=== PATIENT | female | born 1970 | race Caucasian/White ===

== ENCOUNTER → 2017-11-12 11:17 | Outpatient (CLI) | payer MEDICARE, MEDICAID, SELFPAY ==
[2017-11-12 11:26] LABS: Bacteria 0 SEEN /hpf (None Seen); Mucous, Urine 0 SEEN /hpf (<or=2+); Red Blood Cells-Urine 0 SEEN /hpf (0-5); White Blood Cells 0 SEEN /hpf (0-5)
[2017-11-12 14:05] LABS: Color, Urine Yellow (Yellow); Glucose, Dipstick Normal (Normal); Ketone-Dipstick Negative (Negative); Leukocyte Esterase-Dipstick Negative /ul (Negative); Nitrite-Dipstick Negative (Negative); Occult Blood-Urine 25 /ul (Negative); Protein-Dipstick Negative (Negative); Specific Gravity, Urine 1.005 (1.002-1.030); Urine Bilirubin Dipstick Negative (Negative); Urine Clarity Sl. Cloudy (Clear); Urine Urobilinogen Normal (Normal)
[2017-11-12 14:11] LABS: Squamous Epithelial Cells - UA 0-5 SEEN /hpf (5-10)
== END ==
PROVIDERS: Family Provider Family Medicine; PCP Family Medicine; Visit Provider Family Medicine
DX: R31.9 Hematuria, unspecified (principal)
CPT/HCPCS: 81001; 87086; 87088

== ENCOUNTER → 2018-07-25 10:36 | Outpatient (CLI) | payer MEDICARE, MEDICAID, SELFPAY ==
[2018-07-25 12:14] LABS: Absolute Lymphocyte Count 1.91 X10^3/ul (0.83-4.51); Absolute Neutrophil Count 5.1 X10^3/uL (2.0-7.7); Basophil# 0.03 X10^3/uL; Basophil% 0.4 % (0-1); Eosinophil# 0.18 X10^3/uL; Eosinophils% 2.3 % (0-5); Hematocrit 43.2 % (37-47); Hemoglobin 14.1 g/dl (12.0-15.0); Lymphocyte # 1.91 X10^3/ul (4.0); Lymphocyte % 24.7 % (19-41); Mean Corp Hgb Conc 32.6 g/gl (32-36); Mean Corpuscular Hgb 31.2 pg (27.0-32.0); Mean Corpuscular Volume 95.6 fL (81-99); Mean Platelet Vol. 10.8 fl (6.2-12.0); Monocyte# 0.52 X10^3/uL; Monocyte% 6.7 % (0-10); Neutrophil # 5.07 X10^3/uL (2.7-7.7); Neutrophil % 65.5 % (47-70); Platelet Count 283 K/mm3 (150-450); RBC Distribution Width CV 13.3 % (11.6-14.6); RBC Distribution Width SD 45.2 fl (35.1-43.9); Red Blood Count 4.52 M/mm3 (4.2-5.4); White Blood Count 7.7 K/mm3 (4.4-11.0)
[2018-07-25 12:27] LABS: POSITIVE COUNT NO; POSITIVE DIFFERENTIAL NO; POSITIVE MORPHOLOGY NO
[2018-07-25 12:41] LABS: Free T3 1.7 pg/mL (2.18-3.98); T4 Free Direct 1.37 ng/dL (0.76-1.46); Thyroid Stim Hormone (TSH) 3.71 uIU/mL (0.358-3.74)
[2018-07-26 13:21] LABS: Hep B Surface Antibodies Non Reactive (.)
== END ==
PROVIDERS: Family Provider Family Medicine; PCP Family Medicine; Visit Provider Family Medicine
DX: E03.9 Hypothyroidism, unspecified (principal); Z72.0 Tobacco use; Z13.9 Encounter for screening, unspecified
CPT/HCPCS: 36415; 84439; 84443; 84481; 85025; 86706

== ENCOUNTER → 2018-11-03 14:03 | Outpatient (CLI) | payer MEDICARE, MEDICAID, SELFPAY ==
[2018-11-03 15:25] LABS: Absolute Neutrophil Count 5.3 X10^3/uL (2.0-7.7); Basophil# 0.03 X10^3/uL; Basophil% 0.4 % (0-1); Eosinophil# 0.21 X10^3/uL; Eosinophils% 2.5 % (0-5); Hematocrit 43.8 % (37-47); Lymphocyte % 26.4 % (19-41); Mean Corpuscular Volume 96.9 fL (81-99); Mean Platelet Vol. 10.8 fl (6.2-12.0); Monocyte# 0.57 X10^3/uL; Monocyte% 6.8 % (0-10); Neutrophil # 5.28 X10^3/uL (2.7-7.7); Neutrophil % 63.4 % (47-70); Platelet Count 260 K/mm3 (150-450); RBC Distribution Width CV 13.8 % (11.6-14.6); RBC Distribution Width SD 47.7 fl (35.1-43.9); Red Blood Count 4.52 M/mm3 (4.2-5.4); White Blood Count 8.3 K/mm3 (4.4-11.0)
[2018-11-03 15:33] LABS: POSITIVE COUNT NO; POSITIVE DIFFERENTIAL NO; POSITIVE MORPHOLOGY NO
[2018-11-03 15:46] LABS: ALB/GLOB Ratio 0.9 RATIO (0.9-2.4); AST(SGOT) 15 U/L (15-37); Alanine Aminotransfer ALT/SGPT 23 U/L (13-56); Albumin, Serum 3.5 g/dL (3.2-5.0); Alkaline Phosphatase 89 U/L (45-117); Anion Gap 9 (5-15); BUN 9 mg/dL (7-18); BUN/Creat Ratio 11.8 RATIO (10-20); Calcium,Total 8.9 mg/dL (8.5-10.1); Chloride 108 mmol/L (98-107); Creatinine, Serum 0.76 mg/dL (0.55-1.02); EST Glomerular Filtration Rate 86 mL/min (>60); Est Glom Filt Rate - Afr Amer 104 mL/min (>60); Glucose 86 mg/dL (74-106); Potassium 4.1 mmol/L (3.5-5.1); Protein, Total 7.5 g/dL (6.4-8.2); Sodium Level 143 mmol/L (136-145); Thyroid Stim Hormone (TSH) 4.72 uIU/mL (0.358-3.74)
== END ==
PROVIDERS: Family Provider Family Medicine; PCP Family Medicine; Visit Provider Family Medicine
DX: Z01.818 Encounter for other preprocedural examination (principal); E03.9 Hypothyroidism, unspecified
CPT/HCPCS: 36415; 80053; 84443; 85025

== ENCOUNTER → 2018-12-30 10:53 | Outpatient (CLI) | payer MEDICARE, MEDICAID, SELFPAY ==
[2018-12-30 12:45] LABS: Free T3 2.2 pg/mL (2.18-3.98); T4 Free Direct 1.02 ng/dL (0.76-1.46); Thyroid Stim Hormone (TSH) 3.79 uIU/mL (0.358-3.74)
== END ==
PROVIDERS: Family Provider Family Medicine; PCP Family Medicine; Referring Provider Family Medicine; Visit Provider Family Medicine
DX: E03.9 Hypothyroidism, unspecified (principal)
CPT/HCPCS: 36415; 84439; 84443; 84481

== ENCOUNTER → 2019-06-22 | Outpatient (CLI) | payer MEDICARE, MEDICAID, SELFPAY ==
[2019-06-25 15:26] LABS: HPV Reflexed? NOT INDICATED
== END | disposition home or self-care (01) ==
PROVIDERS: Family Provider Family Medicine; PCP Family Medicine; Referring Provider Nurse Practitioner Adult Health; Visit Provider Nurse Practitioner Adult Health
DX: Z01.419 Encounter for gynecological examination (general) (routine) without abnormal findings (principal)
CPT/HCPCS: 88175; G0145

== ENCOUNTER → 2019-06-25 | Outpatient (CLI) | payer MEDICARE, MEDICAID, SELFPAY ==
--- NOTE | 2019-06-25 16:35 | BI_ITS ---
MAMMOGRAPHY - BILATERAL SCREENING REASON FOR EXAM: Female, 48 years old. Routine annual screening examination. PERTINENT HISTORY: Grandmother with breast cancer. TECHNIQUE: Digital bilateral breast gil (3D mammographic acquisition) in the CC and MLO projections. 2-D mediolateral oblique (MLO) and craniocaudad (CC) views of both breasts were obtained. CAD: Full Field Digital Mammography with Computer Added Detection was performed. COMPARISON: Comparison is made with prior study dated August 07, 2017 and September 27, 2011. FINDINGS: Breast Composition: The breasts are heterogeneously dense, which may obscure small masses. There are no dominant masses or suspicious calcifications. No other significant abnormalities are identified. There has been no significant change since the prior study. BI/SCREEN MAMM (CAD) W/GIL BILAT IMPRESSION: Stable bilateral screening mammogram. Yearly follow-up mammogram recommended. (A) ASSESSMENT CATEGORY: BIRADS Category 1: Negative. A letter regarding these results will be sent to the patient by the facility within 30 days. Approximately 10% of breast cancers are not detected by mammography. A normal mammogram should not delay biopsy of a clinically suspicious abnormality. [id number] Electronically Signed: Anshul Rivas, at 8:45 EDT , Service support ,
== END | disposition home or self-care (01) ==
PROVIDERS: Family Provider Family Medicine; PCP Family Medicine; Referring Provider Nurse Practitioner Adult Health; Visit Provider Nurse Practitioner Adult Health
DX: Z12.31 Encounter for screening mammogram for malignant neoplasm of breast (principal)
CPT/HCPCS: 77063; 77067

== ENCOUNTER → 2019-07-10 | Outpatient (CLI) | payer MEDICARE, MEDICAID, SELFPAY ==
[2019-07-10 10:22] LABS: Anion Gap 6 (5-15); BUN 8 mg/dL (7-18); BUN/Creat Ratio 9.4 RATIO (10-20); Calcium,Total 8.7 mg/dL (8.5-10.1); Chloride 105 mmol/L (98-107); Cholesterol 277 mg/dL (200); Creatinine, Serum 0.85 mg/dL (0.55-1.02); EST Glomerular Filtration Rate 75 mL/min (>60); Est Glom Filt Rate - Afr Amer 91 mL/min (>60); Glucose 90 mg/dL (74-106); High Density Lipoprotein 31 mg/dL; Potassium 4.2 mmol/L (3.5-5.1); Sodium Level 137 mmol/L (136-145); Triglycerides 315 mg/dL; Very Low Density Lipoprotein 63 mg/dL (5-40)
== END | disposition home or self-care (01) ==
PROVIDERS: Family Provider Family Medicine; PCP Family Medicine; Referring Provider Nurse Practitioner Adult Health; Visit Provider Nurse Practitioner Adult Health
DX: Z13.1 Encounter for screening for diabetes mellitus (principal); Z13.220 Encounter for screening for lipoid disorders
CPT/HCPCS: 36415; 80048; 80061

== ENCOUNTER → 2019-10-21 14:18 | Outpatient (CLI) | payer MEDICARE, MEDICAID, SELFPAY ==
[2019-10-21 15:32] LABS: Absolute Lymphocyte Count 2.55 X10^3/uL (0.83-4.51); Absolute Neutrophil Count 4.8 X10^3/uL (2.0-7.7); Basophil# 0.04 X10^3/uL; Basophil% 0.5 % (0-1); Eosinophil# 0.25 X10^3/uL; Eosinophils% 3.1 % (0-5); Hematocrit 42.9 % (37-47); Hemoglobin 13.9 g/dL (12.0-15.0); Lymphocyte # 2.55 X10^3/ul (4.0); Lymphocyte % 31.5 % (19-41); Mean Corp Hgb Conc 32.4 g/dL (32-36); Mean Corpuscular Volume 92.7 fL (81-99); Mean Platelet Vol. 10.1 fl (6.2-12.0); Monocyte# 0.46 X10^3/uL; Monocyte% 5.7 % (0-10); NRBC Flagged by Analyzer 0 % (0-5); Neutrophil # 4.77 X10^3/uL (2.7-7.7); Neutrophil % 58.8 % (47-70); Platelet Count 279 K/mm3 (150-450); RBC Distribution Width CV 13.2 % (11.6-14.6); RBC Distribution Width SD 45.4 fl (35.1-43.9); Red Blood Count 4.63 M/mm3 (4.2-5.4); White Blood Count 8.1 K/mm3 (4.4-11.0)
[2019-10-21 16:07] LABS: ALB/GLOB Ratio 0.8 RATIO (0.9-2.4); AST(SGOT) 15 U/L (15-37); Alanine Aminotransfer ALT/SGPT 25 U/L (13-56); Albumin, Serum 3.5 g/dL (3.2-5.0); Alkaline Phosphatase 98 U/L (45-117); Anion Gap 1 (5-15); BUN 12 mg/dL (7-18); Calcium,Total 9.2 mg/dL (8.5-10.1); Chloride 109 mmol/L (98-107); Cholesterol 302 mg/dL (200); Creatinine, Serum 0.86 mg/dL (0.55-1.02); EST Glomerular Filtration Rate 74 mL/min (>60); Est Glom Filt Rate - Afr Amer 90 mL/min (>60); Globulin 4.3 g/dL (2.2-4.2); Glucose 71 mg/dL (74-106); High Density Lipoprotein 32 mg/dL; Potassium 4.4 mmol/L (3.5-5.1); Protein, Total 7.8 g/dL (6.4-8.2); Sodium Level 139 mmol/L (136-145); Thyroid Stim Hormone (TSH) 2.96 uIU/mL (0.358-3.74); Triglycerides 356 mg/dL; Very Low Density Lipoprotein 71 mg/dL (5-40)
== END ==
PROVIDERS: PCP Family Medicine; Referring Provider Family Medicine; Visit Provider Family Medicine
DX: E78.00 Pure hypercholesterolemia, unspecified (principal); E03.9 Hypothyroidism, unspecified; F33.1 Major depressive disorder, recurrent, moderate
CPT/HCPCS: 36415; 80053; 80061; 84439; 84443; 84481; 85025

== ENCOUNTER → 2020-05-09 12:15 | Outpatient (CLI) | payer MEDICARE, MEDICAID, SELFPAY ==
[2020-05-09 14:47] LABS: Absolute Lymphocyte Count 2.31 X10^3/uL (0.83-4.51); Absolute Neutrophil Count 5.2 X10^3/uL (2.0-7.7); Basophil# 0.03 X10^3/uL; Basophil% 0.4 % (0-1); Eosinophil# 0.23 X10^3/uL; Eosinophils% 2.8 % (0-5); Hematocrit 40.6 % (37-47); Hemoglobin 13.1 g/dL (12.0-15.0); Lymphocyte # 2.31 X10^3/ul (4.0); Lymphocyte % 27.6 % (19-41); Mean Corp Hgb Conc 32.3 g/dL (32-36); Mean Corpuscular Hgb 30.3 pg (27.0-32.0); Mean Corpuscular Volume 93.8 fL (81-99); Mean Platelet Vol. 10.2 fl (6.2-12.0); Monocyte# 0.54 X10^3/uL; Monocyte% 6.5 % (0-10); NRBC Flagged by Analyzer 0 % (0-5); Neutrophil % 62.1 % (47-70); Platelet Count 285 K/mm3 (150-450); RBC Distribution Width CV 12.8 % (11.6-14.6); RBC Distribution Width SD 44.2 fl (35.1-43.9); Red Blood Count 4.33 M/mm3 (4.2-5.4); White Blood Count 8.4 K/mm3 (4.4-11.0)
[2020-05-09 15:12] LABS: ALB/GLOB Ratio 0.9 RATIO (0.9-2.4); AST(SGOT) 21 U/L (15-37); Alanine Aminotransfer ALT/SGPT 34 U/L (13-56); Albumin, Serum 3.5 g/dL (3.2-5.0); Alkaline Phosphatase 105 U/L (45-117); Anion Gap 8 (5-15); BUN 8 mg/dL (7-18); BUN/Creat Ratio 7.5 RATIO (10-20); Calcium,Total 8.8 mg/dL (8.5-10.1); Chloride 105 mmol/L (98-107); Cholesterol 188 mg/dL (200); Creatinine, Serum 1.07 mg/dL (0.55-1.02); EST Glomerular Filtration Rate 58 mL/min (>60); Est Glom Filt Rate - Afr Amer 70 mL/min (>60); Globulin 4.1 g/dL (2.2-4.2); Glucose 87 mg/dL (74-106); High Density Lipoprotein 30 mg/dL; Potassium 4.5 mmol/L (3.5-5.1); Protein, Total 7.6 g/dL (6.4-8.2); Sodium Level 140 mmol/L (136-145); T3 Total - Triiodothyronine 0.97 ng/mL (0.6-1.81); T4 Free Direct 1.35 ng/dL (0.76-1.46); Thyroid Stim Hormone (TSH) 2.68 uIU/mL (0.358-3.74); Triglycerides 326 mg/dL; Very Low Density Lipoprotein 65 mg/dL (5-40)
== END ==
PROVIDERS: PCP Family Medicine; Visit Provider Family Medicine
DX: F33.1 Major depressive disorder, recurrent, moderate (principal); E78.00 Pure hypercholesterolemia, unspecified; E03.9 Hypothyroidism, unspecified
CPT/HCPCS: 36415; 80053; 80061; 84439; 84443; 84480; 85025; 87635; U0003

== ENCOUNTER → 2020-08-09 12:33 | Outpatient (CLI) | payer MEDICARE, MEDICAID, SELFPAY | PROVIDERS: PCP Family Medicine; Referring Provider Family Medicine; Visit Provider Family Medicine | DX: Z20.828 Contact with and (suspected) exposure to other viral communicable diseases (principal) | CPT/HCPCS: 87635; U0003 ==

== ENCOUNTER → 2020-09-06 18:07 | Outpatient (CLI) | payer MEDICARE, MEDICAID, SELFPAY | PROVIDERS: PCP Family Medicine; Referring Provider Family Medicine; Visit Provider Family Medicine | DX: Z20.828 Contact with and (suspected) exposure to other viral communicable diseases (principal) | CPT/HCPCS: 87635; U0003 ==

== ENCOUNTER → 2021-03-28 15:13 | Outpatient (CLI) | payer MEDICARE, MEDICAID, SELFPAY ==
[2021-03-28 18:07] LABS: Absolute Lymphocyte Count 2.45 X10^3/uL (0.83-4.51); Absolute Neutrophil Count 7.3 X10^3/uL (2.0-7.7); Basophil# 0.08 X10^3/uL; Basophil% 0.7 % (0-1); Eosinophils% 2.8 % (0-5); Erythrocyte Sedimentation Rate 16 mm/hr (0-30); Hematocrit 46.9 % (37-47); Hemoglobin 15.2 g/dL (12.0-15.0); Lymphocyte # 2.45 X10^3/ul (0.83-4.51); Lymphocyte % 22.6 % (19-41); Mean Corp Hgb Conc 32.4 g/dL (32-36); Mean Corpuscular Hgb 32.1 pg (27.0-32.0); Mean Corpuscular Volume 98.9 fL (81-99); Mean Platelet Vol. 10.3 fl (6.2-12.0); Monocyte# 0.61 X10^3/uL; Monocyte% 5.6 % (0-10); NRBC Flagged by Analyzer 0 % (0-5); Neutrophil # 7.34 X10^3/uL (2.7-7.7); Neutrophil % 67.7 % (47-70); Platelet Count 330 K/mm3 (150-450); RBC Distribution Width CV 13.3 % (11.6-14.6); RBC Distribution Width SD 49.1 fl (35.1-43.9); Red Blood Count 4.74 M/mm3 (4.2-5.4); White Blood Count 10.8 K/mm3 (4.4-11.0)
[2021-03-28 18:29] LABS: ALB/GLOB Ratio 0.9 RATIO (0.9-2.4); AST(SGOT) 28 U/L (15-37); Alanine Aminotransfer ALT/SGPT 38 U/L (13-56); Albumin, Serum 3.6 g/dL (3.2-5.0); Alkaline Phosphatase 129 U/L (45-117); Anion Gap 8 (5-15); BUN 9 mg/dL (7-18); BUN/Creat Ratio 8.3 RATIO (10-20); CRP 7.79 mg/L (0.0-3.0); Calcium,Total 8.9 mg/dL (8.5-10.1); Chloride 103 mmol/L (98-107); Creatinine, Serum 1.09 mg/dL (0.55-1.02); EST Glomerular Filtration Rate 56 mL/min (>60); Est Glom Filt Rate - Afr Amer 68 mL/min (>60); Globulin 4.2 g/dL (2.2-4.2); Glucose 92 mg/dL (74-106); Potassium 4.2 mmol/L (3.5-5.1); Protein, Total 7.8 g/dL (6.4-8.2); Sodium Level 137 mmol/L (136-145); Thyroid Stim Hormone (TSH) 2.41 uIU/mL (0.358-3.74)
== END ==
PROVIDERS: PCP Family Medicine; Visit Provider Family Medicine
DX: R19.7 Diarrhea, unspecified (principal); K92.1 Melena
CPT/HCPCS: 36415; 80053; 84443; 85025; 85652; 86140

== ENCOUNTER → 2021-03-30 09:09 | Outpatient (CLI) | payer MEDICARE, MEDICAID, SELFPAY ==
[2021-04-02 07:52] LABS: H. PYLORI STOOL AG Negative (Negative)
[2021-04-05 21:21] LABS: Calprotectin, Stool 27 ug/g (0-120)
== END ==
PROVIDERS: PCP Family Medicine; Visit Provider Family Medicine
DX: R19.7 Diarrhea, unspecified (principal); K92.1 Melena
CPT/HCPCS: 83630; 83993; 87177; 87209; 87506

== ENCOUNTER → 2021-06-07 16:42 | Outpatient (CLI) | payer MEDICARE, MEDICAID, SELFPAY ==
[2021-06-07 17:40] LABS: Absolute Lymphocyte Count 2.72 X10^3/uL (0.83-4.51); Absolute Neutrophil Count 7.9 X10^3/uL (2.0-7.7); Basophil# 0.06 X10^3/uL; Basophil% 0.5 % (0-1); Eosinophil# 0.27 X10^3/uL; Eosinophils% 2.3 % (0-5); Hematocrit 45.9 % (37-47); Hemoglobin 15.3 g/dL (12.0-15.0); Lymphocyte # 2.72 X10^3/ul (0.83-4.51); Lymphocyte % 23.2 % (19-41); Mean Corp Hgb Conc 33.3 g/dL (32-36); Mean Corpuscular Volume 98.9 fL (81-99); Mean Platelet Vol. 10.2 fl (6.2-12.0); Monocyte# 0.69 X10^3/uL; Monocyte% 5.9 % (0-10); NRBC Flagged by Analyzer 0 % (0-5); Neutrophil # 7.91 X10^3/uL (2.7-7.7); Neutrophil % 67.4 % (47-70); Platelet Count 320 K/mm3 (150-450); RBC Distribution Width CV 12.9 % (11.6-14.6); RBC Distribution Width SD 46.9 fl (35.1-43.9); Red Blood Count 4.64 M/mm3 (4.2-5.4); White Blood Count 11.7 K/mm3 (4.4-11.0)
[2021-06-07 18:25] LABS: Anion Gap 3 (5-15); BUN 8 mg/dL (7-18); BUN/Creat Ratio 10.6 RATIO (10-20); Calcium,Total 9.3 mg/dL (8.5-10.1); Chloride 106 mmol/L (98-107); Creatinine, Serum 0.76 mg/dL (0.55-1.02); EST Glomerular Filtration Rate 85 mL/min (>60); Est Glom Filt Rate - Afr Amer 103 mL/min (>60); Glucose 100 mg/dL (74-106); Potassium 4.3 mmol/L (3.5-5.1); Sodium Level 136 mmol/L (136-145)
== END ==
PROVIDERS: PCP Family Medicine; Referring Provider Family Medicine; Visit Provider Family Medicine
DX: Z01.818 Encounter for other preprocedural examination (principal)
CPT/HCPCS: 36415; 80048; 85025

== ENCOUNTER → 2021-07-21 10:51 | Outpatient (CLI) | payer MEDICARE, MEDICAID, SELFPAY ==
--- NOTE | 2021-07-21 12:54 | BI_ITS ---
MAMMOGRAPHY - BILATERAL SCREENING REASON FOR EXAM: Female, 51 years old. Routine annual screening examination. PERTINENT HISTORY: Grandmother with breast cancer. TECHNIQUE: Digital bilateral breast gil (3D mammographic acquisition) in the CC and MLO projections. 2-D mediolateral oblique (MLO) and craniocaudad (CC) views of both breasts were obtained. CAD: Full Field Digital Mammography with Computer Added Detection was performed. COMPARISON: Comparison is made with prior study dated 06/25/2019 and 08/07/2017. FINDINGS: Breast Composition: There are scattered areas of fibroglandular density. There are no dominant masses or suspicious calcifications. Stable asymmetry of breast tissue where more breast tissue is seen in the upper outer quadrant of the left breast as compared to the right side. Correlation with ultrasound of the upper lateral aspect of the right breast is recommended for further evaluation. No other significant abnormalities are identified. BI/SCRN MAMM (CAD)W/GIL BILAT IMPRESSION: Asymmetry of breast tissue with more breast tissue is seen in the upper-outer quadrant of the left breast as compared to the right side. Correlation with ultrasound is recommended for further evaluation. ASSESSMENT CATEGORY: BIRADS Category 0: Incomplete. Need additional imaging evaluation. A letter regarding these results will be sent to the patient by the facility within 30 days. Approximately 10% of breast cancers are not detected by mammography. A normal mammogram should not delay biopsy of a clinically suspicious abnormality. [id number] Electronically Signed: Anshul Rivas MD at 14:11 EDT , Service support ,
[2021-07-21 12:59] LABS: ALB/GLOB Ratio 0.8 RATIO (0.9-2.4); AST(SGOT) 28 U/L (15-37); Alanine Aminotransfer ALT/SGPT 37 U/L (13-56); Albumin, Serum 3.4 g/dL (3.2-5.0); Alkaline Phosphatase 116 U/L (45-117); Anion Gap 7 (5-15); BUN 7 mg/dL (7-18); Calcium,Total 9.5 mg/dL (8.5-10.1); Chloride 103 mmol/L (98-107); Cholesterol 280 mg/dL (200); Creatinine, Serum 0.87 mg/dL (0.55-1.02); EST Glomerular Filtration Rate 73 mL/min (>60); Est Glom Filt Rate - Afr Amer 88 mL/min (>60); Globulin 4.4 g/dL (2.2-4.2); Glucose 101 mg/dL (74-106); High Density Lipoprotein 30 mg/dL; Potassium 3.9 mmol/L (3.5-5.1); Protein, Total 7.8 g/dL (6.4-8.2); Sodium Level 137 mmol/L (136-145); Triglycerides 451 mg/dL
== END ==
PROVIDERS: PCP Family Medicine; Referring Provider Family Medicine; Visit Provider Family Medicine
DX: Z12.31 Encounter for screening mammogram for malignant neoplasm of breast (principal); E03.9 Hypothyroidism, unspecified; E66.9 Obesity, unspecified
CPT/HCPCS: 36415; 77063; 77067; 80053; 80061; 84443

== ENCOUNTER → 2021-07-25 14:09 | Outpatient (CLI) | payer MEDICARE, MEDICAID, SELFPAY ==
--- NOTE | 2021-07-25 14:14 | US_ITS ---
STUDY: ULTRASOUND BREAST - RIGHT REASON FOR EXAM: Female, 51 years old. Asymmetry of breast tissue on recent mammogram. TECHNIQUE: Axial and longitudinal images of the RIGHT breast were performed with a high resolution ultrasound transducer. # OF IMAGES: 30 COMPARISON: Comparison is made with prior mammogram dated 07/21/2021 and prior sonogram of the right breast dated 09/27/2011. FINDINGS: RIGHT Breast: The upper lateral aspect of the right breast was examined by ultrasound. There is fibroglandular tissue. No solid or cystic mass lesion is seen. US/Breast Limited Unilateral IMPRESSION: No sonographic abnormality is seen. ASSESSMENT CATEGORY: BIRADS Category 2: Benign. A letter regarding these results will be sent to the patient by the facility within 30 days. Electronically Signed: Anshul Rivas MD at 14:53 EDT , Service support ,
== END ==
PROVIDERS: PCP Family Medicine; Referring Provider Family Medicine; Visit Provider Family Medicine
DX: R92.8 Other abnormal and inconclusive findings on diagnostic imaging of breast (principal)
CPT/HCPCS: 76642

== ENCOUNTER 2021-10-24 13:03 | Outpatient (CLI) | payer MEDICARE, MEDICAID, SELFPAY ==
--- NOTE | 2021-10-25 07:12 | PFT ---
INTRODUCTION: The patient is a 51-year-old female that presents for pulmonary function studies secondary to a diagnosis of wheezing and tobacco dependency. Respiratory therapy reported good patient effort. Bronchodilators were used during testing. INTERPRETATION: Forced expiration spirometry demonstrates no evidence of a large airways obstructive ventilatory defect. There was no significant response to aerosolized bronchodilators. Spirograms are of good quality and plateau normally. The respiratory flow volume loop is normal. Body plethysmography was performed and reveals lung volumes to be within normal limits. Diffusing capacity by single breath CO is also within normal limits. IMPRESSION: Grossly normal pulmonary function studies.
== END 2021-10-24 23:59 | disposition short-term general hospital (02) ==
LOC: PSN 13:04
PROVIDERS: PCP Family Medicine; Referring Provider Family Medicine; Visit Provider Family Medicine
DX: R06.2 Wheezing (principal); F17.210 Nicotine dependence, cigarettes, uncomplicated
CPT/HCPCS: 94060; 94726; 94729

== ENCOUNTER → 2022-01-26 | Outpatient (CLI) | payer MEDICARE, MEDICAID, SELFPAY ==
[2022-01-26 14:54] LABS: Absolute Lymphocyte Count 2.72 X10^3/uL (0.83-4.51); Absolute Neutrophil Count 5.5 X10^3/uL (2.0-7.7); Basophil# 0.04 X10^3/uL; Basophil% 0.4 % (0-1); Eosinophil# 0.22 X10^3/uL; Eosinophils% 2.4 % (0-5); Hematocrit 42.1 % (37-47); Hemoglobin 13.9 g/dL (12.0-15.0); Lymphocyte # 2.72 X10^3/ul (0.83-4.51); Lymphocyte % 30.2 % (19-41); Mean Corpuscular Hgb 31.9 pg (27.0-32.0); Mean Corpuscular Volume 96.6 fL (81-99); Mean Platelet Vol. 10.2 fl (6.2-12.0); Monocyte# 0.51 X10^3/uL; Monocyte% 5.7 % (0-10); NRBC Flagged by Analyzer 0 % (0-5); Neutrophil # 5.47 X10^3/uL (2.7-7.7); Neutrophil % 60.7 % (47-70); Platelet Count 305 K/mm3 (150-450); RBC Distribution Width CV 12.5 % (11.6-14.6); RBC Distribution Width SD 44.8 fl (35.1-43.9); Red Blood Count 4.36 M/mm3 (4.2-5.4)
[2022-01-26 15:14] LABS: ALB/GLOB Ratio 0.9 RATIO (0.9-2.4); AST(SGOT) 24 U/L (15-37); Alanine Aminotransfer ALT/SGPT 31 U/L (13-56); Albumin, Serum 3.5 g/dL (3.2-5.0); Alkaline Phosphatase 98 U/L (45-117); Anion Gap 4 (5-15); BUN 9 mg/dL (7-18); BUN/Creat Ratio 12.1 RATIO (10-20); Chloride 107 mmol/L (98-107); Cholesterol 228 mg/dL (200); Creatinine, Serum 0.74 mg/dL (0.55-1.02); EST Glomerular Filtration Rate 87 mL/min (>60); Est Glom Filt Rate - Afr Amer 105 mL/min (>60); Globulin 4.1 g/dL (2.2-4.2); Glucose 108 mg/dL (74-106); High Density Lipoprotein 36 mg/dL; Potassium 3.8 mmol/L (3.5-5.1); Protein, Total 7.6 g/dL (6.4-8.2); Sodium Level 138 mmol/L (136-145); T4 Free Direct 1.23 ng/dL (0.76-1.46); Thyroid Stim Hormone (TSH) 0.29 uIU/mL (0.358-3.74); Triglycerides 263 mg/dL; Very Low Density Lipoprotein 53 mg/dL (5-40)
[2022-01-28 15:40] LABS: LDL, Direct 120295 137 mg/dL (0-99)
== END | disposition home or self-care (01) ==
LOC: BIMLAB 13:33
PROVIDERS: PCP Family Medicine; Referring Provider Family Medicine; Visit Provider Family Medicine
DX: F25.9 Schizoaffective disorder, unspecified (principal); E03.9 Hypothyroidism, unspecified; E78.00 Pure hypercholesterolemia, unspecified
CPT/HCPCS: 36415; 80053; 80061; 83721; 84439; 84443; 85025

== ENCOUNTER → 2022-03-30 | Outpatient (CLI) | payer MEDICARE, MEDICAID, SELFPAY ==
--- NOTE | 2022-03-30 13:10 | RAD_ITS ---
STUDY: X-RAY - LUMBAR SPINE REASON FOR EXAM: Female, 51 years old. LBP TECHNIQUE: XR Spine Lumbar Comp W/ Bending Min 6 Views COMPARISON: None FINDINGS: Normal lumbar lordosis. There is no substantial scoliosis. There is a normal alignment of the vertebrae. Normal vertebral bodies and endplates. Normal disc space heights. There are multiple metallic clips in the right upper quadrant. This is consistent for a cholecystectomy. RAD/L/S Spine w Bend Min 6 Vw IMPRESSION: There are no acute findings. Electronically Signed: Obi Hatch MD at 21:16 EDT ,
== END | disposition home or self-care (01) ==
LOC: MTRAD 12:55
PROVIDERS: PCP Family Medicine; Referring Provider Family Medicine; Visit Provider Family Medicine
DX: M54.50 Low back pain, unspecified (principal)
CPT/HCPCS: 72114

== ENCOUNTER → 2022-05-03 | Outpatient (CLI) | payer MEDICARE, MEDICAID, SELFPAY ==
[2022-05-03 15:10] LABS: Absolute Lymphocyte Count 2.92 X10^3/uL (0.83-4.51); Absolute Neutrophil Count 5.7 X10^3/uL (2.0-7.7); Basophil# 0.05 X10^3/uL; Basophil% 0.5 % (0-1); Eosinophil# 0.26 X10^3/uL; Eosinophils% 2.7 % (0-5); Hemoglobin 14.1 g/dL (12.0-15.0); Lymphocyte # 2.92 X10^3/ul (0.83-4.51); Lymphocyte % 30.7 % (19-41); Mean Corp Hgb Conc 32.8 g/dL (32-36); Mean Corpuscular Volume 97.7 fL (81-99); Mean Platelet Vol. 9.9 fl (6.2-12.0); Monocyte# 0.49 X10^3/uL; Monocyte% 5.2 % (0-10); NRBC Flagged by Analyzer 0 % (0-5); Neutrophil # 5.74 X10^3/uL (2.7-7.7); Neutrophil % 60.5 % (47-70); Platelet Count 304 K/mm3 (150-450); RBC Distribution Width CV 12.8 % (11.6-14.6); RBC Distribution Width SD 46.1 fl (35.1-43.9); White Blood Count 9.5 K/mm3 (4.4-11.0)
[2022-05-03 15:24] LABS: T3 Total - Triiodothyronine 0.72 ng/mL (0.6-1.81)
[2022-05-03 15:52] LABS: ALB/GLOB Ratio 0.8 RATIO (0.9-2.4); AST(SGOT) 23 U/L (15-37); Alanine Aminotransfer ALT/SGPT 27 U/L (13-56); Albumin, Serum 3.4 g/dL (3.2-5.0); Alkaline Phosphatase 91 U/L (45-117); Anion Gap 6 (5-15); BUN 8 mg/dL (7-18); Calcium,Total 8.7 mg/dL (8.5-10.1); Chloride 106 mmol/L (98-107); Creatinine, Serum 0.89 mg/dL (0.55-1.02); EST Glomerular Filtration Rate 71 mL/min (>60); Est Glom Filt Rate - Afr Amer 86 mL/min (>60); Glucose 86 mg/dL (74-106); Potassium 4.3 mmol/L (3.5-5.1); Protein, Total 7.4 g/dL (6.4-8.2); Sodium Level 139 mmol/L (136-145); T4 Free Direct 0.64 ng/dL (0.76-1.46)
== END | disposition home or self-care (01) ==
LOC: BIMLAB 12:23
PROVIDERS: PCP Family Medicine; Visit Provider Family Medicine
DX: E03.9 Hypothyroidism, unspecified (principal); N18.2 Chronic kidney disease, stage 2 (mild)
CPT/HCPCS: 36415; 80053; 84439; 84443; 84480; 85025

== ENCOUNTER → 2022-05-21 | Outpatient (CLI) | payer MEDICARE, MEDICAID, SELFPAY ==
[2022-05-21 13:30] LABS: Free T3 2.5 pg/mL (2.18-3.98); T4 Free Direct 1.08 ng/dL (0.76-1.46); T4 Total, Thyroxin 11.2 ug/dL (4.8-13.9); Thyroid Stim Hormone (TSH) 7.92 uIU/mL (0.358-3.74)
== END | disposition home or self-care (01) ==
PROVIDERS: PCP Family Medicine; Referring Provider Family Medicine; Visit Provider Family Medicine
DX: E03.9 Hypothyroidism, unspecified (principal)
CPT/HCPCS: 36415; 84436; 84439; 84443; 84481

== ENCOUNTER 2022-07-09 11:40 | Emergency (ER) | payer MEDICARE, MEDICAID, SELFPAY ==
[2022-07-09 11:41] VITALS: BP 128/94; PULSE 96; RESP 16; TEMP 35.5; O2SAT 96; BMI 35.2
--- NOTE | 2022-07-09 12:57 | EX.ED.SAOD ---
HPI History of Present Illness Chief Complaint: ETOH Intox Narrative Narrative: History and physical is mildly limited secondary to alcohol intoxication. Patient presents via EMS. She states that she is stressed out about taking care of her kids. Her boyfriend called EMS because she was drinking alcohol. She denies any suicidal ideation. She states she only drinks 2 rum and Cokes today. She denied drinking on a daily basis, and states she does not want detox. It was reported by EMS that she is a daily drinker however, and that she had told her boyfriend that she does not want detox and is not interested in the program but he called because of her alcohol intoxication. [facility] Medical History Acute maxillary sinusitis, unspecified Alcohol abuse Home Medications benztropine 2 mg tablet 2 mg PO DAILY 07/30/15 [History Last Taken Unknown] gabapentin 300 mg capsule 300 mg PO TIDCM 07/30/15 [History Last Taken Unknown] levothyroxine 75 mcg tablet 75 mcg PO DAILY 07/30/15 [History Last Taken Unknown] trazodone 50 mg tablet 50 mg PO QHS 07/30/15 [History Last Taken Unknown] clonidine HCl 0.1 mg tablet 0.1 mg PO QHS 05/04/22 [History Last Taken Unknown] hydroxyzine HCl 25 mg tablet 25 mg PO TID PRN 05/04/22 [History Last Taken Unknown] meloxicam 7.5 mg tablet 7.5 mg PO DAILY 05/04/22 [History Last Taken Unknown] Allergy/AdvReac Type Severity Reaction Status Date / Time ketamine Allergy Unknown unknown Verified 07/09/22 11:41 cortisone Allergy Severe Hives Uncoded 07/09/22 11:41 Social History Smoking Status: Unknown if ever smoked ROS ROS ED ROS Narrative Constitutional: No fever, no chills. HEENT: No sore throat. No neck pain. No loss of vision. No rhinorrhea. Cardiovascular: No chest pain. No palpitations. No pedal edema. Respiratory: No cough, no shortness of breath. Abdominal: No abdominal pain. No nausea. No vomiting. Genitourinary: No dysuria. No hematuria. Musculoskeletal: No myalgias. No arthralgias. Neurologic: No headaches. No dizziness. No lightheadedness. Skin: No rash. No change in color. Psychiatric: No depression. No anxiety. Life stressors. No suicidal ideation. EXAM Physical Exam Narrative Exam Narrative: Afebrile. Vital signs noted. Smells of ferment. HEENT: Normocephalic. Atraumatic. PERRL, EOMI. Neck soft and supple. No point tenderness or step off. Cardiovascular: Regular rate and rhythm. No murmurs, rubs, or gallops appreciated. Respiratory: No tachypnea. Lungs clear to auscultation bilaterally. Gastrointestinal: Abdomen soft, nontender, with normoactive bowel sounds. No rebound or guarding. Neurological: Awake intermittently. Alert. Nonfocal, nonlateralizing. Moves all extremities. Slightly slurred speech secondary to intoxication. Skin: No rash. Normal color. No pallor. Musculoskeletal: No pedal edema. Full range of motion extremities. Const Vital Signs: 07/09/22 11:41 07/09/22 14:00 Temperature 96 F L Temperature Source Temporal Pulse Rate 96 Respiratory Rate 16 16 Blood Pressure 128/94 H Blood Pressure Mean 105 Pulse Ox 96 Oxygen Delivery Method Room Air MDM MDM MDM Narrative Medical decision making narrative: I do not feel that alcohol level is indicated. Is reported that she is a daily drinker and that she is not interested in detox. She will be observed and reassessed. At approximately 1435, her youngest daughter is now at the bedside. Patient has ambulated to the bathroom a few times without difficulty. She states that she has history of schizoaffective disorder and stopped her ECT therapy. She admittedly drank too much alcohol. She states that she drinks every few days, but does not want detox. She will look for outpatient rehab services. Additionally, her daughter is comfortable taking her home. She states she will restart her ECT therapy. I feel she can be discharged safely home as she is clinically sober now. Return instructions to the emergency department were reviewed. Disposition is discharged home in stable condition. Lab Data Attestation: I reviewed the patient's lab results. Discharge Plan Triage Chief Complaint: ETOH Intox ED Provider: Yuri Watson Dx/Rx/DC Orders Clinical Impression: Alcohol intoxication, Stress, History of schizoaffective disorder Instructions: Stress Relief: Activities, ED Alcohol Intoxication Prescriptions: No Action hydroxyzine HCl 25 mg tablet 25 mg PO TID PRN clonidine HCl 0.1 mg tablet 0.1 mg PO QHS meloxicam 7.5 mg tablet 7.5 mg PO DAILY trazodone 50 MG tablet 50 mg PO QHS levothyroxine 75 MCG tablet 75 mcg PO DAILY benztropine 2 MG tablet 2 mg PO DAILY gabapentin 300 MG capsule 300 mg PO TIDCM Primary Care Provider: Eder James Referrals: Eder James MD [Primary Care Provider] - 1 Week if not improving Activity Restrictions/Additional Instructions: Follow-up with your psychiatrist for your ECT therapy as soon as possible. Disposition Disposition: Home, Self Care
[2022-07-09 14:00] VITALS: RESP 16
[2022-07-09 15:00] VITALS: RESP 18
== END 2022-07-09 15:00 | disposition home or self-care (01) ==
PROVIDERS: Emergency Provider Emergency Medicine; PCP Family Medicine; Visit Provider Emergency Medicine
DX: F10.129 Alcohol abuse with intoxication, unspecified (principal)
CPT/HCPCS: 99284

== ENCOUNTER → 2022-10-18 | Outpatient (CLI) | payer MEDICARE, MEDICAID, SELFPAY ==
--- NOTE | 2022-10-18 09:07 | RAD_ITS ---
STUDY: XR Chest 2 Views 10/18/2022 9:15 AM REASON FOR EXAM: Female, 52 years old. CHEST PAIN pain COMPARISON: None TECHNIQUE: XR Chest 2 Views FINDINGS: There is no demonstrated pleural abnormality. Normal heart size. Normal mediastinum. Normal matthew. Prominent appearing increased interstitial lung markings. Normal visualized pulmonary arteries. There is atherosclerotic calcification of the aortic arch with tortuosity. There are diffuse degenerative changes of the visualized thoracic spine. There is degenerative osteoarthritis of the bilateral shoulders. There is no demonstrated abnormality of the visualized soft tissue structures of the upper abdomen. RAD/Chest PA and Lateral IMPRESSION: There are no acute findings. Electronically Signed: Obi Hatch MD at 17:19 [facility] ,
[2022-10-18 10:36] LABS: D-Dimer Quantitative (DVT/PE) 0.46 FEU/ug/m (0.27-0.49)
== END | disposition home or self-care (01) ==
LOC: MTLAB 09:07
PROVIDERS: PCP Family Medicine; Referring Provider Nurse Practitioner Family; Visit Provider Nurse Practitioner Family
DX: R07.9 Chest pain, unspecified (principal)
CPT/HCPCS: 36415; 71046; 85379

== ENCOUNTER → 2023-03-29 | Outpatient (CLI) | payer MEDICARE, MEDICAID, SELFPAY ==
--- NOTE | 2023-03-29 16:40 | RAD_ITS ---
INDICATION: SOB EXAMINATION/TECHNIQUE: X-RAY - XR Chest 2 Views COMPARISON: 10/18/2022. FINDINGS: LINES/DEVICES: None. LUNGS: No consolidation or evidence of an effusion. No evidence of edema or a pneumothorax. MEDIASTINUM AND CARDIOVASCULAR STRUCTURES: Cardiac silhouette is normal in size and contour. Mediastinum is unremarkable. BONES AND SOFT TISSUES: No acute abnormality. RAD/Chest PA and Lateral IMPRESSION: No evidence of cardiopulmonary disease. Electronically Signed: Junaid Worthy DO at 22:39 EDT ,
== END | disposition home or self-care (01) ==
PROVIDERS: PCP Family Medicine; Referring Provider Family Medicine; Visit Provider Family Medicine
DX: E03.9 Hypothyroidism, unspecified (principal); R06.02 Shortness of breath
CPT/HCPCS: 36415; 71046; 84443

== ENCOUNTER → 2023-04-24 | Outpatient (CLI) | payer MEDICARE, MEDICAID, SELFPAY ==
[2023-04-24 18:11] LABS: Absolute Lymphocyte Count 2.49 X10^3/uL (0.83-4.51); Absolute Neutrophil Count 4.5 X10^3/uL (2.0-7.7); Basophil# 0.05 X10^3/uL; Basophil% 0.6 % (0-1); Eosinophil# 0.28 X10^3/uL; Eosinophils% 3.6 % (0-5); Hematocrit 39.6 % (37-47); Hemoglobin 12.9 g/dL (12.0-15.0); Lymphocyte # 2.49 X10^3/ul (0.83-4.51); Lymphocyte % 31.9 % (19-41); Mean Corp Hgb Conc 32.6 g/dL (32-36); Mean Corpuscular Hgb 31.9 pg (27.0-32.0); Mean Platelet Vol. 10.5 fl (6.2-12.0); Monocyte% 5.1 % (0-10); NRBC Flagged by Analyzer 0 % (0-5); Neutrophil # 4.54 X10^3/uL (2.7-7.7); Neutrophil % 58.2 % (47-70); Platelet Count 282 K/mm3 (150-450); RBC Distribution Width CV 12.5 % (11.6-14.6); RBC Distribution Width SD 44.9 fl (35.1-43.9); Red Blood Count 4.04 M/mm3 (4.2-5.4); White Blood Count 7.8 K/mm3 (4.4-11.0)
[2023-04-24 18:34] LABS: ALB/GLOB Ratio 0.8 RATIO (0.9-2.4); AST(SGOT) 27 U/L (15-37); Alanine Aminotransfer ALT/SGPT 31 U/L (13-56); Albumin, Serum 3.3 g/dL (3.2-5.0); Alkaline Phosphatase 85 U/L (45-117); Anion Gap 6 (5-15); BUN 12 mg/dL (7-18); BUN/Creat Ratio 16.2 RATIO (10-20); Calcium,Total 8.6 mg/dL (8.5-10.1); Chloride 109 mmol/L (98-107); Creatinine, Serum 0.74 mg/dL (0.55-1.02); EST Glomerular Filtration Rate 87 mL/min (>60); Est Glom Filt Rate - Afr Amer 105 mL/min (>60); Ferritin 164 ng/mL (8-252); Glucose 125 mg/dL (74-106); Magnesium 2.2 mg/dL (1.6-2.6); Potassium 3.8 mmol/L (3.5-5.1); Protein, Total 7.3 g/dL (6.4-8.2); Sodium Level 141 mmol/L (136-145); Thyroid Stim Hormone (TSH) 1.11 uIU/mL (0.358-3.74)
[2023-04-24 18:52] LABS: HIV - WCH Non-Reactive (Nonreactive); Syphilis Antibodies Non-reactive; Vitamin B12 438 pg/mL (211-911); Vitamin D,25 Hydroxy 27.1 ng/mL
[2023-04-27 03:07] LABS: Chlamydia By Nucleic Acid AMP Negative (Negative); Gonococcus By Nucleic Acid AMP Negative (Negative); HEPATITIS B SURFACE AG Negative (Negative); Hep C Antibodies Non Reactive (Non Reactive); Hepatitis A IgM Antibody Negative (Negative); Hepatitis B Core AB IgM Negative (Negative)
== END | disposition home or self-care (01) ==
PROVIDERS: PCP Family Medicine; Referring Provider Family Medicine; Visit Provider Family Medicine
DX: R25.2 Cramp and spasm (principal); Z11.3 Encounter for screening for infections with a predominantly sexual mode of transmission
CPT/HCPCS: 36415; 80053; 80074; 82306; 82607; 82728; 83735; 84439; 84443; 85025; 86703; 86780; 87491; 87591

== ENCOUNTER → 2023-06-11 | Outpatient (CLI) | payer MEDICARE, MEDICAID, SELFPAY ==
--- NOTE | 2023-06-11 13:50 | RAD_ITS ---
STUDY: X-RAY - LUMBAR SPINE REASON FOR EXAM: Female, 52 years old. Right sciatica. TECHNIQUE: 5 view(s) of the lumbar spine were obtained. COMPARISON: None FINDINGS: Normal lumbar lordosis. No substantial scoliosis. Normal alignment of the vertebrae. Mild diffuse lower thoracic and lumbosacral facet sclerosis. Minimal intervertebral disc space narrowing at L4-5 and L5-S1. Cholecystectomy clips and clip projected over the right midabdomen. Vascular calcification. RAD/L/S Spine Min 4 Views IMPRESSION: Mild lower thoracic and lumbosacral spondylosis. No acute abnormality or erosive changes. Electronically Signed: Shorty Clements MD at 15:07 EDT ,
== END | disposition home or self-care (01) ==
LOC: MTRAD 13:40
PROVIDERS: PCP Family Medicine; Visit Provider Family Medicine
DX: M54.31 Sciatica, right side (principal)
CPT/HCPCS: 72110

== ENCOUNTER 2023-09-05 09:00 | Outpatient (RCR) | payer MEDICARE, MEDICAID, SELFPAY ==
--- NOTE | 2023-08-20 09:48 | HP.PTEVAL_ITS ---
Patient's Visit Information Visit Information Visit Information: LAZARO NARANJO is a 53 year old F referred to Physical Therapy by Dr. Ayan Ariza MD with a diagnosis of Lumbar radicuolpathy. Date of Evaluation: 08/20/23 Physical Therapist: JANETT Quan Visit Plan Frequency: 2x /Week Duration: 2 Months Plan: 2X/ week for 6-8 weeks for Balance Peformance Eval and then AT for treatment of core stability, LE strength, balance with HEP Subjective Subjective: Pt has been having really bad sciatic pain that was on the R and now on the L leg. It really hurt while she drives. She bought a $10 vibrating back pillow and that helps when she drives. She was given gabapentin and muscle relaxer and that helps when she needs it. They took an x-ray and showed arthritis. She has fallen 3X in the last month and the first time was at home and the second time she was at an office on slippery floor (big bruise and still there). She feels that her legs are weak and when she is sleeping she will wake up with numbness in her hands. He recommended PT and will have MRI that is scheduled for Aug 10. She has no trouble getting in and out of bed, out of a chair, or up off the floor. Stairs are an issue and she bought a cane to help with her balance. She has significant hearing loss on the L side. She is not sleeping well and working with her Dr on some meds. She has been having insomnia for last few weeks. She tries to get 4 hours but she does not sleep well. 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 Pain back pain: Pain Intensity (Out of 10): 6 R leg pain: Pain Intensity (Out of 10): 0 L leg pain: Pain Intensity (Out of 10): 5 Objective Objective: Gait: walks with smaller step length but equal stance time on B LE's Trunk AROM: Flexion 100%, SB B 50%, Rot B 76%, Ext 50% LE MMT: R hip flex 6.8 and L 8.7 R knee ext 19.7 and L 24.3 R knee flex 7.8 and L 9.1 R hip abd 11.1 and L 12.8 Patellar DTR: 0/3 SLUMP: + for pain in the calf on B sides SLR: + for pain on the R for calf pain and - on the L FGA: 10 (walking BW almost fell, one foot in front of the other had to put hands on the wall, Looking vertical and horizontal she had increase veering) Balance/Special Test Scores Functional Gait Assessment Score: 10 % Disability: 66.6700 Oswestry Low Back Score: 24 Goals Goal 1:: I HEP Goal Time Frame: 6-8 Weeks Goal 2:: Complete balance performance assessment per order Goal Time Frame: 6-8 Weeks Goal 3:: Increase LE strength (at time of eval: LE MMT: R hip flex 6.8 and L 8.7 R knee ext 19.7 and L 24.3 R knee flex 7.8 and L 9.1 R hip abd 11.1 and L 12.8). Goal Time Frame: 6-8 Weeks Goal 4:: Increase balance (score on FGA was 10 at eval). Goal Time Frame: 6-8 Weeks Goal 5:: Decrease pain in L leg by 50% Goal Time Frame: 6-8 Weeks Goal 6:: Decrease freq of falls Goal Time Frame: 6-8 Weeks Rehabilitation Potential Rehabilitation Potential: Fair Anticipated Interventions Patient/Client Instruction: Educate patient on: Condition and Plan of Care For the Purpose of:: To decrease pain, To increase ROM, To improve nutrient delivery to tissue, To improve muscle performance and motor function, To improve ability to perform ADL's, To increase tolerance to activity/condition/position, To improve performance and independence with ADL's, To improve ability of physical actions for home/community/work/leisure, To improve gait and locomotor functions, To improve health of tissue, To improve endurance, To improve balance and To improve safety with gait Therapeutic Exercise to Include: Strength training, Endurance training, Balance training, Postural training, Flexibilty training, Gait and locomotor training, Neuromotor development, In an aquatic setting , Active ROM, Dynamic Lumbar Stabilization and Scapular Strength/Stabilization For the Purpose of:: To decrease pain, To increase ROM, To improve nutrient delivery to tissue, To improve muscle performance and motor function, To improve ability to perform ADL's, To increase tolerance to activity/condition/position, To improve performance and independence with ADL's, To decrease level of supervision to perform tasks, To improve ability of physical actions for home/community/work/leisure, To improve gait and locomotor functions, To improve health of tissue, To increase flexibility/ROM, To improve endurance and To improve balance Functional Training to Include: Gait training For the Purpose of:: To improve gait and locomotor functions Text: Thank you for the opportunity to evaluate your patient. For Medicare and Medicare HMO plans, please review the plan of care and approve it. It will need to be FAXED BACK to us at [phone] for Medicare purposes. For Medicare only, by signing this I certify the plan of care. Please let me know if there are questions or concerns regarding this plan of care. Physician Signature: Date:
--- NOTE | 2023-08-29 11:00 | HP.PTCOM ---
PT Communication Note 08/29/[address] Ayan Ariza MD , Today I saw Adela Amos for a Balance Performance Evaluation on our [employer] Balance System. Below are the results. On the M-CTSIB the pt scored a 1.5 SD below the age related norms on the trials of Eyes closed firm surface and Eyes open foam surface.? Eyes open on a firm surface and Eyes closed on a foam surface were normal for this age group On the Limits of Stability Test the pt scored below normal in all areas of weight shifting in all directions with an overall composite score of 38% of the Standard.? My observation is that the patient was moving more her trunk as opposed to actual weight shifting. On the Fall risk assessment test the pt scored normal with no fall risk. At this time I plan on seeing the pt in the Aquatic Therapy setting for her back to work on core stability, LE strength and to also incorporate some limits of stability and eyes closed balance activities. Thank you for the referral of Adela to our clinic. Sincerely, JANETT Quan Contact Information
--- NOTE | 2023-11-25 15:20 | HP.PT.NRP ---
Patient Information Patient Information: LAZARO NARANJO was seen in my office for initial evaluation on 08/20/23. The following Plan of Care was established for this patient: POC Established Initial Frequency: 2x /Week Initial Duration: 2 Months Anticipated Interventions Patient/Client Instruction: Educate patient on: Condition and Plan of Care For the Purpose of:: To decrease pain, To increase ROM, To improve nutrient delivery to tissue, To improve muscle performance and motor function, To improve ability to perform ADL's, To increase tolerance to activity/condition/position, To improve performance and independence with ADL's, To improve ability of physical actions for home/community/work/leisure, To improve gait and locomotor functions, To improve health of tissue, To improve endurance, To improve balance and To improve safety with gait Therapeutic Exercise to Include: Strength training, Endurance training, Balance training, Postural training, Flexibilty training, Gait and locomotor training, Neuromotor development, In an aquatic setting , Active ROM, Dynamic Lumbar Stabilization and Scapular Strength/Stabilization For the Purpose of:: To decrease pain, To increase ROM, To improve nutrient delivery to tissue, To improve muscle performance and motor function, To improve ability to perform ADL's, To increase tolerance to activity/condition/position, To improve performance and independence with ADL's, To decrease level of supervision to perform tasks, To improve ability of physical actions for home/community/work/leisure, To improve gait and locomotor functions, To improve health of tissue, To increase flexibility/ROM, To improve endurance and To improve balance Functional Training to Include: Gait training For the Purpose of:: To improve gait and locomotor functions Last Seen Last Seen: This patient was last seen in our office 09/05/23. Pertinent comments regarding their Physical therapy will appear below: CHRISSY PT At this point I will be discontinuing this patient from physical therapy. I would be happy to see this patient again in the future if found appropriate by the physician. Thank you! Leonor Morris, JANETT Balance/Gait/Functional tests Balance/Special Test Scores Functional Gait Assessment Score: 10 % Disability: 66.6700 Oswestry Low Back Score: 24
== END 2023-09-05 19:00 | disposition home or self-care (01) ==
LOC: PT 09:00
PROVIDERS: Referring Provider Orthopaedic Surgery Orthopaedic Surgery of the Spine; Visit Provider Orthopaedic Surgery Orthopaedic Surgery of the Spine
DX: M54.16 Radiculopathy, lumbar region (principal)
CPT/HCPCS: 97113; 97162; 97750

== ENCOUNTER → 2023-09-09 | Outpatient (CLI) | payer MEDICARE, MEDICAID, SELFPAY ==
--- NOTE | 2023-09-09 08:45 | MRI_ITS ---
STUDY: MRI LUMBAR SPINE WITHOUT CONTRAST REASON FOR EXAM: Female, 53 years old. Lumbar radiculopathy TECHNIQUE: Standardized fat and water weighted pulse sequences were obtained in the sagittal and axial planes. COMPARISON: None FINDINGS: T9-T10, T10-T11, T11-12 and T12-L1: (Sagittal only). Normal endplates. Normal disc height, hydration and morphology. Normal central canal and bilateral intervertebral neural foramina. Normal lumbar lordosis. There is no substantial scoliosis. Normal conus medullaris that terminates at the T12-L1 disc space level. L1-2: Normal endplates. Normal disc height, hydration and morphology. Normal bilateral facet joints. Normal central canal and bilateral lateral recesses. Normal bilateral intervertebral neural foramina. Small right renal parenchymal cyst is visible at this level L2-3: Normal endplates. Normal disc height, hydration and morphology. Normal bilateral facet joints. Normal central canal and bilateral lateral recesses. Normal bilateral intervertebral neural foramina. L3-4: Normal endplates. Normal disc height, hydration and morphology. Normal bilateral facet joints. Normal central canal and bilateral lateral recesses. Normal bilateral intervertebral neural foramina. L4-5: Normal endplates. Normal disc height, hydration and morphology. Normal bilateral facet joints. Normal central canal and bilateral lateral recesses. Normal bilateral intervertebral neural foramina. L5-S1: Normal endplates. Normal disc height, hydration and morphology. Normal bilateral facet joints. Normal central canal and bilateral lateral recesses. Normal bilateral intervertebral neural foramina. Normal visualized sacral ala. Normal visualized paraspinous soft tissue structures. MRI/Spine Lumbar (Routine) IMPRESSION: No MRI evidence of lumbar extruded disc fragment, disc protrusion, spinal stenosis or nerve root displacement. Electronically Signed: Yuri Lucero MD at 11:17 [facility] ,
--- NOTE | 2023-09-09 10:15 | MRI_ITS ---
EXAM: MR CERVICAL SPINE WITHOUT INTRAVENOUS CONTRAST CLINICAL INDICATION: cervical myelopathy TECHNIQUE: Multiplanar and multisequence MR images of the cervical spine without intravenous contrast were performed. COMPARISON: No relevant prior studies available. FINDINGS: VERTEBRAE: Normal. Normal vertebral bodies and posterior elements. Normal alignment. Normal craniocervical junction and cervicothoracic junction. No spondylolisthesis. There is preservation of the normal cervical lordosis. SPINAL CORD: Unremarkable in signal and morphology. SOFT TISSUES: Normal. No prevertebral soft tissue swelling. LYMPH NODES: Normal. There is no cervical adenopathy. DISCS/SPINAL CANAL/NEURAL FORAMINA: C2-C3: Normal. Normal disc height and morphology. Normal spinal canal. Normal neuroforamina. C3-C4: Normal. Normal disc height and morphology. Normal spinal canal. Normal neuroforamina. C4-C5: Normal. Normal disc height and morphology. Normal spinal canal. Normal neuroforamina. C5-C6: No significant disc space narrowing. Mild broad-based disc protrusion and posterior ligamentous redundancy causes no significant compression of the thecal sac. Neural foramina are intact. C6-C7: Moderate disc space narrowing. Broad-based disc osteophyte complex and posterior ligamentous redundancy results in mild compression of the thecal sac and mild narrowing of the neural foramina. C7-T1: Moderate disc space narrowing. Mild broad-based disc protrusion causes minimal impression on the thecal sac. Intact neural foramina. MRI/Spine Cervical (Routine) IMPRESSION: Multilevel spondylosis without significant spinal or neural foraminal stenosis. Intact cervical cord. Electronically Signed: Tomas Gorman MD at 15:05 EST ,
== END | disposition home or self-care (01) ==
PROVIDERS: PCP Family Medicine; Referring Provider Orthopaedic Surgery Orthopaedic Surgery of the Spine; Visit Provider Orthopaedic Surgery Orthopaedic Surgery of the Spine
DX: M54.16 Radiculopathy, lumbar region (principal)
CPT/HCPCS: 72141; 72148

== ENCOUNTER → 2023-10-31 | Outpatient (CLI) | payer MEDICARE, SELFPAY ==
--- NOTE | 2023-10-31 10:24 | BI_ITS ---
MAMMOGRAPHY - BILATERAL SCREENING REASON FOR EXAM: Female, 53 years old. Routine annual screening examination. PERTINENT HISTORY: Grandmother with breast cancer. TECHNIQUE: Digital bilateral breast gil (3D mammographic acquisition) in the CC and MLO projections. 2-D mediolateral oblique (MLO) and craniocaudad (CC) views of both breasts were obtained. CAD: Full Field Digital Mammography with Computer Added Detection was performed. COMPARISON: Comparison is made with prior study July 21, 2021 and June 25, 2019. FINDINGS: Breast Composition: There are scattered areas of fibroglandular density. There are no dominant masses or suspicious calcifications. Stable asymmetry of breast tissue or more breast tissue is seen in the upper-outer quadrant of left breast as compared to the right side. No other significant abnormalities are identified. There has been no significant change since the prior study. BI/SCRN MAMM (CAD)W/GIL BILAT IMPRESSION: Stable bilateral screening mammogram. Yearly follow-up mammogram recommended. (A) ASSESSMENT CATEGORY: BIRADS Category 2: Benign. A letter regarding these results will be sent to the patient by the facility within 30 days. Approximately 10% of breast cancers are not detected by mammography. A normal mammogram should not delay biopsy of a clinically suspicious abnormality. [id number] Electronically Signed: Anshul Riavs MD at 11:13 EST ,
== END | disposition home or self-care (01) ==
LOC: OPBI 10:22
PROVIDERS: PCP Family Medicine; Referring Provider Nurse Practitioner Family; Visit Provider Nurse Practitioner Family
DX: Z12.31 Encounter for screening mammogram for malignant neoplasm of breast (principal)
CPT/HCPCS: 77063; 77067

== ENCOUNTER 2023-11-20 08:19 | Outpatient (CLI) | payer MEDICARE, MEDICAID, SELFPAY ==
[2023-11-20 10:12] LABS: Absolute Lymphocyte Count 2.69 X10^3/uL (0.83-4.51); Absolute Neutrophil Count 5.8 X10^3/uL (2.0-7.7); Basophil# 0.05 X10^3/uL; Basophil% 0.5 % (0-1); Eosinophil# 0.26 X10^3/uL; Eosinophils% 2.8 % (0-5); Hematocrit 46.4 % (37-47); Hemoglobin 15.1 g/dL (12.0-15.0); Lymphocyte # 2.69 X10^3/ul (0.83-4.51); Lymphocyte % 28.6 % (19-41); Mean Corp Hgb Conc 32.5 g/dL (32-36); Mean Corpuscular Volume 95.3 fL (81-99); Mean Platelet Vol. 9.7 fl (6.2-12.0); Monocyte% 6.4 % (0-10); NRBC Flagged by Analyzer 0 % (0-5); Neutrophil # 5.78 X10^3/uL (2.7-7.7); Neutrophil % 61.5 % (47-70); Platelet Count 313 K/mm3 (150-450); RBC Distribution Width CV 12.7 % (11.6-14.6); Red Blood Count 4.87 M/mm3 (4.2-5.4); White Blood Count 9.4 K/mm3 (4.4-11.0)
[2023-11-20 10:29] LABS: Prothrombin Time (Protime)PT. 12.7 SECONDS (11.7-14.9)
[2023-11-20 10:30] LABS: Partial Thromboplast Time 35.4 Seconds (24.1-36.2)
[2023-11-20 11:02] LABS: ALB/GLOB Ratio 0.8 RATIO (0.9-2.4); AST(SGOT) 22 U/L (15-37); Alanine Aminotransfer ALT/SGPT 24 U/L (13-56); Albumin, Serum 3.4 g/dL (3.2-5.0); Alkaline Phosphatase 86 U/L (45-117); Anion Gap 3 (5-15); BUN 9 mg/dL (7-18); BUN/Creat Ratio 10.3 RATIO (10-20); Calcium,Total 8.8 mg/dL (8.5-10.1); Chloride 107 mmol/L (98-107); Creatinine, Serum 0.88 mg/dL (0.55-1.02); EST Glomerular Filtration Rate 71 mL/min (>60); Est Glom Filt Rate - Afr Amer 86 mL/min (>60); Glucose 96 mg/dL (74-106); Potassium 4.1 mmol/L (3.5-5.1); Protein, Total 7.4 g/dL (6.4-8.2); Sodium Level 138 mmol/L (136-145); Thyroid Stim Hormone (TSH) 0.88 uIU/mL (0.358-3.74)
== END 2023-11-20 23:59 | disposition home or self-care (01) ==
PROVIDERS: PCP Family Medicine; Referring Provider Family Medicine; Visit Provider Family Medicine
DX: F25.9 Schizoaffective disorder, unspecified (principal); R73.03 Prediabetes
CPT/HCPCS: 36415; 80053; 82140; 84443; 85025; 85610; 85730

== ENCOUNTER → 2024-01-02 | Outpatient (CLI) | payer MEDICARE, MEDICAID, SELFPAY ==
[2024-01-02 13:06] LABS: Amphetamine Urine VISTA NEGATIVE (<1000 ng/mL); Barbiturate Urine VISTA NEGATIVE (< 200 ng/mL); Benzodiazepine Urine VISTA NEGATIVE (< 200 ng/mL); Cocaine Urine VISTA NEGATIVE (< 300 ng/mL); Ecstacy Urine VISTA NEGATIVE (< 500 ng/mL); Methadone Urine VISTA NEGATIVE (< 300 ng/mL); PCP Urine VISTA NEGATIVE (< 25 ng/mL); THC Urine VISTA NEGATIVE (< 50 ng/mL); Vista UDS pH Range 6
== END | disposition home or self-care (01) ==
PROVIDERS: PCP Family Medicine; Referring Provider Anesthesiology Pain Medicine; Visit Provider Anesthesiology Pain Medicine
DX: F11.20 Opioid dependence, uncomplicated (principal)
CPT/HCPCS: 80307

== ENCOUNTER 2024-04-22 12:49 | Outpatient (RCR) | payer MEDICARE, MEDICAID, SELFPAY ==
--- NOTE | 2024-04-22 14:39 | HP.OTFCE_ITS ---
Task Lift Floor (Occasional 1-33% of Day): max lift 35# Floor (Frequent 34-66% of Day): max lift 17.5# Floor (Constant 67-100% of Day): max lift 7.36# Floor PDL: Light-Medium Knee (Occasional 1-33% of Day): max lift 35# Knee (Frequent 34-66% of Day): max lift 17.5# Knee (Constant 67-100% of Day): max lift 7.36# Knee PDL: Light-Medium Waist (Occasional 1-33% of Day): max lift 35# Waist (Frequent 34-66% of Day): max lift 17.5# Waist (Constant 67-100% of Day): max lift 7.36# Waist PDL: Light-Medium Shoulder (Occasional 1-33% of Day): max lift 25# Shoulder (Frequent 34-66% of Day): max lift 12.5# Shoulder (Constant 67-100% of Day): max lift 5.36# Shoulder PDL: Light Overhead (Occasional 1-33% of Day): max lift 25# Overhead (Frequent 34-66% of Day): max lift 12.5# Overhead (Constant 67-100% of Day): max lift 5.36# Overhead PDL: Light Work Activity/Posture Bending: Frequent Ability (34-66% of day) Squatting: Occasional Ability (1-33% of day) Kneeling: Occasional Ability (1-33% of day) Comments: better kneeling on L knee Reaching out: Constant Ability (67-100% of day) Reaching up: Constant Ability (67-100% of day) Sitting: Constant Ability (67-100% of day) Walking: Frequent Ability (34-66% of day) Standing: Frequent Ability (34-66% of day) Reference Reference: Duration Sedentary Sedentary Light Light Light Medium Medium Medium Heavy Very Heavy Heavy Occasional (0-33% of day) Frequent (34-66% of day) Constant (67-100% of day) 10 # Negligible Negligible 15 # 8 # Negligible 20 # 10# Negli. 35 # 18 # 7 # 50 # 25 # 10 # 75 # 100 # >100 # 38 # 50 # >50 # 15 # 20 # >20 # Patient Information Height: 1.52 m Weight:: 78.106 kg Hand Dominance: left Medical History Medical History Including Restrictions: Patient reports lower back and sciatica pain started ~ 1 year ago in summer of 2022 and has gotten gradually worse. Initially, pt used a vibrating pillow for her low back (which helped somewhat) then it no longer worked. Patient went to primary doctor who then referred to pain mgmt. Pain mgmt physician started with steriod injections which help short term but then pain returns ~3 weeks later. Xrays and MRI were completed back in 2022. Patient continues to receive injections in her low back, her most recent one was 2 weeks ago. She is taking tramadol and gabapentin to help with sciatic nerve pain. Patient participated in aquatic physical therapy for 3 weeks but stopped, feeling that PT made her back more sore. Diagnoses Diagnoses: chronic lower back pain sciatica arthritis Symptoms Symptoms: Patient reports feeling a tightness in her lower back that radiates down her legs (sciatica). She also feels tingling and numbness down bilateral legs that comes and goes. Pain and sciatica are worse the days she works. 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 Patient is standing/on her feet 95% of the time. 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 Behavioral Behavioral: Patient alert and cooperative. Patient communicated verbally and indep historian of [facility] [place]. ADLS ADLS: Lives alone in a single level home with 2 [address] no handrail. Patient will use a cane for ambulation when pain is really bad. Patient is completing her ADL's independently. She reports feeling stiff in the morning. Patient completes IADL's indep as well. Physical Examination Physical Examination: Patient is well appearing. She independently ambulated from waiting room back to therapy area. She completed functional transfers independently and was able to complete all assessment tasks. Left handed, wears glasses ROM: Patient demonstrates within normal limits range of motion for entire body. With single leg stance when testing one LE ROM at a time, patient reports beginning of pulling sensation in her lower back. Strength: shoulder flexion: R 20.8#/ L 26.4#; extension R 30.1#/ L29.2# elbow flexion: R 17.7#/ L21.0; extension R 22.3#/ L 24.3 wrist flexion R 14.1#/ L 17.0#; extension R 17.4/ L 17.2# hip flexion R 6.6#/ L 11.2# knee flexion R 16.1#/ L 18.2#; extension R 22.0#/ L 22.4# Right Women'S Garment Fitter Strength Average: 39.33 Right Women'S Garment Fitter Strength Percentile: 3rd Left Women'S Garment Fitter Strength Average: 38.33 Left Women'S Garment Fitter Strength Percentile: 2.7th Right Lateral Pinch Average: 6.33 Right Lateral Pinch Percentile: <10th Left Lateral Pinch Average: 5.66 Left Lateral Pinch Percentile: <10th Right Tripod Pinch Average: 5.66 Right Tripod Pinch Percentile: <10th Left Tripod Pinch Average: 5.66 Left Tripod Pinch Percentile: <10th Sensation: Patient reports intermittent tingling/numbness in bilateral lower extremities, radiating nerve pain from her lower back. Fine Motor: Patient reports she thinks she has arthritis, will feel somewhat achey in her hands when completing fine motor tasks such as meal prep in the kitchen. Balance: Pain impacts balance but generally no issues with balance. She reports she has fallen a few times in the winter but wonders if it was more because it was slippery out vs back pain causing it. Non Material Handling Activities Bending: Patient able to complete 3 reps then 10 reps of a functional bed simulating reach/retrieval of an item on the floor. Patient reported slight increase in pain/pulling sensation in lower back at end of 10 reps (pain 4/10). Squatting: Patient able to complete only 3 reps of squatting (poor form/bending at waist) before indicating increase in pain and feeling she needs to stop. Kneeling: Patient able to kneel with right knee down max of 3 reps with heavy upper body support. Patient able to complete a total of 8 reps kneeling on left knee with moderate upper body support. Reaching out/up: completed 3 reps then 10 reps out and up without increase in pain. Walking: Patient walked a total of ~12 minutes before needing to sit down due to reported increase in pain (7/10 pain). Indep walking, no use of adaptive equipment or support. Standing: Patient stood or walked for ~25 min before needing a seated rest break (pain 7/10). Sitting: Patient able to sit for ~25 minutes without increase in pain or discomfort. Patient reports sitting eases pain in her lower back. Climbing Stairs: Patient independently climbed a flight of stairs reciprocally without use of handrail. Dynamic Occasional Lifting Capacity Floor Lift: max lift 35#, use mostly upper body for lifting, bent at her waist Knee Lift: max lift 35# Waist Lift: max lift 35# Shoulder Lift: max lift 25# (reports pulling sensation in her back) Overhead Lift: max lift 25# Carrying: max lift 25# (reported increase to 7/10 pain after lifting tasks)
--- NOTE | 2024-04-22 14:40 | HP.OTFCE.D ---
FCE D/C Summary Discharge text: LAZARO Iain VELEZNARANJO was seen for a one time visit for an FCE on 04/22/24 and is discharged.
== END 2024-04-22 19:00 | disposition home or self-care (01) ==
LOC: OT 12:49
PROVIDERS: PCP Family Medicine; Referring Provider Anesthesiology Pain Medicine; Visit Provider Anesthesiology Pain Medicine
DX: G89.4 Chronic pain syndrome (principal)
CPT/HCPCS: 97750

== ENCOUNTER → 2024-04-23 | Outpatient (CLI) | payer MEDICARE, MEDICAID, SELFPAY ==
[2024-04-23 13:27] LABS: Amphetamine Urine VISTA NEGATIVE (<1000 ng/mL); Barbiturate Urine VISTA NEGATIVE (< 200 ng/mL); Benzodiazepine Urine VISTA NEGATIVE (< 200 ng/mL); Cocaine Urine VISTA NEGATIVE (< 300 ng/mL); Ecstacy Urine VISTA NEGATIVE (< 500 ng/mL); Methadone Urine VISTA NEGATIVE (< 300 ng/mL); PCP Urine VISTA NEGATIVE (< 25 ng/mL); THC Urine VISTA NEGATIVE (< 50 ng/mL); Vista UDS pH Range 7
== END | disposition home or self-care (01) ==
PROVIDERS: PCP Family Medicine; Referring Provider Anesthesiology Pain Medicine; Visit Provider Anesthesiology Pain Medicine
DX: F11.20 Opioid dependence, uncomplicated (principal)
CPT/HCPCS: 80307

== ENCOUNTER 2024-05-22 11:10 | Emergency (ER) | payer MEDICARE, MEDICAID, SELFPAY ==
[2024-05-22 11:11] VITALS: BP 108/73; PULSE 73; RESP 16; TEMP 36; O2SAT 98; BMI 34.4
--- NOTE | 2024-05-22 11:33 | EX.ED.DYSGE1 ---
HPI History of Present Illness Chief Complaint: General Illness Informant: patient Onset/Context/Timing Onset: Days Context: Gradual Onset Timing: Continuous Current Severity: Mild Maximum Severity: Mild Narrative Narrative: 53-year-old female history of schizoaffective disorder and hypothyroidism. Also goes to pain management for chronic back pain. States 1 to 2 weeks ago she had the nerves in her lower back burn. Said it did not work. She can feel everything when they did it and has not caused any improvement and the anesthetic did not work either. Said she just has not been feeling well. She denies any vomiting, diarrhea or fever. No dysuria. No chest or abdominal pain. Prior similar symptoms: No Recent Illness/Hospitalization: No [facility] Medical History History of electroconvulsive therapy Insomnia Schizoaffective disorder, depressive type Alcohol abuse Acute maxillary sinusitis, unspecified Home Medications ?Medication ?Instructions ?Recorded ?Last Taken ?Type famotidine 20 mg tablet 20 mg PO DAILY 03/18/23 Unknown History levothyroxine 125 mcg tablet 125 mcg PO DAILY 03/18/23 Unknown History levothyroxine 150 mcg tablet 150 mcg PO DAILY 03/18/23 Unknown History meloxicam 15 mg tablet 15 mg PO DAILY 03/18/23 Unknown History rosuvastatin 10 mg tablet 10 mg PO DAILY 03/18/23 Unknown History gabapentin 100 mg capsule mg PO Q8H 07/02/23 Unknown History ondansetron HCl 4 mg tablet mg PO 08/08/23 Unknown History sumatriptan succinate 50 mg tablet 50 mg PO ONCE PRN migraine 11/21/23 Unknown Rx (Imitrex) headache #10 tabs baclofen 10 mg tablet 10 mg PO TID 03/12/24 Unknown History propranolol 20 mg tablet 20 mg PO TID PRN anxiety #90 tabs 03/25/24 Unknown Rx lamotrigine 150 mg tablet See Rx Instructions .Route 04/09/24 Unknown Rx .COMPLEX #30 tabs lurasidone 40 mg tablet 40 mg PO QPM #30 tabs 04/09/24 Unknown Rx paroxetine HCl 30 mg tablet See Rx Instructions .Route 04/09/24 Unknown Rx .COMPLEX #30 tabs hydroxyzine pamoate 25 mg capsule 25 mg PO TID PRN anxiety #90 caps 05/18/24 Unknown Rx lorazepam 1 mg tablet 0.5 mg (1/2 x 1 mg) PO BID PRN 05/18/24 Unknown Rx anxiety #30 tabs trihexyphenidyl 2 mg tablet See Rx Instructions .Route 05/18/24 Unknown Rx .COMPLEX #90 tabs Allergy/AdvReac Type Severity Reaction Status Date / Time hydrocortisone (From Allergy Severe Hives Verified 05/22/24 11:10 Cortizone-10) ketamine Allergy Unknown unknown Verified 05/22/24 11:10 Family History Mother Cancer Father Heart disease Surgical History H/O tubal ligation Hx of appendectomy Hx of cholecystectomy Social History Smoking Status: Current every day smoker tobacco type: cigarettes ROS ROS ED ROS Narrative Denies recent fever, vomiting, diarrhea or dysuria. Constitutional Constitutional ED: Denies chills or fever(s) Eyes Eyes: Denies blurry vision ENT ENT ED: Denies ear pain Cardiovascular Cardiovascular: Denies chest pain Respiratory/Chest Respiratory/Chest: Denies cough Gastrointestinal Gastrointestinal: Denies abdominal pain Genitourinary Genitourinary ED: Denies dysuria or hematuria Musculoskeletal Musculoskeletal: Reports arthralgias, back pain and myalgias Integumentary Denies abscess Neurologic Neurologic: Denies headache(s) Psychiatric Psychiatric: Denies anxiety Endocrine Endocrinology: Denies cold intolerance Hematologic/Lymphatic Hematologic/Lymphatic: Reports none Allergic/Immunologic Allergic/Immunologic ED: Denies mouth swelling, tongue swelling or urticaria EXAM Physical Exam Narrative Exam Narrative: Well-appearing 53-year-old female vital signs stable afebrile. Pulse ox 98% on room air no signs hypoxia. H EENT exam normal. Neck nontender. Lungs clear to auscultation bilaterally. Heart regular rhythm no murmur. Chest wall ribs nontender. Abdomen soft nontender. Moving all 4 extremities. Nontender, no edema no cords. 5 of 5 corset fitter strength. Dorsi plantarflexion intact. Neurologically she is awake and alert. Answering questions following commands. Skin no rashes. Back nontender. Const Vital Signs: 05/22/24 11:11 05/22/24 11:51 Temperature 96.8 F L Temperature Source Temporal Pulse Rate 73 Respiratory Rate 16 Respiratory Effort Normal Non-Labored Respiratory Pattern Normal Blood Pressure 108/73 Blood Pressure Mean 84 Pulse Ox 98 Oxygen Delivery Method Room Air Positive well nourished and well developed; Negative for cachectic, contractures or unkempt General Appearance ED: well developed and NAD; Negative for unkempt, cachectic, contractures, cyanotic, diaphoretic or pallor Nutritional Appearance: Negative for cachectic HEENT Reports moist mucous membranes Negative for trauma or tenderness Eyes PERRL and EOMs intact bilaterally General Eye ED: Negative for pale conjunctiva or scleral icterus Neck no lymphadenopathy, supple and no JVD General: Negative for tenderness Chest Wall inspection of chest normal and palpation of chest normal Chest: Negative for other Resp normal respiratory effort and clear to auscultation bilaterally Effort and Inspection: Negative for retractions Auscultation: Negative for rales, rhonchi, wheezes or diminished lung sounds Cardio regular rate, regular rhythm, S1 normal heart sound, S2 normal heart sound and no murmurs GI normal to inspection, nondistended, normoactive bowel sounds, non-tender, non-distended and no masses Inspection: Negative for abdominal distention Auscultation: normoactive bowel sounds Palpation: soft; Negative for tender, guarding, splenomegaly, mass or rebound tenderness present Back/Spine no CVA tenderness General Back: Negative for CVA tenderness or other Cervical Spine: Negative for cervical spine tenderness Thoracic Spine / Upper Back: Negative for thoracic spinal tenderness Lumbar Spine / Lower Back: Negative for lumbar spinal tenderness Extremity normal to inspection General Extremety ED: Negative for edema, tenderness or other findings General Extremity: Negative for edema or other findings Neuro oriented x3 and CN's II-XII intact bilaterally Sensorium / Orientation: alert; Negative for orientation impaired, lethargic or stuporous Motor Exam: strength 5/5 throughout; Negative for general weakness or strength abnormal Psych mental status grossly normal Appearance: Negative for unkempt Attitude: No agitated Mood & Affect: Negative for depressed, anxious or tearful Skin no rashes or lesions noted, no wounds and skin turgor normal General Skin Exam: elasticity normal; Negative for jaundice or pallor Lesions: No lesion noted Rashes: No rashes noted Trauma: Negative for abrasion Wounds: Negative for wounds noted MDM MDM MDM Narrative Medical decision making narrative: 53-year-old female with very vague complaint was a normal exam. This may be secondary to underlying anxiety. I did tell her I would check a CBC and a CMP. Her exam is benign. Repeat exam is unchanged 1:59 PM. Patient will be discharged home with outpatient follow-up. History & Record Review Discussion w/independent historian: Patient Additional record(s) reviewed:: Prior inpatient record, Prior outpatient record, Prior ED visit and Prior labs Lab Data Attestation: I reviewed the patient's lab results. Lab results narrative: CBC shows a white 11.9. H&H 13.8 and 41. Platelets 337. Electrolytes show gap 5. Normal BUN and creatinine. Glucose 89. Liver enzymes are normal. Benign labs. Labs: Laboratory Results - last 24 hr 05/22/24 11:45 WBC 11.9 H RBC 4.43 Hgb 13.8 Hct 41.6 MCV 93.9 MCH 31.2 MCHC 33.2 RDW Std Deviation 45.5 H RDW Coeff of Chidi 13.2 Plt Count 337 MPV 9.9 Immature Gran % (Auto) 0.800 Neut % (Auto) 65.2 Lymph % (Auto) 25.8 Monona % (Auto) 6.4 Eos % (Auto) 1.3 Baso % (Auto) 0.5 Absolute Neuts (auto) 7.8 H Absolute Lymphs (auto) 3.06 Nucleated RBC % 0 Sodium 138 Potassium 3.8 Chloride 107 Carbon Dioxide 26.0 Anion Gap 5 BUN 15 Creatinine 0.73 Estim Creat Clear Calc 82.42 Est GFR (MDRD) Af Amer 106 Est GFR (MDRD) Non-Af 88 BUN/Creatinine Ratio 20.5 H Glucose 89 Calcium 8.8 Total Bilirubin 0.40 AST 11 L ALT 22 Alkaline Phosphatase 80 Total Protein 7.2 Albumin 3.3 Globulin 3.9 Albumin/Globulin Ratio 0.8 L Discharge Plan Triage Chief Complaint: General Illness ED Provider: Kenyon Cooper Dx/Rx/DC Orders Clinical Impression: Malaise, History of chronic pain Prescriptions: No Action rosuvastatin 10 mg tablet 10 mg PO DAILY levothyroxine 150 mcg tablet 150 mcg PO DAILY Rx Instructions: 1 tab on odd calender days levothyroxine 125 mcg tablet 125 mcg PO DAILY Rx Instructions: One tablet daily on even number calender days famotidine 20 mg tablet 20 mg PO DAILY meloxicam 15 mg tablet 15 mg PO DAILY gabapentin 100 mg capsule PO Q8H Patient Comments: take 1 tablet by mouth every 8 hours ondansetron HCl 4 mg tablet PO baclofen 10 mg tablet 10 mg PO TID lamotrigine 150 mg tablet See Rx Instructions .ROUTE .COMPLEX Qty: 30 2RF Dose Instruction: TAKE 1/2 TABLET BY MOUTH TWICE A DAY Rx Instructions: TAKE 1/2 TABLET BY MOUTH TWICE A DAY lurasidone 40 mg tablet 40 mg PO QPM Qty: 30 2RF Rx Instructions: must administer with food (at least 350 calories) paroxetine HCl 30 mg tablet See Rx Instructions .ROUTE .COMPLEX Qty: 30 3RF Dose Instruction: TAKE 1 TABLET BY MOUTH DAILY Rx Instructions: TAKE 1 TABLET BY MOUTH DAILY sumatriptan succinate [Imitrex] 50 mg tablet 50 mg PO ONCE PRN (Reason: migraine headache) Qty: 10 1RF Rx Instructions: To be taken day before, during and after ECT treatments propranolol 20 mg tablet 20 mg PO TID PRN (Reason: anxiety) Qty: 90 2RF trihexyphenidyl 2 mg tablet See Rx Instructions .ROUTE .COMPLEX Qty: 90 2RF Dose Instruction: TAKE 1 TABLET BY MOUTH THREE TIMES A DAY NEEDED FOR EXTRAPYRAMIDAL EFFECTS/SYMPTOMS Rx Instructions: TAKE 1 TABLET BY MOUTH THREE TIMES A DAY NEEDED FOR EXTRAPYRAMIDAL EFFECTS/SYMPTOMS lorazepam 1 mg tablet 0.5 mg PO BID PRN (Reason: anxiety) Qty: 30 1RF hydroxyzine pamoate 25 mg capsule 25 mg PO TID PRN (Reason: anxiety) Qty: 90 2RF Primary Care Provider: Eder James Referrals: Eder James MD [Primary Care Provider] - 1 Week if not improving Activity Restrictions/Additional Instructions: Your exam and labs are normal. Follow-up with your doctor if not improving. Print Language: Latvian Disposition Disposition: Home, Self Care
[2024-05-22 12:07] LABS: Absolute Lymphocyte Count 3.06 X10^3/uL (0.83-4.51); Absolute Neutrophil Count 7.8 X10^3/uL (2.0-7.7); Basophil# 0.06 X10^3/uL; Basophil% 0.5 % (0-1); Eosinophil# 0.15 X10^3/uL; Eosinophils% 1.3 % (0-5); Hematocrit 41.6 % (37-47); Hemoglobin 13.8 g/dL (12.0-15.0); Lymphocyte # 3.06 X10^3/ul (0.83-4.51); Lymphocyte % 25.8 % (19-41); Mean Corp Hgb Conc 33.2 g/dL (32-36); Mean Corpuscular Hgb 31.2 pg (27.0-32.0); Mean Corpuscular Volume 93.9 fL (81-99); Mean Platelet Vol. 9.9 fl (6.2-12.0); Monocyte# 0.76 X10^3/uL; Monocyte% 6.4 % (0-10); NRBC Flagged by Analyzer 0 % (0-5); Neutrophil # 7.75 X10^3/uL (2.7-7.7); Neutrophil % 65.2 % (47-70); Platelet Count 337 K/mm3 (150-450); RBC Distribution Width CV 13.2 % (11.6-14.6); RBC Distribution Width SD 45.5 fl (35.1-43.9); Red Blood Count 4.43 M/mm3 (4.2-5.4); White Blood Count 11.9 K/mm3 (4.4-11.0)
[2024-05-22 12:13] LABS: ALB/GLOB Ratio 0.8 RATIO (0.9-2.4); AST(SGOT) 11 U/L (15-37); Alanine Aminotransfer ALT/SGPT 22 U/L (13-56); Albumin, Serum 3.3 g/dL (3.2-5.0); Alkaline Phosphatase 80 U/L (45-117); Anion Gap 5 (5-15); BUN 15 mg/dL (7-18); BUN/Creat Ratio 20.5 RATIO (10-20); Calcium,Total 8.8 mg/dL (8.5-10.1); Chloride 107 mmol/L (98-107); Creatinine, Serum 0.73 mg/dL (0.55-1.02); EST Glomerular Filtration Rate 88 mL/min (>60); Est Glom Filt Rate - Afr Amer 106 mL/min (>60); Estimated Creatinine Clearance 82.42 ml/min; Globulin 3.9 g/dL (2.2-4.2); Glucose 89 mg/dL (74-106); Potassium 3.8 mmol/L (3.5-5.1); Protein, Total 7.2 g/dL (6.4-8.2); Sodium Level 138 mmol/L (136-145)
== END 2024-05-22 14:08 | disposition home or self-care (01) ==
PROVIDERS: Emergency Provider Emergency Medicine; PCP Family Medicine; Visit Provider Emergency Medicine
DX: R53.81 Other malaise (principal); F17.210 Nicotine dependence, cigarettes, uncomplicated
CPT/HCPCS: 80053; 85025; 99284; A4216

== ENCOUNTER → 2024-05-27 | Outpatient (CLI) | payer MEDICARE, MEDICAID, SELFPAY ==
[2024-05-27 13:20] LABS: Amphetamine Urine VISTA NEGATIVE (<1000 ng/mL); Barbiturate Urine VISTA NEGATIVE (< 200 ng/mL); Benzodiazepine Urine VISTA NEGATIVE (< 200 ng/mL); Cocaine Urine VISTA NEGATIVE (< 300 ng/mL); Ecstacy Urine VISTA NEGATIVE (< 500 ng/mL); Methadone Urine VISTA NEGATIVE (< 300 ng/mL); PCP Urine VISTA NEGATIVE (< 25 ng/mL); THC Urine VISTA NEGATIVE (< 50 ng/mL); Vista UDS pH Range 6
== END | disposition home or self-care (01) ==
PROVIDERS: PCP Family Medicine; Referring Provider Anesthesiology Pain Medicine; Visit Provider Anesthesiology Pain Medicine
DX: F11.20 Opioid dependence, uncomplicated (principal)
CPT/HCPCS: 80307

== ENCOUNTER 2024-06-02 11:14 | Emergency (ER) | payer MEDICAID, SELFPAY ==
[2024-06-02] VITALS (8 sets, daily range): BP systolic 100–118; BP diastolic 48–64; PULSE 64–74; RESP 16; TEMP 35.7–37.1; O2SAT 95–100; BMI 34.2
--- NOTE | 2024-06-02 14:12 | CT_ITS ---
HISTORY: altered mental state, resolved. TECHNIQUE: Multiple axial images were obtained of the head without intravenous contrast. A radiation dose optimization technique was used for this scan. 243 images. COMPARISON: 11/18/2011. FINDINGS: BRAIN PARENCHYMA: Mild zones and foci of increased T2 FLAIR signal in the bilateral cerebral white matter. No acute intra-axial hemorrhage. CSF SPACES: Cerebral ventricles, cortical sulci, and other extra-axial CSF spaces within normal limits in size for age. No midline shift or other significant mass effect. No acute extra-axial hemorrhage. OTHER: Intact calvarium. No significant air fluid levels in the paranasal sinuses or mastoid air cells. Unremarkable orbits. CT/Brain/Head without Contrast IMPRESSION: No acute intracranial process identified. Mild chronic-appearing white matter changes which may be secondary to chronic small vessel ischemic gliosis, migraine-related changes, or sequela of nonspecific demyelination or inflammation. Electronically Signed: Lenore Salazar MD at 15:17 EDT ,
--- NOTE | 2024-06-02 14:13 | EKG12_ITS ---
Test Reason : Blood Pressure : / mmHG Vent. Rate : 054 BPM Atrial Rate : 054 BPM P-R Int : 166 ms QRS Dur : 080 ms QT Int : 474 ms P-R-T Axes : 039 013 022 degrees QTc Int : 449 ms Sinus bradycardia Otherwise normal ECG When compared with ECG of 12-SEP-2012 19:05, Vent. rate has decreased BY 27 BPM Confirmed by VERO TORRES MD ([id number]), sports editor MENDOZA CHAPMAN ([id number]) on 06/08/2024 12:51:21 PM Referred By: Confirmed By:VERO TORRES MD
[2024-06-02 14:39] LABS: Mucous, Urine 0 SEEN /hpf (<or=2+); Red Blood Cells-Urine 0 SEEN /hpf (0-5)
[2024-06-02 14:44] LABS: Absolute Lymphocyte Count 2.83 X10^3/uL (0.83-4.51); Absolute Neutrophil Count 4.6 X10^3/uL (2.0-7.7); Basophil# 0.08 X10^3/uL; Eosinophil# 0.13 X10^3/uL; Eosinophils% 1.6 % (0-5); Hematocrit 43.9 % (37-47); Hemoglobin 14.1 g/dL (12.0-15.0); Lymphocyte # 2.83 X10^3/ul (0.83-4.51); Lymphocyte % 34.8 % (19-41); Mean Corp Hgb Conc 32.1 g/dL (32-36); Mean Corpuscular Volume 96.5 fL (81-99); Mean Platelet Vol. 10.5 fl (6.2-12.0); Monocyte# 0.49 X10^3/uL; NRBC Flagged by Analyzer 0 % (0-5); Neutrophil # 4.58 X10^3/uL (2.7-7.7); Neutrophil % 56.4 % (47-70); Platelet Count 266 K/mm3 (150-450); RBC Distribution Width CV 13.2 % (11.6-14.6); RBC Distribution Width SD 46.9 fl (35.1-43.9); Red Blood Count 4.55 M/mm3 (4.2-5.4); White Blood Count 8.1 K/mm3 (4.4-11.0)
[2024-06-02 14:49] LABS: Color, Urine Yellow (Yellow); Glucose, Dipstick Normal (Normal); Ketone-Dipstick Negative (Negative); Leukocyte Esterase-Dipstick 25 /ul (Negative); Nitrite-Dipstick Negative (Negative); Occult Blood-Urine 10 /ul (Negative); Protein-Dipstick Negative (Negative); Urine Bilirubin Dipstick Negative (Negative); Urine Clarity Clear (Clear); Urine Urobilinogen Normal (Normal)
[2024-06-02 14:58] LABS: Squamous Epithelial Cells - UA 0-5 SEEN /hpf (5-10)
[2024-06-02 14:59] LABS: Bacteria 1+ /hpf (None Seen); White Blood Cells 0-5 SEEN /hpf (0-5)
[2024-06-02 15:06] LABS: ALB/GLOB Ratio 0.8 RATIO (0.9-2.4); AST(SGOT) 25 U/L (15-37); Alanine Aminotransfer ALT/SGPT 19 U/L (13-56); Albumin, Serum 3.3 g/dL (3.2-5.0); Alkaline Phosphatase 79 U/L (45-117); Anion Gap 6 (5-15); BUN 9 mg/dL (7-18); BUN/Creat Ratio 10.1 RATIO (10-20); Calcium,Total 9.4 mg/dL (8.5-10.1); Chloride 109 mmol/L (98-107); Creatinine, Serum 0.89 mg/dL (0.55-1.02); EST Glomerular Filtration Rate 70 mL/min (>60); Est Glom Filt Rate - Afr Amer 84 mL/min (>60); Estimated Creatinine Clearance 67.36 ml/min; Globulin 4.3 g/dL (2.2-4.2); Glucose 101 mg/dL (74-106); Potassium 4.9 mmol/L (3.5-5.1); Protein, Total 7.6 g/dL (6.4-8.2); Sodium Level 139 mmol/L (136-145)
[2024-06-02 15:10] LABS: Amphetamine Urine VISTA NEGATIVE (<1000 ng/mL); Barbiturate Urine VISTA NEGATIVE (< 200 ng/mL); Benzodiazepine Urine VISTA NEGATIVE (< 200 ng/mL); Cocaine Urine VISTA NEGATIVE (< 300 ng/mL); Ecstacy Urine VISTA NEGATIVE (< 500 ng/mL); Methadone Urine VISTA NEGATIVE (< 300 ng/mL); PCP Urine VISTA NEGATIVE (< 25 ng/mL); THC Urine VISTA NEGATIVE (< 50 ng/mL); Vista UDS pH Range 5
--- NOTE | 2024-06-02 15:23 | ED.RN ---
this rn notices patient walking back into room from using the restroom. pt was noted to be coming from waiting area. when this rn asks where did you go? pt states i took a walk around. this rn asks if pt went outside and pt did not respond. this rn tells pt that if she has an iv in her arm she is not to leave the emergency room. this rn asks security and pt was noted to have walked down the ramp towards construction with daughter.
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
== END 2024-06-02 16:25 | disposition home or self-care (01) ==
PROVIDERS: Emergency Provider Emergency Medicine; PCP Family Medicine; Visit Provider Emergency Medicine
DX: R40.4 Transient alteration of awareness (principal); R42 Dizziness and giddiness; F17.210 Nicotine dependence, cigarettes, uncomplicated
CPT/HCPCS: 70450; 80053; 80307; 81001; 85025; 93005; 99283; A4216

== ENCOUNTER → 2024-07-31 | Outpatient (CLI) | payer MEDICARE, MEDICAID, SELFPAY ==
--- NOTE | 2024-07-31 15:27 | VDLE_ITS ---
Reason For Study: Left leg pain RIGHT LEFT CFV is compressible, spontaneous, phasic, GSV is normal. competent and demonstrates normal CFV is compressible, spontaneous, phasic, augmentation. competent, and demonstrates normal Procedure augmentation. This is a venous duplex using B-mode, color FV is compressible, spontaneous, phasic, flow and spectral Doppler. competent and demonstrates normal Exam performed in department. augmentation. A preliminary report was called and/or faxed POP V is compressible, spontaneous, phasic, to Monie Osborne LAUNDRY EQUIPMENT OPERATOR-C. competent and demonstrates normal augmentation. T/P Trunk is compressible. PTV is compressible. LT PerV is compressible. Nonvascularized structure noted in the left popliteal fossa that measures 1.04 x 3.03 x 5.46 cm. VL/Venous Duplex US, Unilateral Interpretation Summary Deep veins of the left lower extremity are patent and compressible segmentally. There is no evidence of left lower extremity deep vein thrombosis. Valvular competence appears intac t within the proximal deep venous system on the left . The left great saphenous vein appears patent a nd compressible segmentally. A non-vascular, hypoechoic structure is noted in the left poplitea l space, measuring 1.04 cm x 3.03 cm x 5.46 cm. This probably represents a popliteal cyst. Clinica l correlation is advised. The right common femoral vein is patent and compressible . Ordering Physician: Monie Osborne Referring Physician: Eder James MD Performed By: Madeline Bailey RVT
== END | disposition home or self-care (01) ==
PROVIDERS: PCP Family Medicine
DX: M79.605 Pain in left leg (principal)
CPT/HCPCS: 93971

== ENCOUNTER → 2024-09-01 | Outpatient (CLI) | payer MEDICARE, MEDICAID, SELFPAY ==
--- NOTE | 2024-09-01 15:24 | MRI_ITS ---
STUDY: MRI BRAIN WITH AND WITHOUT CONTRAST REASON FOR EXAM: Female, 54 years old. MIGRAINE TECHNIQUE: Standardized multiplanar fat and water weighted pulse sequences were obtained. 15ML IV CLARISCAN was administered for the contrast portion of the examination. COMPARISON: CT of the brain June 02, 2024 FINDINGS: Normal size of the ventricles and extra-axial spaces for the patient''s age. Moderate nonspecific periventricular white matter disease without mass effect or restricted diffusion.. Normal bilateral basal ganglia. Normal thalami. There is no extra-axial fluid accumulation. Normal flow voids within the major intracranial circulation suggesting patency by spin echo criteria. Normal venous enhancement. There is no enhancing intra-axial or extra-axial abnormality. Normal sella turcica, pituitary gland, infundibular stalk, optic chiasm and hypothalamus. Normal tectal plate and pineal gland. Normal midbrain, janay and medulla. Normal cerebellum. Normal basal cisterns. Normal bilateral temporal bones. Normal bilateral internal auditory canals. No demonstrated orbital abnormality, within the constraints of a routine brain study. Normal visualized paranasal sinuses. Normal calvarium and skull base. Normal visualized soft tissue structures. Normal visualized upper cervical spine. MRI/Brain W/WO Contrast IMPRESSION: Moderate nonspecific periventricular white matter disease most likely representing chronic small vessel ischemic changes in patient of this age. This also may be seen in patients with chronic migraine headaches. No evidence for obstructive hydrocephalus mass or acute infarct Electronically Signed: Junaid Musa MD at 21:04 EST ,
== END | disposition home or self-care (01) ==
LOC: MRI 15:21
PROVIDERS: PCP Family Medicine; Referring Provider Psychiatry & Neurology Neurology; Visit Provider Psychiatry & Neurology Neurology
DX: G43.711 Chronic migraine without aura, intractable, with status migrainosus (principal)
CPT/HCPCS: 70553; A9575

== ENCOUNTER → 2024-09-28 | Outpatient (CLI) | payer MEDICARE, MEDICAID, SELFPAY ==
--- NOTE | 2024-09-28 09:28 | MRI_ITS ---
STUDY: MRI LUMBAR SPINE WITHOUT CONTRAST REASON FOR EXAM: Female, 54 years old. RADICULOPATHY, CHRONIC LOW BACK PAIN RADIATING INTO L HIP AND LEG TECHNIQUE: Standardized fat and water weighted pulse sequences were obtained in the sagittal and axial planes. COMPARISON: 09/09/2023 FINDINGS: T12-L1: Normal endplates. Normal disc height, hydration and morphology. Normal bilateral facet joints. Normal central canal and bilateral lateral recesses. Normal bilateral intervertebral neural foramina. Normal lumbar lordosis. There is no substantial scoliosis. Normal conus medullaris that terminates at the T12/L1. L1-2: Normal endplates. Normal disc height, hydration and morphology. Normal bilateral facet joints. Normal central canal and bilateral lateral recesses. Normal bilateral intervertebral neural foramina. L2-3: Normal endplates. Normal disc height, hydration and morphology. Normal bilateral facet joints. Normal central canal and bilateral lateral recesses. Normal bilateral intervertebral neural foramina. L3-4: Normal endplates. Normal disc height, hydration and morphology. Normal bilateral facet joints. Normal central canal and bilateral lateral recesses. Normal bilateral intervertebral neural foramina. L4-5: Mild bilateral facet hypertrophy and ligamentum flavum hypertrophy. No change in the mild broad disc protrusion which produces mild spinal stenosis and mild bilateral neural foraminal stenosis. L5-S1: Normal endplates. Normal disc height, hydration and morphology. Normal bilateral facet joints. Normal central canal and bilateral lateral recesses. Normal bilateral intervertebral neural foramina. Normal visualized sacral ala. Normal visualized paraspinous soft tissue structures. MRI/Spine Lumbar (Routine) IMPRESSION: No change from 09/09/2023. Electronically Signed: Anthony Best MD at 18:37 EST ,
== END | disposition home or self-care (01) ==
LOC: MRI 14:22
PROVIDERS: PCP Family Medicine; Referring Provider Anesthesiology Pain Medicine; Visit Provider Anesthesiology Pain Medicine
DX: M54.16 Radiculopathy, lumbar region (principal)
CPT/HCPCS: 72148

== ENCOUNTER → 2024-11-24 | Outpatient (CLI) | payer MEDICARE, MEDICAID, SELFPAY ==
[2024-11-24 13:05] LABS: Absolute Lymphocyte Count 2.72 X10^3/uL (0.83-4.51); Absolute Neutrophil Count 4.3 X10^3/uL (2.0-7.7); Basophil# 0.04 X10^3/uL; Basophil% 0.5 % (0-1); Eosinophil# 0.21 X10^3/uL; Eosinophils% 2.7 % (0-5); Hematocrit 42.8 % (37-47); Hemoglobin 13.6 g/dL (12.0-15.0); Lymphocyte # 2.72 X10^3/ul (0.83-4.51); Lymphocyte % 35.1 % (19-41); Mean Corp Hgb Conc 31.8 g/dL (32-36); Mean Corpuscular Hgb 29.6 pg (27.0-32.0); Mean Corpuscular Volume 93.2 fL (81-99); Mean Platelet Vol. 10.8 fl (6.2-12.0); Monocyte# 0.48 X10^3/uL; Monocyte% 6.2 % (0-10); NRBC Flagged by Analyzer 0 % (0-5); Neutrophil % 55.4 % (47-70); Platelet Count 301 K/mm3 (150-450); RBC Distribution Width CV 12.7 % (11.6-14.6); RBC Distribution Width SD 43.3 fl (35.1-43.9); Red Blood Count 4.59 M/mm3 (4.2-5.4); White Blood Count 7.8 K/mm3 (4.4-11.0)
[2024-11-24 19:30] LABS: ALB/GLOB Ratio 1.2 RATIO (0.9-2.4); AST(SGOT) 20 U/L (<=31); Alanine Aminotransfer ALT/SGPT 15 U/L (<=34); Albumin, Serum 3.9 g/dL (3.5-5.0); Alkaline Phosphatase 86 U/L (35-104); Anion Gap 10 (5-15); BUN 12 mg/dL (4-19); BUN/Creat Ratio 16.1 RATIO (10-20); Calcium 9.7 mg/dL (7.6-11.0); Carbon Dioxide 22.1 mmol/L (22.0-29.0); Chloride 105 mmol/L (96-108); Creatinine, Serum 0.7 mg/dL (0.6-1.0); EST Glomerular Filtration Rate 100 (>60); Globulin 3.1 g/dL (2.2-4.2); Glucose 93 mg/dL (70-99); Potassium 4.4 mmol/L (3.3-5.1); Protein, Total 7.1 g/dL (5.9-8.4); Sodium Level 138 mmol/L (133-145); Total Bilirubin 0.38 mg/dL (0.00-1.30)
[2024-11-25 05:40] LABS: Vitamin B12 471 pg/mL (180-914); Vitamin D,25 Hydroxy 21.4 ng/mL (30-100)
[2024-11-25 13:10] LABS: Microalbumin,Random Urine < 12.0 mg/L (NO RANGE EST.)
[2024-11-25 19:22] LABS: Hemoglobin A1c 5.7 % (<=5.6)
[2024-11-27 15:08] LABS: Copper, Serum or Plasma 121 ug/dL (80-158); Zinc, Plasma or Serum 59 ug/dL (44-115)
== END | disposition home or self-care (01) ==
PROVIDERS: PCP Family Medicine; Referring Provider Family Medicine; Visit Provider Family Medicine
DX: R73.03 Prediabetes (principal); K14.0 Glossitis; N18.2 Chronic kidney disease, stage 2 (mild); E55.9 Vitamin D deficiency, unspecified
CPT/HCPCS: 36415; 80053; 82043; 82306; 82525; 82570; 82607; 82746; 83036; 84630; 85025

== ENCOUNTER 2024-12-05 21:48 | Emergency (ER) | payer OTHER, SELFPAY ==
[2024-12-05 21:49] VITALS: BP 118/66; PULSE 83; RESP 18; TEMP 36.1; O2SAT 99; BMI 32.0
--- NOTE | 2024-12-05 22:18 | EX.ED.GENINJ ---
HPI History of Present Illness Chief Complaint: Back Informant: patient Narrative Narrative: Here work-related injury 8:30 PM. 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 Patient unable state was leaning towards her she felt a palp in the right side of her back. No pain down her leg. Pain worse with movement. History of sciatica on the left side being managed by pain management Dr. Sheffield. She currently on tramadol twice a day, baclofen twice a day, gabapentin 3 times a day. She was previously on meloxicam. No history of gastric ulcers or kidney injury. No complications with the meloxicam. Has not had any work-related injuries in the past. [facility] Medical History Sciatica Hypothyroidism Arthritis History of electroconvulsive therapy Insomnia Schizoaffective disorder, depressive type Alcohol abuse Acute maxillary sinusitis, unspecified Home Medications ?Medication ?Instructions ?Recorded ?Last Taken ?Type famotidine 20 mg tablet 20 mg PO DAILY 03/18/23 Unknown History levothyroxine 125 mcg tablet 125 mcg PO DAILY 03/18/23 Unknown History meloxicam 15 mg tablet 15 mg PO DAILY 03/18/23 Unknown History rosuvastatin 10 mg tablet 10 mg PO DAILY 03/18/23 Unknown History ondansetron HCl 4 mg tablet mg PO 08/08/23 Unknown History baclofen 10 mg tablet 10 mg PO TID 03/12/24 Unknown History trihexyphenidyl 2 mg tablet See Rx Instructions .Route 08/10/24 Unknown Rx .COMPLEX #90 tabs lamotrigine 150 mg tablet See Rx Instructions .Route 08/25/24 Unknown Rx .COMPLEX #30 tabs lurasidone 40 mg tablet 40 mg PO QPM #30 tabs 08/25/24 Unknown Rx nortriptyline 10 mg capsule 10 mg PO QHS #30 caps 11/09/24 Unknown Rx hydroxyzine pamoate 25 mg capsule 25 mg PO TID PRN anxiety #90 caps 12/03/24 Unknown Rx lorazepam 1 mg tablet 0.5 mg (1/2 x 1 mg) PO BID PRN 12/03/24 Unknown Rx anxiety #30 tabs propranolol 20 mg tablet 20 mg PO TID PRN anxiety #90 tabs 12/03/24 Unknown Rx gabapentin 300 mg capsule 300 mg PO 3XD 12/05/24 Unknown History meloxicam 15 mg tablet 15 mg PO DAILY #30 tabs 12/05/24 Unknown Rx tramadol 50 mg tablet 50 mg PO 12/05/24 Unknown History Allergy/AdvReac Type Severity Reaction Status Date / Time hydrocortisone (From Allergy Severe Hives Verified 12/05/24 21:49 Cortizone-10) ketamine Allergy Unknown unknown Verified 12/05/24 21:49 Family History Mother Cancer Father Heart disease Surgical History H/O tubal ligation Hx of appendectomy Hx of cholecystectomy Social History Smoking Status: Heavy Smoker (>10/day) ROS ROS ED Constitutional Constitutional ED: Denies chills, fever(s) or sweats ENT ENT ED: Denies sore throat Cardiovascular Cardiovascular: Denies chest pain, leg edema, palpitations or racing heartbeat Respiratory/Chest Respiratory/Chest: Denies cough, dyspnea or dyspnea on exertion Gastrointestinal Gastrointestinal: Denies abdominal pain, diarrhea, nausea or vomiting Genitourinary Genitourinary ED: Denies dysuria, hematuria or urinary frequency Musculoskeletal Musculoskeletal: Reports back pain; Denies extremity pain or neck pain Integumentary Denies rash or wounds Neurologic Neurologic: Denies headache(s), paresthesias or weakness EXAM Physical Exam Const Vital Signs: 12/05/24 21:49 Temperature 97 F L Temperature Source Temporal Pulse Rate 83 Respiratory Rate 18 Blood Pressure 118/66 Blood Pressure Mean 83 Pulse Ox 99 Oxygen Delivery Method Room Air Positive well nourished and well developed General Appearance ED: well developed and NAD HEENT Reports moist mucous membranes normocephalic and atraumatic Eyes General Eye ED: Yes normal appearance of both eyes Neck full ROM Chest Wall Chest: Negative for tenderness Resp normal respiratory effort and normal air movement Effort and Inspection: symmetric chest movement; Negative for respiratory distress Cardio regular rate, regular rhythm and no murmurs Peripheral Pulses: pulses 2+ throughout GI normal to inspection, nondistended, normoactive bowel sounds and non-tender Palpation: Negative for guarding or rebound tenderness present Back/Spine Back/Spine Narrative: No midline tenderness, right paralumbar tenderness reproducible. Straight leg test was negative. 2+ patellar reflex bilaterally. Extremity normal to inspection General Extremety ED: Negative for edema or tenderness General Extremity: Negative for edema Neuro oriented x3 and no sensory deficits noted Sensorium / Orientation: awake and alert Skin no rashes or lesions noted and no wounds MDM MDM MDM Narrative Medical decision making narrative: Interventions / MDM: Differential diagnosis: Lumbar strain, work-related injury Diagnosis considered but do not suspect: No cauda equina symptoms. My EKG interpretation: N/A Imaging independently reviewed and interpreted by myself: N/A External documents reviewed: N/A Test considered but not ordered:N/A ED course: Patient reproducible lumbar muscle strain. No radicular symptoms. No cauda equina symptoms. patient will be given injection of Toradol. No indication requiring images at this time. She continue home medication of baclofen, tramadol, gabapentin. Work restrictions Given. Occupational health follow-up. All questions were answered. Patient Re-evaluation: stable Disposition discussed with patient/family/significant other: Case discussed with consulting clinician: N/A This note was generated with Back& dictation software. It may contain incorrect words, spelling, and punctuation that were not noted in checking the note before signing. Discharge Plan Triage Chief Complaint: Back ED Provider: Lawrence Bae Dx/Rx/DC Orders Clinical Impression: Acute lumbar myofascial strain, Work related injury Instructions: ED Back Sprain/Strain Prescriptions: New meloxicam 15 mg tablet 15 mg PO DAILY Qty: 30 0RF No Action rosuvastatin 10 mg tablet 10 mg PO DAILY levothyroxine 125 mcg tablet 125 mcg PO DAILY Rx Instructions: One tablet daily on even number calender days famotidine 20 mg tablet 20 mg PO DAILY meloxicam 15 mg tablet 15 mg PO DAILY ondansetron HCl 4 mg tablet PO baclofen 10 mg tablet 10 mg PO TID lamotrigine 150 mg tablet See Rx Instructions .ROUTE .COMPLEX Qty: 30 2RF Dose Instruction: TAKE 1/2 TABLET BY MOUTH TWICE A DAY Rx Instructions: TAKE 1/2 TABLET BY MOUTH TWICE A DAY lurasidone 40 mg tablet 40 mg PO QPM Qty: 30 2RF Rx Instructions: must administer with food (at least 350 calories) gabapentin 300 mg capsule 300 mg PO 3XD tramadol 50 mg tablet 50 mg PO trihexyphenidyl 2 mg tablet See Rx Instructions .ROUTE .COMPLEX Qty: 90 2RF Dose Instruction: TAKE 1 TABLET BY MOUTH THREE TIMES A DAY NEEDED FOR EXTRAPYRAMIDAL EFFECTS/SYMPTOMS Rx Instructions: TAKE 1 TABLET BY MOUTH THREE TIMES A DAY NEEDED FOR EXTRAPYRAMIDAL EFFECTS/SYMPTOMS nortriptyline 10 mg capsule 10 mg PO QHS Qty: 30 2RF hydroxyzine pamoate 25 mg capsule 25 mg PO TID PRN (Reason: anxiety) Qty: 90 2RF propranolol 20 mg tablet 20 mg PO TID PRN (Reason: anxiety) Qty: 90 2RF lorazepam 1 mg tablet 0.5 mg PO BID PRN (Reason: anxiety) Qty: 30 1RF Primary Care Provider: Eder James Referrals: Eder James MD [Primary Care Provider] - Activity Restrictions/Additional Instructions: Work restrictions as given to you. Take meloxicam as scribed. Continue her home medicines written by your pain doctors. Follow-up with occupational health. Print Language: [place]ese Disposition Disposition: Home, Self Care Discharge Date/Time: 12/05/24 22:43
[2024-12-05] MEDS: Ketorolac 30 MG/ML Syringe IM (22:29)
== END 2024-12-05 22:43 | disposition home or self-care (01) ==
PROVIDERS: Emergency Provider Emergency Medicine; PCP Family Medicine; Visit Provider Emergency Medicine
DX: S39.012A Strain of muscle, fascia and tendon of lower back, initial encounter (principal); F25.1 Schizoaffective disorder, depressive type; M54.32 Sciatica, left side; X50.0XXA Overexertion from strenuous movement or load, initial encounter; Y99.0 Civilian activity done for income or pay; E03.9 Hypothyroidism, unspecified; F17.200 Nicotine dependence, unspecified, uncomplicated; Z79.890 Hormone replacement therapy; Z79.899 Other long term (current) drug therapy
CPT/HCPCS: 96372; 99282

== ENCOUNTER 2024-12-11 09:27 | Emergency (ER) | payer OTHER, MEDICARE, MEDICAID, SELFPAY ==
[2024-12-11 09:28] VITALS: BP 135/81; PULSE 72; RESP 16; TEMP 35.8; O2SAT 100; BMI 32.4
--- NOTE | 2024-12-11 09:38 | ED.VIS.BACK ---
HPI History of Present Illness Chief Complaint: Back Narrative Narrative: 54-year-old female past medical history of chronic back pain and sciatica presents for second visit from a Work[employer]'s [employer]. injury. She states that she was seen in the emergency department on Saturday, approximately 6 days ago. She was told to follow-up with a [employer]. She was written for meloxicam which she used to take. She was getting better then 2 days ago she was offered light duty at work which she took. The more she walked around, the worst her back pain got. She is also having right sacroiliac pain that she sustained from her initial injury. While she [facility] with [facility] on [facility], she was told to return in a week to possibly be cleared for full work again. She called them again today because she was having increasing back pain and reportedly was told to come to the emergency department. She denies any fevers or chills, no loss of bowel or bladder, no saddle anesthesia. [facility] Medical History Sciatica Hypothyroidism Arthritis History of electroconvulsive therapy Insomnia Schizoaffective disorder, depressive type Alcohol abuse Acute maxillary sinusitis, unspecified Home Medications ?Medication ?Instructions ?Recorded ?Last Taken ?Type famotidine 20 mg tablet 20 mg PO DAILY 03/18/23 Unknown History levothyroxine 125 mcg tablet 125 mcg PO DAILY 03/18/23 Unknown History rosuvastatin 10 mg tablet 10 mg PO DAILY 03/18/23 Unknown History ondansetron HCl 4 mg tablet mg PO 08/08/23 Unknown History baclofen 10 mg tablet 10 mg PO TID 03/12/24 Unknown History trihexyphenidyl 2 mg tablet See Rx Instructions .Route 08/10/24 Unknown Rx .COMPLEX #90 tabs lamotrigine 150 mg tablet See Rx Instructions .Route 08/25/24 Unknown Rx .COMPLEX #30 tabs lurasidone 40 mg tablet 40 mg PO QPM #30 tabs 08/25/24 Unknown Rx nortriptyline 10 mg capsule 10 mg PO QHS #30 caps 11/09/24 Unknown Rx hydroxyzine pamoate 25 mg capsule 25 mg PO TID PRN anxiety #90 caps 12/03/24 Unknown Rx lorazepam 1 mg tablet 0.5 mg (1/2 x 1 mg) PO BID PRN 12/03/24 Unknown Rx anxiety #30 tabs propranolol 20 mg tablet 20 mg PO TID PRN anxiety #90 tabs 12/03/24 Unknown Rx gabapentin 300 mg capsule 300 mg PO 3XD 12/05/24 Unknown History meloxicam 15 mg tablet 15 mg PO DAILY #30 tabs 12/05/24 Unknown Rx tramadol 50 mg tablet 50 mg PO 12/05/24 Unknown History Allergy/AdvReac Type Severity Reaction Status Date / Time hydrocortisone (From Allergy Severe Hives Verified 12/11/24 09:30 Cortizone-10) ketamine Allergy Unknown Other Verified 12/11/24 09:30 Family History Mother Cancer Father Heart disease Surgical History H/O tubal ligation Hx of appendectomy Hx of cholecystectomy Social History Smoking Status: Heavy Smoker (>10/day) alcohol intake: current alcohol intake frequency: a few times a week ROS ROS ED ROS Narrative Review of systems positive for worsening low back pain with right sacroiliac pain. No fevers or chills. No nausea or vomiting. No loss of bowel or bladder. No saddle anesthesia. Worse with walking and standing. Also worse with transfer and movement. EXAM Physical Exam Narrative Exam Narrative: Afebrile. Vital signs noted. Nontoxic-appearing. Cardiovascular examination reveals a regular rate and rhythm. Lungs are clear to auscultation bilaterally. Abdomen is soft and nontender without guarding or rebound. Positive bowel sounds. Neurovascular intact to bilateral lower extremities. Able to stand and transfer to the cot without difficulty. Diffuse tenderness to palpation lumbar spine and paraspinal muscles but no step-off or crepitance. Minimal tenderness to palpation right sacroiliac area, sciatic notch. Neurovascularly intact bilateral lower extremities. Const Vital Signs: 12/11/24 09:28 Temperature 96.4 F L Temperature Source Oral Pulse Rate 72 Respiratory Rate 16 Blood Pressure 135/81 H Blood Pressure Mean 99 Pulse Ox 100 Oxygen Delivery Method Room Air MDM MDM MDM Narrative Medical decision making narrative: Reviewed the patient's prior records. She had been written for meloxicam. This is an open [facility] case. Images were not taken at that time. She had also received Toradol. I do not feel narcotic pain medications are indicated, and additionally the patient drove here. Differential diagnosis does include lumbosacral strain versus sprain versus sacroiliitis versus myofascial strain. I have very low suspicion for cauda equina or lumbar fracture, however the patient does have history of chronic low back pain for which she sees Dr. Sheffield with pain management according to her prior ED note. X-rays were obtained of the lumbar spine and interpreted by myself independently. While there are degenerative changes, on my independent interpretation there is no evidence of an acute fracture. I reviewed the radiology report which confirms my independent interpretation. As this is a subsequent encounter from our and open be [facility] claim, she was told that further medications and work excuse is need to come from [facility] provider at the [facility]. I feel she can be discharged safely home with follow-up. She will continue her current medications and I do not feel that narcotic pain medications are currently indicated. Disposition is discharged home in stable condition. History & Record Review Discussion w/independent historian: Patient Additional record(s) reviewed:: Prior ED visit Lab Data Attestation: I reviewed the patient's lab results. Radiography Diagnostic Testing: Clinical Impression(s) from Imaging Studies Lumbar Spine X-Ray 12/11/24 10:25 IMPRESSION: 1. No acute fracture. 2. Degenerative changes as above. Reading Location: [facility] Discharge Plan Triage Chief Complaint: Back ED Provider: Yuri Watson Dx/Rx/DC Orders Clinical Impression: Acute lumbar myofascial strain, Work related injury, Strain of muscle, fascia and tendon of lower back, subsequent encounter Instructions: ED Back Pain (Acute or Chronic), ED Back Sprain/Strain Prescriptions: No Action rosuvastatin 10 mg tablet 10 mg PO DAILY levothyroxine 125 mcg tablet 125 mcg PO DAILY Rx Instructions: One tablet daily on even number calender days famotidine 20 mg tablet 20 mg PO DAILY ondansetron HCl 4 mg tablet PO baclofen 10 mg tablet 10 mg PO TID lamotrigine 150 mg tablet See Rx Instructions .ROUTE .COMPLEX Qty: 30 2RF Dose Instruction: TAKE 1/2 TABLET BY MOUTH TWICE A DAY Rx Instructions: TAKE 1/2 TABLET BY MOUTH TWICE A DAY lurasidone 40 mg tablet 40 mg PO QPM Qty: 30 2RF Rx Instructions: must administer with food (at least 350 calories) gabapentin 300 mg capsule 300 mg PO 3XD tramadol 50 mg tablet 50 mg PO meloxicam 15 mg tablet 15 mg PO DAILY Qty: 30 0RF trihexyphenidyl 2 mg tablet See Rx Instructions .ROUTE .COMPLEX Qty: 90 2RF Dose Instruction: TAKE 1 TABLET BY MOUTH THREE TIMES A DAY NEEDED FOR EXTRAPYRAMIDAL EFFECTS/SYMPTOMS Rx Instructions: TAKE 1 TABLET BY MOUTH THREE TIMES A DAY NEEDED FOR EXTRAPYRAMIDAL EFFECTS/SYMPTOMS nortriptyline 10 mg capsule 10 mg PO QHS Qty: 30 2RF hydroxyzine pamoate 25 mg capsule 25 mg PO TID PRN (Reason: anxiety) Qty: 90 2RF propranolol 20 mg tablet 20 mg PO TID PRN (Reason: anxiety) Qty: 90 2RF lorazepam 1 mg tablet 0.5 mg PO BID PRN (Reason: anxiety) Qty: 30 1RF Primary Care Provider: Care Physician,No Primary Referrals: Care Physician,No Primary [Primary Care Provider] - Activity Restrictions/Additional Instructions: Follow-up with the [facility] or whoever you saw for your [place] [employer]'s [employer] case. Continue your current medications. You will need to follow-up with your [facility] provider as soon as possible for any further medications, or limitations/back to work notes. Print Language: Sudanese Disposition Disposition: Home, Self Care
[2024-12-11] MEDS: Ketorolac 30 MG/ML Syringe IM (10:14)
--- NOTE | 2024-12-11 10:25 | RAD_ITS ---
EXAM: XR Lumbosacral Spine, 2 or 3 Views CLINICAL INDICATION: PAIN TECHNIQUE: Frontal and lateral views of the lumbar spine and sacrum. COMPARISON: No relevant prior studies available. FINDINGS: VERTEBRAE: Mild endplate degenerative changes of the of L4-S1. Normal alignment. No acute fracture. SACRUM/COCCYX: Unremarkable as visualized. No acute fracture. DISC SPACES: No acute findings. No significant narrowing. SOFT TISSUES: Unremarkable. RAD/Lumbar Spine 2 or 3 Views IMPRESSION: 1. No acute fracture. 2. Degenerative changes as above. Reading Location: [facility]
--- NOTE | 2024-12-11 11:04 | CM.ED ---
Social work Reason for referral: no PCP Referral source: case find This SW identified patient's lack of PCP and need for resources. SW entered patient's room, introducing self and role at [facility]. Patient stated having a PCP and named Eder James. Patient stated seeing Dr. James for a long time and SW stated ability to update this in patient's chart. Patient denied further needs at this time. Patient's PCP, Eder James, updated in patient's chart. Nata Guidry, [employer], [employer]
== END 2024-12-11 11:19 | disposition home or self-care (01) ==
PROVIDERS: Emergency Provider Emergency Medicine; PCP Family Medicine; Visit Provider Emergency Medicine
DX: S39.012A Strain of muscle, fascia and tendon of lower back, initial encounter (principal); F25.1 Schizoaffective disorder, depressive type; X58.XXXA Exposure to other specified factors, initial encounter; M54.41 Lumbago with sciatica, right side; G89.29 Other chronic pain; E03.9 Hypothyroidism, unspecified; F17.200 Nicotine dependence, unspecified, uncomplicated; Z90.49 Acquired absence of other specified parts of digestive tract; Z79.890 Hormone replacement therapy; Z79.899 Other long term (current) drug therapy
CPT/HCPCS: 72100; 96372; 99282

== ENCOUNTER 2024-12-26 13:12 | Emergency (ER) | payer OTHER, SELFPAY ==
[2024-12-26 13:13] VITALS: BP 117/60; PULSE 89; RESP 18; TEMP 37.1; O2SAT 98; BMI 31.8
--- NOTE | 2024-12-26 13:45 | EDS_ITS ---
HPI History of Present Illness Chief Complaint: Back Informant: patient Narrative Narrative: 54-year-old female history of lumbar radiculopathy on the left presenting with continued pain on the right. Patient states that she was involved in a Workmen's Comp. case on December 05. Since that time she has had pain in the right low back that spreads to the left and down into her bilateral legs. She denies any loss of muscle strength or sensation. No bowel or bladder dysfunction. No fevers. She denies being immunosuppressed. She states that this is her third emergency department visit from the injury. She states that she has been put on sitting restrictions at work. She states the day having to get up from chair to chair would exacerbate her pain and she just could not take it anymore so she came to emergency. She is supposed to see Workmen's Comp. on Saturday. She has been taking baclofen without any relief. She also has lorazepam at home that she gets from psychiatry. She was on steroids and she reached the end of that course a couple days ago and went back on meloxicam. She has been in pain management with Dr. Navarrete for the left lumbar radiculopathy. [facility] Medical History Sciatica Hypothyroidism Arthritis History of electroconvulsive therapy Insomnia Schizoaffective disorder, depressive type Alcohol abuse Acute maxillary sinusitis, unspecified Home Medications ?Medication ?Instructions ?Recorded ?Last Taken ?Type famotidine 20 mg tablet 20 mg PO DAILY 03/18/23 Unkn own History levothyroxine 125 mcg tablet 125 mcg PO DAILY 03/18/23 Unknown History rosuvastatin 10 mg tablet 10 mg PO DAILY 03/18/23 Unkn own History ondansetron HCl 4 mg tablet mg PO 08/08/23 Unknown His tory baclofen 10 mg tablet 10 mg PO TID 03/12/24 Unknow n History gabapentin 300 mg capsule 300 mg PO 3XD 12/05/24 Unkno wn History tramadol 50 mg tablet 50 mg PO 12/05/24 Unknown Hi story prednisone 10 mg tablet 10 mg PO DAILY #30 tabs 11/28 04/23 Unknown Rx lamotrigine 150 mg tablet See Rx Instructions .Route 0 12/21/24 Unknown Rx .COMPLEX #30 tabs hydroxyzine pamoate 25 mg capsule 25 mg PO TID PRN anx iety #90 caps 12/22/24 Unknown Rx lorazepam 1 mg tablet 1 mg PO BID PRN anxiety #60 tabs 12/22/24 Unknown Rx lurasidone 60 mg tablet 60 mg PO QPM #30 tabs Unknown Rx nortriptyline 10 mg capsule 10 mg PO QHS #30 caps 11/29 02/21 Unknown Rx propranolol 20 mg tablet 20 mg PO TID PRN anxiety #90 tabs 12/22/24 Unknown Rx trihexyphenidyl 2 mg tablet See Rx Instructions .Route 12/22/24 Unknown Rx .COMPLEX #90 tabs diazepam 5 mg tablet 5 mg PO Q8 PRN Muscle Spasm #9 tabs 12/26/24 Unknown Rx Allergy/AdvReac Type Severity Reaction Status Date / Time hydrocortisone (From Allergy Severe Hives Verified 12/26/24 13:13 Cortizone-10) ketamine Allergy Unknown Other Verified 12/26/24 13:13 Family History Mother Cancer Father Heart disease Surgical History H/O tubal ligation Hx of appendectomy Hx of cholecystectomy Social History Smoking Status: Heavy Smoker (>10/day) alcohol intake: current alcohol intake frequency: a few times a week ROS ROS ED Constitutional Constitutional ED: Denies chills, fever(s) or weight loss Eyes Eyes: Denies change in vision or diplopia ENT ENT ED: Denies ear pain, rhinorrhea or sore throat Cardiovascular Cardiovascular: Denies chest pain, orthopnea, palpitations or racing heartbeat Respiratory/Chest Respiratory/Chest: Denies cough, dyspnea or orthopnea Gastrointestinal Gastrointestinal: Denies abdominal pain, diarrhea, nausea or vomiting Genitourinary Genitourinary ED: Denies dysuria, hematuria or urinary frequency Musculoskeletal Musculoskeletal: Reports back pain; Denies arthralgias, myalgias or neck pain Integumentary Denies abscess or rash Neurologic Neurologic: Denies headache(s), paresthesias or weakness Psychiatric Psychiatric: Denies anxiety, depression, suicidal ideation or suicidal thoughts Endocrine Endocrinology: Denies polydipsia, polyphagia or polyuria Allergic/Immunologic Allergic/Immunologic ED: Denies mouth swelling, tongue swelling or urticaria EXAM Physical Exam Const Vital Signs: 12/26/24 13:13 Temperature 98.7 F Temperature Source Oral Pulse Rate 89 Respiratory Rate 18 Blood Pressure 117/60 Blood Pressure Mean 79 Pulse Ox 98 Oxygen Delivery Method Room Air Positive well nourished and well developed General Appearance ED: well developed HEENT Reports normocephalic, head/scalp atraumatic and moist mucous membranes Eyes PERRL and EOMs intact bilaterally Neck no lymphadenopathy, supple and no JVD Resp normal respiratory effort and clear to auscultation bilaterally Cardio regular rate, regular rhythm and no murmurs GI normal to inspection, nondistended, normoactive bowel sounds and non-tender Palpation: soft Back/Spine no CVA tenderness and normal ROM Back/Spine Narrative: Patient is able to sit up without significant difficulty. She is moving her legs without difficulty. I do not appreciate any tissue texture changes to suggest underlying infection. There is no erythema or rash. She reports tenderness to palpation over that right lower lumbar paraspinal musculature down to the sacroiliac region and buttock. She also notes the same on the left. Extremity normal to inspection General Extremety ED: Negative for edema General Extremity: Negative for edema Neuro oriented x3 and CN's II-XII intact bilaterally Sensorium / Orientation: alert Motor Exam: strength 5/5 throughout Deep Tendon Reflexes: Rt Patellar (L4): 2+, Lt Patellar (L4): 2+, Rt Ankle (S1): 2+ and Lt Ankle (S1): 2+ Deep Tendon Reflexes Back: Rt Patellar (L4): 2+, Lt Patellar (L4): 2+, Rt Ankle (S1): 2+ and Lt Ankle (S1): 2+ Psych mental status grossly normal Mood & Affect: Negative for depressed or tearful Skin no rashes or lesions noted and no wounds MDM MDM MDM Narrative Medical decision making narrative: Differential diagnosis includes but not limited to herniated disc muscle spasm shingles fracture spinal stenosis degenerative arthrosis Patient had MRI which was reviewed in August as well as lumbar plain x-rays earlier this month. Given that there is no new trauma I do not feel strongly that we need to do any emergent imaging. She is neurovascularly intact. We can try some diazepam but I would caution her on taking this that she should not be taking the baclofen with lorazepam at the same day that she is taking the diazepam. She should keep her appointment with [employer] on Saturday. She is asked for restrictions but I informed her that other than sitting restrictions I do not know what other restrictions I can provide her. History & Record Review Discussion w/independent historian: Patient Discharge Plan Triage Chief Complaint: Back ED Provider: Herman Islas Dx/Rx/DC Orders Clinical Impression: Low back pain Instructions: ED Back Spasm, No Trauma Prescriptions: New diazepam [diazepam] 5 mg tablet 5 mg PO Q8 PRN (Reason: Muscle Spasm) Qty: 9 0RF No Action rosuvastatin 10 mg tablet 10 mg PO DAILY levothyroxine 125 mcg tablet 125 mcg PO DAILY Rx Instructions: One tablet daily on even number calender days famotidine 20 mg tablet 20 mg PO DAILY ondansetron HCl 4 mg tablet PO baclofen 10 mg tablet 10 mg PO TID prednisone 10 mg tablet 10 mg PO DAILY Qty: 30 0RF Rx Instructions: 4 tablets daily x3 days, then 3 tablets daily x3 days, then 2 tablets daily x3 days, then 1 tablet daily x3 days gabapentin 300 mg capsule 300 mg PO 3XD tramadol 50 mg tablet 50 mg PO lamotrigine 150 mg tablet See Rx Instructions .ROUTE .COMPLEX Qty: 30 2RF Dose Instruction: TAKE 1/2 TABLET BY MOUTH TWICE A DAY Rx Instructions: TAKE 1/2 TABLET BY MOUTH TWICE A DAY hydroxyzine pamoate 25 mg capsule 25 mg PO TID PRN (Reason: anxiety) Qty: 90 2RF lorazepam 1 mg tablet 1 mg PO BID PRN (Reason: anxiety) Qty: 60 1RF lurasidone 60 mg tablet 60 mg PO QPM Qty: 30 2RF Rx Instructions: must administer with food (at least 350 calories) nortriptyline 10 mg capsule 10 mg PO QHS Qty: 30 2RF propranolol 20 mg tablet 20 mg PO TID PRN (Reason: anxiety) Qty: 90 2RF trihexyphenidyl 2 mg tablet See Rx Instructions .ROUTE .COMPLEX Qty: 90 2RF Dose Instruction: TAKE 1 TABLET BY MOUTH THREE TIMES A DAY NEEDED FOR EXTRAPYRAMIDAL EFFECTS/SYMPTOMS Rx Instructions: TAKE 1 TABLET BY MOUTH THREE TIMES A DAY NEEDED FOR EXTRAPYRAMIDAL EFFECTS/SYMPTOMS Primary Care Provider: Eder James [facility]errals: [facility] [Provider Group] - Keep Eyad appointment Eder James MD [Primary Care Provider] - Activity Restrictions/Additional Instructions: You may try discontinuing her baclofen and a trial of diazepam. Please keep your appointment with your Work[employer]'s Comp. doctor on Saturday. Do not take your lorazepam while taking diazepam as these are in the same class of medicine. Print Language: Divehi Disposition Disposition: Home, Self Care
[2024-12-26 13:47] VITALS: BP 117/60; PULSE 89; RESP 18; TEMP 37.1; O2SAT 98
== END 2024-12-26 14:00 | disposition home or self-care (01) ==
LOC: ED 13:51
PROVIDERS: Emergency Provider Emergency Medicine; PCP Family Medicine; Visit Provider Emergency Medicine
DX: M54.16 Radiculopathy, lumbar region (principal); F25.1 Schizoaffective disorder, depressive type; E03.9 Hypothyroidism, unspecified; M19.90 Unspecified osteoarthritis, unspecified site; F17.200 Nicotine dependence, unspecified, uncomplicated; Z79.890 Hormone replacement therapy; Z79.899 Other long term (current) drug therapy
CPT/HCPCS: 99282

== ENCOUNTER → 2025-01-04 | Outpatient (CLI) | payer MEDICARE, MEDICAID, SELFPAY ==
[2025-01-04 18:20] LABS: Absolute Lymphocyte Count 3.14 X10^3/uL (0.83-4.51); Absolute Neutrophil Count 4.8 X10^3/uL (2.0-7.7); Basophil# 0.04 X10^3/uL; Basophil% 0.4 % (0-1); Eosinophils% 3.3 % (0-5); Hematocrit 36.6 % (37-47); Hemoglobin 11.7 g/dL (12.0-15.0); Lymphocyte # 3.14 X10^3/ul (0.83-4.51); Mean Corpuscular Hgb 30.8 pg (27.0-32.0); Mean Corpuscular Volume 96.3 fL (81-99); Mean Platelet Vol. 9.6 fl (6.2-12.0); Monocyte% 5.6 % (0-10); NRBC Flagged by Analyzer 0 % (0-5); Neutrophil # 4.84 X10^3/uL (2.7-7.7); Neutrophil % 53.9 % (47-70); Platelet Count 408 K/mm3 (150-450); RBC Distribution Width CV 13.3 % (11.6-14.6); RBC Distribution Width SD 47.3 fl (35.1-43.9)
[2025-01-04 19:03] LABS: AST(SGOT) 16 U/L (<=31); Alanine Aminotransfer ALT/SGPT 14 U/L (<=34); Albumin, Serum 3.5 g/dL (3.5-5.0); Alkaline Phosphatase 77 U/L (35-104); Anion Gap 11 (5-15); BUN 11 mg/dL (4-19); Calcium,Total 9.4 mg/dL (7.6-11.0); Carbon Dioxide 24.9 mmol/L (21.0-32.0); Chloride 105 mmol/L (98-108); Creatinine, Serum 0.85 mg/dL (0.70-1.20); EST Glomerular Filtration Rate 81 (>60); Globulin 3.5 g/dL (2.2-4.2); Glucose 116 mg/dL (70-99); Potassium 4.2 mmol/L (3.3-5.1); Protein, Total 6.9 g/dL (5.9-8.4); Sodium Level 141 mmol/L (133-145); Total Bilirubin 0.22 mg/dL (0.00-1.30)
== END | disposition home or self-care (01) ==
LOC: MFPLAB 15:10
PROVIDERS: PCP Family Medicine; Referring Provider Family Medicine; Visit Provider Family Medicine
DX: R55 Syncope and collapse (principal)
CPT/HCPCS: 36415; 80053; 83735; 85025

== ENCOUNTER → 2025-01-11 | Outpatient (CLI) | payer MEDICARE, MEDICAID, SELFPAY | END | disposition home or self-care (01) | PROVIDERS: PCP Family Medicine; Referring Provider Family Medicine; Visit Provider Family Medicine | DX: R55 Syncope and collapse (principal); R41.82 Altered mental status, unspecified | CPT/HCPCS: 95819 ==

== ENCOUNTER 2025-01-14 11:00 | Outpatient (RCR) | payer OTHER, SELFPAY ==
--- NOTE | 2025-01-05 09:51 | HP.PTEVAL ---
Patient's Visit Information Visit Information Visit Information: LAZARO NARANJO is a 54 year old F referred to Physical Therapy by ENRIKE Leary with a diagnosis of Strain of muscle, fascia, tendon of LB. Date of Evaluation: 01/05/25 Physical Therapist: JANETT Quan Visit Plan Frequency: 3x /Week Duration: 4 Weeks Plan: 3X/ week for 4 week for Trunk AROM, Neutral spine core stability and progressing as able, Postural exercises, LE strength (especially hip extension), with HEP. At the time of the eval the pt had increase pain lying prone, increase pain when JERMAIN going from prone to JERMAIN but once lying back prone her pain went back to baseline. Pt stated that she did not like being JERMAIN. 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 When the resident was trying to transfer and she felt a pop in her R side of LB and put her back in the bed. She went to the charge nurse and she was sent ER. In the ER they did a drug test and said it was a lumbar strain and needed to talk to a workman comp Dr. [facility]. She has been on light duty and pain is not getting better but is getting worse. MRI is February 06. She was also referred to PT. She is on light duty for light tasks and has to get up and move every 15 minutes. She can not lift and can not transfer. Currently the pain is on the R side of her back, across her back or radiates up her back and sometimes down her R leg to her calf area. It radiates down her leg if she is walking. She can only sit for 10 to 15 min if she sits for longer than that. She reports no weakness in the legs. She has not tried stairs. She reports that getting in and out of the car or shower is ok but just slower. She is restless sleeping due to the pain but once she gets into a comfortable position she can usually sleep 4-5 hours. Currently her sx are achy in R LB and no leg pain. She is not taking the Baclofen due to PCP putting a heart monitor on. Pain Back pain: Pain Intensity (Out of 10): 5 R leg pain: Pain Intensity (Out of 10): 5 Objective Objective: Gait: walks with decrease stance time on the R LE and weight shift SB to the Left with gait. LE MMT: R hip flex 13.3# and L 12.6# R knee ext 9.7# and L 16.7# R knee flex 8.5# and L 5.7# R prone hip ext 5.3# (increase pain in LB) and L 5.2# Standing heel and toe raises: Pt is able to walk on heels and toes but increase pain walking on her heels Trunk AROM: Flexion 75%, Ext 10% (increase pain), R 25% (increase pain) and L 50%, Rot B 25% Bridge 1/2 normal ROM Increase pain with LTR to the L for pain on the R side. Did X 5 and did decrease pain but only slightly + SLR on the R for pain in her LB and tightness felt on the L down the back of the leg. Prone lying: pain across the middle of back and after laying there for 3 min she felt pain radiating pain up her back towards her back and feels muscular. Prone to JERMAIN: feels a tightening across the middle of LB. Prone to JERMAIN X 10... pt felt pain up on JERMAIN but back to baseline with laying flat. Repeated Prone to JERMAIN X 10... pt complained of a little more pain across her LB and did not want to do more. Laid Prone for a few minutes and went back to baseline. Balance/Special Test Scores Oswestry Low Back Score: 32 Goals Goal 1:: I HEP Goal Time Frame: 4-6 Weeks Goal 2:: Increase pain free trunk AROM (at the time of the eval: Trunk AROM: Flexion 75%, Ext 10% (increase pain), R 25% (increase pain) and L 50%, Rot B 25%). Goal Time Frame: 4-6 Weeks Goal 3:: Increase LE strength (at the time of the eval: LE MMT: R hip flex 13.3# and L 12.6# R knee ext 9.7# and L 16.7# R knee flex 8.5# and L 5.7# R prone hip ext 5.3# (increase pain in LB) and L 5.2#) Goal Time Frame: 4-6 Weeks Goal 4:: Be able to return to work duties and walk around at work without having pain in her back or down her R leg Goal Time Frame: 4-6 Weeks Rehabilitation Potential Rehabilitation Potential: Good Anticipated Interventions Patient/Client Instruction: Educate patient on: Condition and Plan of Care For the Purpose of:: To decrease pain, To increase ROM, To improve nutrient delivery to tissue, To improve muscle performance and motor function, To improve ability to perform ADL's, To increase tolerance to activity/condition/position, To improve performance and independence with ADL's, To decrease level of supervision to perform tasks, To improve ability of physical actions for home/community/work/leisure, To improve gait and locomotor functions, To improve health of tissue, To decrease soft tissue restriction and To increase flexibility/ROM Therapeutic Exercise to Include: Strength training, Body mechanics, Postural training, Flexibilty training, Gait and locomotor training, Neuromotor development, Active ROM, Dynamic Lumbar Stabilization, Betty Exercises and Scapular Strength/Stabilization For the Purpose of:: To decrease pain, To increase ROM, To improve nutrient delivery to tissue, To improve muscle performance and motor function, To improve ability to perform ADL's, To increase tolerance to activity/condition/position, To improve performance and independence with ADL's, To decrease level of supervision to perform tasks, To improve ability of physical actions for home/community/work/leisure, To improve gait and locomotor functions, To improve health of tissue, To decrease soft tissue restriction, To increase flexibility/ROM, To improve endurance and To improve balance Manual Therapy Techniques to Include: Soft tissue mobilization For the Purpose of:: To increase ROM and To improve nutrient delivery to tissue IF ES: Yes Cryotherapy (ice pack, ice massage): Yes Thermo therapy (hot pack): Yes For the Purpose of:: To decrease pain, To decrease swelling/inflammation, To increase ROM and To improve nutrient delivery to tissue Text: Thank you for the opportunity to evaluate your patient. For Medicare and Medicare HMO plans, please review the plan of care and approve it. It will need to be FAXED BACK to us at [phone] for Medicare purposes. For Medicare only, by signing this I certify the plan of care. Please let me know if there are questions or concerns regarding this plan of care. Physician Signature: Date:
== END 2025-01-14 19:00 | disposition home or self-care (01) ==
LOC: PT 11:00
PROVIDERS: PCP Family Medicine; Referring Provider Physician Assistant; Visit Provider Physician Assistant
DX: S39.012D Strain of muscle, fascia and tendon of lower back, subsequent encounter (principal)
CPT/HCPCS: 97110; 97161

== ENCOUNTER → 2025-02-09 | Outpatient (CLI) | payer MEDICARE, SELFPAY ==
--- NOTE | 2025-02-09 07:39 | BI_ITS ---
EXAM: SCRN MAMM (CAD)W/GIL BILAT DATE: 02/09/2025 CLINICAL HISTORY: F, Age 54 y/o , SCREENING History of grandmother with breast cancer. BREAST CANCER RISK ASSESSMENT: Not assessed. TECHNIQUE: Bilateral screening digital breast tomosynthesis with 2D and 3D images. Computer aided detection. COMPARISON: Prior exam(s) dated October 31, 2023.. FINDINGS: TISSUE DENSITY: The breast tissue is composed of scattered area of fibroglandular density. Once again, there is stable asymmetry of breast tissue were more breast tissue is seen in the upper-outer quadrant of the right breast as compared to the left side. Bilateral Breast Mammographic Findings: No significant masses, calcifications or other abnormalities are identified. No suspicious masses, areas of developing architectural distortion, or suspicious calcifications. There has been no significant interval change. BI/SCRN MAMM (CAD)W/GIL BILAT IMPRESSION: OVERALL FINAL ASSESSMENT: BIRADS 2 BENIGN FINDING RECOMMENDATION: Routine annual follow-up in 1 Year A letter with findings and recommendations will be mailed to the patient. Reading Location: [id number]
== END | disposition home or self-care (01) ==
LOC: OPBI 07:38
PROVIDERS: PCP Family Medicine; Referring Provider Nurse Practitioner Family; Visit Provider Nurse Practitioner Family
DX: Z12.31 Encounter for screening mammogram for malignant neoplasm of breast (principal)
CPT/HCPCS: 77063; 77067

== ENCOUNTER → 2025-02-15 | Outpatient (CLI) | payer MEDICARE, MEDICAID, SELFPAY ==
--- NOTE | 2025-02-15 06:35 | CT_ITS ---
EXAM: CT Chest, Lung Cancer Screening Without Intravenous Contrast CLINICAL INDICATION: SCREENING TECHNIQUE: Axial computed tomography images of the chest without intravenous contrast using low dose (LDCT) lung cancer screening protocol. This CT exam was performed using one or more of the following dose reduction techniques: automated exposure control, adjustment of the mA and/or kV according to patient size, and/or use of iterative reconstruction technique. COMPARISON: No relevant prior studies available. FINDINGS: LUNGS AND PLEURAL SPACES: Mild lung emphysema/COPD. A few ground-glass attenuation in the medial aspect of the right middle lobe measuring up to 4 mm. No consolidation. No pneumothorax. No significant effusion. HEART: Unremarkable. No cardiomegaly. No significant pericardial effusion. No significant coronary artery calcifications. BONES/JOINTS: Unremarkable. No acute fracture. No dislocation. SOFT TISSUES: Unremarkable. VASCULATURE: Unremarkable. No thoracic aortic aneurysm. LYMPH NODES: Unremarkable. No enlarged lymph nodes. CT/Low Dose CT Lung Screening IMPRESSION: 1. A few ground-glass attenuation in the medial aspect of the right middle lob e measuring up to 4 mm. 2. LUNG-RADS 2: Benign. Continue low-dose CT screening of the chest in 12 mon ths is recommended. Reading Location: [facility]
== END | disposition home or self-care (01) ==
PROVIDERS: PCP Family Medicine; Referring Provider Nurse Practitioner Family; Visit Provider Nurse Practitioner Family
DX: Z12.2 Encounter for screening for malignant neoplasm of respiratory organs (principal); F17.210 Nicotine dependence, cigarettes, uncomplicated
CPT/HCPCS: 71271

== ENCOUNTER → 2025-03-23 | Outpatient (CLI) | payer MEDICARE, MEDICAID, SELFPAY ==
[2025-03-23 14:05] LABS: Amphetamine Urine NEGATIVE (<1000 ng/mL); Barbiturate Urine NEGATIVE (< 200 ng/mL); Benzodiazepine Urine PRESUMPTIVE POSITIVE (< 200 ng/mL); Buprenorphine Urine NEGATIVE (< 200 ng/mL); Cocaine Urine NEGATIVE (< 300 ng/mL); Fentanyl, Urine NEGATIVE; Methadone Urine NEGATIVE (< 300 ng/mL); Opiates Urine NEGATIVE (< 300 ng/mL); Oxycodone, Urine NEGATIVE (< 100 ng/mL); PCP Urine NEGATIVE (< 25 ng/mL); THC Urine NEGATIVE (< 50 ng/mL)
--- OUTSIDE RECORDS SUMMARY | 2025-03-23 21:55 | XMS RPT_ITS | CCD ---
Author Organization [facility] Care Team Providers Care Radio Division Lieutenant Name Role Phone Damian James Primary Care Provider Dr. Damian James Primary Care Provider Dr. Damian James Referring Provider Dr. Damian James Other Provider Dr. Casimiro Pryor Attending Provider Darline CALVERT, PA Mora Schulte Attending Provider Dr. Damian James Primary Care Provider Dr. Damian James Referring Provider Damian James Primary Care Provider Dr. Damian James Primary Care Provider Dr. Damian James Referring Provider Lissett SALMON, ALICIA Dennis Attending Provider Unknown, Unknown Unavailable Unavailable UNKNOWN, UNKNOWN Primary Care Unavailable GRACIELA CHENEY Attending Unavailable Damian James Primary Care Provider Damian James Primary Care Provider [phone] WILBER, LIAM Attending Unavailable WILBER, LIAM Admitting Unavailable DAMIAN JAMES Primary Care Unavailable WILBER, LIAM Referring Unavailable WILBER, LIAM Attending Unavailable WILBER, LIAM Admitting Unavailable DAMIAN JAMES Primary Care Unavailable WILBER, LIAM Referring Unavailable WILBER, LIAM Attending Unavailable WILBER, LIAM Admitting Unavailable JAMES, DAMIAN A Primary Care Unavailable WILBER, LIAM Referring Unavailable WILBER, LIAM Attending Unavailable IWLBER, LIAM Admitting Unavailable JAMES, DAMIAN A Primary Care Unavailable WILBER, LIAM Referring Unavailable WILBER, LIAM Attending Unavailable WILBER, LIAM Admitting Unavailable JAMES, DAMIAN A Primary Care Unavailable WILBER, LIAM Referring Unavailable JAMES, DAMIAN A Primary Care Unavailable WILBER, LIAM Referring Unavailable JAMES, DAMIAN A Primary Care Unavailable WILBER, LIAM Referring Unavailable JAMES, DAMIAN A Primary Care Unavailable WILBER, LIAM Attending Unavailable WILBER, LIAM Admitting Unavailable JAMES, DAMIAN A Primary Care Unavailable WILBER, LIAM Referring Unavailable ROSY MEJIA Consulting Unavailab le JAMES, DAMIAN A Primary Care Unavailable WILBER, LIAM Attending Unavailable WILBER, LIAM Admitting Unavailable ISABELLA CASILLAS Consulting Unavailable WILBER, LIAM Attending Unavailable WILBER, LIAM Admitting Unavailable JAMES, DAMIAN A Primary Care Unavailable WILBER, LIAM Referring Unavailable WILBER, LIAM Attending Unavailable WILBER, LIAM Admitting Unavailable JAMES, DAMIAN A Primary Care Unavailable WILBER, LIAM Referring Unavailable DAMIAN JAMES MD A Primary Care Physician PHYSICIAN, NONE Primary Care Unavailable MORA JAMISON PA-C Attending Unavailable DAMIAN JAMES MD Primary Care Unavailable JUNAID ROSARIO Attending Unavailable NO, PHYSICIAN Primary Care Unavailable LEODAN VAZ JR. Attending Unav ailable Kenyon Cooper Attending Unavailable James, Damian Primary Care Unavailable Yuri Watson Attending Unavailable James, Damian Primary Care Unavailable Mora Mcgrath Attending Unavailable James, Damian Primary Care Unavailable Sally Moreno Attending Unavailable James, Damian Primary Care Unavailable Marlena Sheffield Attending Unavailable Marlena Sheffield Referring Unavailable James, Damian Primary Care Unavailable Olga WEDDING DESIGNER, Elizabeth Attending Unavailable Olga WEDDING DESIGNER, Elizabeth Referring Unavailable James, Damian Primary Care Unavailable Wilfred Estrada Attending Unavailable Wilfred Estrada Referring Unavailable James, Damian Primary Care Unavailable Herman Islas Attending Unavailable James, Damian Primary Care Unavailable EDY ROBERTS Attending Unavailable EDY ROBERTS Referring Unavailable James, Damian Primary Care Unavailable Basali, Ayman Referring Unavailable Basali, Ayman Attending Unavailable James, Damian Primary Care Unavailable James, Damian Referring Unavailable James, Damian Attending Unavailable James, Damian Primary Care Unavailable Basali, Ayman Attending Unavailable Basali, Ayman Referring Unavailable James, Damian Primary Care Unavailable Basali, Ayman Attending Unavailable Basali, Ayman Referring Unavailable James, Damian Primary Care Unavailable James, Damian Primary Care Unavailable Mora Hernandez Attending Unavailable Mora Hernandez Referring Unavailable James, Damian Referring Unavailable James, Damian Attending Unavailable James, Damian Primary Care Unavailable James, Damian Primary Care Unavailable James, Damian Attending Unavailable James, Damian Referring Unavailable Olga WEDDING DESIGNER, Elizabeth Attending Unavailable Olga WEDDING DESIGNER, Elizabeth Referring Unavailable James, Damian Primary Care Unavailable Mora Mcgrath Attending Unavailable James, Damian Primary Care Unavailable James, Damian Referring Unavailable James, Damian Primary Care Unavailable Mora Hernandez Attending Unavailable James, Damian Referring Unavailable Mora Hernandez Attending Unavailable James, Damian Primary Care Unavailable Mateusz Rouse Attending Unavailable James, Damian Referring Unavailable James, Damian Primary Care Unavailable Mora Mcgrath Attending Unavailable James, Damian Primary Care Unavailable Lawrence Bae Attending Unavailable James, Damian Primary Care Unavailable Mora Mcgrath Attending Unavailable James, Damian Primary Care Unavailable Mora Mcgrath Attending Unavailable James, Damian Primary Care Unavailable Mora Mcgrath Attending Unavailable James, Damian Primary Care Unavailable Mora Hernandez Attending Unavailable James, Damian Referring Unavailable James, Damian Primary Care Unavailable Mora Hernandez Attending Unavailable James, Damian Primary Care Unavailable James, Damian Referring Unavailable Mora Hernandez Attending Unavailable James, Damian Primary Care Unavailable James, Damian Referring Unavailable James, Damian Primary Care Unavailable James, Damian Referring Unavailable Mora Hernandez Attending Unavailable Mora Mcgrath Attending Unavailable James, Damian Primary Care Unavailable Mora Mcgrath Attending Unavailable James, Damian Primary Care Unavailable James, Damian Primary Care Unavailable Mora Mcgrath Attending Unavailable James, Damian Primary Care Unavailable James, Damian Attending Unavailable James, Damian Referring Unavailable Allergies Allergy Classification Reported Allergen(s) Allergy Type Date of Onset Reaction(s) Facility (20 sources) Cortisone; Translations: [CORTISONE] Drug Allergy 7 Hives [facility] (20 sources) Ketamine; Translations: [KETAMINE HCL] Drug Allergy 9 [facility] (3 sources) Ketamine Drug Allergy 2 unknown [facility] Work Phone: (4 sources) buPROPion Drug Allergy 3 Hallucinations [facility] (1 source) Hydrocortisone Drug Allergy 5 [facility] (1 source) Ketamine Drug Allergy 5 [facility] Medications Current Medications Medication Drug Class(es) Dates Sig (Normalized) Sig (Original) Acetaminophen / oxyCODONE (1 source) Opioid Agonist Start: 08-10-2021 End: 08-10-2021 oxyCODONE-acetamin ophen (PERCOCET) 5-325 MG per tablet 1 tablet [id number] 200 actuat albuterol 0.09 mg/actuat metered dose inhaler (16 sources) beta2-Adrenergic Agonist Start: 03-28-2022 albuterol sulfate HFA (PROVENTIL;VENTOLI N;PROAIR) 108 (90 Base) MCG/ACT inhaler albuterol 0.833 mg/ml / ipratropium bromide 0.167 mg/ml inhalation solution (1 source) Anticholinergic, beta2-Adrenergic Agonist Start: 01-14-2023 End: 01-15-2023 ipratropium-albute rol (DUONEB) nebulizer solution 1 ampule 24 hr buPROPion hydrochloride 300 mg extended release oral tablet (7 sources) Aminoketone Start: 05-31-2021 End: 06-30-2021 take 1 tablet by mouth once daily buPROPion (WELLBUTRIN XL) 300 MG extended release tablet Take 300 mg by mouth daily 0 05/31/2021 06/30/2021 Discontinued (LIST CLEANUP) End: 04-29-2023 take 1 tablet by mouth twice daily buPROPion (WELLBUTRIN SR) 150 MG extended release tablet Take 1 tablet by mouth 2 times daily 0 04/29/2023 Discontinued (Side effects) calcium chloride 0.0014 meq/ml / potassium chloride 0.004 meq/ml / sodium chloride 0.103 meq/ml / sodium lactate 0.028 meq/ml injectable solution (1 source) Start: 06-30-2021 IntraVENous, at 125 mL/hr, CONTINUOUS, Starting on Sat06/30/21 at 1000, Pre-op (day of surgery) cariprazine 4.5 mg oral capsule (2 sources) Atypical Antipsychotic take 1 capsule by mouth once daily cariprazine hcl (VRAYLAR) 4.5 MG CAPS capsule Take 1 capsule by mouth daily 0 Active cholecalciferol 0.05 mg oral tablet (6 sources) Vitamin D take 1 tablet by mouth once daily Cholecalciferol 50 MCG (1999 UT) TABS Take 2,000 Units by mouth daily 0 Active ciclopirox 80 mg/ml topical solution (3 sources) Start: 06-02-2021 End: 07-14-2021 ciclopirox (PENLAC) 8 % solution Apply 6.6 mLs topically daily 0 06/02/2021 07/14/2021 Discontinued (LIST CLEANUP) cloNIDine hydrochloride 0.1 mg oral tablet (17 sources) Central alpha-2 Adrenergic Agonist Start: 03-28-2022 cloNIDine (CATAPRES) 0.1 MG tablet Take by mouth 0 05/04/2022 Active diclofenac sodium 50 mg delayed release oral tablet (20 sources) Nonsteroidal Anti-inflammatory Drug Start: 05-31-2021 End: 07-14-2021 take 1 tablet by mouth once daily diclofenac (VOLTAREN) 50 MG EC tablet Take 50 mg by mouth daily 0 05/31/2021 07/14/2021 Discontinued (LIST CLEANUP) DICLOFENAC PO Ta ke 50 mg by mouth as needed 0 Active dicyclomine hydrochloride 10 mg oral capsule (3 sources) Anticholinergic Start: 05-31-2021 End: 07-14-2021 take 1 capsule by mouth once daily dicyclomine (BENTYL) 10 MG capsule Take 10 mg by mouth daily 0 05/31/2021 07/14/2021 Discontinued (LIST CLEANUP) 1 ml diphenhydrAMINE hydrochloride 50 mg/ml cartridge (3 sources) Histamine-1 Receptor Antagonist Start: 01-11-2023 End: 01-12-2023 diphenhydrAMINE (BENADRYL) injection 12.5 mg Start: 08-10-2021 End: 08-10-2021 12.5 mg, IntraVENous, ONCE P RN, Itching, Starting on Angela 08/10/21 at 1157, For 1 dose, PACU only Start: 06-16-2021 End: 06-16-2021 diphenhydrAMINE (BENADRYL) i njection 12.5 mg famotidine 40 mg oral tablet (15 sources) Histamine-2 Receptor Antagonist Start: 01-18-2023 take 1 tablet by mouth once daily as needed famotidine (PEPCID) 40 MG tablet Take 1 tablet by mouth daily as needed (upset stomach) 0 01/18/2023 Active Start: 05-31-2021 take 1 tablet by gilmer th once daily famotidine (PEPCID) 40 MG tablet Take 40 mg by mouth daily 0 05/31/2021 Active 1 ml fentaNYL 0.05 mg/ml injection (4 sources) Opioid Agonist Start: 01-11-2023 fentaNYL (SUBL IMAZE) injection 50 mcg Start: 08-10-2021 50 mcg, IntraV ENous, EVERY 5 MIN PRN, Pain Severe (7-10), Starting on Angela 08/10/21 at 1157, For 4 doses Phase I - Initial therapy for severe pain. PACU only Start: 08-10-2021 25 mcg, IntraV ENous, EVERY 5 MIN PRN, Pain Moderate (4-6), Starting on Angela 08/10/21 at 1157, For 4 doses Phase I - Initial therapy for moderate pain. PACU only Start: 06-16-2021 fentaNYL (SUBL IMAZE) injection 25 mcg FLUoxetine 40 mg oral capsule (12 sources) Serotonin Reuptake Inhibitor Start: 05-31-2021 End: 09-14-2021 take 1 capsule by mouth once daily FLUoxetine (PROZAC) 40 MG capsule Take 40 mg by mouth daily 0 05/31/2021 09/14/2021 Discontinued (Stop Taking at Discharge) End: 09-14-2021 take 1 capsule by mouth once daily FLUoxetine (PROZAC) 10 MG capsule Take 10 mg by mouth daily 0 09/14/2021 Discontinued (Stop Taking at Discharge) fluticasone propionate 0.05 mg/actuat metered dose nasal spray (3 sources) Corticosteroid End: 07-14-2021 fluticasone (FLONASE) 50 MCG/ACT nasal spray 1 spray by NOT APPLICABLE route daily 0 07/14/2021 Discontinued (LIST CLEANUP) gabapentin 300 mg oral capsule (5 sources) Anti-epileptic Agent Start: 07-30-2015 take 300 mg by mouth three times daily at mealtime Gabapentin Active 300 MG PO 3 TIMES DAILY WITH MEALS July 30, 2015 12:00am glucagon (rdna) 1 mg injection (1 source) Antihypoglycemic Agent Start: 01-14-2023 glucagon injection 1 mg 1000 ml glucose 100 mg/ml injection (3 sources) Start: 01-14-2023 dextrose 10 % infusion Start: 01-14-2023 dextrose bolus 10% 125 mL Start: 01-14-2023 glucose chewab le tablet 16 g Haloperidol (11 sources) Typical Antipsychotic Start: 01-14-2023 haloperi dol (HALDOL) tablet 5 mg Start: 02-16-2022 End: 12-28-2022 haloperidol (HALDOL) 5 MG ta blet Start: 05-31-2021 take 7.5 mg by mouth once daily before breakfast haloperidol (HALDOL) 5 MG tablet Take 7.5 mg by mouth every morning (before breakfast) 0 05/31/2021 Active Start: 05-31-2021 take 1 tablet by gilmer th twice daily haloperidol (HALDOL) 5 MG tablet Take 5 mg by mouth 2 times daily 0 05/31/2021 Active 1 ml hydrALAZINE hydrochloride 20 mg/ml injection (1 source) Arteriolar Vasodilator Start: 08-10-2021 5 mg, IntraVENous, E VERY 10 MIN PRN, High Blood Pressure, Starting on Angela 08/10/21 at 1157 PRN for SBP > 160 for 2 consecutive measurements, and if one of the following conditions is met: 1) If IV labetolol is ineffective. 2) If HR is under 60. 3) If patient has heart block, COPD or asthma. If both labetalol and hydralazine ineffective, notify anesthesiologist. PACU only 1 ml HYDROmorphone hydrochloride 1 mg/ml cartridge (3 sources) Opioid Agonist Start: 01-11-2023 HYDROmorphone (DILAUDID) injection 0.5 mg Start: 08-10-2021 0.5 mg, IntraV ENous, EVERY 5 MIN PRN, Pain Severe (7-10), Starting on Angela 08/10/21 at 1157, For 4 doses Phase I - Secondary therapy to be used after all initial severe pain medication doses have been administered. PACU only Start: 08-10-2021 0.25 mg, Intra VENous, EVERY 5 MIN PRN, Pain Moderate (4-6), Starting on Angela 08/10/21 at 1157, For 4 doses Phase I - Secondary therapy to be used after all initial moderate pain medication doses have been administered. PACU only hydrOXYzine pamoate 25 mg oral capsule (20 sources) Antihistamine Start: 05-28-2023 take 2 capsules by mouth twice daily as needed for anxiety hydrOXYzine pamoate (VISTARIL) 25 MG capsule Take 2 capsules by mouth 2 times daily as needed for Anxiety 60 capsule 3 05/28/2023 Active Start: 01-18-2023 End: 02-01-2023 take 1 capsule by mouth once daily as needed for anxiety hydrOXYzine pamoate (VISTARIL) 50 MG capsule Take 1 capsule by mouth nightly as needed for Anxiety 14 capsule 2 01/18/2023 02/01/2023 Active Start: 01-14-2023 take 50 mg by mouth three times daily as needed 50 mg, Oral, 3 TIMES DAILY PRN, Starting on Sat01/14/23 at 1149, Until Discontinued, Anxiety Contact provider if symptoms not relieved by current dose. Start: 05-04-2022 take 25 mg by mouth three times daily Hydroxyzine Hcl Active 25 MG PO THREE TIMES A DAY May 04, 2022 12:00am take 2 capsules by m out twice daily as needed hydrOXYzine pamoate (VISTARIL) 25 MG capsule Take 2 capsules by mouth 2 times daily as needed 0 Suspended take 2 tablets by mo flh at bedtime as needed hydrOXYzine (ATARAX) 50 MG tablet Take 100 mg by mouth At bedtime as needed 0 Active take 1 tablet by gilmer at bedtime as needed hydrOXYzine (ATARAX) 50 MG tablet Take 50 mg by mouth At bedtime as needed 0 Active labetalol hydrochloride 5 mg/ml injectable solution (2 sources) beta-Adrenergic Migdalia Start: 08-10-2021 5 mg, IntraVENous, EVERY 10 MIN PRN, High Blood Pressure, Starting on Angela 08/10/21 at 1157 PRN for SBP >160 for 2 consecutive measurements, if HR is 60 or greater. If beta migdalia is contraindicated (HR less than 60, heart block, COPD or asthma) use hydralazine IV order. PACU only Start: 06-16-2021 labetalol (NOR MODYNE;TRANDATE) injection 5 mg labetalol (NORMODYNE;TRANDATE) injection 10 mg (1 source) Start: 01-14-2023 labetalol (NORMODYNE;TRANDATE) injection 10 mg lamoTRIgine 25 mg oral tablet (14 sources) Mood Stabilizer , Anti-epile ptic Agent Start: 05-28-2023 take 3 tablets by mouth twice daily lamoTRIgine (LAMICTAL) 25 MG tablet Take 3 tablets by mouth 2 times daily 180 tablet 3 05/28/2023 Active Start: 04-29-2023 take 3 tablets by mo uth twice daily lamoTRIgine (LAMICTAL) 25 MG tablet Take 3 tablets by mouth 2 times daily 180 tablet 3 04/29/2023 Active Start: 01-19-2023 End: 04-29-2023 take 1 tablet by mouth once daily lamoTRIgine (LAMICTAL) 100 MG tablet Take 1 tablet by mouth daily 0 01/19/2023 04/29/2023 Discontinued (REORDER) Start: 07-30-2015 End: 05-04-2022 take 150 mg by mouth once daily Lamotrigine Discontinu ed 150 MG PO DAILY July 30, 2015 12:00am May 04, 2022 2:48pm levothyroxine sodium 0.137 mg oral tablet (20 sources) l-Thyroxine Start: 05-31-2021 levothyroxine (SYNTHROID) 137 MCG tablet Take 150 mcg by mouth daily 0 05/31/2021 Active Start: 05-31-2021 take 1 tablet by gilmer th once daily levothyroxine (SYNTHROID) 137 MCG tablet Take 137 mcg by mouth daily 0 05/31/2021 Active Start: 07-30-2015 take 75 ug by mouth once daily Levothyroxine Active 75 MCG PO DAILY July 30, 2015 12:00am 10 ml lidocaine hydrochloride 10 mg/ml injection (7 sources) Antiarrhythmic, Amide Local Anesthetic Start: 01-25-2023 End: 01-26-2023 take 1 dose intravenously once daily 1 mL, IntraDERmal, ONCE PRN, 1 dose, Starting on Sat01/25/23 at 1120, Until 01/26/23 at 1120, IV start, Pre-op (day of surgery) Start: 12-21-2022 End: 12-22-2022 take 1 dose intravenously once daily 1 mL, IntraDERmal, ONCE PRN, 1 dose, Starting on Sat12/21/22 at 1105, Until Sat12/22/22 at 1105, IV start, Pre-op (day of surgery) Start: 03-28-2022 End: 03-28-2022 take 1 dose intravenously once daily 1 mL, IntraDERmal, ONCE PRN, 1 dose, Starting on Sat03/28/22 at 1111, Until Sat03/28/22 at 2359, IV start, Pre-op (day of surgery) Start: 01-03-2022 End: 01-03-2022 lidocaine PF 1 % injection 1 mL Start: 10-11-2021 End: 10-11-2021 lidocaine PF 1 % injection 1 mL Start: 07-14-2021 End: 07-14-2021 take 1 mL intravenously once daily as needed 1 mL, IntraDERmal, ONCE PRN, IV start, Starting on Sat07/14/21 at 1227, For 1 dose, Pre-op (day of surgery) Start: 06-30-2021 End: 06-30-2021 take 1 mL intravenously once daily as needed 1 mL, IntraDERmal, ONCE PRN, IV start, Starting on Sat06/30/21 at 0939, For 1 dose, Pre-op (day of surgery) meloxicam 15 mg oral tablet (18 sources) Nonsteroidal Anti-inflammatory Drug Start: 12-14-2022 meloxicam (MOBIC) 15 MG tablet Start: 05-04-2022 meloxicam (MOB IC) 7.5 MG tablet Take by mouth 0 05/04/2022 Active 1 ml meperidine hydrochloride 25 mg/ml cartridge (3 sources) Opioid Agonist Start: 01-11-2023 End: 01-12-2023 meperidine (DEMEROL) injection 12.5 mg Start: 08-10-2021 12.5 mg, Intra VENous, EVERY 5 MIN PRN, Shivering, , Starting on Angela 08/10/21 at 1157 May give every 5 minutes to max of 50mg. PACU only Start: 06-16-2021 meperidine (DE MEROL) injection 12.5 mg 2 ml metoclopramide 5 mg/ml prefilled syringe (4 sources) Dopamine-2 Receptor Antagonist Start: 01-14-2023 End: 01-15-2023 metoclopramide (REGLAN) injection 10 mg Start: 01-11-2023 End: 01-12-2023 metoclopramide (REGLAN) inje ction 10 mg Start: 10-11-2021 End: 10-11-2021 metoclopramide (REGLAN) inje ction 10 mg Start: 06-16-2021 End: 06-16-2021 metoclopramide (REGLAN) inje ction 10 mg ondansetron 4 mg oral tablet (18 sources) Serotonin-3 Receptor Antagonist Start: 05-28-2023 take 1 tablet by mouth every eight hours as needed for nausea ondansetron (ZOFRAN) 4 MG tablet Take 1 tablet by mouth every 8 hours as needed for Nausea or Vomiting 21 tablet 1 05/28/2023 Active Start: 01-14-2023 End: 01-15-2023 ondansetron (ZOFRAN) injecti on 4 mg Start: 01-11-2023 End: 01-12-2023 ondansetron (ZOFRAN) injecti on 4 mg Start: 12-21-2022 End: 12-22-2022 4 mg, IntraVENous, ONCE PRN, 1 dose, Starting on Sat12/21/22 at 1105, Until 12/22/22 at 1105, Nausea Initial antiemetic therapy. PACU only Start: 05-04-2022 End: 05-09-2022 ondansetron (ZOFRAN-ODT) 4 M G disintegrating tablet Take by mouth 0 05/04/2022 Active Start: 03-28-2022 End: 03-28-2022 4 mg, IntraVENous, ONCE PRN, 1 dose, Starting on 03/28/22 at 1111, Until 03/28/22 at 2359, Nausea Initial antiemetic therapy. PACU only Start: 08-10-2021 End: 08-10-2021 4 mg, IntraVENous, ONCE PRN, Nausea, Starting on Angela 08/10/21 at 1157, For 1 dose Initial antiemetic therapy. PACU only Start: 06-16-2021 End: 06-16-2021 ondansetron (ZOFRAN) injecti on 4 mg ondansetron (ZOFRAN-ODT) disintegrating tablet 4 mg (5 sources) Start: 04-03-2023 ondansetron (Z OFRAN-ODT) disintegrating tablet 4 mg Start: 01-21-2023 ondansetron (Z OFRAN-ODT) disintegrating tablet 4 mg Start: 01-14-2023 ondansetron (Z OFRAN-ODT) disintegrating tablet 4 mg Start: 01-11-2023 ondansetron (Z OFRAN-ODT) disintegrating tablet 4 mg Start: 12-21-2022 ondansetron (Z OFRAN-ODT) disintegrating tablet 4 mg oxyCODONE hydrochloride 5 mg oral tablet (1 source) Opioid Agonist Start: 01-11-2023 End: 01-12-2023 oxyCODONE (ROXICODONE) immediate release tablet 5 mg PARoxetine hydrochloride 30 mg oral tablet (2 sources) Serotonin Reuptake Inhibitor take 1 tablet by mouth once daily in the morning PARoxetine (PAXIL) 30 MG tablet Take 1 tablet by mouth every morning 0 Active 2 ml prochlorperazine 5 mg/ml injection (1 source) Phenothiazine Start: 08-10-2021 End: 08-10-2021 5 mg, IntraVENous, ONCE PRN, Nausea, Starting on Angela 08/10/21 at 1157, For 1 dose Secondary antiemetic therapy. PACU only rosuvastatin calcium 10 mg oral tablet (20 sources) HMG-CoA Reductase Inhibitor take 1 tablet by mouth once daily rosuvastatin (CRESTOR) 10 MG tablet Take 1 tablet by mouth daily 0 Active SUMAtriptan 50 mg oral tablet (20 sources) Serotonin-1b and Serotonin-1d Receptor Agonist Start: 04-29-2023 SUMAtriptan (IMITREX) 50 MG tablet Take 1 tablet the day before ECT, day of and day after for migraine 9 tablet 3 04/29/2023 Active Start: 01-18-2023 End: 04-11-2023 SUMAtriptan (IMITREX) 50 MG tablet TAKE 1 TABLET BY MOUTH NEEDED FOR HEADACHE 9 tablet 1 01/18/2023 04/11/2023 Discontinued (REORDER) Start: 02-19-2022 SUMAtriptan (I MITREX) 50 MG tablet TAKE 1 TABLET BY MOUTH NEEDED FOR HEADACHE 9 tablet 1 02/19/2022 Active Start: 11-14-2021 SUMAtriptan (I MITREX) 50 MG tablet TAKE 1 TABLET BY MOUTH NEEDED FOR HEADACHE 9 tablet 1 11/14/2021 Suspended Start: 07-14-2021 End: 10-11-2021 take 1 tablet by mouth once as needed for headache SUMAtriptan (IMITREX) 50 MG tablet Take 1 tablet by mouth once as needed (headache) 9 tablet 1 10/11/2021 Active traZODone hydrochloride 50 mg oral tablet (20 sources) Serotonin Reuptake Inhibitor Start: 05-30-2022 take 2 tablets by mouth once daily traZODone (DESYREL) 50 MG tablet Take 2 tablets by mouth nightly 30 tablet 1 05/30/2022 Active Start: 07-30-2015 End: 05-30-2022 take 50 mg by mouth at bedtime Trazodone Active 50 MG PO AT BEDTIME July 30, 2015 12:00am trihexyphenidyl hydrochloride 2 mg oral tablet (20 sources) Start: 01-18-2023 End: 04-29-2023 take 2 tablets by mouth twice daily trihexyphenidyl (ARTANE) 2 MG tablet Take 2 tablets by mouth 2 times daily 120 tablet 3 04/29/2023 Active take 1 tablet by gilmer th three times daily trihexyphenidyl (ARTANE) 2 MG tablet Fernando e 1 tablet by mouth 3 times daily 0 Active take 1 tablet by mouth twice roshan ly trihexyphenidyl (ARTANE) 2 MG tablet Take 2 mg by mouth 2 times daily 0 Active 24 hr venlafaxine 37.5 mg extended release oral capsule (20 sources) Serotonin and Norepinephrine Reuptake Inhibitor Start: 01-19-2023 End: 04-29-2023 take 3 capsules by mouth once daily venlafaxine (EFFEXOR XR) 37.5 MG extended release capsule Take 3 capsules by mouth daily 45 capsule 3 04/29/2023 Active Start: 05-16-2022 take 1 capsule by [facility] once daily venlafaxine (EFFEXOR XR) 75 MG extended release capsule Take 1 capsule by mouth daily 30 capsule 1 05/16/2022 Active Start: 12-07-2021 take 1 capsule by mo uth once daily venlafaxine (EFFEXOR XR) 37.5 MG extended release capsule TAKE 1 CAPSULE BY MOUTH DAILY 30 capsule 3 12/07/2021 Active Start: 09-14-2021 take 1 capsule by mo uth once daily venlafaxine (EFFEXOR XR) 37.5 MG extended release capsule Take 1 capsule by mouth daily 30 capsule 3 09/14/2021 Active vitamin b12 1 mg oral tablet (3 sources) Vitamin B12 End: 07-14-2021 take 1 tablet by mouth once daily cyanocobalamin 1000 MCG tablet Take 1,000 mcg by mouth daily 0 07/14/2021 Discontinued (LIST CLEANUP) vortioxetine 5 mg oral tablet (2 sources) Start: 06-21-2023 take 1 tablet by mouth once daily TRINTELLIX 5 MG tablet TAKE 1 TABLET BY MOUTH DAILY 28 tablet 1 06/21/2023 Active zolpidem tartrate 5 mg oral tablet (12 sources) gamma-Aminobut yric Acid-ergic Agonist Start: 01-18-2023 End: 02-17-2023 take 1 tablet by mouth once daily as needed for sleep zolpidem (AMBIEN) 5 MG tablet Indications: Schizoaffective disorder, depressive type (HCC) Take 1 tablet by mouth nightly as needed for Sleep for up to 30 days. Max Daily Amount: 5 mg 15 tablet 1 01/18/2023 02/17/2023 Active Start: 07-30-2015 End: 05-04-2022 take 5 mg by mouth at bedtime as needed Zolpidem Discontinued 5 MG PO AT BEDTIME NEEDED July 30, 2015 12:00am May 04, 2022 2:48pm Completed/Discontinued Medications Medication Drug Class(es) Dates Sig (Normalized) Sig (Original) acetaminophen 325 mg oral tablet (20 sources) Start: 01-14-2023 take 650 mg by mouth every four hours as needed, then take 4000 mg by mouth every twenty-four hours as needed 650 mg, Oral, EVERY 4 HOURS PRN, Starting on 4/17/23 at 1149, Until Discontinued, Pain Mild (1-3), Fever, Fever >100.5 F (38 C) Maximum dose of acetaminophen is 4000 mg from all sources in 24 hours. take 1 tablet by gilmer th every six hours as needed for pain acetaminophen (TYLENOL) 500 MG tablet Ta ke 1 tablet by mouth every 6 hours as needed for Pain 0 Active aluminum hydroxide 40 mg/ml / magnesium hydroxide 40 mg/ml / simethicone 4 mg/ml oral suspension (1 source) Start: 01-14-2023 30 mL, Oral, PRN, Starting on Sat01/14/23 at 1149, Until Discontinued, Indigestion amoxicillin 500 mg oral capsule (5 sources) Penicillin-class Antibacterial Start: 12-07-2021 End: 12-17-2021 take 1000 mg by mouth twice daily Amoxicillin Discontinued 1000 MG PO TWICE A DAY 40 December 07, 2021 1:00am December 17, 2021 12:03am amoxicillin 875 mg / clavulanate 125 mg oral tablet (5 sources) Penicillin-class Antibacterial Start: 09-30-2016 End: 05-04-2022 take 875 mg by mouth every twelve hours Amoxicillin-Pot Clavulanate Discontinued 875 MG PO Q12H September 30, 2016 1:00am May 04, 2022 2:47pm ARIPiprazole 5 mg oral tablet (5 sources) Atypical Antipsychotic Start: 07-30-2015 End: 05-04-2022 take 5 mg by mouth once daily Aripiprazole Discontinued 5 MG PO DAILY July 30, 2015 12:00am May 04, 2022 2:48pm 2 ml benztropine mesylate 1 mg/ml injection (6 sources) Anticholinergic, Antihistamine Start: 01-14-2023 inject 2 mg by intramuscular injection twice daily as needed 2 mg, IntraMUSCular, 2 TIMES DAILY PRN, Starting on Sat01/14/23 at 1149, Until Discontinued, Agitation, Acute Dystonia Start: 07-30-2015 take 2 mg by mouth once daily Benztropine Active 2 MG PO DAILY July 30, 2015 12:00am doxepin hydrochloride 10 mg oral capsule (5 sources) Tricyclic Antidepressant Start: 07-30-2015 End: 05-04-2022 take 10 mg by mouth at bedtime Doxepin Discontinued 10 MG PO AT BEDTIME July 30, 2015 12:00am May 04, 2022 2:48pm magnesium hydroxide 80 mg/ml oral suspension (1 source) Start: 01-14-2023 take 30 mL by mouth once daily as needed 30 mL, Oral, DAILY PRN, Starting on Sat01/14/23 at 1149, Until Discontinued, Constipation First line therapy for constipation. naproxen 500 mg oral tablet (5 sources) Nonsteroidal Anti-inflammatory Drug Start: 09-30-2016 End: 05-04-2022 take 500 mg by mouth twice daily Naproxen Discontinued 500 MG PO TWICE A DAY September 30, 2016 1:00am May 04, 2022 2:48pm predniSONE 20 mg oral tablet (1 source) Start: 03-30-2023 End: 04-03-2023 take 1 tablet by mouth once daily, then take 2 tablets by mouth once daily predniSONE (DELTASONE) 20 MG tablet Take 1 tablet by mouth daily Pt is to taking 2 tablets per day. Today is last day 0 03/30/2023 04/03/2023 50 ml sodium chloride 9 mg/ml injection (20 sources) Start: 11-08-2023 End: 11-08-2023 sodium chloride 0.9 % bolus 1,000 mL Start: 04-04-2023 0.9 % sodium c hloride infusion Start: 04-03-2023 take 1 dose intraven ously twice daily 5-40 mL, IntraVENous, EVERY 12 HOURS SCHEDULED (2 times per day), First dose on Sat04/03/23 at 2100, Until Discontinued For Line Patency: Peripheral IV = 5 mL; Midline or Central Line = 10 mL/lumen. If following IV push medication, administer flush at same rate as the IV push. Flush volume is determined by type of infusion therapy being given. For non-viscous solutions use: Peripheral IV = 5 mL Midline or Central Line = 10 mL/lumen For viscous solutions (i.e. blood components, parenteral nutrition, contrast media, or after obtaining blood sample) use: Peripheral IV = 10 mL Midline or Central Line = 20 mL/lumen PACU only Start: 04-03-2023 IntraVENous, a t 5-250 mL/hr, PRN, if patient receiving piggyback infusions and maintenance fluids are not ordered OR KVO fluids to protect IV site / prevent frequent line interruptions/ long duration, Starting on Sat04/03/23 at 1214 For piggyback infusion, administer at same rate as piggyback for a total of 25 mL. Enter 25 mL into dose field and piggyback rate into rate field of order. If piggyback is infusing at a rate less than 100 mL/hr, enter 25 mL into dose field and 100 mL/hr into rate field of order. For KVO fluids, enter rate of 20 mL/hr or less into rate field of order. PACU only Start: 04-03-2023 take 5-40 mL intrave nously once as needed 5-40 mL, IntraVENous, PRN, Starting on Sat04/03/23 at 1214, Until Discontinued, Line Care, After every IV line use For Line Patency: Peripheral IV = 5 mL; Midline or Central Line = 10 mL/lumen. If following IV push medication, administer flush at same rate as the IV push. Flush volume is determined by type of infusion therapy being given. For non-viscous solutions use: Peripheral IV = 5 mL Midline or Central Line = 10 mL/lumen For viscous solutions (i.e. blood components, parenteral nutrition, contrast media, or after obtaining blood sample) use: Peripheral IV = 10 mL Midline or Central Line = 20 mL/lumen PACU only Start: 02-27-2023 0.9 % sodium c hloride infusion Start: 02-08-2023 0.9 % sodium c hloride infusion Start: 01-26-2023 0.9 % sodium c hloride infusion Start: 01-25-2023 IntraVENous, a t 5-250 mL/hr, PRN, if patient receiving piggyback infusions and maintenance fluids are not ordered OR KVO fluids to protect IV site / prevent frequent line interruptions/ long duration, Starting on Sat01/25/23 at 1120 For piggyback infusion, administer at same rate as piggyback for a total of 25 mL. Enter 25 mL into dose field and piggyback rate into rate field of order. If piggyback is infusing at a rate less than 100 mL/hr, enter 25 mL into dose field and 100 mL/hr into rate field of order. For KVO fluids, enter rate of 20 mL/hr or less into rate field of order. Pre-op (day of surgery) Start: 01-25-2023 take 1 dose intraven ously twice daily 5-40 mL, IntraVENous, EVERY 12 HOURS SCHEDULED (2 times per day), First dose on Sat01/25/23 at 1145, Until Discontinued For Line Patency: Peripheral IV = 5 mL; Midline or Central Line = 10 mL/lumen. If following IV push medication, administer flush at same rate as the IV push. Flush volume is determined by type of infusion therapy being given. For non-viscous solutions use: Peripheral IV = 5 mL Midline or Central Line = 10 mL/lumen For viscous solutions (i.e. blood components, parenteral nutrition, contrast media, or after obtaining blood sample) use: Peripheral IV = 10 mL Midline or Central Line = 20 mL/lumen Pre-op (day of surgery) Start: 01-25-2023 take 5-40 mL intrave nously once as needed 5-40 mL, IntraVENous, PRN, Starting on Sat01/25/23 at 1120, Until Discontinued, Line Care, After every IV line use For Line Patency: Peripheral IV = 5 mL; Midline or Central Line = 10 mL/lumen. If following IV push medication, administer flush at same rate as the IV push. Flush volume is determined by type of infusion therapy being given. For non-viscous solutions use: Peripheral IV = 5 mL Midline or Central Line = 10 mL/lumen For viscous solutions (i.e. blood components, parenteral nutrition, contrast media, or after obtaining blood sample) use: Peripheral IV = 10 mL Midline or Central Line = 20 mL/lumen Pre-op (day of surgery) Start: 01-22-2023 0.9 % sodium c hloride infusion Start: 01-15-2023 0.9 % sodium c hloride infusion Start: 01-14-2023 sodium chlorid e flush 0.9 % injection 5-40 mL Start: 01-14-2023 0.9 % sodium c hloride infusion Start: 01-14-2023 sodium chlorid e flush 0.9 % injection 5-40 mL Start: 01-11-2023 0.9 % sodium c hloride infusion Start: 01-11-2023 sodium chlorid e flush 0.9 % injection 5-40 mL Start: 01-04-2023 End: 01-04-2023 0.9 % sodium chloride bolus Start: 12-21-2022 IntraVENous, a t 5-250 mL/hr, PRN, if patient receiving piggyback infusions and maintenance fluids are not ordered OR KVO fluids to protect IV site / prevent frequent line interruptions/ long duration, Starting on Sat12/21/22 at 1105 For piggyback infusion, administer at same rate as piggyback for a total of 25 mL. Enter 25 mL into dose field and piggyback rate into rate field of order. If piggyback is infusing at a rate less than 100 mL/hr, enter 25 mL into dose field and 100 mL/hr into rate field of order. For KVO fluids, enter rate of 20 mL/hr or less into rate field of order. Pre-op (day of surgery) Start: 12-21-2022 End: 12-21-2022 0.9 % sodium chloride bolus Start: 12-21-2022 take 1 dose intraven ously twice daily 5-40 mL, IntraVENous, EVERY 12 HOURS SCHEDULED (2 times per day), First dose on Sat12/21/22 at 1130, Until Discontinued For Line Patency: Peripheral IV = 5 mL; Midline or Central Line = 10 mL/lumen. If following IV push medication, administer flush at same rate as the IV push. Flush volume is determined by type of infusion therapy being given. For non-viscous solutions use: Peripheral IV = 5 mL Midline or Central Line = 10 mL/lumen For viscous solutions (i.e. blood components, parenteral nutrition, contrast media, or after obtaining blood sample) use: Peripheral IV = 10 mL Midline or Central Line = 20 mL/lumen Pre-op (day of surgery) Start: 12-21-2022 take 5-40 mL intrave nously once as needed 5-40 mL, IntraVENous, PRN, Starting on Sat12/21/22 at 1105, Until Discontinued, Line Care, After every IV line use For Line Patency: Peripheral IV = 5 mL; Midline or Central Line = 10 mL/lumen. If following IV push medication, administer flush at same rate as the IV push. Flush volume is determined by type of infusion therapy being given. For non-viscous solutions use: Peripheral IV = 5 mL Midline or Central Line = 10 mL/lumen For viscous solutions (i.e. blood components, parenteral nutrition, contrast media, or after obtaining blood sample) use: Peripheral IV = 10 mL Midline or Central Line = 20 mL/lumen Pre-op (day of surgery) Start: 06-06-2022 0.9 % sodium c hloride infusion Start: 05-30-2022 0.9 % sodium c hloride infusion Start: 05-09-2022 0.9 % sodium c hloride infusion Start: 05-02-2022 0.9 % sodium c hloride infusion Start: 03-28-2022 0.9 % sodium c hloride infusion Start: 03-07-2022 0.9 % sodium c hloride infusion Start: 01-03-2022 0.9 % sodium c hloride infusion Start: 01-03-2022 sodium chlorid e flush 0.9 % injection 5-40 mL Start: 10-25-2021 0.9 % sodium c hloride infusion Start: 10-11-2021 0.9 % sodium c hloride infusion Start: 10-11-2021 sodium chlorid e flush 0.9 % injection 5-40 mL Start: 09-14-2021 0.9 % sodium c hloride infusion Start: 07-27-2021 0.9 % sodium c hloride infusion Start: 07-14-2021 take 1 dose intraven ously twice daily 5-40 mL, IntraVENous, EVERY 12 HOURS SCHEDULED (2 times per day), First dose on Sat07/14/21 at 2100 For Line Patency: Peripheral IV = 5 mL; Midline or Central Line = 10 mL/lumen. If following IV push medication, administer flush at same rate as the IV push. Flush volume is determined by type of infusion therapy being given. For non-viscous solutions use: Peripheral IV = 5 mL Midline or Central Line = 10 mL/lumen For viscous solutions (i.e. blood components, parenteral nutrition, contrast media, or after obtaining blood sample) use: Peripheral IV = 10 mL Midline or Central Line = 20 mL/lumen Pre-op (day of surgery) Start: 07-14-2021 take 25 mL intraveno usly every hour as needed 25 mL, IntraVENous, at 100 mL/hr, PRN, If patient receiving piggyback infusions without ordered maintenance IV fluids or with frequent/long duration piggyback infusions, Starting on Sat07/14/21 at 1227 Administer at the same rate as the piggyback being infused. Pre-op (day of surgery) Start: 07-14-2021 take 5-40 mL intrave nously once as needed 5-40 mL, IntraVENous, PRN, Line Care, Starting on Sat07/14/21 at 1227 For Line Patency: Peripheral IV = 5 mL; Midline or Central Line = 10 mL/lumen. If following IV push medication, administer flush at same rate as the IV push. Flush volume is determined by type of infusion therapy being given. For non-viscous solutions use: Peripheral IV = 5 mL Midline or Central Line = 10 mL/lumen For viscous solutions (i.e. blood components, parenteral nutrition, contrast media, or after obtaining blood sample) use: Peripheral IV = 10 mL Midline or Central Line = 20 mL/lumen Pre-op (day of surgery) Start: 07-14-2021 IntraVENous, a t 125 mL/hr, CONTINUOUS, Starting on Sat07/14/21 at 1245 Please use sodiums chloride 0.9 % for renal failure / dialysis patients. Please use mini drip at kvo Pre-op (day of surgery) Start: 06-30-2021 10 mL, IntraVE Nous, EVERY 12 HOURS SCHEDULED (2 times per day), First dose on Sat06/30/21 at 1000, Pre-op (day of surgery) Start: 06-30-2021 take 25 mL intraveno usly every hour as needed 25 mL, IntraVENous, at 100 mL/hr, PRN, If patient receiving piggyback infusions without ordered maintenance IV fluids or with frequent/long duration piggyback infusions, Starting on Sat06/30/21 at 0939 Administer at the same rate as the piggyback being infused. Pre-op (day of surgery) Start: 06-30-2021 take 10 mL intraveno usly once as needed 10 mL, IntraVENous, PRN, Line Care, After every IV line use, Starting on Sat06/30/21 at 0939, Pre-op (day of surgery) Start: 06-16-2021 End: 06-16-2021 0.9 % sodium chloride bolus Start: 06-16-2021 0.9 % sodium c hloride infusion Problems Active Problems Problem Classification Problem Date Documented Da te Episodic/Chronic Adjustment disorders (1 source) Stress; Translations: [Reaction to severe stress, unspecified] Chronic Alcohol-related disorders (1 source) Alcohol dependence, in remission; Translations: [Alcohol dependence, in remission] Onset: 08-02-2022 Chronic Alcohol-related disorders (1 source) Alcohol intoxication; Translations: [Alcohol use, unspecified with intoxication, unspecified] Episodic Anxiety disorders (5 sources) Generalized anxiety disorder; Translations: [Generalized anxiety disorder] Onset: 08-02-2022 04-29-2023 Chronic Chronic kidney disease (1 source) Chronic kidney disease, stage 2 (mild); Translations: [Chronic kidney disease, stage 2 (mild)] Onset: 08-02-2022 Chronic Diabetes mellitus without complication (1 source) Prediabetes; Translations: [Prediabetes] Onset: 01-05-2025 Episodic Disorders of lipid metabolism (1 source) Hyperlipidemia, unspecified; Translations: [Hyperlipidemia, unspecified] Onset: 08-02-2022 Chronic Esophageal disorders (1 source) Gastro-esophageal reflux disease without esophagitis; Translations: [Gastro-esophageal reflux disease without esophagitis] Onset: 08-02-2022 Chronic Headache; including migraine (2 sources) Chronic migraine without aura, not intractable, without status migrainosus; Translations: [Chronic migraine without aura, intractable, with status migrainosus] Onset: 08-02-2022 Chronic Mood disorders (4 sources) Major depressive disorder, recurrent, unspecified; Translations: [Major depressive disorder, recurrent, severe with psychotic symptoms] Onset: 08-02-2022 Chronic Nausea and vomiting (6 sources) Nausea; Translations: [Nausea] Episodic Nonspecific chest pain (2 sources) Chest pain, unspecified; Translations: [Chest pain, unspecified] Onset: 02-23-2025 Episodic Other aftercare (1 source) Other exterminator (current) drug therapy; Translations: [Other exterminator (current) drug therapy] Onset: 08-02-2022 Episodic Other connective tissue disease (1 source) Other specified disorders of tendon, right ankle and foot; Translations: [Other specified disorders of tendon, right ankle and foot] Onset: 01-29-2025 Episodic Other connective tissue disease (1 source) Plantar fascial fibromatosis; Translations: [Plantar fascial fibromatosis] Onset: 01-29-2025 Episodic Other connective tissue disease (1 source) Pain in left leg; Translations: [Pain in left leg] Onset: 01-04-2025 Episodic Other gastrointestinal disorders (2 sources) Diarrhea; Translations: [Diarrhea, unspecified] Episodic Other gastrointestinal disorders (2 sources) Diarrhea, unspecified; Translations: [Diarrhea] Episodic Other lower respiratory disease (6 sources) Cough; Translations: [Cough] Episodic Other nervous system disorders (2 sources) Chronic pain syndrome; Translations: [Chronic pain syndrome] Onset: 08-02-2022 Chronic Other non-epithelial cancer of skin (1 source) Personal history of other malignant neoplasm of skin; Translations: [Personal history of other malignant neoplasm of skin] Onset: 08-02-2022 Episodic Other nutritional; endocrine; and metabolic disorders (1 source) Obesity, unspecified; Translations: [Obesity, unspecified] Onset: 08-02-2022 Chronic Other nutritional; endocrine; and metabolic disorders (1 source) Body mass index (BMI) 34.0-34.9, adult; Translations: [Body mass index [BMI] 34.0-34.9, adult] Onset: 08-02-2022 Chronic Other screening for suspected conditions (not mental disorders or infectious disease) (3 sources) Encounter for screening for malignant neoplasm of respiratory organs; Translations: [Encounter for screening mammogram for malignant neoplasm of breast] Onset: 11-07-2024 Episodic Other upper respiratory infections (13 sources) Acute maxillary sinusitis; Translations: [Acute maxillary sinusitis, unspecified] Episodic Residual codes; unclassified (1 source) Insomnia, unspecified; Translations: [Insomnia, unspecified] Onset: 03-12-2025 Episodic Schizophrenia and other psychotic disorders (20 sources) Schizoaffective disorder, depressive type ; Translations: [Schizoaffective disorder, depressive type] Onset: 06-16-2021 Resolved: 01-21-2023 Chronic Screening and history of mental health and substance abuse codes (1 source) H/O: psychiatric disorder; Translations: [Personal history of other mental and behavioral disorders] Episodic Sprains and strains (3 sources) Strain of muscle(s) and tendon(s) of peroneal muscle group at lower leg level, right leg, subsequent encounter; Translations: [Strain of muscle, fascia and tendon of lower back, initial encounter] Onset: 01-20-2025 Episodic Substance-related disorders (2 sources) Nicotine dependence, unspecified, uncomplicated; Translations: [Opioid dependence, uncomplicated] Onset: 08-02-2022 Chronic Syncope (1 source) Syncope and collapse; Translations: [Syncope and collapse] Onset: 02-02-2025 Episodic Thyroid disorders (1 source) Hypothyroidism, unspecified; Translations: [Hypothyroidism, unspecified] Onset: 08-02-2022 Chronic Unclassified (2 sources) ect; Translations: [ect] Onset: 01-25-2023 Unclassified (1 source) Low back pain, unspecified; Translations: [Low back pain, unspecified] Onset: 12-30-2024 Viral infection (6 sources) Viral disease; Translations: [Viral infection, unspecified] Episodic Past or Other Problems Problem Classification Problem Date Documented Da te Episodic/Chronic Malaise and fatigue (2 sources) Other fatigue; Translations: [Other malaise] Onset: 06-16-2024 Episodic Spondylosis; intervertebral disc disorders; other back problems (1 source) Radiculopathy, lumbar region; Translations: [Radiculopathy, lumbar region] Onset: 10-22-2024 Episodic Results Test Name Value Interpretation Reference Range Facility [facility] 02[facility]25-[facility] [address], [address] [place] [address] OFFICE VISIT Date of Service: 02/25/25 MR#: [id number] Acct: [id number] Name: LAZARO NARANJO Rep #: [id number] : 1970 Provider: Dr. Mora Saavedra se, DO Age/Sex: 54/F [place] [facility] Status: Signed Intake Vital Signs 01/26/25 07:24 02/25/25 07:23 Height 5 ft 5 ft Weight: 167 lb 163 lb BMI 32.5 31.8 BP 113/80 134/80 H Blood Pressure Location Lt brachial Lt brachial Position Sitting Sitting Respiration 16 16 Pulse 79 98 Pulse Source Monitor Monitor BP Intake Visit Reasons: 1 M FU Accompanied by: Self Allergies hydrocortisone (From Cortizone-10) Allergy (Severe, Verified 02/25/25 07:26) Hives ketamine Allergy (Unknown, Verified 02/25/25 07:26) Other Medications ???Medication ???Instructions ???Recorded ???Confirmed ???Type famotidine 20 mg tablet 20 mg PO DAILY 03/18/23 02/25/25 H istory levothyroxine 125 mcg tablet 125 mcg PO DAILY 03/18/23 02/25/25 History rosuvastatin 10 mg tablet 10 mg PO DAILY 03/18/23 02/25/25 H istory ondansetron HCl 4 mg tablet mg PO 08/08/23 02/25/25 History baclofen 10 mg tablet 10 mg PO TID 03/12/24 02/25/25 His tory gabapentin 300 mg capsule 300 mg PO 3XD 12/05/24 02/25/25 Hi story tramadol 50 mg tablet 50 mg PO 12/05/24 02/25/25 History lurasidone 60 mg tablet 60 mg PO QPM #30 tabs 12/22/24 Rx trihexyphenidyl 2 mg tablet See Rx Instructions .Route 5 02/25/25 Rx .COMPLEX #90 tabs hydroxyzine pamoate 25 mg capsule 25 mg PO TID PRN anxiety #90 caps 01/26/25 02/25/25 Rx meloxicam 15 mg tablet 15 mg PO QDAY 01/26/25 02/25/25 Hi story propranolol 20 mg tablet 20 mg PO TID PRN anxiety #90 tabs 01/26/25 02/25/25 Rx lamotrigine 150 mg tablet See Rx Instructions .Route 5 02/25/25 Rx .COMPLEX #30 tabs lorazepam 1 mg tablet 1 mg PO TID PRN anxiety #90 tabs 0 02/25/25 02/25/25 Rx PFSH Medical History Sciatica Hypothyroidism Arthritis History of electroconvulsive therapy Insomnia Schizoaffective disorder, depressive type Alcohol abuse Acute maxillary sinusitis, unspecified Surgical History H/O tubal ligation Hx of appendectomy Hx of cholecystectomy Family History Mother Cancer Father Heart disease Social History Smoking Status: Heavy Smoker (>10/day) alcohol intake: current alcohol intake frequency: a few times a week HPI History of Present Illness History provided by: patient HPI: Lazaro Naranjo is a 54 year old female who presents today for follow up evaluation. Patient reports that her grief has been really bad. Recently felt that she was having a heart attack when she was at her storage unit trying to clean out some things. Ended up going to [facility] and they diagnosed with acute anxiety. Had to stay with her daughter afterwards. Has been trying to move closer to her daughter, but has had trouble getting approved. Recently got an eviction notice and has 2 days to move out. Now has to go to [employer] to figure out why they haven't helped with rent like they were supposed to. Has not been working because of mood symptoms. Only sleeping a couple hours then waking up. Having regular crying spells. Denies SI/HI or AVH. Supposed to go back to work on the , but she is not sure that she wants to since that is where her had been living. Has been having some intermittent VH of an old man in the corner of her vision. Continues to have z's in her vision. Appetite has been fair. Has not been doing any type of therapy at this point. Has looked in to grief counseling through hospice. Review of Systems Constitutional Denies: fever(s), chills or change in weight Eyes Denies: change in vision or blurry vision Ears, Nose, Mouth, Throat Denies: throat pain, neck pain or change in hearing Cardiovascular Reports: palpitations and dyspnea (with anxiety) Respiratory Reports: dyspnea (with anxiety); Denies: cough or wheezing Gastrointestinal Reports: nausea; Denies: abdominal pain, vomiting, diarrhea or constipation Genitourinary Denies: dysuria or urinary frequency Musculoskeletal Reports: other (side pain); Denies: back pain, neck pain, joint pain or muscle weakness Integumentary/Breast Denies: rash or new lesions Neurological Reports: headache(s) and confusion; Denies: dizziness Psychiatric Reports: auditory hallucinations Endocrine Denies: excessive sweating Hematologic/Lymphatic Denies: easy bruising or easy bleeding Allergic/Immunologic Denies: wheezing Exam Mental Status E (more content not included)... Normal [facility] BASIC METABOLIC PANELon 05-2 Anion gap [Moles/Vol] 22 mmol/L High 10-20 [facility] Comment on above: Order Comment: [facility] has implemented the eGFR calculation approach that does not have a coefficient for race that conforms to the NKF-ASN Task Force Recommendations. Performed By: #### 4 6124 #### [facility] [address] [place], [place] [address] Siddhartha Mckeon M.D. [id number] Calcium [Mass/Vol] 9.7 mg/dL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 Comprehensive Metabolic Prof ilon 01-04-2025 Albumin [Mass/Vol] 3.5 g/dL Normal 3.5-5.0 [facility] Comment on above: Order Comment: Order Date: 01/04/25Order Info: 0786-1 - CMPOrder Info: [id number] - MG Performed By: #### L 502.0250 #### [facility] [address] [place], [address] Albumin/Globulin [Mass ratio] 1.0 {ratio} Normal 0.9-2.4 [facility] Comment on above: Order Comment: Order Date: 01/04/25Order Info: 0786-1 - CMPOrder Info: [id number] - MG Performed By: #### L 502.0250 #### [facility] [address] [place], [address] ALK PHOS 77 U/L Normal 35-104 [facility] Comment on above: Order Comment: Order Date: 01/04/25Order Info: 0786-1 - CMPOrder Info: [id number] - MG Performed By: #### L 502.0250 #### [facility] [address] [place], [address] ALT [Catalytic activity/Vol] 14 U/L Normal <=34 [facility] Comment on above: Order Comment: Order Date: 01/04/25Order Info: 0786-1 - CMPOrder Info: [id number] - MG Performed By: #### L 502.0250 #### [facility] [address] [place], [address] AST [Catalytic activity/Vol] 16 U/L Normal <=31 [facility] Comment on above: Order Comment: Order Date: 01/04/25Order Info: 0786-1 - CMPOrder Info: [id number] - MG Performed By: #### L 502.0250 #### [facility] [address] [place], [address] Bilirubin [Mass/Vol] 0.22 mg/dL Normal 0.00-1.30 [facility] Comment on above: Order Comment: Order Date: 01/04/25Order Info: 0786-1 - CMPOrder Info: [id number] - MG Performed By: #### L 502.0250 #### [facility] [address] [place], [address] BUN/CRE 13.0 RATIO Normal 10-20 [facility] Comment on above: Order Comment: Order Date: 01/04/25Order Info: 0786-1 - CMPOrder Info: [id number] - MG Performed By: #### L 502.0250 #### [facility] [address] [place], [address] Calcium [Mass/Vol] 9.4 mg/dL Normal 7.6-11.0 [facility] Comment on above: Order Comment: Order Date: 01/04/25Order Info: 0786-1 - CMPOrder Info: [id number] - MG Performed By: #### L 502.0250 #### [facility] [address] [place], [address] Chloride [Moles/Vol] 105 mmol/L Normal 98-108 [facility] Comment on above: Order Comment: Order Date: 01/04/25Order Info: 0786-1 - CMPOrder Info: [id number] - MG Performed By: #### L 502.0250 #### [facility] [address] [place], [address] CO2 [Moles/Vol] 24.9 mmol/L Normal 21.0-32.0 [facility] Comment on above: Order Comment: Order Date: 01/04/25Order Info: 0786-1 - CMPOrder Info: [id number] - MG Performed By: #### L 502.0250 #### [facility] [address] [place], [address] Creatinine [Mass/Vol] 0.85 mg/dL Normal 0.70-1.20 [facility] Comment on above: Order Comment: Order Date: 01/04/25Order Info: 0786-1 - CMPOrder Info: [id number] - MG Performed By: #### L 502.0250 #### [facility] [address] [place], [address] GAP 11 Normal 5-15 [facility] Comment on above: Order Comment: Order Date: 01/04/25Order Info: 0786-1 - CMPOrder Info: [id number] - MG Performed By: #### L 502.0250 #### [facility] [address] [place], [address] GFR/1.73 sq M.predicted among non-blacks MDRD (S/P/Bld) [Vol rate/Area] 81 mL/min/{1.73_m2} Normal >60 [facility] Comment on above: Order Comment: Order Date: 01/04/25Order Info: 0786-1 - CMPOrder Info: [id number] - MG Result Comment: mL/m in/1.73m2 CKD-EPI Creatinine Equation (2020) Performed By: #### L 502.0250 #### [facility] [address] [place], [address] Globulin (S) [Mass/Vol] 3.5 g/dL Normal 2.2-4.2 [facility] Comment on above: Order Comment: Order Date: 01/04/25Order Info: 0786-1 - CMPOrder Info: [id number] - MG Performed By: #### L 502.0250 #### [facility] [address] [place], [address] Glucose [Mass/Vol] 116 mg/dL High 70-99 [facility] Comment on above: Order Comment: Order Date: 01/04/25Order Info: 0786-1 - CMPOrder Info: [id number] - MG Performed By: #### L 502.0250 #### [facility] [address] [place], [address] Potassium [Moles/Vol] 4.2 mmol/L Normal 3.3-5.1 [facility] Comment on above: Order Comment: Order Date: 01/04/25Order Info: 0786-1 - CMPOrder Info: [id number] - MG Performed By: #### L 502.0250 #### [facility] [address] [place], [address] Sodium [Moles/Vol] 141 mmol/L Normal 133-145 [facility] Comment on above: Order Comment: Order Date: 01/04/25Order Info: 86-1 - CMPOrder Info: [id number] - MG Performed By: #### L 502.0250 #### [facility] [address] [place], [address] T PROT 6.9 g/dL Normal 5.9-8.4 [facility] Comment on above: Order Comment: Order Date: 01/04/25Order Info: 0786-1 - CMPOrder Info: [id number] - MG Performed By: #### L 502.0250 #### [facility] [address] [place], [address] Urea nitrogen [Mass/Vol] 11 mg/dL Normal 4-19 [facility] Comment on above: Order Comment: Order Date: 01/04/25Order Info: 0786-1 - CMPOrder Info: [id number] - MG Performed By: #### L 502.0250 #### [facility] [address] [place], [address] Magnesiumon 01-04-2025 Magnesium [Mass/Vol] 2.0 mg/dL Normal 1.5-2.2 [facility] Comment on above: Order Comment: Order Date: 01/04/25Order Info: 0786-1 - CMPOrder Info: [id number] - MG Performed By: #### L 502.0250 #### [facility] [address] [place], [address] Urgent Care Visit Reporton 0 12-28-2024 Urgent Care Visit Report [facility] [address], [address] [place] [address] OFFICE VISIT Date of Service: 12/28/24 MR#: [id number] Acct: [id number] Name: LAZARO NARANJO Rep #: [id number] : 1970 Provider: ENRIKE Leary Age/Sex: 54/F Location: [facility] Status: Signed Intake Vital Signs 12/11/24 09:28 12/26/24 13:13 12/28/24 09:50 Height 5 ft 5 ft BP 120/60 Position Sitting Pulse 79 Temp 98.1 F Temp Source Oral Pulse Oximetry (%) 97 Oxygen Delivery Method room air Intake Visit Reasons: WC FU/ AVENUE Chief Complaint: lumbar spine pain Accompanied by: Self Is patient in pain?: Yes Pain scale (1-10): 7 Allergies hydrocortisone (From Cortizone-10) Allergy (Severe, Verified 12/28/24 09:55) Hives ketamine Allergy (Unknown, Verified 12/28/24 09:55) Other Medications ???Medication ???Instructions ???Recorded ???Confirmed ???Type famotidine 20 mg tablet 20 mg PO DAILY 03/18/23 12/28/24 H istory levothyroxine 125 mcg tablet 125 mcg PO DAILY 03/18/23 12/28/24 History rosuvastatin 10 mg tablet 10 mg PO DAILY 03/18/23 12/28/24 H istory ondansetron HCl 4 mg tablet mg PO 08/08/23 12/28/24 History baclofen 10 mg tablet 10 mg PO TID 03/12/24 12/28/24 His tory gabapentin 300 mg capsule 300 mg PO 3XD 12/05/24 12/28/24 Hi story tramadol 50 mg tablet 50 mg PO 12/05/24 12/28/24 History prednisone 10 mg tablet 10 mg PO DAILY #30 tabs 12/14/24 0 12/28/24 Rx lamotrigine 150 mg tablet See Rx Instructions .Route 5 12/28/24 Rx .COMPLEX #30 tabs hydroxyzine pamoate 25 mg capsule 25 mg PO TID PRN anxiety #90 caps 12/22/24 12/28/24 Rx lorazepam 1 mg tablet 1 mg PO BID PRN anxiety #60 tabs 0 12/22/24 12/28/24 Rx lurasidone 60 mg tablet 60 mg PO QPM #30 tabs 12/22/24 Rx nortriptyline 10 mg capsule 10 mg PO QHS #30 caps 12/22/24 Rx propranolol 20 mg tablet 20 mg PO TID PRN anxiety #90 tabs 12/22/24 12/28/24 Rx trihexyphenidyl 2 mg tablet See Rx Instructions .Route 5 12/28/24 Rx .COMPLEX #90 tabs diazepam 5 mg tablet 5 mg PO Q8 PRN Muscle Spasm #9 tab s 12/26/24 12/28/24 Rx Nurse's Note: Patient here for [facility] f/u. Patient states that her back is still really bad and that she went to the ER on Sat in pain and they did nothing for her but gave her 4 pills of Diazepam. [facility] Medical History Sciatica Hypothyroidism Arthritis History of electroconvulsive therapy Insomnia Schizoaffective disorder, depressive type Alcohol abuse Acute maxillary sinusitis, unspecified Surgical History H/O tubal ligation Hx of appendectomy Hx of cholecystectomy Family History Mother Cancer Father Heart disease Social History Smoking Status: Heavy Smoker (>10/day) alcohol intake: current alcohol intake frequency: a few times a week HPI HPI Chief Complaint: lumbar spine pain Details: LAZARO NARANJO, is a 54 F who presents to the office today for follow-up status post low back strain on 12/05/2024. 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 She she continues to notes no caudal complaints though does now appreciated bilateral anterior lateral thigh paresthesias with worsening low back pain, stating she has been compliant with the revised work restrictions given to her by Mateusz Duvall PA-C on 12/24/2024 of sitting duties only though due to the persistence of pain she went to [facility] ED once again on 12/26/2024 where they made no changes in her work restrictions though did prescribe diazepam which she is supposed to follow-up with her private physician to ensure this is not complex without her medication she is already on. Upon questioning today, she is requesting to have an MRI of her LS spine performed to ensure no herniated disks or other acute pathology. She is scheduled to begin physical therapy this week on 12/30/2024. She notes having completed prednisone as previously prescribed without relief of symptoms. She notes no other new complaints at this time. ROS Const Constitutional: No other (As above) Exam Const General: cooperative, healthy appearing and no acute distress Orientation: alert and awake Chest Chest palpation inspection: normal inspection of the chest Resp Effort Inspection: normal respiratory effort and able to speak in complete sentences Cardio Rate: regular rate Pulses: radial p (more content not included)... Normal [facility] Emergency Department Summary on 12-26-2024 Emergency Department Summary [facility] [address] [place] [address] Emergency Department Summary 12/26/24 MR#: [id number] Acct: [id number] Name: LAZARO NARANJO Rep #: [id number] : 1970 54 From: Herman Islas DO PCP: Dr. Damian James MD Status:DEP ER Location: ED HPI History of Present Illness Chief Complaint: Back Informant: patient Narrative Narrative: 54-year-old female history of lumbar radiculopathy on the left presenting with continued pain on the right. Patient states that she was involved in a Workmen's Comp. case on December 05. Since that time she has had pain in the right low back that spreads to the left and down into her bilateral legs. She denies any loss of muscle strength or sensation. No bowel or bladder dysfunction. No fevers. She denies being immunosuppressed. She states that this is her third emergency department visit from the injury. She states that she has been put on sitting restrictions at work. She states the day having to get up from chair to chair would exacerbate her pain and she just could not take it anymore so she came to emergency. She is supposed to see Workmen's Comp. on Saturday. She has been taking baclofen without any relief. She also has lorazepam at home that she gets from psychiatry. She was on steroids and she reached the end of that course a couple days ago and went back on meloxicam. She has been in pain management with Dr. Navarrete for the left lumbar radiculopathy. [facility] Medical History Sciatica Hypothyroidism Arthritis History of electroconvulsive therapy Insomnia Schizoaffective disorder, depressive type Alcohol abuse Acute maxillary sinusitis, unspecified Home Medications ???Medication ???Instructions ???Recorded ???Last Taken ???Type famotidine 20 mg tablet 20 mg PO DAILY 03/18/23 Unknown Hi story levothyroxine 125 mcg tablet 125 mcg PO DAILY 03/18/23 Unknown History rosuvastatin 10 mg tablet 10 mg PO DAILY 03/18/23 Unknown Hi story ondansetron HCl 4 mg tablet mg PO 08/08/23 Unknown History baclofen 10 mg tablet 10 mg PO TID 03/12/24 Unknown Hist ory gabapentin 300 mg capsule 300 mg PO 3XD 12/05/24 Unknown His tory tramadol 50 mg tablet 50 mg PO 12/05/24 Unknown History prednisone 10 mg tablet 10 mg PO DAILY #30 tabs 12/14/24 U nknown Rx lamotrigine 150 mg tablet See Rx Instructions .Route 5 Unknown Rx .COMPLEX #30 tabs hydroxyzine pamoate 25 mg capsule 25 mg PO TID PRN anxiety #90 caps 12/22/24 Unknown Rx lorazepam 1 mg tablet 1 mg PO BID PRN anxiety #60 tabs 0 12/22/24 Unknown Rx lurasidone 60 mg tablet 60 mg PO QPM #30 tabs 12/22/24 Unk nown Rx nortriptyline 10 mg capsule 10 mg PO QHS #30 caps 12/22/24 Unk nown Rx propranolol 20 mg tablet 20 mg PO TID PRN anxiety #90 tabs 12/22/24 Unknown Rx trihexyphenidyl 2 mg tablet See Rx Instructions .Route 5 Unknown Rx .COMPLEX #90 tabs diazepam 5 mg tablet 5 mg PO Q8 PRN Muscle Spasm #9 tab s 12/26/24 Unknown Rx Allergy/AdvReac Type Severity Reaction Status Date / Time hydrocortisone (From Allergy Severe Hives Verified 12/26/24 13:13 Cortizone-10) ketamine Allergy Unknown Other Verified 12/26/24 13:13 Family History Mother Cancer Father Heart disease Surgical History H/O tubal ligation Hx of appendectomy Hx of cholecystectomy Social History Smoking Status: Heavy Smoker (>10/day) alcohol intake: current alcohol intake frequency: a few times a week ROS ROS ED Constitutional Constitutional ED: Denies chills, fever(s) or weight loss Eyes Eyes: Denies change in vision or diplopia ENT ENT ED: Denies ear pain, rhinorrhea or sore throat Cardiovascular Cardiovascular: Denies chest pain, orthopnea, palpitations or racing heartbeat Respiratory/Chest Respiratory/Chest: Denies cough, dyspnea or orthopnea Gastrointestinal Gastrointestinal: Denies abdominal pain, diarrhea, nausea or vomiting Genitourinary Genitourinary ED: Denies dysuria, hematuria or urinary frequency Musculoskeletal Musculoskeletal: Reports back pain; Denies arthralgias, myalgias or neck pain Integumentary Denies abscess or rash Neurologic Neurologic: Denies headache(s), paresthesias or weakness Psychiatric Psychiatric: Denies anxiety, depression, suicidal ideation or suicidal thoughts Endocrine Endocrinology: Denies polydipsia, polyphagia or polyuria Allergic/Immunologic Allergic/Immunologic ED: Denies mouth swelling, tongue swelling or urticaria EXAM Physical Exam Const Vital Signs: 12/26/24 13:13 Temperature 98.7 F Temperature Source Oral (more content not included)... Normal [facility] Urgent Care Visit Reporton 0 12-24-2024 Urgent Care Visit Report [facility] [address], [address] [place] [address] OFFICE VISIT Date of Service: 12/24/24 MR#: [id number] Acct: [id number] Name: LAZARO NARANJO Rep #: [id number] : 1970 Provider: ENRIKE Puentes Age/Sex: 54/F Location: [facility] Status: Signed Intake Vital Signs 12/14/24 15:50 12/24/24 06:37 Height 5 ft BP 126/79 H 120/84 H Blood Pressure Location Lt brachial Position Sitting Sitting Respiration 16 Pulse 67 82 Pulse Source Monitor Temp 98.1 F Temp Source Oral Pulse Oximetry (%) 98 Oxygen Delivery Method room air Intake Visit Reasons: BACK PAIN/ AVENUE Chief Complaint: lumbar spine pain Accompanied by: Self Is patient in pain?: Yes Pain scale (1-10): 9 Allergies hydrocortisone (From Cortizone-10) Allergy (Severe, Verified 12/24/24 06:35) Hives ketamine Allergy (Unknown, Verified 12/24/24 06:35) Other Medications ???Medication ???Instructions ???Recorded ???Confirmed ???Type famotidine 20 mg tablet 20 mg PO DAILY 03/18/23 12/24/24 H istory levothyroxine 125 mcg tablet 125 mcg PO DAILY 03/18/23 12/24/24 History rosuvastatin 10 mg tablet 10 mg PO DAILY 03/18/23 12/24/24 H istory ondansetron HCl 4 mg tablet mg PO 08/08/23 12/24/24 History baclofen 10 mg tablet 10 mg PO TID 03/12/24 12/24/24 His tory gabapentin 300 mg capsule 300 mg PO 3XD 12/05/24 12/24/24 Hi story tramadol 50 mg tablet 50 mg PO 12/05/24 12/24/24 History prednisone 10 mg tablet 10 mg PO DAILY #30 tabs 12/14/24 0 12/24/24 Rx lamotrigine 150 mg tablet See Rx Instructions .Route 5 12/24/24 Rx .COMPLEX #30 tabs hydroxyzine pamoate 25 mg capsule 25 mg PO TID PRN anxiety #90 caps 12/22/24 12/24/24 Rx lorazepam 1 mg tablet 1 mg PO BID PRN anxiety #60 tabs 0 12/22/24 12/24/24 Rx lurasidone 60 mg tablet 60 mg PO QPM #30 tabs 12/22/24 Rx nortriptyline 10 mg capsule 10 mg PO QHS #30 caps 12/22/24 Rx propranolol 20 mg tablet 20 mg PO TID PRN anxiety #90 tabs 12/22/24 12/24/24 Rx trihexyphenidyl 2 mg tablet See Rx Instructions .Route 5 12/24/24 Rx .COMPLEX #90 tabs Nurse's Note: Patient here for a [facility] f/u. Patient states her back pain is worse that she has restriction at work but they were short staff last night and her back is really bothering her and she don't start PT until next week. [facility] Medical History Sciatica Hypothyroidism Arthritis History of electroconvulsive therapy Insomnia Schizoaffective disorder, depressive type Alcohol abuse Acute maxillary sinusitis, unspecified Surgical History H/O tubal ligation Hx of appendectomy Hx of cholecystectomy Family History Mother Cancer Father Heart disease Social History Smoking Status: Heavy Smoker (>10/day) alcohol intake: current alcohol intake frequency: a few times a week HPI HPI Chief Complaint: lumbar spine pain Details: LAZARO NARANJO, is a 54 F who presents to the office today for complaint of worsening back pain. Patient is currently being seen as a Worker's Comp. patient for lumbar strain. Patient states that even though she is on restrictions of no patient transfers or lifting and seated 10 minute breaks every hour she continues to have worsening pain. She states that over the past several shifts the place she works has been short staffed causing her to have to do more work. Patient does state that she is working with her and her restrictions. Additionally patient states that she is having newer pain radiating down her right leg however denies numbness, tingling or loss range of motion. No pelvic or abdominal pain. No other associated symptoms or alleviating/aggravating factors. ROS Const Constitutional: No other (As above) Exam Const General: cooperative, healthy appearing and no acute distress Orientation: alert and awake Resp Effort Inspection: normal respiratory effort and able to speak in complete sentences Cardio Rate: regular rate GI Inspection: normal to inspection Musc Thoracic/Lumbar Spine: thoracic and lumbar spine normal to inspection, No surgical scar(s) present, straight leg raise negative bilaterally, pain with thoraco-lumbar ROM with forward flexion, with lateral flexion to the right and with rotation to the right and paraspinal tenderness on the right in the mid lumbar and in the lower lumbar Skin General: no rashes or lesions noted Neuro General: patient alert and patient awake Extrem General: normal to inspection Psych Appearance: grossly normal Attitude: cooperative Coding Level of Care Code Of (more content not included)... Normal [facility] MR/BMS.BPon 12-14-2024 MR/BMS.BP [facility][1] [address], [address] [place] [address] OFFICE VISIT Date of Service: 12/14/24 MR#: [id number] Acct: [id number] Name: LAZARO NARANJO Rep #: [id number] : 1970 Provider: Dr. Mora Saavedra se, DO Age/Sex: 54/F Location: [facility] Status: Signed Intake Vital Signs 10/27/24 13:06 12/11/24 09:28 12/14/24 15:50 Height 5 ft 5 ft 5 ft BP 126/79 H Blood Pressure Location Lt brachial Position Sitting Respiration 16 Pulse 67 Pulse Source Monitor BP Intake Visit Reasons: 6-8wfu Allergies hydrocortisone (From Cortizone-10) Allergy (Severe, Verified 12/14/24 10:07) Hives ketamine Allergy (Unknown, Verified 12/14/24 10:07) Other Medications ???Medication ???Instructions ???Recorded ???Confirmed ???Type famotidine 20 mg tablet 20 mg PO DAILY 03/18/23 12/14/24 H istory levothyroxine 125 mcg tablet 125 mcg PO DAILY 03/18/23 12/14/24 History rosuvastatin 10 mg tablet 10 mg PO DAILY 03/18/23 12/14/24 H istory ondansetron HCl 4 mg tablet mg PO 08/08/23 12/14/24 History baclofen 10 mg tablet 10 mg PO TID 03/12/24 12/14/24 His tory trihexyphenidyl 2 mg tablet See Rx Instructions .Route 4 12/14/24 Rx .COMPLEX #90 tabs lamotrigine 150 mg tablet See Rx Instructions .Route 4 12/14/24 Rx .COMPLEX #30 tabs nortriptyline 10 mg capsule 10 mg PO QHS #30 caps 11/09/24 Rx hydroxyzine pamoate 25 mg capsule 25 mg PO TID PRN anxiety #90 caps 12/03/24 12/14/24 Rx propranolol 20 mg tablet 20 mg PO TID PRN anxiety #90 tabs 12/03/24 12/14/24 Rx gabapentin 300 mg capsule 300 mg PO 3XD 12/05/24 12/14/24 Hi story tramadol 50 mg tablet 50 mg PO 12/05/24 12/14/24 History lorazepam 1 mg tablet 1 mg PO BID PRN anxiety #60 tabs 0 12/14/24 12/14/24 Rx lurasidone 60 mg tablet 60 mg PO QPM #30 tabs 12/14/24 Rx prednisone 10 mg tablet 10 mg PO DAILY #30 tabs 12/14/24 0 12/14/24 Rx PFSH Medical History Sciatica Hypothyroidism Arthritis History of electroconvulsive therapy Insomnia Schizoaffective disorder, depressive type Alcohol abuse Acute maxillary sinusitis, unspecified Surgical History H/O tubal ligation Hx of appendectomy Hx of cholecystectomy Family History Mother Cancer Father Heart disease Social History Smoking Status: Heavy Smoker (>10/day) alcohol intake: current alcohol intake frequency: a few times a week HPI History of Present Illness History provided by: patient HPI: Lazaro Naranjo is a 54 year old female who presents today for follow up evaluation. Patient reports that things have been up and down. 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 Is currently on light duty at work because of this. Feels like her mood has been easily agitated, and crying for no reason. Feels like she is easily angry for nearly any reason. Feels like anxiety has been increased in recent past. Denies any significant recurrence of tremor or cramping. Can't tell major benefit with nortriptyline at this point. Has been sleeping better since working day shift. Recently found that her boyfriend is in stage 4 kidney disease. Denies SI/HI or AVH. Review of Systems Constitutional Denies: fever(s), chills or change in weight Eyes Denies: change in vision or blurry vision Ears, Nose, Mouth, Throat Denies: throat pain, neck pain or change in hearing Cardiovascular Denies: palpitations or dyspnea Respiratory Denies: dyspnea, cough or wheezing Gastrointestinal Reports: nausea; Denies: abdominal pain, vomiting, diarrhea or constipation Genitourinary Denies: dysuria or urinary frequency Musculoskeletal Reports: other (side pain); Denies: back pain, neck pain, joint pain or muscle weakness Integumentary/Breast Denies: rash or new lesions Neurological Reports: headache(s) (somewhat better); Denies: dizziness or confusion Psychiatric Reports: auditory hallucinations Endocrine Denies: excessive sweating Hematologic/Lymphatic Denies: easy bruising or easy bleeding Allergic/Immunologic Denies: wheezing Exam Mental Status Exam - Psych Appearance adequately groomed Attitude cooperative Activity/Motor Behavior MSE activity/motor behavior finding no adventitious movements Speech regular rate, regular prosody and soft Mood depressed (Up and down) Affect restricted Thought Process linear, logical and coherent Thought Content no delusions and no hallucinations Suicidal Ideation passive (Somewhat worse in recent past); No intent and No plans Homicidal Ideation none Attention (more content not included)... Normal [facility] Urgent Care Visit Reporton 0 12-14-2024 Urgent Care Visit Report [facility] [address], [address] [place] [address] OFFICE VISIT Date of Service: 12/14/24 MR#: [id number] Acct: [id number] Name: LAZARO NARANJO Iain Rep #: [id number] : 1970 Provider: ENRIKE Leary Age/Sex: 54/F Location: [facility] Status: Signed Intake Vital Signs 12/07/24 11:14 12/11/24 09:28 12/14/24 10:06 Height 5 ft 5 ft Weight: 165 lb BMI 32.2 BP 104/60 122/82 H Blood Pressure Location Lt brachial Position Sitting Sitting Respiration 14 Pulse 80 131 H Pulse Source Monitor Temp 97.9 F 97.9 F Temp Source Oral Oral Pulse Oximetry (%) 97 95 Oxygen Delivery Method room air room air Intake Visit Reasons: [facility] FOLLOW UP - AVENUE Chief Complaint: lumbar spine pain Allergies hydrocortisone (From Cortizone-10) Allergy (Severe, Verified 12/14/24 10:07) Hives ketamine Allergy (Unknown, Verified 12/14/24 10:07) Other Medications ???Medication ???Instructions ???Recorded ???Confirmed ???Type famotidine 20 mg tablet 20 mg PO DAILY 03/18/23 12/14/24 H istory levothyroxine 125 mcg tablet 125 mcg PO DAILY 03/18/23 12/14/24 History rosuvastatin 10 mg tablet 10 mg PO DAILY 03/18/23 12/14/24 H istory ondansetron HCl 4 mg tablet mg PO 08/08/23 12/14/24 History baclofen 10 mg tablet 10 mg PO TID 03/12/24 12/14/24 His tory trihexyphenidyl 2 mg tablet See Rx Instructions .Route 4 12/14/24 Rx .COMPLEX #90 tabs lamotrigine 150 mg tablet See Rx Instructions .Route 4 12/14/24 Rx .COMPLEX #30 tabs lurasidone 40 mg tablet 40 mg PO QPM #30 tabs 08/25/24 Rx nortriptyline 10 mg capsule 10 mg PO QHS #30 caps 11/09/24 Rx hydroxyzine pamoate 25 mg capsule 25 mg PO TID PRN anxiety #90 caps 12/03/24 12/14/24 Rx lorazepam 1 mg tablet 0.5 mg (1/2 x 1 mg) PO BID PRN 03/2412/14/24 Rx anxiety #30 tabs propranolol 20 mg tablet 20 mg PO TID PRN anxiety #90 tabs 12/03/24 12/14/24 Rx gabapentin 300 mg capsule 300 mg PO 3XD 12/05/24 12/14/24 Hi story tramadol 50 mg tablet 50 mg PO 12/05/24 12/14/24 History prednisone 10 mg tablet 10 mg PO DAILY #30 tabs 12/14/24 0 12/14/24 Rx Nurse's Note: Patient here for a C f/u on her back. Patient states her back still hurts and she went to the ER on Saturday and they did X-Rays and she got a toradol shot. PFSH Medical History Sciatica Hypothyroidism Arthritis History of electroconvulsive therapy Insomnia Schizoaffective disorder, depressive type Alcohol abuse Acute maxillary sinusitis, unspecified Surgical History H/O tubal ligation Hx of appendectomy Hx of cholecystectomy Family History Mother Cancer Father Heart disease Social History Smoking Status: Heavy Smoker (>10/day) alcohol intake: current alcohol intake frequency: a few times a week HPI HPI Chief Complaint: lumbar spine pain Details: LAZARO NARANJO, is a 54 F who presents to the office today for follow-up status post low back strain on 12/05/2024. 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 She notes no caudal or radicular complaints upon questioning by myself initially, though since her last evaluation here, who she reported to [facility] ED again on 12/11/2024 due to progressively worsening pain into the right low back region with lateral thigh and lower leg paresthesias having developed (lumbar radiographs reveal no acute osseous pathology, and therefore was released same day after ketorolac injection and informed to continue the same work restrictions the [facility] at given her on 12/07/2024. She has taken meloxicam as prescribed on the ED on date of injury. No other associated symptoms and no other alieviating/aggravating factors. ROS Const Constitutional: No other (As above) Exam Const General: cooperative, healthy appearing and no acute distress Orientation: alert and awake Chest Chest palpation inspection: normal inspection of the chest Resp Effort Inspection: normal respiratory effort and able to speak in complete sentences Cardio Rate: regular rate Pulses: radial pulses present GI Inspection: normal to inspection Musc Thoracic/Lumbar Spine: thoracic and lumbar spine normal to inspection, No surgical scar(s) present, straight leg raise negative bilaterally, pain with thoraco-lumbar ROM with forward flexion, with lateral flexion to the right (more content not included)... Normal [facility] Emergency Department Summary on 12-11-2024 Emergency Department Summary [facility] Medical Records Department [address] [place] [address] Emergency Department Summary 12/11/24 MR#: [id number] Acct: [id number] Name: LAZARO NARANJO Rep #: [id number] : 1970 54 From: Yuri Watson MD PCP: Care Physician,No Primary Status:REG ER Location: ED HPI History of Present Illness Chief Complaint: Back Narrative Narrative: 54-year-old female past medical history of chronic back pain and sciatica presents for second visit from a Workmen's [employer]. injury. She states that she was seen in the emergency department on Saturday, approximately 6 days ago. She was told to follow-up with a [place] of [employer]'s [employer]. She was written for meloxicam which she used to take. She was getting better then 2 days ago she was offered light duty at work which she took. The more she walked around, the worst her back pain got. She is also having right sacroiliac pain that she sustained from her initial injury. While she followed up with the [facility] on Saturday, she was told to return in a week to possibly be cleared for full work again. She called them again today because she was having increasing back pain and reportedly was told to come to the emergency department. She denies any fevers or chills, no loss of bowel or bladder, no saddle anesthesia. [facility] Medical History Sciatica Hypothyroidism Arthritis History of electroconvulsive therapy Insomnia Schizoaffective disorder, depressive type Alcohol abuse Acute maxillary sinusitis, unspecified Home Medications ???Medication ???Instructions ???Recorded ???Last Taken ???Type famotidine 20 mg tablet 20 mg PO DAILY 03/18/23 Unknown Hi story levothyroxine 125 mcg tablet 125 mcg PO DAILY 03/18/23 Unknown History rosuvastatin 10 mg tablet 10 mg PO DAILY 03/18/23 Unknown Hi story ondansetron HCl 4 mg tablet mg PO 08/08/23 Unknown History baclofen 10 mg tablet 10 mg PO TID 03/12/24 Unknown Hist ory trihexyphenidyl 2 mg tablet See Rx Instructions .Route 4 Unknown Rx .COMPLEX #90 tabs lamotrigine 150 mg tablet See Rx Instructions .Route 4 Unknown Rx .COMPLEX #30 tabs lurasidone 40 mg tablet 40 mg PO QPM #30 tabs 08/25/24 Unk nown Rx nortriptyline 10 mg capsule 10 mg PO QHS #30 caps 11/09/24 Unk nown Rx hydroxyzine pamoate 25 mg capsule 25 mg PO TID PRN anxiety #90 caps 12/03/24 Unknown Rx lorazepam 1 mg tablet 0.5 mg (1/2 x 1 mg) PO BID PRN 03/24 Unknown Rx anxiety #30 tabs propranolol 20 mg tablet 20 mg PO TID PRN anxiety #90 tabs 12/03/24 Unknown Rx gabapentin 300 mg capsule 300 mg PO 3XD 12/05/24 Unknown His tory meloxicam 15 mg tablet 15 mg PO DAILY #30 tabs 12/05/24 U nknown Rx tramadol 50 mg tablet 50 mg PO 12/05/24 Unknown History Allergy/AdvReac Type Severity Reaction Status Date / Time hydrocortisone (From Allergy Severe Hives Verified 12/11/24 09:30 Cortizone-10) ketamine Allergy Unknown Other Verified 12/11/24 09:30 Family History Mother Cancer Father Heart disease Surgical History H/O tubal ligation Hx of appendectomy Hx of cholecystectomy Social History Smoking Status: Heavy Smoker (>10/day) alcohol intake: current alcohol intake frequency: a few times a week ROS ROS ED ROS Narrative Review of systems positive for worsening low back pain with right sacroiliac pain. No fevers or chills. No nausea or vomiting. No loss of bowel or bladder. No saddle anesthesia. Worse with walking and standing. Also worse with transfer and movement. EXAM Physical Exam Narrative Exam Narrative: Afebrile. Vital signs noted. Nontoxic-appearing. Cardiovascular examination reveals a regular rate and rhythm. Lungs are clear to auscultation bilaterally. Abdomen is soft and nontender without guarding or rebound. Positive bowel sounds. Neurovascular intact to bilateral lower extremities. Able to stand and transfer to the cot without difficulty. Diffuse tenderness to palpation lumbar spine and paraspinal muscles but no step-off or crepitance. Minimal tenderness to palpation right sacroiliac area, sciatic notch. Neurovascularly intact bilateral lower extremities. Const Vital Signs: 12/11/24 09:28 Temperature 96.4 F L Temperature Source Oral Pulse Rate 72 Respiratory Rate 16 Blood Pressure 135/81 H Blood Pressure Mean 99 Pulse Ox 100 Oxygen Delivery Method Room Air MDM MDM MDM Narrative Medical decision making narrative: Reviewed the patient's prior records. She had been written for meloxicam. This is an open [facility] case. Images were not taken at that time. She had a (more content not included)... Normal [facility] Lumbar Spine 2 or 3 Viewson 12-11-2024 Lumbar Spine 2 or 3 Views [facility] [address], [place] [address] Lumbar Spine 2 or 3 Views MR#: [id number] Acct: [id number] Name: LAZARO NARANJO Rep #: [id number] : 1970 F 54 From: Clarke Bae MD PCP: Care Physician,No Primary Status: REG ER Study: Lumbar Spine 2 or 3 Views Date of Exam: Exam# [id number] Ordering Dr: Yuri Watson MD EXAM: XR Lumbosacral Spine, 2 or 3 Views CLINICAL INDICATION: PAIN TECHNIQUE: Frontal and lateral views of the lumbar spine and sacrum. COMPARISON: No relevant prior studies available. FINDINGS: VERTEBRAE: Mild endplate degenerative changes of the of L4-S1. Normal alignment. No acute fracture. SACRUM/COCCYX: Unremarkable as visualized. No acute fracture. DISC SPACES: No acute findings. No significant narrowing. SOFT TISSUES: Unremarkable. RAD/Lumbar Spine 2 or 3 Views IMPRESSION: 1. No acute fracture. 2. Degenerative changes as above. Reading Location: [facility] CC: Dr. 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 Normal [facility] Urgent Care Visit Reporton 0 12-07-2024 Urgent Care Visit Report [facility] [address], [address] [place] [address] OFFICE VISIT Date of Service: 12/07/24 MR#: [id number] Acct: [id number] Name: LAZARO NARANJO Rep #: [id number] : 1970 Provider: ENRIKE Leary Age/Sex: 54/F Location: [facility] Status: Signed Intake Vital Signs 12/05/24 21:49 12/07/24 11:14 Height 5 ft 5 ft Weight: 165 lb BMI 32.2 BP 104/60 Blood Pressure Location Lt brachial Position Sitting Respiration 14 Pulse 80 Pulse Source Monitor Temp 97.9 F Temp Source Oral Pulse Oximetry (%) 97 Oxygen Delivery Method room air Intake Visit Reasons: ER FU LUMBAR STRAIN / AVENUE Chief Complaint: lumbar spine pain Motor Vehicle 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 Required: No Accompanied by: Self Is patient in pain?: Yes (right low back, radiate RLE) Pain scale (1-10): 8 Allergies hydrocortisone (From Cortizone-10) Allergy (Severe, Verified 12/07/24 11:10) Hives ketamine Allergy (Unknown, Verified 12/07/24 11:10) Other Medications ???Medication ???Instructions ???Recorded ???Confirmed ???Type famotidine 20 mg tablet 20 mg PO DAILY 03/18/23 12/07/24 H istory levothyroxine 125 mcg tablet 125 mcg PO DAILY 03/18/23 12/07/24 History rosuvastatin 10 mg tablet 10 mg PO DAILY 03/18/23 12/07/24 H istory ondansetron HCl 4 mg tablet mg PO 08/08/23 12/07/24 History baclofen 10 mg tablet 10 mg PO TID 03/12/24 12/07/24 His tory trihexyphenidyl 2 mg tablet See Rx Instructions .Route 4 12/07/24 Rx .COMPLEX #90 tabs lamotrigine 150 mg tablet See Rx Instructions .Route 4 12/07/24 Rx .COMPLEX #30 tabs lurasidone 40 mg tablet 40 mg PO QPM #30 tabs 08/25/2407/24 Rx nortriptyline 10 mg capsule 10 mg PO QHS #30 caps 11/09/2407/24 Rx hydroxyzine pamoate 25 mg capsule 25 mg PO TID PRN anxiety #90 caps 12/03/24 12/07/24 Rx lorazepam 1 mg tablet 0.5 mg (1/2 x 1 mg) PO BID PRN 03/2412/07/24 Rx anxiety #30 tabs propranolol 20 mg tablet 20 mg PO TID PRN anxiety #90 tabs 12/03/24 12/07/24 Rx gabapentin 300 mg capsule 300 mg PO 3XD 12/05/24 12/07/24 Hi story meloxicam 15 mg tablet 15 mg PO DAILY #30 tabs 12/05/24 0 12/07/24 Rx tramadol 50 mg tablet 50 mg PO 12/05/24 12/07/24 History PFSH Medical History Sciatica Hypothyroidism Arthritis History of electroconvulsive therapy Insomnia Schizoaffective disorder, depressive type Alcohol abuse Acute maxillary sinusitis, unspecified Surgical History H/O tubal ligation Hx of appendectomy Hx of cholecystectomy Family History Mother Cancer Father Heart disease Social History Smoking Status: Heavy Smoker (>10/day) alcohol intake: current alcohol intake frequency: a few times a week HPI HPI Chief Complaint: lumbar spine pain Details: LAZARO NARANJO, is a 54 F who presents to the office today for follow-up status post low back strain on 12/05/2024. 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 She notes no caudal or radicular complaints upon questioning by myself. She has taken no aezj-weu-bbtljet products to assist, stating she was prescribed meloxicam on the ED on date of injury. She also states the ED had recommended she use a cane to assist ambulate until her symptoms improve. No other associated symptoms and no other alleviating/aggravating factors. ROS Const Constitutional: No other (As above) Exam Const General: cooperative, healthy appearing and no acute distress Orientation: alert and awake Chest Chest palpation inspection: normal inspection of the chest Resp Effort Inspection: normal respiratory effort and able to speak in complete sentences Cardio Rate: regular rate Pulses: radial pulses present GI Inspection: normal to inspection Musc Thoracic/Lumbar Spine: thoracic and lumbar spine normal to inspection, No surgical scar(s) present, straight leg raise negative bilaterally, pain with thoraco-lumbar ROM with forward flexion, with lateral flexion to the right and with rotation to the right and paraspinal tenderness on the right in the mid lumbar and in the lower lumbar Skin General: no rashes or lesions noted Neuro General: patient alert and patient awake Cognition: normal cognition Speech: speech normal Extrem General: normal to inspection Psych Appearance: grossly normal Mental Status: mental status grossly normal Mood: congruent mood Af (more content not included)... Normal [facility] Emergency Department Summary on 12-05-2024 Emergency Department Summary [facility] Department [address] [place] [address] Emergency Department Summary 12/05/24 MR#: [id number] Acct: [id number] Name: LAZARO NARANJO Rep #: [id number] : 1970 54 From: Lawrence Murphy PCP: Dr. Damian James MD Status:DEP ER Location: ED HPI History of Present Illness Chief Complaint: Back Informant: patient Narrative Narrative: Here work-related injury 8:30 PM. 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 Patient unable state was leaning towards her she felt a palp in the right side of her back. No pain down her leg. Pain worse with movement. History of sciatica on the left side being managed by pain management Dr. Sheffield. She currently on tramadol twice a day, baclofen twice a day, gabapentin 3 times a day. She was previously on meloxicam. No history of gastric ulcers or kidney injury. No complications with the meloxicam. Has not had any work-related injuries in the past. [facility] Medical History Sciatica Hypothyroidism Arthritis History of electroconvulsive therapy Insomnia Schizoaffective disorder, depressive type Alcohol abuse Acute maxillary sinusitis, unspecified Home Medications ???Medication ???Instructions ???Recorded ???Last Taken ???Type famotidine 20 mg tablet 20 mg PO DAILY 03/18/23 Unknown Hi story levothyroxine 125 mcg tablet 125 mcg PO DAILY 03/18/23 Unknown History meloxicam 15 mg tablet 15 mg PO DAILY 03/18/23 Unknown Hi story rosuvastatin 10 mg tablet 10 mg PO DAILY 03/18/23 Unknown Hi story ondansetron HCl 4 mg tablet mg PO 08/08/23 Unknown History baclofen 10 mg tablet 10 mg PO TID 03/12/24 Unknown Hist ory trihexyphenidyl 2 mg tablet See Rx Instructions .Route 4 Unknown Rx .COMPLEX #90 tabs lamotrigine 150 mg tablet See Rx Instructions .Route 4 Unknown Rx .COMPLEX #30 tabs lurasidone 40 mg tablet 40 mg PO QPM #30 tabs 08/25/24 Unk nown Rx nortriptyline 10 mg capsule 10 mg PO QHS #30 caps 11/09/24 Unk nown Rx hydroxyzine pamoate 25 mg capsule 25 mg PO TID PRN anxiety #90 caps 12/03/24 Unknown Rx lorazepam 1 mg tablet 0.5 mg (1/2 x 1 mg) PO BID PRN 03/24 Unknown Rx anxiety #30 tabs propranolol 20 mg tablet 20 mg PO TID PRN anxiety #90 tabs 12/03/24 Unknown Rx gabapentin 300 mg capsule 300 mg PO 3XD 12/05/24 Unknown His tory meloxicam 15 mg tablet 15 mg PO DAILY #30 tabs 12/05/24 U nknown Rx tramadol 50 mg tablet 50 mg PO 12/05/24 Unknown History Allergy/AdvReac Type Severity Reaction Status Date / Time hydrocortisone (From Allergy Severe Hives Verified 12/05/24 21:49 Cortizone-10) ketamine Allergy Unknown unknown Verified 12/05/24 21:49 Family History Mother Cancer Father Heart disease Surgical History H/O tubal ligation Hx of appendectomy Hx of cholecystectomy Social History Smoking Status: Heavy Smoker (>10/day) ROS ROS ED Constitutional Constitutional ED: Denies chills, fever(s) or sweats ENT ENT ED: Denies sore throat Cardiovascular Cardiovascular: Denies chest pain, leg edema, palpitations or racing heartbeat Respiratory/Chest Respiratory/Chest: Denies cough, dyspnea or dyspnea on exertion Gastrointestinal Gastrointestinal: Denies abdominal pain, diarrhea, nausea or vomiting Genitourinary Genitourinary ED: Denies dysuria, hematuria or urinary frequency Musculoskeletal Musculoskeletal: Reports back pain; Denies extremity pain or neck pain Integumentary Denies rash or wounds Neurologic Neurologic: Denies headache(s), paresthesias or weakness EXAM Physical Exam Const Vital Signs: 12/05/24 21:49 Temperature 97 F L Temperature Source Temporal Pulse Rate 83 Respiratory Rate 18 Blood Pressure 118/66 Blood Pressure Mean 83 Pulse Ox 99 Oxygen Delivery Method Room Air Positive well nourished and well developed General Appearance ED: well developed and NAD HEENT Reports moist mucous membranes normocephalic and atraumatic Eyes General Eye ED: Yes normal appearance of both eyes Neck full ROM Chest Wall Chest: Negative for tenderness Resp normal respiratory effort and normal air movement Effort and Inspection: symmetric chest movement; Negative for respiratory distress Cardio regular rate, regular rhythm and no murmurs Peripheral Pulses: pulses 2+ throughout GI normal to inspection, nondistended, normoactive bowel sounds and non-tender Palpation: Negative for guarding or rebound tenderness present Back/Spine Back/Spine Narrative: No midline tenderness, right paralumbar tenderness reprod (more content not included)... Normal [facility] Copper, Serum or Plasmaon COPPER, SERUM 121 ug/dL Normal 80-158 [facility] Comment on above: Order Comment: Test( s) 576381-[id number], Serum or Plasma was developed and its performance characteristics determined by [facility]. It has not been cleared or approved by the Food and Drug Administration. Result Comment: Dete ction Limit = 5 Performed By: #### L 3300.0100, L3300.9900 #### [facility] [address] [place], [address] Zinc, Plasma or Serumon 11-01 ZINC,PLASMA/SER 59 ug/dL Normal 44-115 [facility] Comment on above: Order Comment: Test( s) [id number], Serum or Plasma was developed and its performance characteristics determined by [facility]. It has not been cleared or approved by the Food and Drug Administration. Result Comment: Dete ction Limit = 5 Performed at: [address] [id number] Steam Gigger: Brandon Pringle MD, Phone: [phone] Performed By: #### L 3300.0100, L3300.9900 #### [facility] [address] [place], [address] Hemoglobin A1con 11-25-2024 HbA1c (Bld) [Mass fraction] 5.7 % Normal <=5.6 [facility] Comment on above: Order Comment: Order Date: 11/05/24Order Info: 4548-4 - A1C Performed By: #### L 501.9985, L100.0100, L502.0250, L500.4050 ####[facility] [address] [place], [address] L503.0106on 11-25-2024 Cobalamin (Vitamin B12) [Mass/Vol] 471 pg/mL Normal 180-914 [facility] Comment on above: Performed By: #### L 503.0106, L506.1001 #### [facility] [address] [place], [address] L506.1001on 11-25-2024 Vitamin D 25-OH 21.4 ng/mL Low 30-100 [facility] Comment on above: Result Comment: Марина min D Status Deficiency: <20 ng/mL (50nmol/L) Insufficiency: 20-30 ng/mL (50-75 nmol/L) Sufficiency: 30-100 ng/mL (75-250 nmol/L) Toxicity: >100 ng/mL (>250 nmol/L) Performed By: #### L 503.0106, L506.1001 #### [facility] [address] [place], [address] Microalb:Creat Ratio,Random URon 11-25-2024 Creatinine [Mass/Vol] 59.50 mg/dL Normal NO RAN GE EST. [facility] Comment on above: Performed By: #### L 502.0250 #### [facility] [address] [place], [address] MALB:CREAT 20.0 mg/g CRE Normal [facility] Comment on above: Performed By: #### L 502.0250 #### [facility] [address] [place], [address] MICROALBUMIN,UR < 12.0 Normal NO RANGE EST. [facility] Comment on above: Performed By: #### L 502.0250 #### [facility] [address] [place], [address] Creatinine [Mass/Vol] 59.50 mg/dL Normal NO RAN GE EST. [facility] Comment on above: Order Comment: Order Date: 11/05/24Order Info: 0779-1 - MIACRE Result Comment: REOR LICO Performed By: #### L 501.9985, L100.0100, L502.0250, L500.4050 ####[facility] [address] [place], [address] MICROALBUMIN,UR < 12.0 Normal NO RANGE EST. [facility] Comment on above: Order Comment: Order Date: 11/05/24Order Info: 0779-1 - MIACRE Result Comment: REOR LICO Performed By: #### L 501.9985, L100.0100, L502.0250, L500.4050 ####[facility] [address] [place], [address] CBC W/Diff, Automatedon 11-01 Absolute Lymph 2.72 X10 3/uL Normal 0.83-4.51 [facility] Comment on above: Order Comment: Order Date: 11/05/24 Order Info: 0184-1 - CBCD Performed By: #### L 501.9985, L100.0100, L502.0250, L500.4050 #### [facility] [address] [place], [address] Absolute Neut 4.3 X10 3/uL Normal 2.0-7.7 [facility] Comment on above: Order Comment: Order Date: 11/05/24 Order Info: 0184-1 - CBCD Performed By: #### L 501.9985, L100.0100, L502.0250, L500.4050 #### [facility] [address] [place], [address] Basophils/100 WBC (Bld) 0.5 % Normal 0-1 [facility] Comment on above: Order Comment: Order Date: 11/05/24 Order Info: 0184-1 - CBCD Performed By: #### L 501.9985, L100.0100, L502.0250, L500.4050 #### [facility] [address] [place], [address] Eosinophils/100 WBC (Bld) 2.7 % Normal 0-5 [facility] Comment on above: Order Comment: Order Date: 11/05/24 Order Info: 0184-1 - CBCD Performed By: #### L 501.9985, L100.0100, L502.0250, L500.4050 #### [facility] [address] [place], [address] Erythrocyte distribution width (RBC) [Ratio] 12.7 % Normal 11.6-14.6 [facility] Comment on above: Order Comment: Order Date: 11/05/24 Order Info: 0184-1 - CBCD Performed By: #### L 501.9985, L100.0100, L502.0250, L500.4050 #### [facility] [address] [place], [address] Hematocrit (Bld) [Volume fraction] 42.8 % Normal 37-47 [facility] Comment on above: Order Comment: Order Date: 11/05/24 Order Info: 0184-1 - CBCD Performed By: #### L 501.9985, L100.0100, L502.0250, L500.4050 #### [facility] [address] [place], [address] Hemoglobin (Bld) [Mass/Vol] 13.6 g/dL Normal 12.0-15.0 [facility] Comment on above: Order Comment: Order Date: 11/05/24 Order Info: 0184-1 - CBCD Performed By: #### L 501.9985, L100.0100, L502.0250, L500.4050 #### [facility] [address] [place], [address] IG% 0.100 Normal 0.0-0.9 [facility] Comment on above: Order Comment: Order Date: 11/05/24 Order Info: 0184-1 - CBCD Result Comment: IG% - Immature Granulocytes (promyelocytes, myelocytes and metamyelocytes) > 1% indicates that a LEFT SHIFT is Present. Performed By: #### L 501.9985, L100.0100, L502.0250, L500.4050 #### [facility] [address] [place], [address] Lymphocytes/100 WBC (Bld) 35.1 % Normal 19-41 [facility] Comment on above: Order Comment: Order Date: 11/05/24 Order Info: 0184-1 - CBCD Performed By: #### L 501.9985, L100.0100, L502.0250, L500.4050 #### [facility] [address] [place], [address] MCH (RBC) [Entitic mass] 29.6 pg Normal 27.0-32.0 [facility] Comment on above: Order Comment: Order Date: 11/05/24 Order Info: 0184-1 - CBCD Performed By: #### L 501.9985, L100.0100, L502.0250, L500.4050 #### [facility] [address] [place], [address] MCHC (RBC) [Mass/Vol] 31.8 g/dL Low 32-36 [facility] Comment on above: Order Comment: Order Date: 11/05/24 Order Info: 0184-1 - CBCD Performed By: #### L 501.9985, L100.0100, L502.0250, L500.4050 #### [facility] [address] [place], [address] MCV (RBC) [Entitic vol] 93.2 fL Normal 81-99 [facility] Comment on above: Order Comment: Order Date: 11/05/24 Order Info: 0184-1 - CBCD Performed By: #### L 501.9985, L100.0100, L502.0250, L500.4050 #### [facility] [address] [place], [address] Monocytes/100 WBC (Bld) 6.2 % Normal 0-10 [facility] Comment on above: Order Comment: Order Date: 11/05/24 Order Info: 0184-1 - CBCD Performed By: #### L 501.9985, L100.0100, L502.0250, L500.4050 #### [facility] [address] [place], [address] Neutrophils/100 WBC (Bld) 55.4 % Normal 47-70 [facility] Comment on above: Order Comment: Order Date: 11/05/24 Order Info: 0184-1 - CBCD Performed By: #### L 501.9985, L100.0100, L502.0250, L500.4050 #### [facility] [address] [place], [address] Nucleated RBC (Bld) [#/Vol] 0 10*3/uL Normal 0-5 [facility] Comment on above: Order Comment: Order Date: 11/05/24 Order Info: 0184-1 - CBCD Performed By: #### L 501.9985, L100.0100, L502.0250, L500.4050 #### [facility] [address] [place], [address] Platelet mean volume (Bld) [Entitic vol] 10.8 fL Normal 6.2-12.0 [facility] Comment on above: Order Comment: Order Date: 11/05/24 Order Info: 0184-1 - CBCD Performed By: #### L 501.9985, L100.0100, L502.0250, L500.4050 #### [facility] [address] [place], [address] Platelets (Bld) [#/Vol] 301 10*3/uL Normal 150-450 [facility] Comment on above: Order Comment: Order Date: 11/05/24 Order Info: 0184-1 - CBCD Performed By: #### L 501.9985, L100.0100, L502.0250, L500.4050 #### [facility] [address] [place], [address] RBC (Bld) [#/Vol] 4.59 10*6/uL Normal 4.2-5.4 [facility] Comment on above: Order Comment: Order Date: 11/05/24 Order Info: 0184-1 - CBCD Performed By: #### L 501.9985, L100.0100, L502.0250, L500.4050 #### [facility] [address] [place], [address] RDW SD 43.3 fl Normal 35.1-43.9 [facility] Comment on above: Order Comment: Order Date: 11/05/24 Order Info: 0184-1 - CBCD Performed By: #### L 501.9985, L100.0100, L502.0250, L500.4050 #### [facility] [address] [place], [address] WBC (Bld) [#/Vol] 7.8 10*3/uL Normal 4.4-11.0 [facility] Comment on above: Order Comment: Order Date: 11/05/24 Order Info: 0184-1 - CBCD Performed By: #### L 501.9985, L100.0100, L502.0250, L500.4050 #### [facility] [address] [place], [address] Comprehensive Metabolic Prof [facility] 11-24-2024 Albumin [Mass/Vol] 3.9 g/dL Normal 3.5-5.0 [facility] Comment on above: Performed By: #### L 506.0250, L500.4050 ####[facility] [address] [place], [address] Albumin/Globulin [Mass ratio] 1.2 {ratio} Normal 0.9-2.4 [facility] Comment on above: Performed By: #### L 506.0250, L500.4050 ####[facility] [address] [place], [address] ALK PHOS 86 U/L Normal 35-104 [facility] Comment on above: Performed By: #### L 506.0250, L500.4050 ####[facility] [address] [place], [address] ALT [Catalytic activity/Vol] 15 U/L Normal <=34 [facility] Comment on above: Performed By: #### L 506.0250, L500.4050 ####[facility] [address] [place], [address] Anion gap [Moles/Vol] 10 mmol/L Normal 5-15 [facility] Comment on above: Performed By: #### L 506.0250, L500.4050 ####[facility] [address] [place], [address] AST [Catalytic activity/Vol] 20 U/L Normal <=31 [facility] Comment on above: Performed By: #### L 506.0250, L500.4050 ####[facility] [address] [place], [address] Bilirubin [Mass/Vol] 0.38 mg/dL Normal 0.00-1.30 [facility] Comment on above: Performed By: #### L 506.0250, L500.4050 ####[facility] [address] [place], [address] BUN/CRE 16.1 RATIO Normal 10-20 [facility] Comment on above: Performed By: #### L 506.0250, L500.4050 ####[facility] [address] [place], [address] Calcium [Mass/Vol] 9.7 mg/dL Normal 7.6-11.0 [facility] Comment on above: Performed By: #### L 506.0250, L500.4050 ####[facility] [address] [place], [address] Chloride [Moles/Vol] 105 mmol/L Normal 96-108 [facility] Comment on above: Performed By: #### L 506.0250, L500.4050 ####[facility] [address] [place], [address] CO2 [Moles/Vol] 22.1 mmol/L Normal 22.0-29.0 [facility] Comment on above: Performed By: #### L 506.0250, L500.4050 ####[facility] [address] [place], [address] Creatinine [Mass/Vol] 0.7 mg/dL Normal 0.6-1.0 [facility] Comment on above: Performed By: #### L 506.0250, L500.4050 ####[facility] [address] [place], [address] GFR/1.73 sq M.predicted among non-blacks MDRD (S/P/Bld) [Vol rate/Area] 100 mL/min/{1.73_m2} Normal >60 [facility] Comment on above: Result Comment: mL/m in/1.73m2 CKD-EPI Creatinine Equation (2020) Performed By: #### L 506.0250, L500.4050 ####[facility] [address] [place], [address] Globulin (S) [Mass/Vol] 3.1 g/dL Normal 2.2-4.2 [facility] Comment on above: Performed By: #### L 506.0250, L500.4050 ####[facility] [address] [place], [address] Glucose [Mass/Vol] 93 mg/dL Normal 70-99 [facility] Comment on above: Performed By: #### L 506.0250, L500.4050 ####[facility] [address] [place], [address] Potassium [Moles/Vol] 4.4 mmol/L Normal 3.3-5.1 [facility] Comment on above: Performed By: #### L 506.0250, L500.4050 ####[facility] [address] [place], [address] Sodium [Moles/Vol] 138 mmol/L Normal 133-145 [facility] Comment on above: Performed By: #### L 506.0250, L500.4050 ####[facility] [address] [place], [address] T PROT 7.1 g/dL Normal 5.9-8.4 [facility] Comment on above: Performed By: #### L 506.0250, L500.4050 ####[facility] [address] [place], [address] Urea nitrogen [Mass/Vol] 12 mg/dL Normal 4-19 [facility] Comment on above: Performed By: #### L 506.0250, L500.4050 ####[facility] [address] [place], [address] ALB Normal 3.5-5.0 [facility] Comment on above: Order Comment: Order Date: 11/05/24 Order Info: 0786-1 - CMP Result Comment: PUTT ING UNDER DIFFERENT REQ Performed By: #### L 501.9985, L100.0100, L502.0250, L500.4050 #### [facility] [address] [place], [address] ALK PHOS Normal 35-104 [facility] Comment on above: Order Comment: Order Date: 11/05/24 Order Info: 0786-1 - CMP Result Comment: PUTT ING UNDER DIFFERENT REQ Performed By: #### L 501.9985, L100.0100, L502.0250, L500.4050 #### [facility] [address] [place], [address] ALT Normal <=34 [facility] Comment on above: Order Comment: Order Date: 11/05/24 Order Info: 0786-1 - CMP Result Comment: PUTT ING UNDER DIFFERENT REQ Performed By: #### L 501.9985, L100.0100, L502.0250, L500.4050 #### [facility] [address] [place], [address] AST Normal <=31 [facility] Comment on above: Order Comment: Order Date: 11/05/24 Order Info: 0786-1 - CMP Result Comment: PUTT ING UNDER DIFFERENT REQ Performed By: #### L 501.9985, L100.0100, L502.0250, L500.4050 #### [facility] [address] [place], [address] BUN Normal 4-19 [facility] Comment on above: Order Comment: Order Date: 11/05/24 Order Info: 0786-1 - CMP Result Comment: PUTT ING UNDER DIFFERENT REQ Performed By: #### L 501.9985, L100.0100, L502.0250, L500.4050 #### [facility] [address] [place], [address] BUN/CRE Normal 10-20 [facility] Comment on above: Order Comment: Order Date: 11/05/24 Order Info: 0786-1 - CMP Result Comment: PUTT ING UNDER DIFFERENT REQ Performed By: #### L 501.9985, L100.0100, L502.0250, L500.4050 #### [facility] [address] [place], [address] Calcium Normal 8.5-10.1 [facility] Comment on above: Order Comment: Order Date: 11/05/24 Order Info: 0786-1 - CMP Result Comment: PUTT ING UNDER DIFFERENT REQ Performed By: #### L 501.9985, L100.0100, L502.0250, L500.4050 #### [facility] [address] [place], [address] CL Normal 98-107 [facility] Comment on above: Order Comment: Order Date: 11/05/24 Order Info: 0786-1 - CMP Result Comment: PUTT ING UNDER DIFFERENT REQ Performed By: #### L 501.9985, L100.0100, L502.0250, L500.4050 #### [facility] [address] [place], [address] CO2 Normal 21.0-32.0 [facility] Comment on above: Order Comment: Order Date: 11/05/24 Order Info: 0786-1 - CMP Result Comment: PUTT ING UNDER DIFFERENT REQ Performed By: #### L 501.9985, L100.0100, L502.0250, L500.4050 #### [facility] [address] [place], [address] CREAT,SERUM Normal 0.6-1.0 [facility] Comment on above: Order Comment: Order Date: 11/05/24 Order Info: 0786-1 - CMP Result Comment: PUTT ING UNDER DIFFERENT REQ Performed By: #### L 501.9985, L100.0100, L502.0250, L500.4050 #### [facility] [address] [place], [address] eGFR Normal >60 [facility] Comment on above: Order Comment: Order Date: 11/05/24 Order Info: 0786-1 - CMP Result Comment: PUTT ING UNDER DIFFERENT REQ Performed By: #### L 501.9985, L100.0100, L502.0250, L500.4050 #### [facility] [address] [place], [address] GAP Normal 5-15 [facility] Comment on above: Order Comment: Order Date: 11/05/24 Order Info: 0786-1 - CMP Result Comment: PUTT ING UNDER DIFFERENT REQ Performed By: #### L 501.9985, L100.0100, L502.0250, L500.4050 #### [facility] [address] [place], [address] GLU Normal 70-99 [facility] Comment on above: Order Comment: Order Date: 11/05/24 Order Info: 07-1 - CMP Result Comment: PUTT ING UNDER DIFFERENT REQ Performed By: #### L 501.9985, L100.0100, L502.0250, L500.4050 #### [facility] [address] [place], [address] Potassium Normal 3.5-5.1 [facility] Comment on above: Order Comment: Order Date: 11/05/24 Order Info: 07-1 - CMP Result Comment: PUTT ING UNDER DIFFERENT REQ Performed By: #### L 501.9985, L100.0100, L502.0250, L500.4050 #### [facility] [address] [place], [address] T BILI Normal 0.00-1.30 [facility] Comment on above: Order Comment: Order Date: 11/05/24 Order Info: 07-1 - CMP Result Comment: PUTT ING UNDER DIFFERENT REQ Performed By: #### L 501.9985, L100.0100, L502.0250, L500.4050 #### [facility] [address] [place], [address] T PROT Normal 5.9-8.4 [facility] Comment on above: Order Comment: Order Date: 11/05/24 Order Info: 0786-1 - CMP Result Comment: PUTT ING UNDER DIFFERENT REQ Performed By: #### L 501.9985, L100.0100, L502.0250, L500.4050 #### [facility] [address] [place], [address] Comprehensive Metabolic Profil Normal 136-145 [facility] Comment on above: Order Comment: Order Date: 11/05/24 Order Info: 0786-1 - CMP Result Comment: PUTT ING UNDER DIFFERENT REQ Performed By: #### L 501.9985, L100.0100, L502.0250, L500.4050 #### [facility] [address] [place], [address] Folates, (Folic Acid)on 11-01 FOLATES 6.30 ng/mL Normal 4.60-34.80 [facility] Comment on above: Order Comment: N Performed By: #### L 506.0250, L500.4050 ####[facility] [address] [place], [address] Microalb:Creat Ratio,Random URon 11-24-2024 MALB:CREAT Normal <30 mg/g CRE [facility] Comment on above: Order Comment: Order Date: 11/05/24Order Info: 0779-1 - MIACRE Result Comment: REOR LICO Performed By: #### L 501.9985, L100.0100, L502.0250, L500.4050 ####[facility] [address] [place], [address] MR/BMS.BPon 10-27-2024 MR/BMS.BP [address], [address] [place] [address] OFFICE VISIT Date of Service: 10/27/24 MR#: [id number] Acct: [id number] Name: LAZARO NARANJO Rep #: [id number] : 1970 Provider: Dr. Mora Saavedra se, DO Age/Sex: 54/F [place] [facility] [place]: Signed Intake Vital Signs 08/25/24 13:31 10/27/24 13:06 Height 5 ft 5 ft BP 121/67 H Blood Pressure Location Lt brachial Position Sitting Respiration 18 Pulse 69 Pulse Source Monitor BP Intake Visit Reasons: follow up Allergies hydrocortisone (From Cortizone-10) Allergy (Severe, Verified 08/25/24 13:35) Hives ketamine Allergy (Unknown, Verified 08/25/24 13:35) unknown [facility] Medical History History of electroconvulsive therapy Insomnia Schizoaffective disorder, depressive type Alcohol abuse Acute maxillary sinusitis, unspecified Surgical History H/O tubal ligation Hx of appendectomy Hx of cholecystectomy Family History Mother Cancer Father Heart disease Social History Smoking Status: Current every day smoker tobacco type: cigarettes HPI History of Present Illness History provided by: patient HPI: Lazaro Naranjo is a 54 year old female who presents today for follow up evaluation. Patient reports that she had not slept nearly at all last night as she worked last night and had trouble sleeping before appointment today. Was started on rizatriptan secondary to migraine with aura. Also was started on topiramate but feels like it causes teeth grinding. Has stopped amitriptyline and had resolution of muscle cramping, twitching, weakness, confusion, tremors and fatigue. I had mild suspicion of serotonin syndrome and recommended to her to reduce serotenergic burden of being on tramadol, paxil, amtriptyline. Has stopped paxil, amitriptyline, and zofran because of this. Overall, she is actually feeling better physically. Has occasional cramping, but nothing to the same extent. Has had an occasional dip in mood, specifically some intermittent SI without any plan or intent. Currently working 2 12s per week and then an 8 hour shift. Because of schedule does have some issues with sleep. Has had some intermittent panic attacks. Daughter moved out the 7th of this month after she kicked her out for stealing money. Has not been going to the career center at this time for [employer] due to changes in mental health. Review of Systems Constitutional Denies: fever(s), chills or change in weight Eyes Denies: change in vision or blurry vision Ears, Nose, Mouth, Throat Denies: throat pain, neck pain or change in hearing Cardiovascular Denies: palpitations or dyspnea Respiratory Denies: dyspnea, cough or wheezing Gastrointestinal Reports: nausea; Denies: abdominal pain, vomiting, diarrhea or constipation Genitourinary Denies: dysuria or urinary frequency Musculoskeletal Reports: other (side pain); Denies: back pain, neck pain, joint pain or muscle weakness Integumentary/Breast Denies: rash or new lesions Neurological Reports: headache(s) (somewhat better); Denies: dizziness or confusion Psychiatric Reports: auditory hallucinations Endocrine Denies: excessive sweating Hematologic/Lymphatic Denies: easy bruising or easy bleeding Allergic/Immunologic Denies: wheezing Exam Mental Status Exam - Psych Appearance adequately groomed Attitude cooperative Activity/Motor Behavior MSE activity/motor behavior finding no adventitious movements Speech regular rate, regular prosody and soft Mood depressed Affect restricted Thought Process linear, logical and coherent Thought Content no delusions and no hallucinations Suicidal Ideation passive (Somewhat worse in recent past); No intent and No plans Homicidal Ideation none Attention intact Concentration intact Sensorium/Orientation awake, alert and oriented x3 Memory/Cognition other (appropriate for stated age) Insight fair Judgement good Exam Constitutional Documenting provider has reviewed patient's vital signs: yes Common normals: no acute distress, patient oriented x3 and alert General appearance: well developed Neuro Common normals: patient oriented x3 Sensorium/orientation: alert Gait (neuro): normal gait Assessment Plan Assessment Plan (1) Schizoaffective disorder, depressive type: Plan: - Continue Latuda as previously prescribed ???Can continue use of as needed lorazepam for time being - will start low dose of nortriptyline at 10 mg as it has a more noradrenergic effect than serotenergic so likely confers low risk of exacerbating suspected serotonin sen (more content not included)... Normal [facility] Spine Lumbar (Routine)on Spine Lumbar (Routine) [facility] [address] [place] [address] Spine Lumbar (Routine) MR#: [id number] Acct: [id number] Name: LAZARO NARANJO Rep #: [id number] : 1970 F 54 From: Anthony Best MD PCP: Dr. Damian James MD Status: [facility] Study: Spine Lumbar (Routine) Date of Exam: 09/28/24 Exam# [id number] Ordering Dr: [place] [id number] STUDY: MRI LUMBAR SPINE WITHOUT CONTRAST REASON FOR EXAM: Female, 54 years old. RADICULOPATHY, CHRONIC LOW BACK PAIN RADIATING INTO L HIP AND LEG TECHNIQUE: Standardized fat and water weighted pulse sequences were obtained in the sagittal and axial planes. COMPARISON: 09/09/2023 FINDINGS: T12-L1: Normal endplates. Normal disc height, hydration and morphology. Normal bilateral facet joints. Normal central canal and bilateral lateral recesses. Normal bilateral intervertebral neural foramina. Normal lumbar lordosis. There is no substantial scoliosis. Normal conus medullaris that terminates at the T12/L1. L1-2: Normal endplates. Normal disc height, hydration and morphology. Normal bilateral facet joints. Normal central canal and bilateral lateral recesses. Normal bilateral intervertebral neural foramina. L2-3: Normal endplates. Normal disc height, hydration and morphology. Normal bilateral facet joints. Normal central canal and bilateral lateral recesses. Normal bilateral intervertebral neural foramina. L3-4: Normal endplates. Normal disc height, hydration and morphology. Normal bilateral facet joints. Normal central canal and bilateral lateral recesses. Normal bilateral intervertebral neural foramina. L4-5: Mild bilateral facet hypertrophy and ligamentum flavum hypertrophy. No change in the mild broad disc protrusion which produces mild spinal stenosis and mild bilateral neural foraminal stenosis. L5-S1: Normal endplates. Normal disc height, hydration and morphology. Normal bilateral facet joints. Normal central canal and bilateral lateral recesses. Normal bilateral intervertebral neural foramina. Normal visualized sacral ala. Normal visualized paraspinous soft tissue structures. MRI/Spine Lumbar (Routine) IMPRESSION: No change from 09/09/2023. Electronically Signed: Anthony Best MD at 18:37 EST , CC: Dr. Marlena Sheffield MD; Dr. Damian James MD Twisting Machine Operator: Signed Normal [facility] Brain W/WO Contraston 2023 Brain W/WO Contrast [facility] [address] [place], [place] [address] Brain W/WO Contrast MR#: [id number] Acct: [id number] Name: LAZARO NARANJO Rep #: [id number] : 1970 F 54 From: Junaid Musa MD PCP: Dr. Damian James MD Status: REG CLI Study: Brain W/WO Contrast Date of Exam: 09/01/24 Exam# [id number] Ordering Dr: [place] [id number] STUDY: MRI BRAIN WITH AND WITHOUT CONTRAST REASON FOR EXAM: Female, 54 years old. MIGRAINE TECHNIQUE: Standardized multiplanar fat and water weighted pulse sequences were obtained. 15ML IV CLARISCAN was administered for the contrast portion of the examination. COMPARISON: CT of the brain June 02, 2024 FINDINGS: Normal size of the ventricles and extra-axial spaces for the patient''s age. Moderate nonspecific periventricular white matter disease without mass effect or restricted diffusion.. Normal bilateral basal ganglia. Normal thalami. There is no extra-axial fluid accumulation. Normal flow voids within the major intracranial circulation suggesting patency by spin echo criteria. Normal venous enhancement. There is no enhancing intra-axial or extra-axial abnormality. Normal sella turcica, pituitary gland, infundibular stalk, optic chiasm and hypothalamus. Normal tectal plate and pineal gland. Normal midbrain, janay and medulla. Normal cerebellum. Normal basal cisterns. Normal bilateral temporal bones. Normal bilateral internal auditory canals. No demonstrated orbital abnormality, within the constraints of a routine brain study. Normal visualized paranasal sinuses. Normal calvarium and skull base. Normal visualized soft tissue structures. Normal visualized upper cervical spine. MRI/Brain W/WO Contrast IMPRESSION: Moderate nonspecific periventricular white matter disease most likely representing chronic small vessel ischemic changes in patient of this age. This also may be seen in patients with chronic migraine headaches. No evidence for obstructive hydrocephalus mass or acute infarct Electronically Signed: Junaid Musa MD at 21:04 EST , CC: Dr. Wilfred Estrada MD; Dr. Damian James MD Twisting Machine Operator: Signed Normal [facility] MR/BMS.BPon 08-25-2024 MR/BMS.BP [address], [address] [place] [address] OFFICE VISIT Date of Service: 08/25/24 MR#: [id number] Acct: [id number] Name: LAZARO NARANJO Rep #: [id number] : 1970 Provider: Dr. Mora Saavedra se, DO Age/Sex: 54/F [place] [facility] Status: Signed Intake Vital Signs 06/29/24 13:27 08/25/24 13:31 Height 5 ft 5 ft BP 121/67 H Blood Pressure Location Lt brachial Position Sitting Respiration 18 Pulse 69 Pulse Source Monitor BP Intake Visit Reasons: Follow up Accompanied by: Self Allergies hydrocortisone (From Cortizone-10) Allergy (Severe, Verified 08/25/24 13:35) Hives ketamine Allergy (Unknown, Verified 08/25/24 13:35) unknown Medications ???Medication ???Instructions ???Recorded ???Confirmed ???Type famotidine 20 mg tablet 20 mg PO DAILY 03/18/23 08/25/24 History levothyroxine 125 mcg tablet 125 mcg PO DAILY 03/18/23 08/25/24 History meloxicam 15 mg tablet 15 mg PO DAILY 03/18/23 08/25/24 History rosuvastatin 10 mg tablet 10 mg PO DAILY 03/18/23 08/25/24 History gabapentin 100 mg capsule mg PO Q8H 07/02/23 08/25/24 History ondansetron HCl 4 mg tablet mg PO 08/08/23 08/25/24 History baclofen 10 mg tablet 10 mg PO TID 03/12/24 08/25/24 History hydroxyzine pamoate 25 mg capsule 25 mg PO TID PRN anxiety #90 caps 06/19/24 08/25/24 Rx lorazepam 1 mg tablet 0.5 mg (1/2 x 1 mg) PO BID PRN 07/23/24 08/25/24 Rx anxiety #30 tabs trihexyphenidyl 2 mg tablet See Rx Instructions .Route 08/10/24 08/25/24 Rx .COMPLEX #90 tabs lamotrigine 150 mg tablet See Rx Instructions .Route 08/25/24 08/25/24 Rx .COMPLEX #30 tabs lurasidone 40 mg tablet 40 mg PO QPM #30 tabs 08/25/24 08/25/24 Rx paroxetine HCl 30 mg tablet See Rx Instructions .Route 08/25/24 08/25/24 Rx .COMPLEX #30 tabs propranolol 20 mg tablet 20 mg PO TID PRN anxiety #90 tabs 08/25/24 08/25/24 Rx PFSH Medical History History of electroconvulsive therapy Insomnia Schizoaffective disorder, depressive type Alcohol abuse Acute maxillary sinusitis, unspecified Surgical History H/O tubal ligation Hx of appendectomy Hx of cholecystectomy Family History Mother Cancer Father Heart disease Social History Smoking Status: Current every day smoker tobacco type: cigarettes HPI History of Present Illness History provided by: patient HPI: Lazaro Naranjo is a 54 year old female who presents today for follow up evaluation. Patient has a visible injury on her face and states that she tripped on some concrete going towards the door in her building. Denies loss of conciousness. Denies any associated dizziness or lightheadedness. Recently saw neurology who ordered an MRI. Has recently started topiramate for migraine prevention. Feels like she is having more aura like symptoms when she is feeling stressed. Is going back to [employer] to get her [employer]OR VEHICLE. [place] to stay on [place] the [place]. Mood has been somewhat up and down. 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 Denies any episodes of memory loss similar to last appointment. Is able to sleep at night but does find it difficult to get up. Has had some more panic attacks in recent past. Does feel like lurasidone is helping. Daughter has been living with patient in recent past. Review of Systems Constitutional Denies: fever(s), chills or change in weight Eyes Denies: change in vision or blurry vision Ears, Nose, Mouth, Throat Denies: throat pain, neck pain or change in hearing Cardiovascular Denies: palpitations or dyspnea Respiratory Denies: dyspnea, cough or wheezing Gastrointestinal Reports: nausea; Denies: abdominal pain, vomiting, diarrhea or constipation Genitourinary Denies: dysuria or urinary frequency Musculoskeletal Reports: other (side pain); Denies: back pain, neck pain, joint pain or muscle weakness Integumentary/Breast Denies: rash or new lesions Neurological Reports: headache(s) (somewhat better); Denies: dizziness or confusion Psychiatric Reports: auditory hallucinations Endocrine Denies: excessive sweating Hematologic/Lymphatic Denies: easy bruising or easy bleeding Allergic/Immunologic Denies: wheezing Exam Mental Status Exam - Psych Appearance adequately groomed Attitude cooperative Activity/Motor Behavior MSE activity/motor behavior finding no adventitious movements Speech regular rate, regular prosody and soft Mood anxious Affect restricted Thought Process linear, logical and coherent Thought Content no delusions, Type of hallucinations (more content not included)... Normal [facility] Venous Duplex US, Unilateral on 07-31-2024 Venous Duplex US, Unilateral [facility] [address] [place] [address] Venous Duplex US, Unilateral 07/31/24 1528 MR#: [id number] Acct: [id number] Name: LAZARO NARANJO Rep #: [id number] : 1970 54 From: Reymundo Hannon MD Attending Dr: Monie Osborne Status: RE G CLI Ordering Dr: Monie Osborne Date: 07/31/24 Location: [facility] Sex: F C Admitted: Reason For Study: Left leg pain RIGHT LEFT CFV is compressible, spontaneous, phasic, GSV is normal. competent and demonstrates normal CFV is compressible, spontaneous, phasic, augmentation. competent, and demonstrates normal Procedure augmentation. This is a venous duplex using B-mode, color FV is compressible, spontaneous, phasic, flow and spectral Doppler. competent and demonstrates normal Exam performed in department. augmentation. A preliminary report was called and/or faxed POP V is compressible, spontaneous, phasic, to Monie VARGAS. competent and demonstrates normal augmentation. T/P Trunk is compressible. PTV is compressible. LT PerV is compressible. Nonvascularized structure noted in the left popliteal fossa that measures 1.04 x 3.03 x 5.46 cm. VL/Venous Duplex US, Unilateral Interpretation Summary Deep veins of the left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 ####[facility] [address] [place], [address] COCAINE Negative Normal < 300 ng/mL [facility] Comment on above: Order Comment: UNK Performed By: #### L 505.5000, L801.1541, L801.1543 ####[facility] [address] [place], [address] ECSTACY Negative Normal < 500 ng/mL [facility] Comment on above: Order Comment: UNK Performed By: #### L 505.5000, L801.1541, L801.1543 ####[facility] [address] [place], [address] METHADONE Negative Normal < 300 ng/mL [facility] Comment on above: Order Comment: UNK Performed By: #### L 505.5000, L801.1541, L801.1543 ####[facility] [address] [place], [address] OPIATES Negative Normal < 300 ng/mL [facility] Comment on above: Order Comment: UNK Performed By: #### L 505.5000, L801.1541, L801.1543 ####[facility] [address] [place], [place], [phone] PCP Negative Normal < 25 ng/mL [facility] Comment on above: Order Comment: UNK Performed By: #### L 505.5000, L801.1541, L801.1543 ####[facility] [address] [place], [address] THC Negative Normal < 50 ng/mL [facility] Comment on above: Order Comment: UNK Performed By: #### L 505.5000, L801.1541, L801.1543 ####[facility] [address] [place], [place], [phone] VISTA UDS PH 6 Normal [facility] Comment on above: Order Comment: UNK Performed By: #### L 505.5000, L801.1541, L801.1543 ####[facility] [address] [place], [address] CBC W/Diff, Automatedon 08-2 Absolute Lymph 3.06 X10 3/uL Normal 0.83-4.51 [facility] Comment on above: Performed By: #### L 3300.0100, L3300.9900 #### [facility] [address] [place], [address] Absolute Neut 7.8 X10 3/uL High 2.0-7.7 [facility] Comment on above: Performed By: #### L 3300.0100, L3300.9900 #### [facility] [address] [place], [address] Basophils/100 WBC (Bld) 0.5 % Normal 0-1 [facility] Comment on above: Performed By: #### L 3300.0100, L3300.9900 #### [facility] [address] [place], [address] Eosinophils/100 WBC (Bld) 1.3 % Normal 0-5 [facility] Comment on above: Performed By: #### L 3300.0100, L3300.9900 #### [facility] [address] [place], [address] Erythrocyte distribution width (RBC) [Ratio] 13.2 % Normal 11.6-14.6 [facility] Comment on above: Performed By: #### L 3300.0100, L3300.9900 #### [facility] [address] [place], [address] Hematocrit (Bld) [Volume fraction] 41.6 % Normal 37-47 [facility] Comment on above: Performed By: #### L 3300.0100, L3300.9900 #### [facility] [address] [place], [address] Hemoglobin (Bld) [Mass/Vol] 13.8 g/dL Normal 12.0-15.0 [facility] Comment on above: Performed By: #### L 3300.0100, L3300.9900 #### [facility] [address] [place], [address] IG% 0.800 Normal 0.0-0.9 [facility] Comment on above: Result Comment: IG% - Immature Granulocytes (promyelocytes, myelocytes and metamyelocytes) > 1% indicates that a LEFT SHIFT is Present. Performed By: #### L 3300.0100, L3300.9900 #### [facility] [address] [place], [address] Lymphocytes/100 WBC (Bld) 25.8 % Normal 19-41 [facility] Comment on above: Performed By: #### L 3300.0100, L3300.9900 #### [facility] [address] [place], [address] MCH (RBC) [Entitic mass] 31.2 pg Normal 27.0-32.0 [facility] Comment on above: Performed By: #### L 3300.0100, L3300.9900 #### [facility] [address] [place], [address] MCHC (RBC) [Mass/Vol] 33.2 g/dL Normal 32-36 [facility] Comment on above: Performed By: #### L 3300.0100, L3300.9900 #### [facility] [address] [place], [address] MCV (RBC) [Entitic vol] 93.9 fL Normal 81-99 [facility] Comment on above: Performed By: #### L 3300.0100, L3300.9900 #### [facility] [address] [place], [address] Monocytes/100 WBC (Bld) 6.4 % Normal 0-10 [facility] Comment on above: Performed By: #### L 3300.0100, L3300.9900 #### [facility] [address] [place], [address] Neutrophils/100 WBC (Bld) 65.2 % Normal 47-70 [facility] Comment on above: Performed By: #### L 3300.0100, L3300.9900 #### [facility] [address] [place], [address] Nucleated RBC (Bld) [#/Vol] 0 10*3/uL Normal 0-5 [facility] Comment on above: Performed By: #### L 3300.0100, L3300.9900 #### [facility] [address] [place], [address] Platelet mean volume (Bld) [Entitic vol] 9.9 fL Normal 6.2-12.0 [facility] Comment on above: Performed By: #### L 3300.0100, L3300.9900 #### [facility] [address] [place], [address] Platelets (Bld) [#/Vol] 337 10*3/uL Normal 150-450 [facility] Comment on above: Performed By: #### L 3300.0100, L3300.9900 #### [facility] [address] [place], [address] RBC (Bld) [#/Vol] 4.43 10*6/uL Normal 4.2-5.4 [facility] Comment on above: Performed By: #### L 3300.0100, L3300.9900 #### [facility] [address] [place], [address] RDW SD 45.5 fl High 35.1-43.9 [facility] Comment on above: Performed By: #### L 3300.0100, L3300.9900 #### [facility] [address] [place], [address] WBC (Bld) [#/Vol] 11.9 10*3/uL High 4.4-11.0 [facility] Comment on above: Performed By: #### L 3300.0100, L3300.9900 #### [facility] [address] [place], [address] Comprehensive Metabolic Prof ilon 05-22-2024 Albumin [Mass/Vol] 3.3 g/dL Normal 3.2-5.0 [facility] Comment on above: Performed By: #### L 502.0250 #### [facility] [address] [place], [address] Albumin/Globulin [Mass ratio] 0.8 {ratio} Low 0.9-2.4 [facility] Comment on above: Performed By: #### L 502.0250 #### [facility] [address] [place], [address] ALK P 80 U/L Normal 45-117 [facility] Comment on above: Performed By: #### L 502.0250 #### [facility] [address] [place], [address] ALT [Catalytic activity/Vol] 22 U/L Normal 13-56 [facility] Comment on above: Performed By: #### L 502.0250 #### [facility] [address] [place], [address] AST [Catalytic activity/Vol] 11 U/L Low 15-37 [facility] Comment on above: Performed By: #### L 502.0250 #### [facility] [address] [place], [address] Bilirubin [Mass/Vol] 0.40 mg/dL Normal 0.20-1.00 [facility] Comment on above: Result Comment: For patients on eltrombopag therapy, use of Dimension Hammett TBIL is not recommended. Performed By: #### L 502.0250 #### [facility] [address] [place], [address] BUN/CRE 20.5 RATIO High 10-20 [facility] Comment on above: Performed By: #### L 502.0250 #### [facility] [address] [place], [address] CA,Total 8.8 mg/dL Normal 8.5-10.1 [facility] Comment on above: Performed By: #### L 502.0250 #### [facility] [address] [place], [address] Chloride [Moles/Vol] 107 mmol/L Normal 98-107 [facility] Comment on above: Performed By: #### L 502.0250 #### [facility] [address] [place], [address] CO2 [Moles/Vol] 26.0 mmol/L Normal 21.0-32.0 [facility] Comment on above: Performed By: #### L 502.0250 #### [facility] [address] [place], [address] Creatinine [Mass/Vol] 0.73 mg/dL Normal 0.55-1.02 [facility] Comment on above: Result Comment: The validity of the calculated GFR GFRAA in patients over 70 years has not been determined. Clinical correlation is essential. Performed By: #### L 502.0250 #### [facility] [address] [place], [address] ECRCL 82.42 ml/min Normal [facility] Comment on above: Performed By: #### L 502.0250 #### [facility] [address] [place], [address] EST GFR - AA 106 mL/min Normal >60 [facility] Comment on above: Result Comment: Afri can [facility] GFR Calc Performed By: #### L 502.0250 #### [facility] [address] [place], [address] GAP 5 Normal 5-15 [facility] Comment on above: Performed By: #### L 502.0250 #### [facility] [address] [place], [address] GFR/1.73 sq M.predicted among non-blacks MDRD (S/P/Bld) [Vol rate/Area] 88 mL/min/{1.73_m2} Normal >60 [facility] Comment on above: Result Comment: Non- GFR Calc Performed By: #### L 502.0250 #### [facility] [address] [place], [address] Globulin (S) [Mass/Vol] 3.9 g/dL Normal 2.2-4.2 [facility] Comment on above: Performed By: #### L 502.0250 #### [facility] [address] [place], [address] Glucose [Mass/Vol] 89 mg/dL Normal 74-106 [facility] Comment on above: Performed By: #### L 502.0250 #### [facility] [address] [place], [address] Potassium [Moles/Vol] 3.8 mmol/L Normal 3.5-5.1 [facility] Comment on above: Performed By: #### L 502.0250 #### [facility] [address] [place], [address] Sodium [Moles/Vol] 138 mmol/L Normal 136-145 [facility] Comment on above: Performed By: #### L 502.0250 #### [facility] [address] [place], [address] T PROT 7.2 g/dL Normal 6.4-8.2 [facility] Comment on above: Performed By: #### L 502.0250 #### [facility] [address] [place], [address] Urea nitrogen [Mass/Vol] 15 mg/dL Normal 7-18 [facility] Comment on above: Performed By: #### L 502.0250 #### [facility] [address] [place], [address] Emergency Department Summary on 05-22-2024 Emergency Department Summary [facility] Medical Records Department [address] [place] [address] Emergency Department Summary 05/22/24 MR#: [id number] Acct: [id number] Name: LAZARO NARANJO Rep #: [id number] : 1970 53 From: Kenyon Cooper MD PCP: Dr. Damian James MD Status:DEP ER Location: ED HPI History of Present Illness Chief Complaint: General Illness Informant: patient Onset/Context/Timing Onset: Days Context: Gradual Onset Timing: Continuous Current Severity: Mild Maximum Severity: Mild Narrative Narrative: 53-year-old female history of schizoaffective disorder and hypothyroidism. Also goes to pain management for chronic back pain. States 1 to 2 weeks ago she had the nerves in her lower back burn . Said it did not work. She can feel everything when they did it and has not caused any improvement and the anesthetic did not work either. Said she just has not been feeling well. She denies any vomiting, diarrhea or fever. No dysuria. No chest or abdominal pain. Prior similar symptoms: No Recent Illness/Hospitalization : No [facility] Medical History History of electroconvulsive therapy Insomnia Schizoaffective disorder, depressive type Alcohol abuse Acute maxillary sinusitis, unspecified Home Medications ???Medication ???Instructions ???Recorded ???Last Taken ???Type famotidine 20 mg tablet 20 mg PO DAILY 03/18/23 Unknown History levothyroxine 125 mcg tablet 125 mcg PO DAILY 03/18/23 Unknown History levothyroxine 150 mcg tablet 150 mcg PO DAILY 03/18/23 Unknown History meloxicam 15 mg tablet 15 mg PO DAILY 03/18/23 Unknown History rosuvastatin 10 mg tablet 10 mg PO DAILY 03/18/23 Unknown History gabapentin 100 mg capsule mg PO Q8H 07/02/23 Unknown History ondansetron HCl 4 mg tablet mg PO 08/08/23 Unknown History sumatriptan succinate 50 mg tablet 50 mg PO ONCE PRN migraine 11/21/23 Unknown Rx (Imitrex) headache #10 tabs baclofen 10 mg tablet 10 mg PO TID 03/12/24 Unknown History propranolol 20 mg tablet 20 mg PO TID PRN anxiety #90 tabs 03/25/24 Unknown Rx lamotrigine 150 mg tablet See Rx Instructions .Route 04/09/24 Unknown Rx .COMPLEX #30 tabs lurasidone 40 mg tablet 40 mg PO QPM #30 tabs 04/09/24 Unknown Rx paroxetine HCl 30 mg tablet See Rx Instructions .Route 04/09/24 Unknown Rx .COMPLEX #30 tabs hydroxyzine pamoate 25 mg capsule 25 mg PO TID PRN anxiety #90 caps 05/18/24 Unknown Rx lorazepam 1 mg tablet 0.5 mg (1/2 x 1 mg) PO BID PRN 05/18/24 Unknown Rx anxiety #30 tabs trihexyphenidyl 2 mg tablet See Rx Instructions .Route 05/18/24 Unknown Rx .COMPLEX #90 tabs Allergy/AdvReac Type Severity Reaction Status Date / Time hydrocortisone (From Allergy Severe Hives Verified 05/22/24 11:10 Cortizone-10) ketamine Allergy Unknown unknown Verified 05/22/24 11:10 Family History Mother Cancer Father Heart disease Surgical History H/O tubal ligation Hx of appendectomy Hx of cholecystectomy Social History Smoking Status: Current every day smoker tobacco type: cigarettes ROS ROS ED ROS Narrative Denies recent fever, vomiting, diarrhea or dysuria. Constitutional Constitutional ED: Denies chills or fever(s) Eyes Eyes: Denies blurry vision ENT ENT ED: Denies ear pain Cardiovascular Cardiovascular: Denies chest pain Respiratory/Chest Respiratory/Chest: Denies cough Gastrointestinal Gastrointestinal: Denies abdominal pain Genitourinary Genitourinary ED: Denies dysuria or hematuria Musculoskeletal Musculoskeletal: Reports arthralgias, back pain and myalgias Integumentary Denies abscess Neurologic Neurologic: Denies headache(s) Psychiatric Psychiatric: Denies anxiety Endocrine Endocrinology: Denies cold intolerance Hematologic/Lymphatic Hematologic/Lymphatic: Reports none Allergic/Immunologic Allergic/Immunologic ED: Denies mouth swelling, tongue swelling or urticaria EXAM Physical Exam Narrative Exam Narrative: Well-appearing 53-year-old female vital signs stable afebrile. Pulse ox 98% on room air no signs hypoxia. H EENT exam normal. Neck nontender. Lungs clear to auscultation bilaterally. Heart regular rhythm no murmur. Chest wall ribs nontender. Abdomen soft nontender. Moving all 4 extremities. Nontender, no edema no cords. 5 of 5 ladies attendant strength. Dorsi plantarflexion intact. Neurologically she is awake and alert. Answering questions following commands. Skin no rashes. Back nontender. Const Vital Signs: 05/22/24 11:11 05/22/24 11:51 Temperature 96.8 F L Temperature Source Temporal Pulse Rate 73 Respiratory Rate 16 Respiratory Effort Nor (more content not included)... Normal [facility] MR/BMS.BPon 05-21-2024 MR/BMS.[address] [place] [address] OFFICE VISIT Date of Service: 05/21/24 MR#: [id number] Acct: [id number] Name: LAZARO NARANJO Iain Rep #: [id number] : 1970 Provider: Dr. 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 Accompanied by: Self Is patient in pain?: No Allergies hydrocortisone (From Cortizone-10) Allergy (Severe, Verified 05/22/24 11:10) Hives ketamine Allergy (Unknown, Verified 05/22/24 11:10) unknown Medications ???Medication ???Instructions ???Recorded ???Confirmed ???Type famotidine 20 mg tablet 20 mg PO DAILY 03/18/23 05/21/24 History levothyroxine 125 mcg tablet 125 mcg PO DAILY 03/18/23 05/21/24 History levothyroxine 150 mcg tablet 150 mcg PO DAILY 03/18/23 05/21/24 History meloxicam 15 mg tablet 15 mg PO DAILY 03/18/23 05/21/24 History rosuvastatin 10 mg tablet 10 mg PO DAILY 03/18/23 05/21/24 History gabapentin 100 mg capsule mg PO Q8H 07/02/23 05/21/24 History ondansetron HCl 4 mg tablet mg PO 08/08/23 05/21/24 History sumatriptan succinate 50 mg tablet 50 mg PO ONCE PRN migraine 11/21/23 05/21/24 Rx (Imitrex) headache #10 tabs baclofen 10 mg tablet 10 mg PO TID 03/12/24 05/21/24 History propranolol 20 mg tablet 20 mg PO TID PRN anxiety #90 tabs 03/25/24 05/21/24 Rx lamotrigine 150 mg tablet See Rx Instructions .Route 04/09/24 05/21/24 Rx .COMPLEX #30 tabs lurasidone 40 mg tablet 40 mg PO QPM #30 tabs 04/09/24 05/21/24 Rx paroxetine HCl 30 mg tablet See Rx Instructions .Route 04/09/24 05/21/24 Rx .COMPLEX #30 tabs hydroxyzine pamoate 25 mg capsule 25 mg PO TID PRN anxiety #90 caps 05/18/24 05/21/24 Rx lorazepam 1 mg tablet 0.5 mg (1/2 x 1 mg) PO BID PRN 05/18/24 05/21/24 Rx anxiety #30 tabs trihexyphenidyl 2 mg tablet See Rx Instructions .Route 05/18/24 05/21/24 Rx .COMPLEX #90 tabs Current gender identity: female Nurse's Note: Presents to the office today for follow up. [facility] Medical History History of electroconvulsive therapy Insomnia Schizoaffective disorder, depressive type Alcohol abuse Acute maxillary sinusitis, unspecified Surgical History H/O tubal ligation Hx of appendectomy Hx of cholecystectomy Family History Mother Cancer Father Heart disease Social History Smoking Status: Current every day smoker tobacco type: cigarettes HPI History of Present Illness History provided by: patient HPI: Lazaro Naranjo is a 53 year old female who presents today for follow up evaluation. Patient reports that she has been ok. Does feel like she has been sweating more since increasing dose of Latuda. This is becoming problematic. May have helped with anxiety however. Sleep has been fair. Has been working nights at the [employer] and usually sleeps well when she works. Will generally sleeps worse when coming off working nights. Has been eating well. Did have one episode of VH of black hands coming at her but this was a day that she had skipped lurasidone. Reports that she doesn't feel like paxil or lamotrigine are working at all. Does still have some intermittent difficulty with her daughter, but has been working on this. Has still been looking to move to [place], but is looking for a place. Review of Systems Constitutional Denies: fever(s), chills or change in weight Eyes Denies: change in vision or blurry vision Ears, Nose, Mouth, Throat Denies: throat pain, neck pain or change in hearing Cardiovascular Denies: palpitations or dyspnea Respiratory Denies: dyspnea, cough or wheezing Gastrointestinal Reports: nausea; Denies: abdominal pain, vomiting, diarrhea or constipation Genitourinary Denies: dysuria or urinary frequency Musculoskeletal Reports: other (side pain); Denies: back pain, neck pain, joint pain or muscle weakness Integumentary/Breast Denies: rash or new lesions Neurological Reports: headache(s); Denies: dizziness or confusion Psychiatric Reports: auditory hallucinations Endocrine Denies: excessive sweating Hematologic/Lymphatic Denies: easy bruising or easy bleeding Allergic/Immunologic Denies: wheezing Exam Mental Status Exam - Psych Appearance adequately groomed Attitude cooperative Activity/Motor Behavior MSE activity/motor behavior finding no adventitious movements Speech (more content not included)... Normal [facility] Miscellaneous Lab Procedureo n 04-27-2024 [facility] LAB TEST Normal [facility] Comment on above: Order Comment: [id number] URINE [id number] URINE TOX-OXY Result Comment: [id number] 6+OXYCODONE-BUND (ng/mL) DRUG RESULT SCREEN CUTOFF ____ Amphetamines,Urine Negative ng/mL 1000 Amphetamine test includes Amphetamine and Methamphetamine. Barbiturates Negative ng/mL 200 Benzodiazepines Negative ng/mL 200 Cannabinoid Negative ng/mL 20 Cocaine (Metab) Negative ng/mL 300 Opiates Negative ng/mL 300 Opiates test includes Codeine, Morphine, Hydromorphone, Hydrocodone. Oxycodone/Oxymorphone,Urine Negative ng/mL 300 Test includes Oxycodone and Oxymorphone. TESTING PERFORMED AT [facility]. ORIGINAL REPORT ON FILE IN LAB CONTAINS ADDITIONAL TEST SITE INFORMATION. Performed By: #### L 505.5000, L801.1543, L801.1541 ####[facility] [address] [place], [address] [facility] Procedure 2on 04-27-2024 [facility] LAB TEST 2 Normal [facility] Comment on above: Order Comment: TRAMA DOL [id number] Result Comment: TEST RESULTS LIMITS Tramadol, Urine Tramadol Positive Zetqri=810 Tramadol Conf, MS, UR 3742 ng/mL Oyggio=363 Tramadol detected; this finding can be consistent with use of medications that include Ultram, Topalgic, Tradol, Zydol, or generic formulations. Drugs listed are direct sales representative of common sources of the compound detected and are not intended to include all possible sources. Please Note: Drug test results should be interpreted in the context of clinical information. Patient metabolic variables, specific drug chemistry, and specimen characteristics can affect test outcome. Technical consultation is available if a test result is inconsistent with an expected outcome. Email: [email or web address] TESTING PERFORMED AT [facility]. ORIGINAL REPORT ON FILE IN LAB CONTAINS ADDITIONAL TEST SITE INFORMATION. Performed By: #### L 505.5000, L801.1543, L801.1541 ####[facility] [address] [place], [address] Urine Drug Screen (VISTA)on 04-23-2024 AMPHETAMINES Negative Normal <1000 ng/mL [facility] Comment on above: Order Comment: UNK Performed By: #### L 505.5000, L801.1543, L801.1541 ####[facility] [address] [place], [address] BARBITIURATES Negative Normal < 200 ng/mL [facility] Comment on above: Order Comment: UNK Performed By: #### L 505.5000, L801.1543, L801.1541 ####[facility] [address] [place], [address] BENZODIAZIPINE Negative Normal < 200 ng/mL [facility] Comment on above: Order Comment: UNK Performed By: #### L 505.5000, L801.1543, L801.1541 ####[facility] [address] [place], [address] COCAINE Negative Normal < 300 ng/mL [facility] Comment on above: Order Comment: UNK Performed By: #### L 505.5000, L801.1543, L801.1541 ####[facility] [address] [place], [address] ECSTACY Negative Normal < 500 ng/mL [facility] Comment on above: Order Comment: UNK Performed By: #### L 505.5000, L801.1543, L801.1541 ####[facility] [address] [place], [address] METHADONE Negative Normal < 300 ng/mL [facility] Comment on above: Order Comment: UNK Performed By: #### L 505.5000, L801.1543, L801.1541 ####[facility] [address] [place], [address] OPIATES Negative Normal < 300 ng/mL [facility] Comment on above: Order Comment: UNK Performed By: #### L 505.5000, L801.1543, L801.1541 ####[facility] [address] [place], [address] PCP Negative Normal < 25 ng/mL [facility] Comment on above: Order Comment: UNK Performed By: #### L 505.5000, L801.1543, L801.1541 ####[facility] [address] [place], [address] THC Negative Normal < 50 ng/mL [facility] Comment on above: Order Comment: UNK Performed By: #### L 505.5000, L801.1543, L801.1541 ####[facility] [address] [place], [address] VISTA UDS PH 7 Normal [facility] Comment on above: Order Comment: UNK Performed By: #### L 505.5000, L801.1543, L801.1541 ####[facility] [address] [place], [address] OT FCE D/C Summaryon 024 OT FCE D/C Summary [facility] Occupational Therapy [address] [place] [address] / REHABILITATION SERVICES DISCHARGE SUMMARY MR#: [id number] Acct: [id number] Name: LAZARO NARANJO Rep #: [id number] : 1970 53 From: Mirna Cook Referring Dr.: Dr. Marlena Sheffield MD Status: REG RCR Eval Date: Discharge Date: FCE D/C Summary Discharge text: LAZARO NARANJO was seen for a one time visit for an FCE on 04/22/24 and is discharged. 04/22/24 1440 CC: Dr. Marlena Sheffield MD; Dr. Damian James MD TCL Signed Normal [facility] OT Functional Capacity Evalo n 04-22-2024 OT Functional Capacity Eval [facility] Occupational Therapy [address] [place] [address] / REHABILITATION SERVICES INITIAL EVALUATION MR#: [id number] Acct: [id number] Name: LAZARO NARANJO Rep #: [id number] : 1970 53 From: Mirna Cook Referring Dr.: Dr. Marlena Sheffield MD Status: REG RCR Insurance: [employer] Eval Date: MEDICAID Task Lift Floor (Occasional 1-33% of Day): max lift 35# Floor (Frequent 34-66% of Day): max lift 17.5# Floor (Constant 67-100% of Day): max lift 7.36# Floor PDL: Light-Medium Knee (Occasional 1-33% of Day): max lift 35# Knee (Frequent 34-66% of Day): max lift 17.5# Knee (Constant 67-100% of Day): max lift 7.36# Knee PDL: Light-Medium Waist (Occasional 1-33% of Day): max lift 35# Waist (Frequent 34-66% of Day): max lift 17.5# Waist (Constant 67-100% of Day): max lift 7.36# Waist PDL: Light-Medium Shoulder (Occasional 1-33% of Day): max lift 25# Shoulder (Frequent 34-66% of Day): max lift 12.5# Shoulder (Constant 67-100% of Day): max lift 5.36# Shoulder PDL: Light Overhead (Occasional 1-33% of Day): max lift 25# Overhead (Frequent 34-66% of Day): max lift 12.5# Overhead (Constant 67-100% of Day): max lift 5.36# Overhead PDL: Light Work Activity/Posture Bending: Frequent Ability (34-66% of day) Squatting: Occasional Ability (1-33% of day) Kneeling: Occasional Ability (1-33% of day) Comments: better kneeling on L knee Reaching out: Constant Ability (67-100% of day) Reaching up: Constant Ability (67-100% of day) Sitting: Constant Ability (67-100% of day) Walking: Frequent Ability (34-66% of day) Standing: Frequent Ability (34-66% of day) Reference Reference: Duration Sedentary Sedentary Light Light Light Medium Medium Medium Heavy Very Heavy Heavy Occasional (0-33% of day) Frequent (34-66% of day) Constant (67-100% of day) 10 # Negligible Negligible 15 # 8 # Negligible 20 # 10# Negli. 35 # 18 # 7 # 50 # 25 # 10 # 75 # 100 # >100 # 38 # 50 # >50 # 15 # 20 # >20 # Patient Information Height: 1.52 m Weight:: 78.106 kg Hand Dominance: left Medical History Medical History Including Restrictions: Patient reports lower back and sciatica pain started 1 year ago in summer of 2022 and has gotten gradually worse. Initially, pt used a vibrating pillow for her low back (which helped somewhat) then it no longer worked. Patient went to primary doctor who then referred to pain mgmt. Pain mgmt physician started with steriod injections which help short term but then pain returns 3 weeks later. Xrays and MRI were completed back in 2022. Patient continues to receive injections in her low back, her most recent one was 2 weeks ago. She is taking tramadol and gabapentin to help with sciatic nerve pain. Patient participated in aquatic physical therapy for 3 weeks but stopped, feeling that PT made her back more sore. Diagnoses Diagnoses: chronic lower back pain sciatica arthritis Symptoms Symptoms: Patient reports feeling a tightness in her lower back that radiates down her legs (sciatica). She also feels tingling and numbness down bilateral legs that comes and goes. Pain and sciatica are worse the days she works. Pain Pain: 2/10 at start of assessment before any testing completed; finished at 7/10 pain patient reports at work it can increase to about 10/10 Work History Work History: Patient has worked as an [employer]AMP[employer] over 17 years. 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 Patient is standing/on her feet 95% of the time. 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 Behavioral Behavioral: Patient alert and cooperative. Patient communicated verbally and indep historian of [facility]. ADLS ADLS: Lives alone in a single level home with 2 [address] no handrail. Patient will use a cane for ambulation when pain is really bad. Patient is completing her ADL's independently. She reports feeling stiff in the morning. Patient completes IADL's indep as well. Physical Examination Physical Examination: Patient is well appearing. She independently ambulated from waiting room back to therapy area. She completed functional transfers independently and was able to complete all assessment tasks. Left handed, wears glasses ROM: Patient demonstrates within normal limits range of motion for entire body. With single leg stance when testing one LE ROM at a time, patient reports beginning of pulling sensation in her lower back. Strength: shoulder flexion: R 20.8#/ L 26.4#; extension R 30.1#/ L29.2# elbow flexion: R 17.7#/ L21.0; extension R 22.3#/ L 24.3 wrist flexion R 14.1#/ L 17.0#; extension R 17.4/ L 17.2# hip flexion R 6.6#/ L 11.2# knee flexion R 16.1#/ L 18.2#; extension R 22.0#/ L 22.4# Right Silk Spooler Strengt (more content not included)... Normal [facility] MR/BMSOllie 04-09-2024 MR/BMS.BP [facility][1] [address], [address] [place] [address] OFFICE VISIT Date of Service: 04/09/24 MR#: [id number] Acct: [id number] Name: LAZARO NARANJO Rep #: [id number] : 1970 Provider: Dr. Mora Saavedra se, DO Age/Sex: 53/F [place] [facility] Status: Signed Intake Vital Signs 03/12/24 09:32 04/09/24 14:51 04/09/24 14:52 Height 4 ft 11 in 4 ft 11 in 4 ft 11 in BP 122/73 H Blood Pressure Location Rt brachial Position Sitting Pulse 64 Pulse Source Monitor BP Intake Visit Reasons: 4wfu Motor Vehicle 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 Required: No Accompanied by: Self Is patient in pain?: No Allergies hydrocortisone (From Cortizone-10) Allergy (Severe, Verified 04/09/24 14:52) Hives ketamine Allergy (Unknown, Verified 04/09/24 14:52) unknown Medications ???Medication ???Instructions ???Recorded ???Confirmed ???Type famotidine 20 mg tablet 20 mg PO DAILY 03/18/23 04/09/24 History levothyroxine 125 mcg tablet 125 mcg PO DAILY 03/18/23 04/09/24 History levothyroxine 150 mcg tablet 150 mcg PO DAILY 03/18/23 04/09/24 History meloxicam 15 mg tablet 15 mg PO DAILY 03/18/23 04/09/24 History rosuvastatin 10 mg tablet 10 mg PO DAILY 03/18/23 04/09/24 History gabapentin 100 mg capsule mg PO Q8H 07/02/23 04/09/24 History ondansetron HCl 4 mg tablet mg PO 08/08/23 04/09/24 History sumatriptan succinate 50 mg tablet 50 mg PO ONCE PRN migraine 11/21/23 04/09/24 Rx (Imitrex) headache #10 tabs hydroxyzine pamoate 25 mg capsule 25 mg PO TID PRN anxiety #90 caps 02/04/24 04/09/24 Rx trihexyphenidyl 2 mg tablet See Rx Instructions .Route 02/04/24 04/09/24 Rx .COMPLEX #90 tabs baclofen 10 mg tablet 10 mg PO TID 03/12/24 04/09/24 History propranolol 20 mg tablet 20 mg PO TID PRN anxiety #90 tabs 03/25/24 04/09/24 Rx lamotrigine 150 mg tablet See Rx Instructions .Route 04/09/24 04/09/24 Rx .COMPLEX #30 tabs lorazepam 1 mg tablet 0.5 mg (1/2 x 1 mg) PO BID PRN 04/09/24 04/09/24 Rx anxiety #30 tabs lurasidone 40 mg tablet 40 mg PO QPM #30 tabs 04/09/24 04/09/24 Rx paroxetine HCl 30 mg tablet See Rx Instructions .Route 04/09/24 04/09/24 Rx .COMPLEX #30 tabs Current gender identity: female Nurse's Note: Presents to the office today for follow up. [facility] Medical History History of electroconvulsive therapy Insomnia Schizoaffective disorder, depressive type Alcohol abuse Acute maxillary sinusitis, unspecified Surgical History H/O tubal ligation Hx of appendectomy Hx of cholecystectomy Family History Mother Cancer Father Heart disease Social History Smoking Status: Current every day smoker HPI History of Present Illness History provided by: patient HPI: Lazaro Naranjo is a 53 year old female who presents today for follow up evaluation. Patient reports that she has been doing ok. Has not been having any hallucinations since increasing the lurasidone. Continues to have some repetitive thoughts in her head. Finds that anxiety has been fairly high. Propranolol knocks edge off but only a little. Goes to bed around 630 to 330 am, but then will be up. 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 Appetite is largely stable. Did have a major blow up with daughter which led to some passive suicidal ideation. Is looking to move back to [place] to be closer to work and daughters. Review of Systems Constitutional Reports: fatigue (With use of olanzapine); Denies: fever(s), chills or change in weight Eyes Denies: change in vision or blurry vision Ears, Nose, Mouth, Throat Denies: throat pain, neck pain or change in hearing Cardiovascular Denies: palpitations or dyspnea Respiratory Denies: dyspnea, cough or wheezing Gastrointestinal Reports: nausea; Denies: abdominal pain, vomiting, diarrhea or constipation Genitourinary Denies: dysuria or urinary frequency Musculoskeletal Reports: other (side pain); Denies: back pain, neck pain, joint pain or muscle weakness Integumentary/Breast Denies: rash or new lesions Neurological Reports: headache(s); Denies: dizziness or confusion Psychiatric Reports: auditory hallucinations Endocrine Reports: fatigue (With use of olanzapine); Denies: excessive sweating Hematologic/Lymphatic Denies: easy bruising or easy bleeding Allergic/Immunologic Denies: wheezing Exam Mental Status Exam - Psych Appearance adequately groomed Attitude cooperative Activity/Motor Behavior MSE activity/motor behavior finding no adventitious movements Speech regular rate, regular volume and regular prosody Mood depressed (But doing better) Affect restricted (But brighter than (more content not included)... Normal [facility] CBC With Platelet and Differ entialon 01-15-2023 Basophils (Bld) [#/Vol] 0.0 10*3/uL Normal 0.0-0.2 [facility] Comment on above: Performed By: #### C BCWD #### [facility] [address] [place] [address] Basophils/100 WBC (Bld) 0.6 % Normal [facility] Comment on above: Performed By: #### C BCWD #### [facility] [address] [place] [address] Eosinophils (Bld) [#/Vol] 0.3 10*3/uL Normal 0.0-0.7 [facility] Comment on above: Performed By: #### C BCWD #### [facility] [address] [place] [address] Eosinophils/100 WBC (Bld) 3.9 % Normal [facility] Comment on above: Performed By: #### C BCWD #### [facility] [address] [place] [address] Erythrocyte distribution width (RBC) [Ratio] 13.6 % Normal 11.5-14.5 [facility] Comment on above: Performed By: #### C BCWD #### [facility] [address] [place] [address] Hematocrit (Bld) [Volume fraction] 40.3 % Normal 37.0-47.0 [facility] Comment on above: Performed By: #### C BCWD #### [facility] [address] [place] [address] Hemoglobin (Bld) [Mass/Vol] 13.4 g/dL Normal 12.0-16.0 [facility] Comment on above: Performed By: #### C BCWD #### [facility] [address] [place] [address] Lymphocytes (Bld) [#/Vol] 1.9 10*3/uL Normal 1.0-4.8 [facility] Comment on above: Performed By: #### C BCWD #### [facility] [address] [place] [address] Lymphocytes/100 WBC (Bld) 27.8 % Normal [facility] Comment on above: Performed By: #### C BCWD #### [facility] [address] [place] [address] MCH (RBC) [Entitic mass] 31.1 pg Normal 27.0-31.3 [facility] Comment on above: Performed By: #### C BCWD #### [facility] [address] [place] [address] MCHC 33.4 % Normal 33.0-37.0 [facility] Comment on above: Performed By: #### C BCWD #### [facility] [address] [place] [address] MCV (RBC) [Entitic vol] 93.1 fL Normal 79.4-94.8 [facility] Comment on above: Performed By: #### C BCWD #### [facility] [address] [place] [address] Monocytes (Bld) [#/Vol] 0.4 10*3/uL Normal 0.2-0.8 [facility] Comment on above: Performed By: #### C BCWD #### [facility] [address] [place] [address] Monocytes/100 WBC (Bld) 5.3 % Normal [facility] Comment on above: Performed By: #### C BCWD #### [facility] [address] [place] [address] Neutrophils (Bld) [#/Vol] 4.2 10*3/uL Normal 1.4-6.5 [facility] Comment on above: Performed By: #### C BCWD #### [facility] [address] [place] [address] Neutrophils/100 WBC (Bld) 62.4 % Normal [facility] Comment on above: Performed By: #### C BCWD #### [facility] [address] [place] [address] Platelets (Bld) [#/Vol] 268 10*3/uL Normal 130-400 [facility] Comment on above: Performed By: #### C BCWD #### [facility] [address] [place] [address] RBC (Bld) [#/Vol] 4.33 10*6/uL Normal 4.20-5.40 [facility] Comment on above: Performed By: #### C BCWD #### [facility] [address] [place] [address] WBC (Bld) [#/Vol] 6.8 10*3/uL Normal 4.8-10.8 [facility] Comment on above: Performed By: #### C BCWD #### [facility] [address] [place] [address] Comprehensive Metabolic Pane l reflex Mgon 01-15-2023 Albumin [Mass/Vol] 3.9 g/dL Normal 3.5-4.6 [facility] Comment on above: Performed By: #### C MPX #### [facility] [address] [place] [address] ALP [Catalytic activity/Vol] 76 U/L Normal 40-130 [facility] Comment on above: Performed By: #### C MPX #### [facility] [address] [place] [address] ALT [Catalytic activity/Vol] 12 U/L Normal 0-33 [facility] Comment on above: Performed By: #### C MPX #### [facility] [address] [place] [address] Anion gap [Moles/Vol] 10 mmol/L Normal 9-15 [facility] Comment on above: Performed By: #### C MPX #### [facility] [address] [place] [address] AST [Catalytic activity/Vol] 14 U/L Normal 0-35 [facility] Comment on above: Performed By: #### C MPX #### [facility] [address] [place] [address] Bilirubin [Mass/Vol] mg/dL Normal 0.2-0.7 [facility] Comment on above: Performed By: #### C MPX #### [facility] [address] [place] [address] Calcium [Mass/Vol] 8.8 mg/dL Normal 8.5-9.9 [facility] Comment on above: Performed By: #### C MPX #### [facility] [address] [place] [address] Chloride [Moles/Vol] 104 mmol/L Normal 95-107 [facility] Comment on above: Performed By: #### C MPX #### [facility] [address] [place] [address] CO2 [Moles/Vol] 23 mmol/L Normal 20-31 [facility] Comment on above: Performed By: #### C MPX #### [facility] [address] [place] [address] Creatinine [Mass/Vol] 0.75 mg/dL Normal 0.50-0.90 [facility] Comment on above: Performed By: #### C MPX #### [facility] [address] [place] [address] GFR >60.0 Normal >60 [facility] Comment on above: Result Comment: Omi olsenc calculator link https://www.kidney.org/professionals/kdoqi/gfr_calculatorped Effective Jul 02, 2022 These results are not intended for use in patients <18 years of age. eGFR results are calculated without a race factor using the 2020 CKD-EPI equation. Careful clinical correlation is recommended, particularly when comparing to results calculated using previous equations. The CKD-EPI equation is less accurate in patients with extremes of muscle mass, extra-renal metabolism of creatinine, excessive creatinine ingestion, or following therapy that affects renal tubular secretion. Performed By: #### C MPX #### [facility] [address] [place] [address] Globulin (S) [Mass/Vol] 2.7 g/dL Normal 2.3-3.5 [facility] Comment on above: Performed By: #### C MPX #### [facility] [address] [place] [address] Glucose [Mass/Vol] 133 mg/dL Critically high 70-99 [facility] Comment on above: Performed By: #### C MPX #### [facility] [address] [place] [address] Magnesium [Moles/Vol] 4.7 mmol/L Normal 3.4-4.9 [facility] Comment on above: Performed By: #### C MPX #### [facility] [address] [place] [address] Protein [Mass/Vol] 6.6 g/dL Normal 6.3-8.0 [facility] Comment on above: Performed By: #### C MPX #### [facility] [address] [place] [address] Sodium [Moles/Vol] 137 mmol/L Normal 135-144 [facility] Comment on above: Performed By: #### C MPX #### [facility] [address] [place] [address] Urea nitrogen [Mass/Vol] 10 mg/dL Normal 6-20 [facility] Comment on above: Performed By: #### C MPX #### [facility] [address] [place] [address] Lipid Panelon 01-15-2023 Cholesterol [Mass/Vol] 243 mg/dL Critically high 0-199 [facility] Comment on above: Result Comment: ATP III Cholesterol Classification is High. Performed By: #### L IPID #### [facility] [address] [place] [address] Cholesterol in HDL [Mass/Vol] 34 mg/dL Low 40-59 [facility] Comment on above: Result Comment: ATP III HDL Cholestrol Classification is low. Expected Values: Males: >55 = No Risk 35-55 = Moderate Risk <35 = High Risk Females: >65 = No Risk 45-65 = Moderate Risk <45 = High Risk NCEP Guidelines: Third Report January 2001 >59 = negative risk factor for CHD <40 = major risk factor for CHD Performed By: #### L IPID #### [facility] [address] [place] [address] Cholesterol in LDL [Mass/Vol] 153 mg/dL Critically high 0-129 [facility] Comment on above: Result Comment: ATT III Classification is Borderline High. Performed By: #### L IPID #### [facility] [address] [place] [address] Triglyceride [Mass/Vol] 278 mg/dL Critically high 0-150 [facility] Comment on above: Result Comment: ATP III Triglycerides Classification is High. Performed By: #### L IPID #### [facility] [address] [place] [address] TSH w/Reflexon 01-15-2023 TSH w/Reflex 5.210 uIU/mL Critically high 0.440-3.86 [facility] Comment on above: Performed By: #### T SHR #### [facility] [address] [place] [address] Thyroxine Freeon 01-15-2023 Thyroxine Free 1.00 ng/dL Normal 0.84-1.68 [facility] Comment on above: Performed By: #### F RT4 #### [facility] [address] [place] [address] UR Drugs of Abuse Panelon Drug Screen Comment see below Normal [facility] Comment on above: Result Comment: This method is a screening test to detect only these drug classes as part of a medical workup. Confirmatory testing by another method should be ordered if clinically indicated. Performed By: #### U DRGS #### [facility] [address] [place] [address] UR Amphetamines Screen Negative Normal Negative < [facility] Comment on above: Performed By: #### U DRGS #### [facility] [address] [place] [address] UR Barbiturates Screen Negative Normal Negative < [facility] Comment on above: Performed By: #### U DRGS #### [facility] [address] [place] [address] UR Benzo Screen Negative Normal Negative < [facility] Comment on above: Performed By: #### U DRGS #### [facility] [address] [place] [address] UR Cannabinoids Screen Negative Normal Negative < [facility] Comment on above: Performed By: #### U DRGS #### [facility] [address] [place] [address] UR Cocaine Screen Negative Normal Negative < [facility] Comment on above: Performed By: #### U DRGS #### [facility] [address] [place] [address] UR Fentanyl Screen Negative Normal Negative < [facility] Comment on above: Performed By: #### U DRGS #### [facility] [address] [place] [address] UR Methadone Screen Negative Normal Negative < [facility] Comment on above: Performed By: #### U DRGS #### [facility] [address] [place] [address] UR Opiates Screen Negative Normal Negative < [facility] Comment on above: Performed By: #### U DRGS #### [facility] [address] [place] [address] UR Oxycodone Screen Negative Normal Negative < [facility] Comment on above: Performed By: #### U DRGS #### [facility] [address] [place] [address] UR PCP Screen Negative Normal Negative < [facility] Comment on above: Performed By: #### U DRGS #### [facility] [address] [place] [address] UR Propoxyphene Screen Negative Normal Negative < [facility] Comment on above: Performed By: #### U DRGS #### [facility] [address] [place] [address] UR HCG Qualitativeon 023 Beta HCG ( test) Ql (U) Negative Normal Detects [facility] Comment on above: Performed By: #### U HCG #### [facility] [address] [place] [address] COVID-19on 01-14-2023 SARS-CoV-2 (COVID-19) RNA OTILIA+probe Ql (Unsp spec) Not detected Normal Not Detect [facility] Comment on above: Result Comment: Ruddyi rigo NAAT: Negative results should be treated as presumptive and, if inconsistent with clinical signs and symptoms or necessary for patient management, should be tested with an alternative molecular assay. Negative results do not preclude SARS-CoV-2 infection and should not be used as the sole basis for patient management decisions. This test has been authorized by the FDA under an Emergency Use Authorization (EUA) for use by authorized laboratories. Fact sheet for Healthcare Providers: https://www.fda.gov/media/301305/download Fact sheet for Patients: https://www.fda.gov/media/401221/download METHODOLOGY: Isothermal Nucleic Acid Amplification Performed By: #### C OVRG #### [facility] [address] [place] [address] COVID-19on 01-11-2023 SARS-CoV-2 (COVID-19) RNA OTILIA+probe Ql (Unsp spec) Not detected Normal Not Detect [facility] Comment on above: Result Comment: Rapi d NAAT: Negative results should be treated as presumptive and, if inconsistent with clinical signs and symptoms or necessary for patient management, should be tested with an alternative molecular assay. Negative results do not preclude SARS-CoV-2 infection and should not be used as the sole basis for patient management decisions. This test has been authorized by the FDA under an Emergency Use Authorization (EUA) for use by authorized laboratories. Fact sheet for Healthcare Providers: https://www.[facility].gov/media/116084/download Fact sheet for Patients: https://www.[facility].gov/media/476506/download METHODOLOGY: Isothermal Nucleic Acid Amplification Performed By: #### C OVRG #### [facility] [address] [place] [address] COVID-19, Rapidon 01-11-2023 SARS-CoV-2 (COVID-19) RdRp gene OTILIA+probe Ql (Resp) Not detected Not Detected [facility] Comment on above: Rapid NAAT: Negative results should be treated as presumptive and, if inconsistent with clinical signs and symptoms or necessary for patient management, should be tested with an alternative molecular assay. Negative results do not preclude SARS-CoV-2 infection and should not be used as the sole basis for patient management decisions. This test has been authorized by the FDA under an Emergency Use Authorization (EUA) for use by authorized laboratories. Fact sheet for Healthcare Providers: https://www.fda.gov/media/128643/download Fact sheet for Patients: https://www.fda.gov/media/831069/download METHODOLOGY: Isothermal Nucleic Acid Amplification [facility] Clinical Event Note-Maintena nce Bilateral ECTon 10-12-2022 Clinical Event Note-Maintenance Bilateral ECT Clinical Event: Clinical Event Note: TopicMaintenance Bilateral ECT Details Patient interviewed, chart and treatment plan reviewed. She presented today and stated she is doing ok but still depressed. Sleep, appetite, energy and interest are fine. No SI/ Her BF and family are very concerned about her memory. She feels the ECT is still helping but that she is forgetting autobiographical information. QIDS = 6 SLUMS = 23 Mental Status Exam: General: Patient is awake, alert, and grossly oriented. Dressed in hospital gown. Appearance: Appears well-hydrated, well-nourished, and well-groomed and approximately stated age. Attitude: Patient was calm and cooperative throughout the interview, displeased with the new area Behavior: Eye contact is appropriate. Motor Activity: Motor activity is normal with no psychomotor disturbances or abnormal involuntary movements noted. Gait not assessed. Speech: Speech is spontaneous, coherent, fluent and of appropriate quantity, rate, volume, and tone. Mood: ok Affect: Depressed and anxious, mood congruent and appropriate to content. Thought Process: Thought process was linear, organized, goal-directed and future-oriented. Thought Content: No SI Thought Perception: Did not endorse auditory or visual hallucinations. Patient did not appear to be internally distracted or preoccupied during the interview. Cognition: Grossly intact Insight: Good. Judgment: Good. General Anesthesia Brevital - 60 mg succinylcholine - 40 mg glycopyrrolate - 0.2 mg IV Ketorolac 30 mg IV Zofran - 4 mg IV Versed - 2mg post ECT Tylenol - 975 mg post ECT Tolerated ECT well/ no complications Settings 1/50/2.0/0.8 Motor Seizure - 69 seconds EEG Seizure - 81 seconds No complications. Imp: MDD, recurrent, severe Plan: Maintenance ECT in 4 week/ increased the interval due to memory concerns Electronic Signatures: Enma Santillan) (Signed 12-Oct-2022 09:51) Authored: Clinical Event Note Last Updated: 12-Oct-2022 09:51 by Enma Santillan) Normal [facility] Homegoing Instructionson Homegoing Instructions Additional Instructions: Additional Information: Additional Instructions Do not take the following medication(s) after 4:00 PM the night before or morning of ECT: Lamictal Appointments: Service/Clinician NameECT- You will receive a phone call the day prior to your appointment to pre-register. Date/[id number] 07:00 [facility] [address] [address] [place], [address]. [place] [facility] Phone [phone] Appointment CommentPlease remember that we must have at least 24 hours notice if you need to cancel your appointment. If you cancel your appointment late or do not show for your appointment 3 times, no additional appointments will be scheduled. It is very important that you arrive for your appointment at or before the scheduled time. If you are more than 10 minutes late, there is a chance that we may have to cancel the appointment. Diet: Nutrition CommentDo not have anything by mouth after midnight the night before your treatment unless instructed otherwise. You may have clear liquids up until 6 hours prior to your appointment. Community Resources: Community ResourcesAdditional Resources for Patient and Family: Crisis Hotline , Nationwide Suicide Hotline - 1 (903) SUICIDE (311-0665), [facility] First Call for Help - 2-1-1, FRIEDA - (326) 859-FRIEDA (0408), National [place] on Mental Illness - Electronic Signatures: Kelsey Rodriguez ([email or web address]) (Signed 12-Oct-2022 10:14) Authored: Additional Instructions Last Updated: 12-Oct-2022 10:14 by Kelsey Rodriguez) [facility] Order Reconciliationon 10-12 Order Reconciliation Page 1 Discharge Reconciliation Document Reconciliation Type: Discharge requested on behalf of Enma Santillan (Physician) done by Enma Santillan) Discharge - Reconciliation: 12-Oct-2022 09:45 by: Enma Santillan) Home Medications EnteredHOME MEDICATIONS AT DISCHARGE DateReconciliation Comment/ Additional Information acetaminophen/aspirin/c affeine 250 mg-250 mg-65 mg oral tablet 1 tab(s) oral prn 02-Aug-2022 08:35 acetaminophen/aspirin/c affeine 250 mg-250 mg-65 mg oral tablet 1 tab(s) oral prn 02-Aug-2022 08:35 acetaminophen/aspirin/c affeine 250 mg-250 mg-65 mg oral tablet is continued as acetaminophen/aspirin/c affeine 250 mg-250 mg-65 mg oral tablet Effexor XR 75 mg oral capsule, extended release 1 cap(s) orally once a day 12-Oct-2022 08:43 Effexor XR 75 mg oral capsule, extended release 1 cap(s) orally once a day 12-Oct-2022 08:43 Effexor XR 75 mg oral capsule, extended release is continued as Effexor XR 75 mg oral capsule, extended release LaMICtal 100 mg oral tablet orally once a day (in the morning) 12-Oct-2022 08:44 LaMICtal 100 mg oral tablet orally once a day (in the morning) 12-Oct-2022 08:44 LaMICtal 100 mg oral tablet is continued as LaMICtal 100 mg oral tablet levothyroxine 125 mcg (0.125 mg) oral tablet 1 tab(s) oral 4 times a week 02-Aug-2022 08:35 levothyroxine 125 mcg (0.125 mg) oral tablet 1 tab(s) oral 4 times a week 02-Aug-2022 08:35 levothyroxine 125 mcg (0.125 mg) oral tablet is continued as levothyroxine 125 mcg (0.125 mg) oral tablet levothyroxine 150 mcg (0.15 mg) oral tablet 1 tab(s) oral 3 times a week 02-Aug-2022 08:35 levothyroxine 150 mcg (0.15 mg) oral tablet 1 tab(s) oral 3 times a week 02-Aug-2022 08:35 levothyroxine 150 mcg (0.15 mg) oral tablet is continued as levothyroxine 150 mcg (0.15 mg) oral tablet meloxicam orally once a day 29-Aug-2022 07:42 meloxicam orally once a day 29-Aug-2022 07:42 meloxicam is continued as meloxicam Pepcid 20 mg oral tablet 12-Oct-2022 08:46 Pepcid 20 mg oral tablet 12-Oct-2022 08:46 Pepcid 20 mg oral tablet is continued as Pepcid 20 mg oral tablet rosuvastatin 10 mg oral tablet 1 tab(s) orally once a day 29-Aug-2022 07:39 rosuvastatin 10 mg oral tablet 1 tab(s) orally once a day 29-Aug-2022 07:39 rosuvastatin 10 mg oral tablet is continued as rosuvastatin 10 mg oral tablet SUMAtriptan 25 mg oral tablet 0.5 tab(s) orally once a day on days of ECT 29-Aug-2022 07:43 SUMAtriptan 25 mg oral tablet 0.5 tab(s) orally once a day on days of ECT 29-Aug-2022 07:43 SUMAtriptan 25 mg oral tablet is continued as SUMAtriptan 25 mg oral tablet Zofran 4 mg oral tablet 1 tab(s) oral prn 02-Aug-2022 08:34 Zofran 4 mg oral tablet 1 tab(s) oral prn 02-Aug-2022 08:34 Zofran 4 mg oral tablet is continued as Zofran 4 mg oral tablet Current OrdersDateHOME MEDICATIONS AT DISCHARGE DateReconciliation Comment/ Additional Information Acetaminophen Tablet (TYLENOL)DOSE = 975 mg Oral OnceClinician Notes: For ECT Post-Procedure Use Only. 12-Oct-2022 08:55 Acetaminophen is not required All Active Home Medications at time of Discharge Reconciliation: 12-Oct-2022 09:45 acetaminophen/aspirin/c affeine 250 mg-250 mg-65 mg oral tablet 1 tab(s) oral prn Effexor XR 75 mg oral capsule, extended release 1 cap(s) orally once a day LaMICtal 100 mg oral tablet orally once a day (in the morning) levothyroxine 125 mcg (0.125 mg) oral tablet 1 tab(s) oral 4 times a week levothyroxine 150 mcg (0.15 mg) oral tablet 1 tab(s) oral 3 times a week meloxicam orally once a day Pepcid 20 mg oral tablet rosuvastatin 10 mg oral tablet 1 tab(s) orally once a day SUMAtriptan 25 mg oral tablet 0.5 tab(s) orally once a day on days of ECT Zofran 4 mg oral tablet 1 tab(s) oral prn Normal [facility] Clinical Event Note-Bilatera l ECT #7on 09-19-2022 Clinical Event Note-Bilateral ECT #7 Clinical Event: Clinical Event Note: TopicBilateral ECT #7 Details Patient interviewed, chart and treatment plan reviewed. She presented today and stated she is doing ok , feels ECT has been very helpful. She is having some memory issues that her BF has noted. Sleep, appetite, energy and interest are fine. No SI/ looking forward to going to her daughter's for the holiday QIDS - 5 and SLUMS - 28 Mental Status Exam: General: Patient is awake, alert, and grossly oriented. Dressed in hospital gown. Appearance: Appears well-hydrated, well-nourished, and well-groomed and approximately stated age. Attitude: Patient was calm and cooperative throughout the interview Behavior: Eye contact is appropriate. Motor Activity: Motor activity is normal with no psychomotor disturbances or abnormal involuntary movements noted. Gait not assessed. Speech: Speech is spontaneous, coherent, fluent and of appropriate quantity, rate, volume, and tone. Mood: ok Affect: Depressed and anxious, mood congruent and appropriate to content. Thought Process: Thought process was linear, organized, goal-directed and future-oriented. Thought Content: No SI Thought Perception: Did not endorse auditory or visual hallucinations. Patient did not appear to be internally distracted or preoccupied during the interview. Cognition: Grossly intact Insight: Good. Judgment: Good. General Anesthesia Brevital - 60 mg succinylcholine - 40 mg Zofran - 4 mg IV Glyco - .2 mg IV Tylenol - 975 mg Versed - 2 mg IV Tolerated ECT well Motor Seizure - 62 seconds EEG Seizure - 64 seconds No complications. Imp: MDD, recurrent, severe Plan: next ECT in 2 weeks/ she would prefer Saturday for the earlier start time. Electronic Signatures: Enma Santillan) (Signed 19-Sep-2022 11:02) Authored: Clinical Event Note Last Updated: 19-Sep-2022 11:02 by Enma Santillan) Normal [facility] Homegoing Instructionson Homegoing Instructions Additional Instructions: Additional Information: Additional Instructions Do not take the following medication(s) after 4:00 PM the night before or morning of ECT: Lamictal Appointments: Service/Clinician NameECT- You will receive a phone call the day prior to your appointment to pre-register. Date/[id number] 07:00 [facility] [address] [address] [facility] [address]. [place] [facility] Phone [phone] Appointment CommentPlease remember that we must have at least 24 hours notice if you need to cancel your appointment. If you cancel your appointment late or do not show for your appointment 3 times, no additional appointments will be scheduled. It is very important that you arrive for your appointment at or before the scheduled time. If you are more than 10 minutes late, there is a chance that we may have to cancel the appointment. Diet: Nutrition CommentDo not have anything by mouth after midnight the night before your treatment unless instructed otherwise. You may have clear liquids up until 6 hours prior to your appointment. Community Resources: Community ResourcesAdditional Resources for Patient and Family: Crisis Hotline , Nationwide Suicide Hotline - 1 (710) SUICIDE (543-6575), [facility] First Call for Help - , [facility] - [phone] ([phone]), National [place] on Mental Illness - [email or web address] Electronic Signatures: Kelsey Rodriguez ([email or web address]) (Signed 19-Sep-2022 11:18) Authored: Additional Instructions Last Updated: 19-Sep-2022 11:18 by Kelsey Rodriguez) [facility] Order Reconciliationon 09-19 Order Reconciliation Page 1 Discharge Reconciliation Document Reconciliation Type: Discharge requested on behalf of Enma Santillan (Physician) done by Enma Santillan) Discharge - Reconciliation: 19-Sep-2022 11:02 by: Enma Santillan) Home Medications EnteredHOME MEDICATIONS AT DISCHARGE DateReconciliation Comment/ Additional Information acetaminophen/aspirin/c affeine 250 mg-250 mg-65 mg oral tablet 1 tab(s) oral prn 02-Aug-2022 08:35 acetaminophen/aspirin/c affeine 250 mg-250 mg-65 mg oral tablet 1 tab(s) oral prn 02-Aug-2022 08:35 acetaminophen/aspirin/c affeine 250 mg-250 mg-65 mg oral tablet is continued as acetaminophen/aspirin/c affeine 250 mg-250 mg-65 mg oral tablet Effexor XR 37.5 mg oral capsule, extended release 1 cap(s) orally once a day 29-Aug-2022 07:41 Effexor XR 37.5 mg oral capsule, extended release 1 cap(s) orally once a day 29-Aug-2022 07:41 Effexor XR 37.5 mg oral capsule, extended release is continued as Effexor XR 37.5 mg oral capsule, extended release levothyroxine 125 mcg (0.125 mg) oral tablet 1 tab(s) oral 4 times a week 02-Aug-2022 08:35 levothyroxine 125 mcg (0.125 mg) oral tablet 1 tab(s) oral 4 times a week 02-Aug-2022 08:35 levothyroxine 125 mcg (0.125 mg) oral tablet is continued as levothyroxine 125 mcg (0.125 mg) oral tablet levothyroxine 150 mcg (0.15 mg) oral tablet 1 tab(s) oral 3 times a week 02-Aug-2022 08:35 levothyroxine 150 mcg (0.15 mg) oral tablet 1 tab(s) oral 3 times a week 02-Aug-2022 08:35 levothyroxine 150 mcg (0.15 mg) oral tablet is continued as levothyroxine 150 mcg (0.15 mg) oral tablet meloxicam orally once a day 29-Aug-2022 07:42 meloxicam orally once a day 29-Aug-2022 07:42 meloxicam is continued as meloxicam Pepcid 0 02-Aug-2022 08:35 Pepcid 0 02-Aug-2022 08:35 Pepcid is continued as Pepcid rosuvastatin 10 mg oral tablet 1 tab(s) orally once a day 29-Aug-2022 07:39 rosuvastatin 10 mg oral tablet 1 tab(s) orally once a day 29-Aug-2022 07:39 rosuvastatin 10 mg oral tablet is continued as rosuvastatin 10 mg oral tablet SUMAtriptan 25 mg oral tablet 0.5 tab(s) orally once a day on days of ECT 29-Aug-2022 07:43 SUMAtriptan 25 mg oral tablet 0.5 tab(s) orally once a day on days of ECT 29-Aug-2022 07:43 SUMAtriptan 25 mg oral tablet is continued as SUMAtriptan 25 mg oral tablet Zofran 4 mg oral tablet 1 tab(s) oral prn 02-Aug-2022 08:34 Zofran 4 mg oral tablet 1 tab(s) oral prn 02-Aug-2022 08:34 Zofran 4 mg oral tablet is continued as Zofran 4 mg oral tablet Current OrdersDateHOME MEDICATIONS AT DISCHARGE DateReconciliation Comment/ Additional Information Acetaminophen Tablet (TYLENOL)DOSE = 975 mg Oral OnceClinician Notes: For ECT Post-Procedure Use Only. 19-Sep-2022 09:33 Acetaminophen is not required All Active Home Medications at time of Discharge Reconciliation: 19-Sep-2022 11:02 acetaminophen/aspirin/c affeine 250 mg-250 mg-65 mg oral tablet 1 tab(s) oral prn Effexor XR 37.5 mg oral capsule, extended release 1 cap(s) orally once a day levothyroxine 125 mcg (0.125 mg) oral tablet 1 tab(s) oral 4 times a week levothyroxine 150 mcg (0.15 mg) oral tablet 1 tab(s) oral 3 times a week meloxicam orally once a day Pepcid 0 rosuvastatin 10 mg oral tablet 1 tab(s) orally once a day SUMAtriptan 25 mg oral tablet 0.5 tab(s) orally once a day on days of ECT Zofran 4 mg oral tablet 1 tab(s) oral prn Normal [facility] BASIC METABOLIC PANELon 11-0 Anion gap [Moles/Vol] 16 mmol/L Normal 10 - 20 [facility] Comment on above: Performed By: #### B MP ####[id number] [place] [address] Calcium [Mass/Vol] 9.8 mg/dL Normal 8.6 - 10.6 [facility] [place] Comment on above: Performed By: #### B MP ####[id number] [place] [address] Chloride [Moles/Vol] 101 mmol/L Normal 98 - 107 [facility] Comment on above: Performed By: #### B MP ####[id number] [place] [address] Creatinine [Mass/Vol] 0.81 mg/dL Normal 0.50 - 1.05 [facility] Comment on above: Performed By: #### B MP ####[id number] [place] [address] GFR/1.73 sq M.predicted among non-blacks MDRD (S/P/Bld) [Vol rate/Area] 87 mL/min/{1.73_m2} Normal >90 [facility] Comment on above: Result Comment: CALC ULATIONS OF ESTIMATED GFR ARE PERFORMED USING THE 2020 CKD-EPI STUDY REFIT EQUATION WITHOUT THE RACE VARIABLE FOR THE IDMS-TRACEABLE CREATININE METHODS. https://jasn.asnjournals.org/content/early/ASN.879700 0060 Performed By: #### B MP ####[id number] [place] [address] Glucose [Mass/Vol] 86 mg/dL Normal 74 - 99 [facility], [place] Comment on above: Performed By: #### B MP ####[id number] [place] [address] HCO3 (Bld) [Moles/Vol] 26 mmol/L Normal 21 - 32 [facility] Comment on above: Performed By: #### B MP ####[id number] [place] [address] Potassium [Moles/Vol] 5.2 mmol/L Normal 3.5 - 5.3 [facility] Comment on above: Performed By: #### B MP ####[id number] [place] [address] Sodium [Moles/Vol] 138 mmol/L Normal 136 - 145 [facility] [place] Comment on above: Performed By: #### B MP ####[id number] [place] [address] Urea nitrogen [Mass/Vol] 10 mg/dL Normal 6 - 23 [facility] Comment on above: Performed By: #### B MP ####[id number] [place] [address] DRUG SCREEN,URINE WITH REFLE X TO CONFIRMATIONon 08-02-2022 AMPHETAMINE SCREEN,U Negative Normal NEGATIVE [facility] Comment on above: Result Comment: CUTO FF LEVEL: 500 NG/ML Cross-reactivity has been reported with high concentrations of the following drugs: buproprion, chloroquine, chlorpromazine, ephedrine, mephentermine, fenfluramine, phentermine, phenylpropanolamine, pseudoephedrine, and propranolol. Performed By: #### D RUGR #### [facility] [address] [place] [address] BARBITURATES SCREEN,U Negative Normal NEGATIVE [facility] Comment on above: Result Comment: CUTO FF LEVEL: 200 NG/ML Performed By: #### D RUGR #### [facility] [address] [place] [address] BENZODIAZEPINES SCREEN,U Negative Normal NEGATIVE [facility] Comment on above: Result Comment: CUTO FF LEVEL: 200 NG/ML Performed By: #### D RUGR #### [facility] [address] [place] [address] CANNABINOIDS SCREEN,U Negative Normal NEGATIVE [facility] Comment on above: Result Comment: CUTO FF LEVEL: 50 NG/ML Performed By: #### D RUGR #### [facility] [address] [place] [address] COCAINE METABOLITE SCREEN,U Negative Normal NEGATIVE [facility] Comment on above: Result Comment: CUTO FF LEVEL: 150 NG/ML Performed By: #### D RUGR #### [facility] [address] [place] [address] DRUG SCREEN COMMENT SEE BELOW Normal [facility] Comment on above: Result Comment: Drug screen results are presumptive and should not be used to assess compliance with prescribed medication. Definitive confirmatory drug testing has been added to this sample for any positive screen result and will be reported separately. . Toxicology screening results are reported qualitatively. The concentration must be greater than or equal to the cutoff to be reported as positive. The concentration at which the screening test can detect an individual drug or metabolite varies. The absence of expected drug(s) and/or drug metabolite(s) may indicate non-compliance, inappropriate timing of specimen collection relative to drug administration, poor drug absorption, diluted/adulterated urine, or limitations of testing. For medical purposes only; not valid for forensic use. . Interpretive questions should be directed to the laboratory medical directors. Performed By: #### D RUGR #### [facility] [address] [place] [address] FENTANYL SCREEN,URINE Negative Normal NEGATIVE [facility] Comment on above: Result Comment: CUTO FF LEVEL: 5 NG/ML Performed By: #### D RUGR #### [facility] [address] [place] [address] METHADONE SCREEN,U Negative Normal NEGATIVE [facility], [place] Comment on above: Result Comment: CUTO FF LEVEL: 150 NG/ML The metabolite U-qrisd-oklibjqkawprfy (LAAM) is not detected by this method in concentrations that would be found in the urine of patients on LAAM therapy. Performed By: #### D RUGR #### [facility] [address] [place] [address] OPIATES SCREEN,U Negative Normal NEGATIVE [facility] Comment on above: Result Comment: CUTO FF LEVEL: 300 NG/ML The opiate screen does not detect fentanyl, meperidine, or tramadol. Oxycodone is not consistently detected (refer to Oxycodone Screen, Urine result). Performed By: #### D RUGR #### [facility] [address] [place] [address] OXYCODONE SCREEN,U Negative Normal NEGATIVE [facility] [place] Comment on above: Result Comment: CUTO FF LEVEL: 100 NG/ML This test will accurately detect both oxycodone and oxymorphone. Performed By: #### D RUGR #### [facility] [address] [place] [id number] PCP SCREEN,U Negative Normal NEGATIVE [facility] Comment on above: Result Comment: CUTO FF LEVEL: 25 NG/ML Cross-reactivity has been reported with dextromethorphan. Performed By: #### D RUGR #### [facility] [address] [place] [id number] Electrocardiogram 12 Leadon 08-02-2022 Electrocardiogram 12 Lead Ventricular Rate 80 Atrial Rate 80 P-R Interval 164 QRS Duration 74 Q-T Interval 406 QTC Calculation(Bazett) 468 P Melrude 36 R Melrude 18 T Melrude 35 QRS Count 13 Q Onset 220 P Onset 138 P Offset 194 T Offset 423 QTC Fredericia 447 Diagnosis Class Normal Diagnosis Normal sinus rhythm Normal ECG When compared with ECG of 06-MAY-1993 19:12, T wave amplitude has decreased in Lateral leads Confirmed by Gurvinder Constantino ([id number]) on 08/05/2022 9:22:05 AM Normal [facility] HCG,URINEon 08-02-2022 Beta HCG ( test) Ql (U) Negative Normal Negative [facility] Comment on above: Performed By: #### H CGU ####[id number] [place] [address] Psychiatry Adulton 2 Psychiatry Adult Patient Discussion/Summary schizoaffective vs. major depressive disorder, severe, psychosis FABIANO - mild - moderate alcohol use disorder, mild, in remission nicotine dependence no contraindication to continuation of ECT may benefit from ECT again the risk for ECT including potential and permanent memory loss was explained to her. She fully undestood. She wanted to start ECT as soon as possible. will arrange her PAT. afterwards, she will have an acute series of ECT. Graciela Cheney MD. Provider Impressions schizoaffective vs. major depressive disorder, severe, psychosis FABIANO - mild - moderate alcohol use disorder, mild, in remission nicotine dependence no immediate risk to self or other no contraindication to continuation of ECT may benefit from ECT again Reason for Referral Referring Doctor or Clinician: Lucille (WEDDING DESIGNER) Reference Documentation See scanned note Office Note: evaluation of ECT treatment . Chief Complaint An interactive audio and video telecommunication system which permits real time communications between the patient (at the originating site) and provider (at the distant site) was utilized to provide this telehealth service. Verbal consent was requested and obtained from LAZARO NARANJO on this date, 07/24/2022 10:30 AM , for a telehealth visit. My WEDDING DESIGNER (Ms. Adkins) wanted me to have an evaluation for ECT she is aware of the risk for potential HIPAA violation verified with her home address and last 4 digits SS# started at 10:20 am, ended at 11:53 am spent additional 10 minutes for documentation History of Present Illness She said she had ECT with Dr. Kidd before, and has had ECT treatment at [facility] for a year, but she was not happy service provided over there wanted to switch her treatment to . She said she has family members at the area and asked her WEDDING DESIGNER made this referral. The last time ECT was in May. she said she felt very depressed again for about a month. she said she felt depressed daily most of the time with severity of 7 of 10. ten was worst. also felt hopeless and helpless sometimes. she said she heard voices to tell her to kill herself again for a month. she said she did not want to kill herself. She said she heard voices when she was not depression in the past. She said the voices got worse when she was depressed. She heard voices insider her head now, but heard voices from outside her head in the past when she was very depressed. she said her depression started first. did not hear voices when she did not have depression. denied HI/VH or paranoia. still enjoyed playing cards and walking. had problem with falling and staying asleep. slept about 4-6 hours per night. did not feel rested in the morning. no energy during daytime. concentration was poor, able to read for a few minutes. no change in appetite. weight varied. also felt irritable, but not yell, curse, or scream. currently Effexor 75 mg/d for a month Haldol 7.5 mg/d for 4 months trazodone 100 mg/d for sleep Lamotrigine 25 mg/d, just started Hydroxyzine 50 mg TID PRN able to take care of herself most of the time; able to work for several weeks. PPHx: hospitalized 10 times due to depression and psychosis, the last time was in 2014; SA - once with OD, another one was aborted. She was on a bridge, but police stopped her. last time was about in 2014; first depression was 17 yo after her mother . she said she started hearing voices when she was 22 yo and hospitalized at . She said she had periods of feeling normal. she said she felt normal from 1997 - 2002 and had three children. did not heard voices during that period. denied having manic/hypomanic sx. saw many psychiatrists. saw therapists before. PMHx: hypothyroidism with Levothyroxine; no DM, heart disease, asthma, COPD, seizure or head injury no problem withe eyes, ears, nose, or throat; basal cell cancer on left lower eyelid with surgery no SOB or chest pain. no HTN no sx no GI sx migraine and tension headache with medication, the last time was yesterday; low back pain with medication no other neuro sx arthritis on fingers, wrists, knees, and neck. no blood problem no other skin problem no autoimmune disease All: NKDA, was confused and scared with ketamine during ECT Meds: tried Prozac, did not work Zoloft - did not work Lexapro - worked for a short period Paxil - did not work Luvox - did not work Wellbutrin - helped and liked it, but did not know why was discontinued Remeron - helped her sleep for a little while Elavil - did not work Depakote - did not work Ability + ?? headaches Seroquel - too sleepy Latuda - sounds familiar Ativan, Klonopin, FHx: mother - depressed, from cancer; no fx of bipolar disorder, mother - alcoholism; no drug problem. no fx of SA no fx of sudden no fx of heart attack mother - stroke brother - DM type I, had seizure related to DM no fx of seizure SocHx: born in [place] (more content not included)... Normal [facility] Laboratory - Chemistry and C hemistry - challengeon 05-21-2022 Free T4 [Mass/Vol] 1.08 ng/dL 0.76-1.46 [facility] Work Phone: T4 [Mass/Vol] 11.2 ug/dL 4.8-13.9 [facility] Work Phone: No Panel Informationon 05-21 Free Triiodothyronine (T3) pg/dL 2.5 pg/mL 2.18-3.98 [facility] Work Phone: Thyroid Stimulating Hormone (TSH) 7.92 uIU/mL 0.358-3.74 [facility] Work Phone: Laboratory - Microbiology an d Antimicrobial susceptibilityon 05-04-2022 SARS-CoV-2 (COVID-19) RNA OTILIA+probe Ql (Unsp spec) Not detected [facility] Work Phone: No Panel Informationon 05-04 POC Nasal Swab Influenza A,B Not detected [facility] Work Phone: POC Nasal Swab RSV Not detected [facility] Work Phone: Absolute lymphocyte counton 05-03-2022 Lymphocytes Auto (Unsp spec) [#/Vol] 2.92 10*3/uL 0.83-4.51 [facility] Work Phone: Basophil percentageon 2021 Basophils/100 WBC (Bld) 0.5 % 0-1 [facility] Work Phone: Bilirubin [Mass/Vol] 0.40 mg/dL 0.20-1.00 [facility] Work Phone: [phone] Comment on above: For patients on eltr ombopag therapy, use of Dimension Hammett TBIL is not recommended. Chloride [Moles/Vol] 106 mmol/L 98-107 [facility] Work Phone: [phone] Eosinophils/100 WBC (Bld) 2.7 % 0-5 [facility] Work Phone: [phone] Glucose [Mass/Vol] 86 mg/dL 74-106 [facility] Work Phone: [phone] Neutrophils (Bld) [#/Vol] 5.7 10*3/uL 2.0-7.7 [facility] Work Phone: [phone] Neutrophils/100 WBC (Bld) 60.5 % 47-70 [facility] Work Phone: [phone] Potassium [Moles/Vol] 4.3 mmol/L 3.5-5.1 [facility] Work Phone: [phone] Protein [Mass/Vol] 7.4 g/dL 6.4-8.2 [facility] Work Phone: [phone] Sodium [Moles/Vol] 139 mmol/L 136-145 [facility] Work Phone: WBC (Bld) [#/Vol] 9.5 10*3/uL 4.4-11.0 [facility]: Blood erythrocytes count (nu mber/volume)on 05-03-2022 RBC (Bld) [#/Vol] 4.40 10*6/uL 4.2-5.4 [facility]: Blood hemoglobin measurement (mass/volume)on 05-03-2022 Hemoglobin (Bld) [Mass/Vol] 14.1 g/dL 12.0-15.0 [facility] Work Phone: Blood lymphocytes/100 leukoc yteson 05-03-2022 Lymphocytes/100 WBC (Bld) 30.7 % 19-41 [facility] Work Phone: Blood monocytes/100 leukocyt eson 05-03-2022 Monocytes/100 WBC (Bld) 5.2 % 0-10 [facility] Work Phone: Blood platelet mean volumeon 05-03-2022 Platelet mean volume (Bld) [Entitic vol] 9.9 fL 6.2-12.0 [facility] Work Phone: Determination of erythrocyte mean corpuscular volume (MCV)on 05-03-2022 MCV (RBC) [Entitic vol] 97.7 fL 81-99 [facility] Work Phone: Hematocrit Auto (Bld) [Volum e fraction]on 05-03-2022 Hematocrit (Bld) [Volume fraction] 43.0 % 37-47 [facility] Work Phone: Laboratory - Chemistry and C hemistry - challengeon 05-03-2022 ALP [Catalytic activity/Vol] 91 U/L 45-117 [facility] Work Phone: ALT [Catalytic activity/Vol] 27 U/L 13-56 [facility] Work Phone: CO2 [Moles/Vol] 27.0 mmol/L 21.0-32.0 [facility] Work Phone: Free T4 [Mass/Vol] 0.64 ng/dL 0.76-1.46 [facility] Work Phone: Globulin (S) [Mass/Vol] 4.0 g/dL 2.2-4.2 [facility] Work Phone: Urea nitrogen/Creatinine [Mass ratio] 9.0 mg/mg 10-20 [facility] Work Phone: Laboratory - Hematology and Cell countson 05-03-2022 Erythrocyte distribution width (RBC) [Entitic vol] 46.1 fL 35.1-43.9 [facility] Work Phone: Erythrocyte distribution width (RBC) [Ratio] 12.8 % 11.6-14.6 [facility] Work Phone: Immature granulocytes/100 WBC (Bld) 0.400 % 0.0-0.9 [facility] Work Phone: Comment on above: IG% - Immature Granu locytes (promyelocytes, myelocytes and metamyelocytes) > 1% indicates that a LEFT SHIFT is Present. MCH (RBC) [Entitic mass] 32.0 pg 27.0-32.0 [facility] Work Phone: Nucleated RBC/100 WBC (Bld) [Ratio] 0 % 0-5 [facility] Work Phone: MCHC Auto (RBC) [Mass/Vol]on 05-03-2022 MCHC (RBC) [Mass/Vol] 32.8 g/dL 32-36 [facility] Work Phone: No Panel Informationon 05-03 Estimated GFR (MDRD) Amer 86 mL/min >60 [facility] Work Phone: Comment on above: GFR Calc Estimated GFR (MDRD) Non-Af Amer 71 mL/min >60 [facility] Work Phone: Comment on above: Non- GFR Calc Thyroid Stimulating Hormone (TSH) 54.10 uIU/mL 0.358-3.74 [facility] Work Phone: Total Triiodothyronine 0.72 ng/mL 0.6-1.81 [facility] Work Phone: Platelets bldon 05-03-2022 Platelets (Bld) [#/Vol] 304 10*3/uL 150-450 [facility] Work Phone: Serum or plasma albumin gomez urement (mass/volume)on 05-03-2022 Albumin [Mass/Vol] 3.4 g/dL 3.2-5.0 [facility] Work Phone: Serum or plasma albumin/glob ulin mass ratioon 05-03-2022 Albumin/Globulin [Mass ratio] 0.8 {ratio} 0.9-2.4 [facility] Work Phone: Serum or plasma calcium gomez urement (mass/volume)on 05-03-2022 Calcium [Mass/Vol] 8.7 mg/dL 8.5-10.1 [facility] Work Phone: Serum or plasma creatinine m easurement (mass/volume)on 05-03-2022 Creatinine [Mass/Vol] 0.89 mg/dL 0.55-1.02 [facility] Work Phone: Comment on above: The validity of the calculated GFR & GFRAA in patients over 70 years has not been determined. Clinical correlation is essential. Serum or plasma urea nitroge n measurement (mass/volume)on 05-03-2022 Urea nitrogen [Mass/Vol] 8 mg/dL 7-18 [facility] Work Phone: Thin prep Papanicolaou smear with manual screeningon 05-03-2022 Thin prep Papanicolaou smear with manual screening 23 U/L 15-37 [facility] Work Phone: Thin prep Papanicolaou smear with manual screening 6 5-15 [facility] Work Phone: Absolute lymphocyte counton 01-26-2022 Lymphocytes Auto (Unsp spec) [#/Vol] 2.72 10*3/uL 0.83-4.51 [facility] Work Phone: Basophil percentageon 2021 Basophils/100 WBC (Bld) 0.4 % 0-1 [facility] Work Phone: Bilirubin [Mass/Vol] 0.30 mg/dL 0.20-1.00 [facility] Work Phone: Comment on above: For patients on eltr ombopag therapy, use of Dimension Hammett TBIL is not recommended. Chloride [Moles/Vol] 107 mmol/L 98-107 [facility] Work Phone: Cholesterol [Mass/Vol] 228 mg/dL <200 [facility] Work Phone: Comment on above: <200 mg/dL Desirable 200-240 mg/dL Borderline >240 mg/dL High Risk Eosinophils/100 WBC (Bld) 2.4 % 0-5 [facility] Work Phone: Glucose [Mass/Vol] 108 mg/dL 74-106 [facility] Work Phone: Comment on above: Fasting Glucose resu lt from 100 to 125 mg/dL suggests IMPAIRED HOMEOSTASIS per A.D.A. criteria. Neutrophils (Bld) [#/Vol] 5.5 10*3/uL 2.0-7.7 [facility] Work Phone: Neutrophils/100 WBC (Bld) 60.7 % 47-70 [facility] Work Phone: Potassium [Moles/Vol] 3.8 mmol/L 3.5-5.1 [facility] Work Phone: Protein [Mass/Vol] 7.6 g/dL 6.4-8.2 [facility] Work Phone: Sodium [Moles/Vol] 138 mmol/L 136-145 [facility] Work Phone: Triglyceride [Mass/Vol] 263 mg/dL <199 [facility] Work Phone: Comment on above: The drugs N-Acetylcy steine and Metamizole may falsely depress this assay.Serum Triglycerides Reference Interval Normal <150 mg/dL Borderline high 150 - 199 mg/dL High 200 - 499 mg/dL Very High > or = 500 mg/dL WBC (Bld) [#/Vol] 9.0 10*3/uL 4.4-11.0 [facility] [facility]: Blood erythrocytes count (nu mber/volume)on 01-26-2022 RBC (Bld) [#/Vol] 4.36 10*6/uL 4.2-5.4 [facility] Work Phone: Blood hemoglobin measurement (mass/volume)on 01-26-2022 Hemoglobin (Bld) [Mass/Vol] 13.9 g/dL 12.0-15.0 [facility] Work Phone: Blood lymphocytes/100 leukoc yteson 01-26-2022 Lymphocytes/100 WBC (Bld) 30.2 % 19-41 [facility] Work Phone: Blood monocytes/100 leukocyt eson 01-26-2022 Monocytes/100 WBC (Bld) 5.7 % 0-10 [facility] Work Phone: Blood platelet mean volumeon 01-26-2022 Platelet mean volume (Bld) [Entitic vol] 10.2 fL 6.2-12.0 [facility] Work Phone: Cholesterol in LDL Direct as say [Mass/Vol]on 01-26-2022 Cholesterol in LDL [Mass/Vol] 137 mg/dL 0-99 [facility] Work Phone: Comment on above: Performed at: [address] [id number] Director: Daniel Giron PhD, Phone: [phone] Determination of erythrocyte mean corpuscular volume (MCV)on 01-26-2022 MCV (RBC) [Entitic vol] 96.6 fL 81-99 [facility] Work Phone: Hematocrit Auto (Bld) [Volum e fraction]on 01-26-2022 Hematocrit (Bld) [Volume fraction] 42.1 % 37-47 [facility] Work Phone: Laboratory - Chemistry and C hemistry - challengeon 01-26-2022 ALP [Catalytic activity/Vol] 98 U/L 45-117 [facility] Work Phone: ALT [Catalytic activity/Vol] 31 U/L 13-56 [facility] Work Phone: CO2 [Moles/Vol] 27.0 mmol/L 21.0-32.0 [facility] Work Phone: Free T4 [Mass/Vol] 1.23 ng/dL 0.76-1.46 [facility] Work Phone: Globulin (S) [Mass/Vol] 4.1 g/dL 2.2-4.2 [facility] Work Phone: Urea nitrogen/Creatinine [Mass ratio] 12.1 mg/mg 10-20 [facility] Work Phone: Laboratory - Hematology and Cell countson 01-26-2022 Erythrocyte distribution width (RBC) [Entitic vol] 44.8 fL 35.1-43.9 [facility] Work Phone: Erythrocyte distribution width (RBC) [Ratio] 12.5 % 11.6-14.6 [facility] Work Phone: Immature granulocytes/100 WBC (Bld) 0.600 % 0.0-0.9 [facility] Work Phone: Comment on above: IG% - Immature Granu locytes (promyelocytes, myelocytes and metamyelocytes) > 1% indicates that a LEFT SHIFT is Present. MCH (RBC) [Entitic mass] 31.9 pg 27.0-32.0 [facility] Work Phone: Nucleated RBC/100 WBC (Bld) [Ratio] 0 % 0-5 [facility] Work Phone: Laboratory - Miscellaneous t estson 01-26-2022 Service comment (Unsp spec) [Interp] TNP [facility] Work Phone: Comment on above: Test not performed MCHC Auto (RBC) [Mass/Vol]on 01-26-2022 MCHC (RBC) [Mass/Vol] 33.0 g/dL 32-36 [facility] Work Phone: No Panel Informationon 01-26 Estimated GFR (MDRD) Amer 105 mL/min >60 [facility] Work Phone: Comment on above: GFR Calc Estimated GFR (MDRD) Non-Af Amer 87 mL/min >60 [facility] Work Phone: Comment on above: Non- GFR Calc Thyroid Stimulating Hormone (TSH) 0.29 uIU/mL 0.358-3.74 [facility] Work Phone: Platelets bldon 01-26-2022 Platelets (Bld) [#/Vol] 305 10*3/uL 150-450 [facility] Work Phone: Serum or plasma albumin gomez urement (mass/volume)on 01-26-2022 Albumin [Mass/Vol] 3.5 g/dL 3.2-5.0 [facility] Work Phone: Serum or plasma albumin/glob ulin mass ratioon 01-26-2022 Albumin/Globulin [Mass ratio] 0.9 {ratio} 0.9-2.4 [facility] Work Phone: Serum or plasma calcium gomez urement (mass/volume)on 01-26-2022 Calcium [Mass/Vol] 9.0 mg/dL 8.5-10.1 [facility] Work Phone: Serum or plasma cholesterol in HDL measurement (mass/volume)on 01-26-2022 Cholesterol in HDL [Mass/Vol] 36 mg/dL >40 [facility] Work Phone: Comment on above: The drugs N-Acetylcy steine and Metamizole may falsely depress this assay. Reference Range HDL <40 mg/dL Low HDL Cholesterol HDL >or= 60 mg/dL High HDL Cholesterol Serum or plasma cholesterol in VLDL measurement (mass/volume)on 01-26-2022 Cholesterol in VLDL [Mass/Vol] 53 mg/dL 5-40 [facility] Work Phone: Serum or plasma creatinine m easurement (mass/volume)on 01-26-2022 Creatinine [Mass/Vol] 0.74 mg/dL 0.55-1.02 [facility] Work Phone: Comment on above: The validity of the calculated GFR & GFRAA in patients over 70 years has not been determined. Clinical correlation is essential. Serum or plasma low density lipoprotein (LDL) cholesterol measurement (mass/volume)on 01-26-2022 Cholesterol in LDL [Mass/Vol] 139 mg/dL 0-130 [facility] Work Phone: Serum or plasma urea nitroge n measurement (mass/volume)on 01-26-2022 Urea nitrogen [Mass/Vol] 9 mg/dL 7-18 [facility] Work Phone: Thin prep Papanicolaou smear with manual screeningon 01-26-2022 Thin prep Papanicolaou smear with manual screening 24 U/L 15-37 [facility] Work Phone: Thin prep Papanicolaou smear with manual screening 4 5-15 [facility] Work Phone: COVID-19, Rapidon 10-25-2021 SARS-CoV-2 (COVID-19) RNA OTILIA+probe Ql (Unsp spec) Not detected Not Detected [facility] Comment on above: Rapid NAAT: Negative results should be treated as presumptive and, if inconsistent with clinical signs and symptoms or necessary for patient management, should be tested with an alternative molecular assay. Negative results do not preclude SARS-CoV-2 infection and should not be used as the sole basis for patient management decisions. This test has been authorized by the FDA under an Emergency Use Authorization (EUA) for use by authorized laboratories. Fact sheet for Healthcare Providers: https://www.fda.gov/NaPopravku/917681/download Fact sheet for Patients: https://www.fda.gov/media/810670/download METHODOLOGY: Isothermal Nucleic Acid Amplification [facility] COVID-19, Rapidon 10-11-2021 SARS-CoV-2 (COVID-19) RNA OTILIA+probe Ql (Unsp spec) Not detected Not Detected [facility] Comment on above: Rapid NAAT: Negative results should be treated as presumptive and, if inconsistent with clinical signs and symptoms or necessary for patient management, should be tested with an alternative molecular assay. Negative results do not preclude SARS-CoV-2 infection and should not be used as the sole basis for patient management decisions. This test has been authorized by the FDA under an Emergency Use Authorization (EUA) for use by authorized laboratories. Fact sheet for Healthcare Providers: https://www.[employer]gov/NaPopravku/978007/download Fact sheet for Patients: https://www.[employer]gov/media/283513/download METHODOLOGY: Isothermal Nucleic Acid Amplification [facility] POSTPROC EVALon 021 ANES POSTPROC EVAL HNO ID: [id number] Author: Rosy Mckeon MD Service: Anesthesiology Author Type: Physician Type: Anesthesia Postprocedure Evaluation Filed: 04/27/2021 1:12 PM Note Text: POST ANESTHESIA EVALUATION NOTE : 1970 Procedure Summary Date: 04/27/21 Room / Location: LD PROCEDURE ROOM / LD OR Anesthesia Start: 1244 Anesthesia Stop: Procedure: COLONOSCOPY (N/A Abdomen) Diagnosis: Diarrhea, unspecified type Surgeons: aMria Isabel Carroll MD Responsible Provider: Rosy Mckeon MD Anesthesia Type: MAC ASA Status: 3 Anesthesia Type: MAC Last vitals Vitals Value Taken Time BP 117/68 04/27/21 1310 Temp 98.5 04/27/21 1311 Pulse 76 04/27/21 1311 Resp 11 04/27/21 1311 SpO2 97 % 04/27/21 1311 Vitals shown include unvalidated device data. Post Anesthesia Patient Status Patient Evaluation: bedside. Anticipated Disposition: phase 2 then home. Neurological Status: aware and responsive. Pulmonary Status: breathing comfortably on room air Airway Control: returned to baseline unsupported. Cardiovascular Status: stable. Pain Management: clinically adequate Postoperative Hydration: acceptable. Intraoperative Events: no significant anesthesia events Post Operative Nausea/Vomiting Status: no significant post operative nausea or vomiting Anesthetic Observations: Recommendation: continue current plan of care. No complications documented. SIGNATURE: Rosy Mckeon MD PATIENT NAME: Lazaro Naranjo DATE: April 27, 2021 TIME: 1:11 PM CSN: [id number] [facility] ANES PRE-OPon 04-27-2021 ANES PRE-OP HNO ID: [id number] Author: Rosy Mckeon MD Service: Anesthesiology Author Type: Physician Type: Anesthesia Preprocedure Evaluation Filed: 04/27/2021 12:39 PM Note Text: ANESTHESIOLOGY DAY OF SURGERY NOTE : 1970 Procedure(s) (LRB): COLONOSCOPY (N/A) Surgeon(s): Maria Isabel Carroll MD Estimated body mass index is 39.26 kg/m? as calculated from the following: Height as of this encounter: 152.4 cm (5'). Weight as of this encounter: 91.2 kg (201 lb). Most recent hematocrit and potassium results: Hematocrit 38.7 07/20/2015 Potassium 4.3 07/20/2015 Relevant Problems ENDO (+) Hypothyroid I - PHYSICAL EVALUATION AIRWAY Patient intubated: No. Tracheostomy tube not present Mallampati: III. TM distance: >3 FB. Neck ROM: full ROM without neurological symptoms. Mouth opening: adequate. Short neck: yes. Thick neck: yes DENTAL Dentures, upper: complete. Dentures, lower: complete. II - ANESTHESIA PLAN ASA Score: 3 Anesthetic Plan: MAC Current smoker: 1ppd. NPO Status: adequate Monitoring plan: standard ASA. Postoperative analgesic plan: parenteral or oral opioids. Anesthetic Risks, Benefits, Alternatives, Personnel Discussed. Consent obtained from: patient.Patient / Surrogate agrees to blood products: Yes Potential Anesthesia issues that may suggest increased risk of complications or contraindication to planned procedure: none. Vitals Value Taken Time BP 131/88 04/27/21 1217 Pulse 84 04/27/21 1217 Resp 24 04/27/21 1217 Temp 36.4 ?C (97.5 ?F) 04/27/21 1217 SpO2 97 % 07/29/21 1217 Facility-Administered Medications as of 04/27/2021 Medication Dose Route Frequency - lidocaine 10 mg/mL (1 %) 1-2 mg injection (XYLOCAINE) 0.1-0.2 mL INTRADERMAL PRN - lactated ringers iv infusion 75 mL/hr INTRAVENOUS CONTINUOUS Outpatient Medications as of 04/27/2021 Medication Sig - fluticasone (FLONASE) 50 mcg/actuation nasal spray Use 1 Empire in each nostril once daily. For 4 weeks- 50mcg dose - cholecalciferol (VITAMIN D-3) 2,000 unit tablet Take 2,000 Units by mouth once daily. - diclofen wiw-uyyxxw-o-wojciech-ment 50 mg-0.025 %- 25 %-6 % KTtd 50 mg twice daily. For knee pain - cyanocobalamin (VITAMIN B-12) 1,000 mcg tab Take 1,000 mcg by mouth once daily. Take sublingual daily - levothyroxine (SYNTHROID) 100 mcg tablet Take 125 mcg by mouth daily before breakfast. - hydrOXYzine HCl (ATARAX) 50 mg tablet Take 50 mg by mouth at bedtime as needed (For sleep.). - nicotine (NICODERM CQ) 21 mg/24 hr Apply 1 Patch as directed every 24 hours. 14mg dose recorded on HANDP 11/03/18 - FLUoxetine (PROZAC) 10 mg capsule Take 20 mg by mouth once daily. - dicyclomine (BENTYL) 10 mg capsule Take 10 mg by mouth daily at bedtime. (Patient not taking: Reported on 04/11/2021 ) - asenapine sublingual (SAPHRIS) 10 mg subl Dissolve 10 mg under the tongue daily at bedtime. - celecoxib (CELEBREX) 200 mg capsule Take 200 mg by mouth once daily. - ALPRAZolam (XANAX) 1 mg tablet Take 1 mg by mouth at bedtime as needed. (Patient not taking: Reported on 04/11/2021) - hydrOXYzine HCl (ATARAX) 25 mg tablet Take 1 tablet by mouth every 8 hours as needed. - doxepin capsule 50 mg Take 1 capsule by mouth daily at bedtime. I have interviewed and examined the patient. I have reviewed the medical record and/or the pre-anesthesia evaluation, pertinent labs, and test results. This contains updated information obtained within 48 hours of Surgery/Procedure. SIGNATURE: Rosy Mckeon MD PATIENT NAME: Lazaro Naranjo DATE: April 27, 2021 TIME: 12:31 PM CSN: [id number] [facility] BRIEF OP NOTon 04-27-2021 BRIEF OP NOT HNO ID: [id number] Author: Maria Isabel Carroll MD Service: ? Author Type: Physician Type: Brief Op Note Filed: 04/27/2021 1:09 PM Note Text: BRIEF OPERATIVE NOTE SURGERY DATE: 04/27/2021 Incision/Procedure Start Time: 12:50 Incision Close/Procedure End Time: 13:05 Surgeon(s)/Proceduralis t(s) and Competitive Intelligence Analyst(s): Glen Procedures: Colonoscopy with biopsies Anesthesia: MAC Findings: hemorrhoids Estimated Blood Loss: minimal Specimens: random mucosal biopsies of colon Complications: None Preop Diagnosis: diarrhea Postop Diagnosis: diarrhea, hemorrhoids SIGNATURE: Maria Isabel Carroll MD PATIENT NAME: Lazaro Naranjo DATE: April 27, 2021 TIME: 1:08 PM [facility] NURSING PROGon 04-27-2021 NURSING PROG HNO ID: [id number] Author: Melanie Fiore RN Service: Nursing Author Type: Registered Nurse Type: Nursing Progress Note Filed: 04/27/2021 12:23 PM Note Text: Patient verified by arm bands and verbal. Education given of procedure patient verbalized understanding. [facility] OPERATIVE NOon 04-27-2021 OPERATIVE NO HNO ID: [id number] Author: Maria Isabel Carroll MD Service: ? Author Type: Physician Type: Operative Report Filed: 04/27/2021 5:36 PM Note Text: [facility] - Operative Report - LAZARO Mccormack : 1970 AGE: 50. SEX: F PATIENT TYPE: A HOSP SVC: GENS LOCATION: [facility] ATTENDING PHYSICIAN: Maria Isabel Carroll MD CSN NUMBER: [id number] DATE OF SURGERY/PROCEDURE: 04/27/2021 INCISION/PROCEDURE START TIME: 12:50 PM INCISION CLOSE/PROCEDURE END TIME: 1:05 PM PREOPERATIVE DIAGNOSIS: Diarrhea. POSTOPERATIVE DIAGNOSIS: Diarrhea and hemorrhoids. SURGEON: Maria Isabel Carroll MD CRIMP SETTER: No Additional Staff SURGERY/PROCEDURE: Colonoscopy with random mucosal biopsies. ANESTHESIA: MAC. INDICATIONS: Lazaro Naranjo is a 50-year-old white female who presents with a complaint of diarrhea. She has never had a colonoscopy in the past. She has no colon cancer in the immediate family known. She presents for colonoscopy. She has been counseled of the risks of procedure including but not limited to infection, bleeding, perforation of GI tract requiring emergency surgery, injury to any internal organs such as liver or spleen, complications of anesthesia, and inability to complete the procedure. The patient understands and agrees to proceed. DESCRIPTION OF PROCEDURE: After informed consent was given, the patient was brought to the endoscopy suite. Appropriate time-out protocol was done in the preprocedure area as well as in the endoscopy suite. The patient was then given IV anesthesia by the anesthesia provider. The endoscope was lubricated, carefully inserted in the patient's anus, and advanced into the rectum. It was then advanced into the sigmoid colon, then the left descending colon, past the splenic flexure into the transverse colon, past the hepatic flexure down the right ascending colon to the cecum. The cecum was identified by transillumination, confluence of teniae coli, identification of the ileocecal valve, appendiceal orifice, and external palpation. At this level, the colonoscope was slowly retracted back and the entire colonic mucosal surface was examined. The colon cleansing preparation was suboptimal. However, with adequate lavage and irrigation and aspiration, the entire colonic gage could be visualized. Because of the patient's complaint, random mucosal biopsies using cold grasper forceps were taken throughout the colon. There was no evidence of any masses or lesions or polyps in the right colon. There was no evidence of any masses, lesions, or polyps in the transverse colon. There was no evidence of any masses, lesions, or polyps in the left colon. There was no evidence of any masses, lesions, or polyps in the sigmoid colon. Retroflexed view in the rectum revealed hemorrhoidal changes, but no active inflammation or bleeding. The endoscope was removed intact. Digital examination of the anal canal revealed no palpable masses. The patient was noted to have hemorrhoidal disease. The patient tolerated the procedure well and was brought to recovery room in stable condition. SPECIMEN: Random mucosal biopsies of colon. ESTIMATED BLOOD LOSS: Minimal. COMPLICATIONS: None. Maria Isabel Carroll MD [id number] /[id number] [facility] SURGICAL PATHOLOGYon 021 CASE REPORT Normal [facility] Comment on above: Order Comment: Speci men Type: TISSUE SPECIMEN Result Comment: Surg [facility] Pathology Report Case: [id number] Authorizing Provider: Maria Isabel Carroll MD Collected: 04/27/2021 12:57 PM Ordering Location: SURGERY Received: 04/28/2021 08:48 AM Pathologist: Damian Regalado MD Specimen: COLON BIOPSY, random biopsy Performed By: #### S #### [facility] CLIA [id number] [address] [place] [address] CLINICAL HISTORY Diarrhea Normal [facility] Comment on above: Order Comment: Speci men Type: TISSUE SPECIMEN Performed By: #### S #### [facility] CLIA [id number] [address] [place] [address] FINAL DIAGNOSIS Normal [facility] Comment on above: Order Comment: Speci men Type: TISSUE SPECIMEN Result Comment: Evan hernandez, random biopsies No pathologic abnormalities. Performed By: #### S #### [facility] CLIA [id number] [address] [place] [address] FINAL PERFORMING LAB Normal [facility] Comment on above: Order Comment: Speci men Type: TISSUE SPECIMEN Result Comment: Diag nostic interpretation performed at [facility], [address] [place] [address] CLIA# [id number] Psychological Operations Specialist: Damian Regalado M.D. Performed By: #### S #### [facility] CLIA [id number] [address] [place] [address] GROSS DESCRIPTION Normal [facility] Comment on above: Order Comment: Speci men Type: TISSUE SPECIMEN Result Comment: Evan HERNANDEZ BIOPSY. A. Received in formalin labeled random colon biopsy are multiple irregular mccullough soft tissue fragments aggregating to 0.8 x 0.5 x 0.2 cm. The specimen is submitted entirely in cassette A1. Gross examination performed at [facility], [address] [place] [id number] OLS April 28, 2021 10:21 AM Performed By: #### S #### [facility] CLIA [id number] [address] [place] [id number] HISTORY PHYSICALon 1 HISTORY PHYSICAL HNO ID: [id number] Author: Maria Isabel Carroll MD Service: ? Author Type: Physician Type: HANDP Filed: 04/25/2021 6:49 PM Note Text: HISTORY AND PHYSICAL ? Lazaro Naranjo 1970 ? ? REFERRING PHYSICIAN: Damian James MD ? CHIEF COMPLAINT: Consult (colonoscopy) ? HPI: The patient is a 50 year old female presents for screening for colon cancer via colonoscopy The patient notes generalized abdominal discomfort mainly due to increased intraabdominal gas. She notes loose stools about 2-3 episodes per day. This has been going on for about a month. She denies noting blood in stools, but she noted very dark stools at one time. She was noted to be stool guaiac negative. The patient notes no colon cancer in immediate family. The patient has not had previous colonoscopy. ? Of note, patient has psychiatric history of depression, borderline personality and schizoaffective disorder. She states that she received electroshock therapy once a month at [facility]. This may complicate any type of anesthesia for the patient's procedure ? ? PAST MEDICAL HISTORY Diagnosis Date - Depressive disorder, not elsewhere classified ? - Generalized anxiety disorder ? - Hypothyroid ? - Schizoaffective disorder (HCC) ? ? PAST SURGICAL HISTORY Procedure Laterality Date - APPENDECTOMY ? 1992 - BIOPSY OF EYELID Left 11/02/2016 - DELIVERY ONLY ? 1997 - LAPAROSCOPIC CHOLEYCYSTECTOMY ? 1997 - LIGATE FALLOPIAN TUBE ? 1999 ? ? Current Outpatient Medications Medication Sig - DICLOFENAC SODIUM ORAL Take by mouth as needed. - fluticasone (FLONASE) 50 mcg/actuation nasal spray Use 1 Empire in each nostril once daily. For 4 weeks- 50mcg dose - cholecalciferol (VITAMIN D-3) 2,000 unit tablet Take 2,000 Units by mouth once daily. - diclofen nkn-twzdpo-l-wojciech-ment 50 mg-0.025 %- 25 %-6 % KTtd 50 mg twice daily. For knee pain - cyanocobalamin (VITAMIN B-12) 1,000 mcg tab Take 1,000 mcg by mouth once daily. Take sublingual daily - levothyroxine (SYNTHROID) 100 mcg tablet Take 125 mcg by mouth daily before breakfast. ? - hydrOXYzine HCl (ATARAX) 50 mg tablet Take 50 mg by mouth at bedtime as needed (For sleep.). - nicotine (NICODERM CQ) 21 mg/24 hr Apply 1 Patch as directed every 24 hours. 14mg dose recorded on HANDP 11/03/18 ? - nicotine polacrilex (NICORETTE) 2 mg gum Take 2 mg by mouth. As directed. - folic acid 1 mg tablet Take 1 mg by mouth once daily. - FLUoxetine (PROZAC) 10 mg capsule Take 20 mg by mouth once daily. ? - polyethylene glycol 3350 (MIRALAX, GLYCOLAX) 17 gram/dose powder Use as directed for Miralax / Gatorade Bowel Prep Kit - Gatorade Sports Drink Use as directed for Miralax / Gatorade Bowel Prep Kit - Bisacodyl (DULCOLAX) 5 mg tab Use as directed for Miralax / Gatorade Bowel Prep Kit - prazosin (MINIPRESS) 2 mg cap Take by mouth daily at bedtime. - dicyclomine (BENTYL) 10 mg capsule Take 10 mg by mouth daily at bedtime. (Patient not taking: Reported on 04/11/2021 ) - pyridoxine HCl, vitamin B6, (PYRIDOXINE, VITAMIN B6, ORAL) Take 50 mg by mouth every morning. (Patient not taking: Reported on 04/11/2021 ) - LORazepam (ATIVAN) 1 mg tablet Take 1 mg by mouth once daily as needed. (Patient not taking: Reported on 04/11/2021) - asenapine sublingual (SAPHRIS) 10 mg subl Dissolve 10 mg under the tongue daily at bedtime. - celecoxib (CELEBREX) 200 mg capsule Take 200 mg by mouth once daily. - paliperidone ER (INVEGA) 3 mg 24 hr tablet Take 3 mg by mouth once daily. - INV trabectedin, [id number], Inject 0.5 mg intravenously. (Patient not taking: Reported on 04/11/2021 ) - lidocaine viscous (LIDOCAINE VISCOUS) 2 % solution Take by mouth as needed (Apply solution Mouth/Throad to affected lesion up to twice daily). - ALPRAZolam (XANAX) 1 mg tablet Take 1 mg by mouth at bedtime as needed. (Patient not taking: Reported on 04/11/2021) - hydrOXYzine HCl (ATARAX) 25 mg tablet Take 1 tablet by mouth every 8 hours as needed. - doxepin capsule 50 mg Take 1 capsule by mouth daily at bedtime. ? ? ALLERGIES: Cortisone and Ketamine Hcl ? PERSONAL HISTORY: Social History ? Tobacco Use - Smoking status: Current Every Day Smoker ? ? Packs/day: 1.50 ? ? Years: 15.00 ? ? Pack years: 22.50 ? ? Types: Cigarettes - Smokeless tobacco: Never Used Substance Use Topics - Alcohol use: Yes ? ? Comment: on occasion - Drug use: No ? ? Comment: caffeine ? FAMILY HISTORY Problem Relation Age of Onset - Cancer Mother ? ? lung - Psychiatry Mother ? ? depression - other (Other) Mother ? ? melanoma resulting in - Hypertension Father ? - Cataract Father ? - Macular Degen Father ? - Diabetes Brother ? ? type 1 - Breast Cancer Paternal Grandmother ? ? The review of systems data was entered by the nurse and reviewed by me ? Nursing Notes: Joy Ayala RN 04/11/2021 10:32 AM Signed REVIEW OF SYSTEMS: (more content not included)... [facility] CNOVon 04-11-2021 CNOV Office Visit (OMAIRA ) LAZARO NARANJO ([id number]) 1970 F Date Time Provider Department 04/11/21 10:20 AM MARIA ISABEL CARROLL During your visit today, we recorded the following information about you: Temperature Pulse Blood pressure Weight 96.7 degrees 94/minute 110/82 91.2 kg Joy Ayala RN 04/11/2021 10:32 AM Signed REVIEW OF SYSTEMS: General: The patient denies fatigue, denies weight loss, notes weight gain, notes feeling hot, and denies feelings of cold. Eyes: The patient denies glaucoma, notes eye injury/surgery, wears glasses or contacts. Ear/Nose/Throat: The patient denies allergies, denies hayfever, denies ear infections, and denies bloody noses. Cardiovascular: The patient denies chest pain, denies heart disease, denies high blood pressure,denies cardiac stent, denies prior heart attack, denies irregular heart beat, notes high cholesterol, denies poor circulation, denies heart failure, other cardiac issues, denies claudication, denies cold feet, denies peripheral arterial stent. Respiratory: The patient denies tuberculosis, denies pneumonia, denies frequent cough, denies pulmonary embolism, denies shortness of breath, and denies coughing up blood. Gastrointestinal: The patient denies difficulty swallowing, notes acid reflux, denies ulcers, notes vomiting, denies jaundice/hepatitis, notes gallbladder problems, notes black or tarry stools, denies hemorrhoids, denies bleeding from rectum, denies diverticulitis, denies constipation, notes diarrhea, notes loss of stool control, and denies hernias. Kidney/Bladder: The patient denies kidney stones, denies urine infections, and denies bloody urine. Skin: The patient denies a history of skin cancer, denies bleeding/changing moles, and denies a history of skin rash. Neurologic: The patient denies a history of epilepsy/convulsions, denies headaches, denies head/spinal injuries, and denies stroke/TIA. Psychiatric: The patient notes psychiatric medications, notes depression, and notes voices, denies substance abuse. Endocrine: The patient notes thyroid disorders, denies diabetes, and denies hormonal problems. Hematologic: The patient denies a history of bruising, denies bleeding, and denies anemia, denies blood clots. Infections: The patient denies a history of measles and mumps, denies rheumatic fever, and denies sexually transmitted diseases. Musculoskeletal: The patient denies back pain/injury, denies back problems, denies sciatica, denies knee/foot trouble, denies arthritis, or denies gout. When was patient's last Mammogram screening? unknown Last Colonoscopy: unknown Joy Carroll MD 04/11/2021 10:36 AM Signed Bowel Preparation Instructions for: Miralax-Gatorade Preparations IF YOU DO NOT FOLLOW THESE DIRECTIONS, YOUR COLONOSCOPY WILL BE CANCELLED. [place] Instructions: ? Your bowel must be empty so that your doctor can clearly view your colon. Follow all of the instructions in this handout EXACTLY as they are written. ? Do NOT eat any solid food the ENTIRE day before your colonoscopy. ? Buy your bowel preparation at least 5 days before your colonoscopy. ? Four (4) Dulcolax laxative tablets containing 5mg of bisacodyl each (NOT Dulcolax stool softener) ? One (1) 8.3oz. bottle Miralax (238 grams) or generic equivalent ? 2 x 32oz. Bottles of Gatorade (NOT RED) ? Diabetic Patients: Use G2 (Gatorade 2) TRANSPORTATION on the Day of Your Exam A responsible adult MUST be present with you at Check In prior to your colonoscopy and REMAIN in the endoscopy area until you are discharged. You are NOT ALLOWED to drive, take a taxi or bus, or leave the Endoscopy Center ALONE. If you do not have a responsible driver trainer (family member or friend) with you to take you home, your exam cannot be done with sedation and will be cancelled. Please bring a list of all of your current medications, including any Qqvm-kud-Ugmypit medications with you. Medications If you take insulin, diabetic medications or blood thinners such as Coumadin (warfarin), Plavix (clopidogrel), Ticlid (ticlopidine hydrochloride), Agrylin (anagrelide), Xarelto (Rivaroxaban), Pradaxa (Dabigatran), Eliquis (Apixaban), and Effient (Prasugrel). You MUST call the doctors who orders those medicines for instructions on altering the dosage before your colonoscopy. All other medications should be taken the day of the exam with a sip of water including ASPIRIN. Five (5) Days Before Your Colonoscopy ? Do NOT take medicines that stop diarrhea - such as Imodium, Kaopectate, or Pepto Bismol. ? Do NOT take fiber supplements - such as Metamucil, Citrucel, or Perdiem. ? Do NOT take products that contain iron - such as multi-vitamins (the label lists what is in the products). Three (3) Days Before Your Colonoscopy ? Do NOT eat high-fiber foods - such as popcorn, hughes (more content not included)... Normal [facility] CNPNon 04-11-2021 CNPN Telephone (BlendinS) LAZARO NARANJO ([id number]) 1970 F Date Time Provider Department 04/11/21 MARIA ISABEL CARROLL During your visit today, we recorded the following information about you: Salvador Burger 04/11/2021 10:44 AM Signed 04-27-2021 [facility] SURGICAL PHONE NOTE Date of Procedure/Surgery: 04-19-2021 Procedure/Surgery Type: COLONOSCOPY ? SEDATION:MAC Location of Planned Procedure/Surgery: ? [facility] Surgery/Procedure Ordered: Yes COVID Testing Required: (FOR MAC CASES AND ASC PROCEDURES OTHER THAN COLON AND EGD): No Pre-Op Clearance Needed: No Prep Ordered:Yes: MIRALAX/DULCOLAX Prep Instructions given:Yes: Given in the office. Referral Completed:PAVE to complete. Patient Diabetic:No. Medication Considerations: Patient on blood Thinners: No Any other meds that need to be held: No Pacemaker or Defibrillator:No Patient/Family Informed of above information and given directions regarding location/arrival: No Transportation Considerations: No Other Important Information: No Any physical limitations: No Any cognitive limitations: No Motor Vehicle 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/Metal Control Worker required: No Communication Limitations: No Allergies As of Date: 04/11/2021 Noted Allergy Reaction CORTISONE 01/15/2017 4 - Hives Comments: Topical KETAMINE HCL 11/11/2018 1 - Mental Status Change Comments: confusion Date Reviewed: 04/11/2021 Reviewed by: Joy Ayala RN - Fully Assessed Reason for Visit: 04-27-2021 [facility] [Other] Prescriptions as of 05/01/2021 - DICLOFENAC SODIUM ORAL Take by mouth as needed. - polyethylene glycol 3350 (MIRALAX, GLYCOLAX) 17 gram/dose powder Use as directed for Miralax / Gatorade Bowel Prep Kit - Gatorade Sports Drink Use as directed for Miralax / Gatorade Bowel Prep Kit - Bisacodyl (DULCOLAX) 5 mg tab Use as directed for Miralax / Gatorade Bowel Prep Kit - fluticasone (FLONASE) 50 mcg/actuation nasal spray Use 1 Empire in each nostril once daily. For 4 weeks- 50mcg dose - cholecalciferol (VITAMIN D-3) 2,000 unit tablet Take 2,000 Units by mouth once daily. - dicyclomine (BENTYL) 10 mg capsule Take 10 mg by mouth daily at bedtime. - diclofen rlq-obgorg-l-wojciech-ment 50 mg-0.025 %- 25 %-6 % KTtd 50 mg twice daily. For knee pain - cyanocobalamin (VITAMIN B-12) 1,000 mcg tab Take 1,000 mcg by mouth once daily. Take sublingual daily - asenapine sublingual (SAPHRIS) 10 mg subl Dissolve 10 mg under the tongue daily at bedtime. - levothyroxine (SYNTHROID) 100 mcg tablet Take 125 mcg by mouth daily before breakfast. - hydrOXYzine HCl (ATARAX) 50 mg tablet Take 50 mg by mouth at bedtime as needed (For sleep.). - nicotine (NICODERM CQ) 21 mg/24 hr Apply 1 Patch as directed every 24 hours. 14mg dose recorded on HANDP 11/03/18 - celecoxib (CELEBREX) 200 mg capsule Take 200 mg by mouth once daily. - ALPRAZolam (XANAX) 1 mg tablet Take 1 mg by mouth at bedtime as needed. - FLUoxetine (PROZAC) 10 mg capsule Take 20 mg by mouth once daily. - doxepin capsule 50 mg Take 1 capsule by mouth daily at bedtime. Meds Comments as of 07/21/2015: Pt admits to neurontin, lexapro, abilify, doxepin, klonopin, synthroid, lamictal on 07/21/15 Problem List As Of Date 04/11/2021 Noted Resolved Depression [F32.9] Generalized anxiety disorder [F41.1] 03/19/2007 Schizoaffective disorder (HCC) [F25.9] Auditory hallucination [R44.0] 07/21/2015 Self-mutilation [Z72.89] 07/21/2015 Suicidal ideation [R45.851] 07/21/2015 Homelessness [Z59.0] 07/21/2015 Alcohol abuse [F10.10] 07/21/2015 Hypothyroid [E03.9] 07/21/2015 Smoker [F17.200] 07/21/2015 Loose stools [R19.5] 07/21/2015 Lacerations of multiple sites of right arm [S41*07/21/2015 Abnormal urinalysis [R82.90] 07/21/2015 Hyperlipidemia [E78.5] 07/22/2015 Basal cell carcinoma (BCC) of left lower eyelid*02/01/2017 02/18/2019 Encounter Status:Closed by SALVADOR BURGER on 05/01/21 [facility] SARS-CoV-2 Rapid Antigen Det ectionon 03-03-2021 Disclaimer [facility] Comment on above: Result Comment: The ORDISSIMO Veritor System for Rapid Detection of SARS-CoV-2 is a chromatographic digital immunoassay intended for the direct and qualitative detection of SARS-CoV-2 nucleocapsid antigens in nasal swabs. This test has been authorized by FDA under an EUA for use by CLIA Certified Moderate and High-Complexity laboratories and Point of Care (POC), i.e., in patient care settings operating under a CLIA Certificate of Waiver, Certificate of Compliance, or Certificate of Accreditation. This test is only authorized for the duration of the declaration that circumstances exist justifying the authorization of emergency use of in vitro diagnostic tests for the detection and/or diagnosis of COVID-19, unless the authorization is terminated or revoked sooner. Performed at [place] [address] Performed By: #### T SHR #### [facility] [place] [address] SARS-CoV-2 Antigen Negative Normal [facility] Comment on above: Performed By: #### T SHR #### [facility] [place] [id number] SARS-CoV-2 Rapid Antigen Det ectionon 02-03-2021 Disclaimer [facility] Comment on above: Result Comment: The BD Veritor System for Rapid Detection of SARS-CoV-2 is a chromatographic digital immunoassay intended for the direct and qualitative detection of SARS-CoV-2 nucleocapsid antigens in nasal swabs. This test has been authorized by FDA under an EUA for use by CLIA Certified Moderate and High-Complexity laboratories and Point of Care (POC), i.e., in patient care settings operating under a CLIA Certificate of Waiver, Certificate of Compliance, or Certificate of Accreditation. This test is only authorized for the duration of the declaration that circumstances exist justifying the authorization of emergency use of in vitro diagnostic tests for the detection and/or diagnosis of COVID-19, unless the authorization is terminated or revoked sooner. Performed at [address] [address] Performed By: #### T SHR #### [address] [address] SARS-CoV-2 Antigen Negative [facility] Comment on above: Performed By: #### T SHR #### [address] [address] SARS-CoV-2 Rapid Antigen Det ectionon 01-13-2021 Disclaimer [facility] Comment on above: Result Comment: The BD Veritor System for Rapid Detection of SARS-CoV-2 is a chromatographic digital immunoassay intended for the direct and qualitative detection of SARS-CoV-2 nucleocapsid antigens in nasal swabs. This test has been authorized by FDA under an EUA for use by CLIA Certified Moderate and High-Complexity laboratories and Point of Care (POC), i.e., in patient care settings operating under a CLIA Certificate of Waiver, Certificate of Compliance, or Certificate of Accreditation. This test is only authorized for the duration of the declaration that circumstances exist justifying the authorization of emergency use of in vitro diagnostic tests for the detection and/or diagnosis of COVID-19, unless the authorization is terminated or revoked sooner. Performed at [address] [address] Performed By: #### T SHR #### [address] [place] [address] SARS-CoV-2 Antigen Negative Normal NEG [facility] Comment on above: Performed By: #### T SHR #### [place] [address] [place] [address] CBC with Diffon 12-16-2020 AB IMMATURE NEUT 0.05 K/UL Normal 0.0-0.1 [facility] Comment on above: Performed By: #### C BCD #### [place] [address] [place] [address] ABS BASO 0.06 K/UL Normal 0.00-0.22 [facility] Comment on above: Performed By: #### C BCD #### [address] [address] ABS EOS 0.23 K/UL Normal 0-0.45 [facility] Comment on above: Performed By: #### C BCD #### [address] [address] ABS NEUTROPHILS 6.60 K/UL Normal 1.8-7.7 [facility] Comment on above: Performed By: #### C BCD #### [address] [address] ABS.NEUT.CALCULATED 6.60 K/UL Normal [facility] Comment on above: Result Comment: Perf ormed at [address] [address] Performed By: #### C BCD #### [address] [address] Basophils/100 WBC (Bld) 0.60 % Normal 0-1 [facility] Comment on above: Performed By: #### C BCD #### [address] [address] DIFF TYPE AUTO DIFF Normal [facility] Comment on above: Performed By: #### C BCD #### [address] [address] Eosinophils/100 WBC (Bld) 2.40 % Normal 0-3 [facility] Comment on above: Performed By: #### C BCD #### [place] [address] [place] [address] Erythrocyte distribution width (RBC) [Ratio] 13.3 % Normal 11.7-15.0 [facility] Comment on above: Performed By: #### C BCD #### [place] [address] [place] [address] Hematocrit (Bld) [Volume fraction] 46.5 % High 36-44 [facility] Comment on above: Performed By: #### C BCD #### [place] [address] [place] [address] Hemoglobin (Bld) [Mass/Vol] 15.1 g/dL High 12.0-15.0 [facility] Comment on above: Performed By: #### C BCD #### [place] [address] [place] [address] Lymphocytes (Bld) [#/Vol] 2.06 10*3/uL Normal 1.2-3.2 [facility] Comment on above: Performed By: #### C BCD #### [place] [address] [place] [address] Lymphocytes/100 WBC (Bld) 21.70 % Normal 20-40 [facility] Comment on above: Performed By: #### C BCD #### [place] [address] [place] [address] MCH (RBC) [Entitic mass] 31.7 pg Normal 26-34 [facility] Comment on above: Performed By: #### C BCD #### [place] [address] [place] [address] MCHC 32.5 % Normal 31-37 [facility] Comment on above: Performed By: #### C BCD #### [place] [address] [place] [address] MCV (RBC) [Entitic vol] 97.7 fL Normal 80-100 [facility] Comment on above: Performed By: #### C BCD #### [place] [address] [place] [address] MEAN PLT VOL 10.2 CU Normal 7.0-12.6 [facility] Comment on above: Performed By: #### C BCD #### [facility] [address] [place] [address] Monocytes (Bld) [#/Vol] 0.48 10*3/uL Normal 0-0.8 [facility] Comment on above: Performed By: #### C BCD #### [facility] [address] [place] [address] Monocytes/100 WBC (Bld) 5.10 % Normal 0-8 [facility] Comment on above: Performed By: #### C BCD #### [facility] [address] [place] [address] Neutrophils/100 WBC (Bld) 0.50 % Normal 0.0-1.0 [facility] Comment on above: Performed By: #### C BCD #### [place] [address] [place] [address] Neutrophils/100 WBC (Bld) 69.70 % Normal 50-70 [facility] Comment on above: Performed By: #### C BCD #### [place] [address] [place] [address] NRBC'S 0 /100 WBC Normal 0 [facility] Comment on above: Performed By: #### C BCD #### [place] [address] [place] [address] Platelets (Bld) [#/Vol] 320 10*3/uL Normal 150-450 [facility] Comment on above: Performed By: #### C BCD #### [place] [address] [place] [address] RBC (Bld) [#/Vol] 4.76 10*6/uL Normal 4.0-4.9 [facility] Comment on above: Performed By: #### C BCD #### [place] [address] [place] [address] RDW-SD 48.7 FL Normal 37.0-54.0 [facility] Comment on above: Performed By: #### C BCD #### [place] [address] [place] [address] WBC (Bld) [#/Vol] 9.5 10*3/uL Normal 4.5-11.0 [facility] Comment on above: Performed By: #### C BCD #### [facility] [place] [address] [place] [address] COMPREHENSIVE METABOLIC PANE Vimal 12-16-2020 Albumin [Mass/Vol] 4.3 g/dL Normal 3.5-5.0 [facility] Comment on above: Performed By: #### C AMPLIFIER MECHANIC #### [place] [address] [place] [address] Albumin/Globulin [Mass ratio] 1.4 {ratio} Low 1.5-3.0 [facility] Comment on above: Performed By: #### C AMPLIFIER MECHANIC #### [place] [address] [place] [address] ALP [Catalytic activity/Vol] 121 U/L Normal 35-125 [facility] Comment on above: Performed By: #### C AMPLIFIER MECHANIC #### [place] [address] [place] [address] ALT [Catalytic activity/Vol] 28 U/L Normal 5-40 [facility] Comment on above: Performed By: #### C AMPLIFIER MECHANIC #### [place] [address] [place] [address] Anion gap [Moles/Vol] 13 mmol/L Normal 0-19 [facility] Comment on above: Performed By: #### C AMPLIFIER MECHANIC #### [place] [address] [place] [address] AST [Catalytic activity/Vol] 31 U/L Normal 5-40 [facility] Comment on above: Performed By: #### C AMPLIFIER MECHANIC #### [facility] [place] [address] [place] [address] Bilirubin [Mass/Vol] 0.3 mg/dL Normal 0.1-1.2 [facility] Comment on above: Performed By: #### C AMPLIFIER MECHANIC #### [facility] [place] [address] [place] [address] Calcium [Mass/Vol] 9.2 mg/dL Normal 8.5-10.4 [facility] Comment on above: Performed By: #### C AMPLIFIER MECHANIC #### [facility] [place] [address] [place] [address] Chloride [Moles/Vol] 104 mmol/L Normal 97-107 [facility] Comment on above: Performed By: #### C AMPLIFIER MECHANIC #### [facility] [place] [address] [address] [place] [place] [address] CO2 [Moles/Vol] 22 mmol/L Low 24-31 [facility] Comment on above: Performed By: #### C AMPLIFIER MECHANIC #### [facility] [place] [address] [place] [address] Creatinine [Mass/Vol] 0.9 mg/dL Normal 0.4-1.6 [facility] Comment on above: Performed By: #### C AMPLIFIER MECHANIC #### [place] [address] [place] [address] ESTIMATED GFR 70 mL/min/1.73 m2 Normal [facility] Comment on above: Result Comment: GFR ml/min/1.73m2 Stage ----- 90 1 60-89 2 30-59 3 15-29 4 <15 5 For -Americans, multiply EGFR result by 1.210 Calculation not validated for patients under 18 years of age. Performed at [address] [place] [address] Performed By: #### C AMPLIFIER MECHANIC #### [place] [address] [place] [address] Globulin (S) [Mass/Vol] 3.0 g/dL Normal 1.9-3.7 [facility] Comment on above: Performed By: #### C AMPLIFIER MECHANIC #### [place] [address] [place] [address] Glucose [Mass/Vol] 99 mg/dL Normal 65-99 [facility] Comment on above: Performed By: #### C AMPLIFIER MECHANIC #### [facility] [place] [address] [place] [address] Potassium [Moles/Vol] 4.8 mmol/L Normal 3.4-5.1 [facility] Comment on above: Performed By: #### C AMPLIFIER MECHANIC #### [place] [address] Protein [Mass/Vol] 7.3 g/dL Normal 5.9-7.9 [facility] Comment on above: Performed By: #### C AMPLIFIER MECHANIC #### [address] [address] Sodium [Moles/Vol] 139 mmol/L Normal 133-145 [facility] Comment on above: Performed By: #### C AMPLIFIER MECHANIC #### [address] [address] Urea nitrogen [Mass/Vol] 9 mg/dL Normal 8-25 [facility] Comment on above: Performed By: #### C AMPLIFIER MECHANIC #### [address] [address] Urea nitrogen/Creatinine [Mass ratio] 10.0 mg/mg Normal 8-21 [facility] Comment on above: Performed By: #### C AMPLIFIER MECHANIC #### [address] [address] FREE T4on 12-16-2020 Free T4 [Mass/Vol] 1.3 ng/dL Normal 0.9-1.7 [facility] Comment on above: Result Comment: Perf ormed at [address] [address] Performed By: #### T 4F #### [address] [address] SARS-CoV-2 Rapid Antigen Det ectionon 12-16-2020 SARS-CoV-2 Antigen Negative Normal NEG [facility] Comment on above: Performed By: #### C OVA #### [address] [address] Disclaimer [facility] Comment on above: Result Comment: The BD Veritor System for Rapid Detection of SARS-CoV-2 is a chromatographic digital immunoassay intended for the direct and qualitative detection of SARS-CoV-2 nucleocapsid antigens in nasal swabs. This test has been authorized by FDA under an EUA for use by CLIA Certified Moderate and High-Complexity laboratories and Point of Care (POC), i.e., in patient care settings operating under a CLIA Certificate of Waiver, Certificate of Compliance, or Certificate of Accreditation. This test is only authorized for the duration of the declaration that circumstances exist justifying the authorization of emergency use of in vitro diagnostic tests for the detection and/or diagnosis of COVID-19, unless the authorization is terminated or revoked sooner. Performed at [place] [address] Performed By: #### C OVA #### [facility] [place] [address] TSHon 12-16-2020 TSH 5.25 MIU/L High 0.27-4.20 [facility] Comment on above: Result Comment: Perf ormed at [place] [address] Performed By: #### T SHR #### [place] [address] EKGon 12-02-2020 Electrocardiogram EKG Ventricular Rate : 78 BPM Atrial Rate : 78 BPM P-R Interval : 166 ms QRS Duration : 76 ms Q-T Interval : 424 ms QTC Calculation(Bazett) : 483 ms Calculated P Melrude : 35 degrees Calculated R Melrude : 37 degrees Calculated T Melrude : 12 degrees Diagnosis:Normal sinus rhythm Prolonged QT interval or tu fusion, consider myocardial disease, electrolyte imbalance, or drug effects When compared with ECG of 02-DEC-2020 10:03, No significant change was found Confirmed by GIRISH CARDENAS ([id number]) on 12/03/2020 11:08:55 AM [facility] SARS-CoV-2 Rapid Antigen Det ectionon 12-02-2020 Disclaimer [facility] Comment on above: Result Comment: The ORDISSIMO Veritor System for Rapid Detection of SARS-CoV-2 is a chromatographic digital immunoassay intended for the direct and qualitative detection of SARS-CoV-2 nucleocapsid antigens in nasal swabs. This test has been authorized by FDA under an EUA for use by CLIA Certified Moderate and High-Complexity laboratories and Point of Care (POC), i.e., in patient care settings operating under a CLIA Certificate of Waiver, Certificate of Compliance, or Certificate of Accreditation. This test is only authorized for the duration of the declaration that circumstances exist justifying the authorization of emergency use of in vitro diagnostic tests for the detection and/or diagnosis of COVID-19, unless the authorization is terminated or revoked sooner. Performed at [place] [address] Performed By: #### C OVA #### [place] [address] SARS-CoV-2 Antigen Negative Normal [facility] Comment on above: Performed By: #### C OVA #### [place] [address] SARS-CoV-2 Rapid Antigen Det ectionon 11-04-2020 Disclaimer [facility] Comment on above: Result Comment: The BD Veritor System for Rapid Detection of SARS-CoV-2 is a chromatographic digital immunoassay intended for the direct and qualitative detection of SARS-CoV-2 nucleocapsid antigens in nasal swabs. This test has been authorized by FDA under an EUA for use by CLIA Certified Moderate and High-Complexity laboratories and Point of Care (POC), i.e., in patient care settings operating under a CLIA Certificate of Waiver, Certificate of Compliance, or Certificate of Accreditation. This test is only authorized for the duration of the declaration that circumstances exist justifying the authorization of emergency use of in vitro diagnostic tests for the detection and/or diagnosis of COVID-19, unless the authorization is terminated or revoked sooner. Performed at [place] [address] Performed By: #### C OVA #### [place] [address] SARS-CoV-2 Antigen Negative Normal [facility] Comment on above: Performed By: #### C OVA #### [place] [address] SARS-CoV-2 Rapid Antigen Det ectionon 10-26-2020 Disclaimer [facility] Comment on above: Result Comment: The BD Veritor System for Rapid Detection of SARS-CoV-2 is a chromatographic digital immunoassay intended for the direct and qualitative detection of SARS-CoV-2 nucleocapsid antigens in nasal swabs. This test has been authorized by FDA under an EUA for use by CLIA Certified Moderate and High-Complexity laboratories and Point of Care (POC), i.e., in patient care settings operating under a CLIA Certificate of Waiver, Certificate of Compliance, or Certificate of Accreditation. This test is only authorized for the duration of the declaration that circumstances exist justifying the authorization of emergency use of in vitro diagnostic tests for the detection and/or diagnosis of COVID-19, unless the authorization is terminated or revoked sooner. Performed at [place] [address] Performed By: #### C OVA #### [place] [address] SARS-CoV-2 Antigen Negative Normal NEG [facility] Comment on above: Performed By: #### C OVA #### [place] [address] SARS-CoV-2 Rapid Antigen Det ectionon 10-07-2020 Disclaimer [facility] Comment on above: Result Comment: The G5itor System for Rapid Detection of SARS-CoV-2 is a chromatographic digital immunoassay intended for the direct and qualitative detection of SARS-CoV-2 nucleocapsid antigens in nasal swabs. This test has been authorized by FDA under an EUA for use by CLIA Certified Moderate and High-Complexity laboratories and Point of Care (POC), i.e., in patient care settings operating under a CLIA Certificate of Waiver, Certificate of Compliance, or Certificate of Accreditation. This test is only authorized for the duration of the declaration that circumstances exist justifying the authorization of emergency use of in vitro diagnostic tests for the detection and/or diagnosis of COVID-19, unless the authorization is terminated or revoked sooner. Performed at [place] [address] Performed By: #### C OVA #### [place] [address] SARS-CoV-2 Antigen Negative Normal NEG [facility] Comment on above: Performed By: #### C OVA #### [place] [address] Coronavirus 2019on 0 SARS-CoV-2 (COVID-19) RNA OTILIA+probe Ql (Unsp spec) [facility] Comment on above: Result Comment: (Not e) Reference range: [facility] Negative for COVID19 (SARS CoV2) by PCR. This test was developed and its performance characteristics determined by [facility] [place]. This test has been authorized by FDA under an Emergency Use Authorization (EUA). This test has been validated in accordance with the FDA's Guidance Document Policy for Diagnostics Testing in Laboratories Certified to Perform High Complexity Testing under CLIA prior to Emergency use Authorization for Coronavirus Disease 2019 during the Public Health Emergency issued on November 28, 2019. Performed at the [facility] unless otherwise noted. Performed By: #### C OV19 #### [address] [address] Coronavirus 2019on 0 Onset of Symptoms (mmDDyy) [id number] [facility] Comment on above: Performed By: #### C OV19 #### [facility] [id number] [place] [address] Congregate Care Setting [facility] Comment on above: Performed By: #### C OV19 #### [facility] [address] [address] Employed in Healthcare [facility] Comment on above: Performed By: #### C OV19 #### [facility] [address] [address] First Test [facility] Comment on above: Performed By: #### C OV19 #### [facility] [id number] [place] [address] Hospitalized [facility] Comment on above: Performed By: #### C OV19 #### [facility] [id number] [place] [address] ICU [facility] Comment on above: Performed By: #### C OV19 #### [facility] [id number] [place] [address] [facility] Comment on above: Result Comment: UNKN OWN Performed at [address] [address] Performed By: #### C OV19 #### [facility] [address] [address] SARS-CoV-2 (COVID-19) RNA OTILIA+probe Ql (Unsp spec) [facility] Comment on above: Result Comment: NASO PHARYNGEAL Performed at [address] [address] Performed By: #### C OV19 #### [address] [address] Symptomatic UNKNOWN [facility] Comment on above: Performed By: #### C OV19 #### [address] [address] ANES Micaela 02-18-2019 ANES POST HNO ID: [id number] Author: Iesha Curtis Service: Anesthesiology Author Type: Physician Type: Anesthesia PostOp Filed: 02/18/2019 10:37 AM Note Text: POST ANESTHESIA EVALUATION NOTE SERVICE DATE: 02/18/2019 SERVICE TIME: 10:37 AM : 1970 Vitals: 02/18/19 0915 02/18/19 1032 Temp: 36.4 ?C (97.5 ?F) 36.6 ?C (97.9 ?F) 02/18/1915 BP: 115/61 02/18/1915 Pulse: 68 02/18/19914 Resp: 16 02/18/19914 SpO2: 98% Validated Vital Signs: Yes POST ANES STATUS: No apparent anesthetic complications. The patient is appropriately hydrated with stable respiratory and cardiovascular status. Patient has safe and adequate airway control. The patient has appropriate pain relief and no significant post operative nausea or vomiting. The patient has achieved baseline mental status. Intra-Operative Events: No Significant Anesthesia Events Further assessment by Anesthesia Service: None Other Remarks: SIGNATURE: Iesha Curtis MD PATIENT NAME: Lazaro Naranjo DATE: February 18, 2019 TIME: 10:37 AM PAGER/CONTACT #: [facility] ANES PREOPon 02-18-2019 ANES PREOP HNO ID: [id number] Author: Iesha Curtis Service: Anesthesiology Author Type: Physician Type: Anesthesia PreOp Filed: 02/18/2019 8:44 AM Note Text: ANESTHESIOLOGY DAY OF SURGERY NOTE SERVICE DATE: 02/18/2019 SERVICE TIME: 8:43 AM : 1970 Procedure(s) (LRB): RECONSTRUCTION EYELID, FULL THICKNESS BY TRANSFER TARSOCONJUNCTIVAL FLAP FROM OPPOSING EYELID; SECOND STAGE (Left) Surgeon(s): Janusz Griggs Estimated body mass index is 35.74 kg/m? as calculated from the following: Height as of 11/14/18: 152.4 cm (5'). Weight as of 11/14/18: 83 kg (183 lb). Most recent hematocrit and potassium results: Hematocrit 38.7 07/20/2015 Potassium 4.3 07/20/2015 ANES DOS/PREOP NOTE: Vitals: There were no vitals filed for this visit. ACTIVE PROBLEM LIST Depression Generalized Anxiety Disorder Schizoaffective Disorder (Hcc) Auditory Hallucination Self-Mutilation Suicidal Ideation Homelessness Alcohol Abuse Hypothyroid Smoker Loose Stools Lacerations of Multiple Sites of Right Arm Abnormal Urinalysis Hyperlipidemia PAST MEDICAL HISTORY Diagnosis Date - Depressive disorder, not elsewhere classified - Generalized anxiety disorder - Hypothyroid - Schizoaffective disorder (HCC) PAST SURGICAL HISTORY Procedure Laterality Date - APPENDECTOMY 1992 - BIOPSY OF EYELID Left 11/02/2016 - DELIVERY ONLY 1997 - LAPAROSCOPIC CHOLEYCYSTECTOMY 1997 - LIGATE FALLOPIAN TUBE 1999 FAMILY HISTORY Problem Relation Age of Onset - Cancer Mother lung - Psychiatry Mother depression - other (Other) Mother melanoma resulting in - Hypertension Father - Cataract Father - Macular Degen Father - Diabetes Brother type 1 - Breast Cancer Paternal Grandmother Social History: Social History Tobacco Use - Smoking status: Current Every Day Smoker Packs/day: 1.50 Years: 15.00 Pack years: 22.50 Types: Cigarettes Substance Use Topics - Alcohol use: No Comment: sober 1 year, relapsed, now sober since 06/03/2015 - Drug use: No Comment: caffeine No current facility-administered medications on file prior to encounter. Current Outpatient Medications on File Prior to Encounter: fluticasone (FLONASE) 50 mcg/actuation nasal spray Use 1 Empire in each nostril once daily. For 4 weeks- 50mcg dose cholecalciferol (VITAMIN D-3) 2,000 unit tablet Take 2,000 Units by mouth once daily. prazosin (MINIPRESS) 2 mg cap Take by mouth daily at bedtime. dicyclomine (BENTYL) 10 mg capsule Take 10 mg by mouth daily at bedtime. diclofen wja-svfgov-t-wojciech-ment 50 mg-0.025 %- 25 %-6 % KTtd 50 mg twice daily. For knee pain pyridoxine HCl, vitamin B6, (PYRIDOXINE, VITAMIN B6, ORAL) Take 50 mg by mouth every morning. cyanocobalamin (VITAMIN B-12) 1,000 mcg tab Take 1,000 mcg by mouth once daily. Take sublingual daily LORazepam (ATIVAN) 1 mg tablet Take 1 mg by mouth once daily as needed. asenapine sublingual (SAPHRIS) 10 mg subl Dissolve 10 mg under the tongue daily at bedtime. levothyroxine (SYNTHROID) 100 mcg tablet Take 125 mcg by mouth daily before breakfast. hydrOXYzine HCl (ATARAX) 50 mg tablet Take 50 mg by mouth at bedtime as needed (For sleep.). nicotine (NICODERM CQ) 21 mg/24 hr Apply 1 Patch as directed every 24 hours. 14mg dose recorded on HANDP 11/03/18 nicotine polacrilex (NICORETTE) 2 mg gum Take 2 mg by mouth. As directed. folic acid 1 mg tablet Take 1 mg by mouth once daily. celecoxib (CELEBREX) 200 mg capsule Take 200 mg by mouth once daily. paliperidone ER (INVEGA) 3 mg 24 hr tablet Take 3 mg by mouth once daily. INV trabectedin, ET-743, Inject 0.5 mg intravenously. lidocaine viscous (LIDOCAINE VISCOUS) 2 % solution Take by mouth as needed (Apply solution Mouth/Throad to affected lesion up to twice daily). ALPRAZolam (XANAX) 1 mg tablet Take 1 mg by mouth at bedtime as needed. FLUoxetine (PROZAC) 10 mg capsule Take 20 mg by mouth once daily. hydrOXYzine HCl (ATARAX) 25 mg tablet Take 1 tablet by mouth every 8 hours as needed. doxepin capsule 50 mg Take 1 capsule by mouth daily at bedtime. No current facility-administered medications for this encounter. Current Outpatient Medications Medication Sig Dispense Refill - fluticasone (FLONASE) 50 mcg/actuation nasal spray Use 1 Empire in each nostril once daily. For 4 weeks- 50mcg dose - cholecalciferol (VITAMIN D-3) 2,000 unit tablet Take 2,000 Units by mouth once daily. - prazosin (MINIPRESS) 2 mg cap Take by mouth daily at bedtime. - dicyclomine (BENTYL) 10 mg capsule Take 10 mg by mouth daily at bedtime. - diclofen lws-akqamr-c-wojciech-ment 50 mg-0.025 %- 25 %-6 % KTtd 50 mg twice daily. For knee pain - pyridoxine HCl, vitamin B6, (PYRIDOXINE, VITAMIN B6, ORAL) Take 50 mg by mouth every morning. - cyanocobalamin (VITAMIN B-12) 1,000 mcg tab Take 1,000 mcg by mouth once daily. Take sublingual daily - LORazepam (ATIVAN) 1 mg tablet Take 1 mg by mouth once daily as needed. - asenapine sublingual (SAPHRIS) 10 mg subl Dissolve 10 mg under the tongue daily at bedtime. - levothyroxine (SYNTHROID) 100 mcg tablet Take 125 mcg by mouth daily before breakfast. - hydrOXYzine HCl (ATARAX) 50 mg tablet Take 50 mg by mouth at bedtime as needed (For sleep.). - nicotine (NICODERM CQ) 21 mg/24 hr Apply 1 Patch as directed every 24 hours. 14mg dose recorded on HANDP 11/03/18 - nicotine polacrilex (NICORETTE) 2 mg gum Take 2 mg by mouth. As directed. - folic acid 1 mg tablet Take 1 mg by mouth once daily. - celecoxib (CELEBREX) 200 mg capsule Take 200 mg by mouth once daily. - paliperidone ER (INVEGA) 3 mg 24 hr tablet Take 3 mg by mouth once daily. - INV trabectedin, ET-743, Inject 0.5 mg intravenously. - lidocaine viscous (LIDOCAINE VISCOUS) 2 % solution Take by mouth as needed (Apply solution Mouth/Throad to affected lesion up to twice daily). - ALPRAZolam (XANAX) 1 mg tablet Take 1 mg by mouth at bedtime as needed. - FLUoxetine (PROZAC) 10 mg capsule Take 20 mg by mouth once daily. - hydrOXYzine HCl (ATARAX) 25 mg tablet Take 1 tablet by mouth every 8 hours as needed. 15 tablet 0 - doxepin capsule 50 mg Take 1 capsule by mouth daily at bedtime. 0 Allergies: ALLERGIES Allergen Reactions - Cortisone Hives Topical - Ketamine Hcl Mental Status Change confusion DOS EXAM: Adequate NPO Status: Yes Anesthetic Risks, Benefits, Alternatives, Personnel and Consent Discussed: Yes Patient agrees to proceed: Yes Previous Anesthesia: No history of adverse event Airway Assessment: MP 3; Neck ROM: Full ROM without neurologic symptoms; Airway Evaluation: Short Neck Symptoms of Sleep Apnea: None Dentition: Teeth intact Additional Physical Exam: Lungs: Patient health status unchanged since recent history and physical. See history and physical for exam findings. Cardiac: Patient health status unchanged since recent history and physical. See history and physical for exam findings. Additional Pertinent Findings: N/A Blood Products: Not anticipated for this procedure Anesthetic Plan: MAC with general as back up Anesthetic Monitoring: Standard ASA Monitors Pain Management Plan: Parenteral or Oral ASA Class: 2 Other Medical Problems: see chart Chronic Beta Migdalia medication administered within 24 hours: N/A I have interviewed and examined the patient. I have reviewed the medical record and/or the pre-anesthesia evaluation, pertinent labs, and test results. Significant changes in the patient's condition since the History and Physical, not otherwise documented in primary service progress notes: No This contains updated information obtained within 48 hours of Surgery/Procedure. SIGNATURE: Iesha Curtis MD PATIENT NAME: Lazaro Naranjo DATE: February 18, 2019 TIME: 8:43 AM CSN: [id number] [facility] HISTORY PHYSICALon 9 HISTORY PHYSICAL HNO ID: [id number] Author: Janusz Griggs Service: Ophthalmology Author Type: Physician Type: HANDP Filed: 02/18/2019 10:18 AM Note Text: UPDATED HISTORY AND PHYSICAL EXAMINATION SERVICE DATE: 02/18/2019 SERVICE TIME: 10:17 AM PHYSICAL EXAM MUST BE COMPLETED ON ADMISSION The History and Physical (completed in the past 30 days) has been reviewed and the patient has been examined. The contents accurately reflect the patient's condition with the following additions or revisions since the HANDP was completed. Examination indicates no changes. This HANDP can be found in the scanned documents dated 02/10/19. SIGNATURE: Janusz Griggs MD PATIENT NAME: Lazaro Naranjo DATE: February 18, 2019 TIME: 10:17 AM PAGER: [facility] NURSING PROGon 02-18-2019 Protein mass conc HNO ID: [id number] Author: Kylie Patel) DEEPAK Scruggs Service: ? Author Type: Registered Nurse Type: Nursing Progress Note Filed: 02/18/2019 9:54 AM Note Text: Sandra CARDOSO notified of patient noted small white papule per left eye lid; to relay to dr. Griggs. [facility] OPERATIVE NOon 02-18-2019 OPERATIVE NO HNO ID: [id number] Author: Janusz Griggs Service: Ophthalmology Author Type: Physician Type: Operative Report Filed: 02/18/2019 10:30 AM Note Text: OPERATIVE/PROCEDURE REPORT OPHTHAMOLOGY LOG ID: [id number] Surgery/Procedure Date: 02/18/2019 Incision/Procedure Start Time: 10:23 AM Incision Close/Procedure End Time: 10:25 AM Surgeon(s)/Proceduralis t(s) and Competitive Intelligence Analyst(s): Surgeon(s) and Role: * Janusz Griggs - Primary * Arti (Res) Li - Resident - Observing Procedure(s): Procedure(s) (LRB): RECONSTRUCTION EYELID, FULL THICKNESS BY TRANSFER TARSOCONJUNCTIVAL FLAP FROM OPPOSING EYELID; SECOND STAGE (Left) Preoperative Diagnosis: Basal cell carcinoma (BCC) of left lower eyelid [C44.1192] Postoperative Diagnosis: Basal cell carcinoma (BCC) of left lower eyelid [C44.1192] Operative Indications: Skin cancer Anesthesia: Monitored Anesthesia Care Procedure Details: The patient was brought in the operating room, placed under adequate local anesthesia, the face prepped and draped in usual sterile fashion for eyelid surgery. The upper and lower eyelid was divided with Su scissors. The eyelid margin was contoured and bleeding was controlled with bipolar cautery. The eyelid was in good position at the end of the case. Antibiotic ointment was placed on the eye. The patient was returned to recovery room in satisfactory condition. Estimated Blood Loss: Minimal unless noted here. Specimens: * No specimens in log * Implantable Devices: * No implants in log * Drains: None unless noted here. Complications: None I/primary surgeon/proceduralist reviewed the specimen(s) and worked as the pathologist SIGNATURE: Janusz Griggs MD PATIENT NAME: Lazaro Naranjo DATE: February 18, 2019 TIME: 10:29 AM PAGER/CONTACT #: [facility] HOSPon 01-15-2019 HOSP Patient:Jerzy Naranjo MRN: Height:5' 0(1.524 m) Weight:No patient weight recorded within the last 30 days. Outpatient Medications as of 02/18/19: fluticasone (FLONASE) 50 mcg/actuation nasal spray cholecalciferol (VITAMIN D-3) 2,000 unit tablet prazosin (MINIPRESS) 2 mg cap dicyclomine (BENTYL) 10 mg capsule diclofen kle-qdbymv-k-wojciech-ment 50 mg-0.025 %- 25 %-6 % KTtd pyridoxine HCl, vitamin B6, (PYRIDOXINE, VITAMIN B6, ORAL) cyanocobalamin (VITAMIN B-12) 1,000 mcg tab LORazepam (ATIVAN) 1 mg tablet asenapine sublingual (SAPHRIS) 10 mg subl levothyroxine (SYNTHROID) 100 mcg tablet hydrOXYzine HCl (ATARAX) 50 mg tablet nicotine (NICODERM CQ) 21 mg/24 hr nicotine polacrilex (NICORETTE) 2 mg gum folic acid 1 mg tablet celecoxib (CELEBREX) 200 mg capsule paliperidone ER (INVEGA) 3 mg 24 hr tablet INV trabectedin, ET-743, lidocaine viscous (LIDOCAINE VISCOUS) 2 % solution ALPRAZolam (XANAX) 1 mg tablet FLUoxetine (PROZAC) 10 mg capsule hydrOXYzine HCl (ATARAX) 25 mg tablet doxepin capsule 50 mg Admission/Clinic Administered Medications as of 02/18/19: lactated ringers infusion Problem List: Depression [F32.9] Generalized anxiety disorder [F41.1] Schizoaffective disorder (HCC) [F25.9] Auditory hallucination [R44.0] Self-mutilation [Z72.89] Suicidal ideation [R45.851] Homelessness [Z59.0] Alcohol abuse [F10.10] Hypothyroid [E03.9] Smoker [F17.200] Loose stools [R19.5] Lacerations of multiple sites of right arm [S41.111A] Abnormal urinalysis [R82.90] Hyperlipidemia [E78.5] Allergies: Cortisone Ketamine Hcl Date Verified: 02/18/19 Lab Values No results within the last 30 days for the following basenames: K,HCT No progress notes entered within the past 30 days [facility] ANES Micaela 11-14-2018 ANES POST HNO ID: [id number] Author: Juan A Javed MD Service: Anesthesiology Author Type: Anesthesiologist Type: Anesthesia PostOp Filed: 11/14/2018 10:46 AM Note Text: POST ANESTHESIA EVALUATION NOTE SERVICE DATE: 11/14/2018 SERVICE TIME: 1045 : 1970 Vitals: 11/14/18 0915 11/14/18 1033 Temp: 36.7 ?C (98.1 ?F) 36.5 ?C (97.7 ?F) 11/14/18914 BP: 123/63 11/14/18 0915 11/14/18 1033 Pulse: 78 80 11/14/18 0915 11/14/18 1033 Resp: 14 16 11/14/1815 11/14/18 1033 SpO2: 97% 97% Validated Vital Signs: Yes POST ANES STATUS: No apparent anesthetic complications. The patient is appropriately hydrated with stable respiratory and cardiovascular status. Patient has safe and adequate airway control. The patient has appropriate pain relief and no significant post operative nausea or vomiting. The patient has achieved baseline mental status. Intra-Operative Events: No Significant Anesthesia Events Further assessment by Anesthesia Service: None Other Remarks: SIGNATURE: Juan A Javed MD PATIENT NAME: Lazaro Naranjo DATE: November 14, 2018 TIME: 10:45 AM PAGER/CONTACT #: [facility] ANES PREOPon 11-14-2018 ANES PREOP HNO ID: [id number] Author: Juan A Javed MD Service: Anesthesiology Author Type: Anesthesiologist Type: Anesthesia PreOp Filed: 11/14/2018 9:21 AM Note Text: ANESTHESIOLOGY DAY OF SURGERY NOTE SERVICE DATE: 11/14/2018 SERVICE TIME: 10 : 1970 Procedure(s) (LRB): EXCISION AND REPAIR OF > 1/4 OF EYELID W/GRAFT (Left) Surgeon(s): Janusz Griggs Estimated body mass index is 36.24 kg/m? as calculated from the following: Height as of 02/01/17: 151.8 cm (4' 11.75). Weight as of 02/01/17: 83.5 kg (184 lb). Most recent hematocrit and potassium results: Hematocrit 38.7 07/20/2015 Potassium 4.3 07/20/2015 ANES DOS/PREOP NOTE: Vitals: There were no vitals filed for this visit. ACTIVE PROBLEM LIST Depression Generalized Anxiety Disorder Schizoaffective Disorder (Hcc) Auditory Hallucination Self-Mutilation Suicidal Ideation Homelessness Alcohol Abuse Hypothyroid Smoker Loose Stools Lacerations of Multiple Sites of Right Arm Abnormal Urinalysis Hyperlipidemia Basal Cell Carcinoma (Bcc) of Left Eyelid PAST MEDICAL HISTORY Diagnosis Date - Depressive disorder, not elsewhere classified - Generalized anxiety disorder - Hypothyroid - Schizoaffective disorder (HCC) PAST SURGICAL HISTORY Procedure Laterality Date - APPENDECTOMY 1992 - BIOPSY OF EYELID Left 11/02/2016 - DELIVERY ONLY 1997 - LAPAROSCOPIC CHOLEYCYSTECTOMY 1997 - LIGATE FALLOPIAN TUBE 1999 FAMILY HISTORY Problem Relation Age of Onset - Cancer Mother lung - Psychiatry Mother depression - other (Other) Mother melanoma resulting in - Hypertension Father - Cataract Father - Macular Degen Father - Diabetes Brother type 1 - Breast Cancer Paternal Grandmother Social History: Social History Substance Use Topics - Smoking status: Current Every Day Smoker Packs/day: 1.50 Years: 15.00 Types: Cigarettes - Smokeless tobacco: Not on file - Alcohol use No Comment: sober 1 year, relapsed, now sober since 06/03/2015 No current facility-administered medications on file prior to encounter. Current Outpatient Prescriptions on File Prior to Encounter: levothyroxine (SYNTHROID) 100 mcg tablet Take 100 mcg by mouth daily before breakfast. nicotine (NICODERM CQ) 21 mg/24 hr Apply 1 Patch as directed every 24 hours. 14mg dose recorded on HANDP 11/03/18 folic acid 1 mg tablet Take 1 mg by mouth once daily. ALPRAZolam (XANAX) 1 mg tablet Take 1 mg by mouth at bedtime as needed. FLUoxetine (PROZAC) 10 mg capsule Take 20 mg by mouth once daily. asenapine sublingual (SAPHRIS) 10 mg subl Dissolve 10 mg under the tongue daily at bedtime. hydrOXYzine HCl (ATARAX) 50 mg tablet Take 50 mg by mouth at bedtime as needed (For sleep.). nicotine polacrilex (NICORETTE) 2 mg gum Take 2 mg by mouth. As directed. celecoxib (CELEBREX) 200 mg capsule Take 200 mg by mouth once daily. paliperidone ER (INVEGA) 3 mg 24 hr tablet Take 3 mg by mouth once daily. INV trabectedin, ET-743, Inject 0.5 mg intravenously. lidocaine viscous (LIDOCAINE VISCOUS) 2 % solution Take by mouth as needed (Apply solution Mouth/Throad to affected lesion up to twice daily). hydrOXYzine HCl (ATARAX) 25 mg tablet Take 1 tablet by mouth every 8 hours as needed. doxepin capsule 50 mg Take 1 capsule by mouth daily at bedtime. Current Facility-Administered Medications: lactated ringers infusion 30 mL/hr INTRAVENOUS CONTINUOUS Janusz Griggs Allergies: ALLERGIES Allergen Reactions - Cortisone Hives Topical - Ketamine Hcl Mental Status Change DOS EXAM: Adequate NPO status: Yes Anesthetic risks, benefits, alternatives, personnel and consent discussed: Yes Patient agrees to proceed: Yes Previous Anesthesia: No history of adverse event. Airway Assessment: MP 2; Neck ROM: Full ROM without neurologic symptoms; Airway Evaluation: Short Neck Symptoms of Sleep Apnea: Snoring, BMI > 35 and Neck circumference > 15.75 inches Dentition: Dentures: both Additional Physical Exam: Lungs: Patient health status unchanged since recent history and physical. See history and physical for exam findings. Cardiac: Patient health status unchanged since recent history and physical. See history and physical for exam findings. Blood Products: Not anticipated for this procedure. Anesthetic Plan: MAC with Sedation and Standard ASA Monitors Pain Management Plan: Parenteral or Oral ASA Class: 3 Chronic Beta Migdalia medication administered within 24 hours: N/A I have interviewed and examined the patient. I have reviewed the medical record and/or the pre-anesthesia evaluation, pertinent labs, and test results. Significant changes in the patient's condition since the History and Physical, not otherwise documented in primary service progress notes: No This contains updated information obtained within 48 hours of Surgery/Procedure. SIGNATURE: Juan A Javed MD PATIENT NAME: Lazaro Naranjo DATE: November 14, 2018 TIME: 9:13 AM CSN: [id number] [facility] HISTORY PHYSICALon HISTORY PHYSICAL HNO ID: [id number] Author: Janusz Griggs Service: Ophthalmology Author Type: Physician Type: HANDP Filed: 11/14/2018 9:21 AM Note Text: UPDATED HISTORY AND PHYSICAL EXAMINATION SERVICE DATE: 11/14/2018 SERVICE TIME: 9:21 AM PHYSICAL EXAM MUST BE COMPLETED ON ADMISSION The History and Physical (completed in the past 30 days) has been reviewed and the patient has been examined. The contents accurately reflect the patient's condition with the following additions or revisions since the HANDP was completed. Examination indicates no changes. This HANDP can be found in the scanned documents dated 11/03/18. SIGNATURE: Janusz Griggs MD PATIENT NAME: Lazaro Naranjo DATE: November 14, 2018 TIME: 9:21 AM PAGER: [facility] NURSING PROGon 11-14-2018 Protein mass conc HNO ID: [id number] Author: Lulu LopezRn) DEEPAK Mai Service: Nursing Author Type: Registered Nurse Type: Nursing Progress Note Filed: 11/14/2018 10:50 AM Note Text: Dr Griggs to speak with pt and daughter- pt awaare eye will be sewn shut for 3 mo. [facility] OPERATIVE NOon 11-14-2018 OPERATIVE NO HNO ID: [id number] Author: Janusz Griggs Service: Ophthalmology Author Type: Physician Type: Operative Report Filed: 11/14/2018 10:34 AM Note Text: OPERATIVE/PROCEDURE REPORT LOG ID: [id number] Surgery/Procedure Date: 11/14/2018 Incision/Procedure Start Time: 9:38 AM Incision Close/Procedure End Time: 10:28 AM Surgeon(s)/Proceduralis t(s) and Competitive Intelligence Analyst(s): Surgeon(s) and Role: * Janusz Griggs - Primary No Additional Staff Procedure(s): 1. Reconstruction eyelid using tarsoconjunctival flap. 2. Full-thickness skin graft reconstruction. 3. Excision and debridement. Anesthesia: Monitored Anesthesia Care Procedure Details: The patient was brought in the operating room and placed under adequate local anesthesia. The face was prepped and draped in the usual sterile fashion for eyelid surgery. The eyelid was everted and a tarsoconjunctival flap was developed in the usual way using unipolar cautery and Su scissors. The area to be reconstructed was debrided using Su scissors as well. Bleeding was controlled throughout the case using bipolar cautery. The tarsoconjunctival flap was then rotated into position where it was sutured into position using interrupted sutures of 5-0 Vicryl being careful to do partial thickness bites through the flap. Once the flap was secured along the lid margin and inferior extent of the flap, a full-thickness skin graft was harvested from the eyelid in the usual way using a 15 blade and unipolar cautery. Bleeding was controlled with bipolar cautery. The graft site was closed using interrupted sutures of 7-0 Vicryl. The graft was sutured into position over the tarsoconjunctival flap using 5-0 silk and 7-0 Vicryl. Antibiotic ointment was placed over the graft along with Gelfoam and a cotton bolster. The bolster was secured over the graft using the 5-0 silks to allow for good apposition of the graft to the deep tissue. Antibiotic ointment was also placed over the graft site. The patient was returned to recovery room in satisfactory condition. Pre-Op/Pre-Procedure Diagnosis: Basal cell carcinoma, left lower lid Post-Op/Post-Procedure Diagnosis: Basal cell carcinoma (BCC) of left eyelid [C44.111] Estimated Blood Loss: 5 mls Specimens: None Implantable Devices: None Drains: None Complications: None I performed the entire procedure. SIGNATURE: Janusz Griggs MD PATIENT NAME: Lazaro Naranjo DATE: November 14, 2018 TIME: 10:33 AM PAGER/CONTACT #: ? ? Normal [facility] HOSPon 10-20-2018 HOSP Patient:Jerzy Naranjo J MRN: Height:5' 0(1.524 m) Weight:183 lb (83.008 kg) Outpatient Medications as of 11/14/18: cholecalciferol (VITAMIN D-3) 2,000 unit tablet prazosin (MINIPRESS) 2 mg cap dicyclomine (BENTYL) 10 mg capsule diclofen ivn-vimsvs-f-wojciech-ment 50 mg-0.025 %- 25 %-6 % KTtd pyridoxine HCl, vitamin B6, (PYRIDOXINE, VITAMIN B6, ORAL) cyanocobalamin (VITAMIN B-12) 1,000 mcg tab LORazepam (ATIVAN) 1 mg tablet asenapine sublingual (SAPHRIS) 10 mg subl levothyroxine (SYNTHROID) 100 mcg tablet hydrOXYzine HCl (ATARAX) 50 mg tablet nicotine (NICODERM CQ) 21 mg/24 hr nicotine polacrilex (NICORETTE) 2 mg gum folic acid 1 mg tablet celecoxib (CELEBREX) 200 mg capsule paliperidone ER (INVEGA) 3 mg 24 hr tablet INV trabectedin, [id number], lidocaine viscous (LIDOCAINE VISCOUS) 2 % solution ALPRAZolam (XANAX) 1 mg tablet FLUoxetine (PROZAC) 10 mg capsule hydrOXYzine HCl (ATARAX) 25 mg tablet doxepin capsule 50 mg Admission/Clinic Administered Medications as of 11/14/18: lactated ringers infusion Problem List: Depression [F32.9] Generalized anxiety disorder [F41.1] Schizoaffective disorder (HCC) [F25.9] Auditory hallucination [R44.0] Self-mutilation [Z72.89] Suicidal ideation [R45.851] Homelessness [Z59.0] Alcohol abuse [F10.10] Hypothyroid [E03.9] Smoker [F17.200] Loose stools [R19.5] Lacerations of multiple sites of right arm [S41.111A] Abnormal urinalysis [R82.90] Hyperlipidemia [E78.5] Basal cell carcinoma (BCC) of left eyelid [C44.111] Allergies: Cortisone Ketamine Hcl Date Verified: 11/14/18 Lab Values No results within the last 30 days for the following basenames: K,HCT No progress notes entered within the past 30 days Normal [facility] Vital Signs Date Time Vital Sign Value Performing Clinician Facility 11-08-2023 12:50-0500 Body temperature 98.01 [degF] Mloz Schedule [facility] 11-08-2023 12:50-0500 Diastolic blood pressure 67 mm[Hg] Mloz Schedule [facility] 11-08-2023 12:50-0500 Heart rate 66 /min Mloz Schedule [facility] 11-08-2023 12:50-0500 Respiratory rate 18 /min Mloz Schedule [facility] 11-08-2023 12:50-0500 SaO2% (BldA) [Mass fraction] 94 % Mloz Schedule [facility] 11-08-2023 12:50-0500 Systolic blood pressure 115 mm[Hg] Mloz Schedule [facility] 02-27-2023 12:05-0400 Body temperature 98.01 [degF] Liam Merino MD Work Phone: [facility] 02-27-2023 12:05-0400 Diastolic blood pressure 72 mm[Hg] Liam Merino MD [facility] Phone[facility] 02-27-2023 12:05-0400 Heart rate 83 /min Liam Merino MD Work Phone: [facility] 02-27-2023 12:05-0400 Respiratory rate 16 /min Liam Merino MD Work Phone: [facility] 02-27-2023 12:05-0400 SaO2% (BldA) [Mass fraction] 99 % Liam Merino MD Work Phone: [facility] 02-27-2023 12:05-0400 Systolic blood pressure 109 mm[Hg] Liam Merino MD Work Phone: [facility] 02-27-2023 10:31-0400 Body height 152.4 cm Liam Merino MD Work Phone: [facility] 02-27-2023 10:31-0400 Body mass index (BMI) [Ratio] 34.18 kg/m2 Liam Merino MD Work Phone: [facility] 02-27-2023 10:31-0400 Body weight 79.38 kg Liam Merino MD Work Phone: [facility] 02-08-2023 12:30-0400 Diastolic blood pressure 78 mm[Hg] Liam Merino MD Work Phone[facility] [employer] 02-08-2023 12:30-0400 Heart rate 86 /min Liam Merino MD Work Phone: [facility] [employer] 02-08-2023 12:30-0400 Respiratory rate 16 /min Liam Merino MD Work Phone: [facility] [employer] 02-08-2023 12:30-0400 SaO2% (BldA) [Mass fraction] 97 % Liam Merino MD Work Phone: [facility] [employer] 02-08-2023 12:30-0400 Systolic blood pressure 116 mm[Hg] Liam Merino MD Work Phone: [facility] [employer] 02-08-2023 10:30-0400 Body height 152.4 cm Liam Merino MD Work Phone: [facility] [employer] 02-08-2023 10:30-0400 Body mass index (BMI) [Ratio] 34.18 kg/m2 Liam Merino MD Work Phone: [facility] [employer] 02-08-2023 10:30-0400 Body temperature 96.69 [degF] Liam Merino MD Work Phone: [facility] [employer] 02-08-2023 10:30-0400 Body weight 79.38 kg Liam Merino MD Work Phone: [facility] [employer] 01-25-2023 12:30-0400 Body temperature 96.8 [degF] Liam Merino MD Work Phone: [facility] [employer] 01-25-2023 12:30-0400 Diastolic blood pressure 119 mm[Hg] Liam Merino MD Work Phone: [facility] [employer] 01-25-2023 12:30-0400 Heart rate 74 /min Liam Merino MD Work Phone: [facility] [employer] 01-25-2023 12:30-0400 Respiratory rate 28 /min Liam Merino MD Work Phone: [facility] [employer] 01-25-2023 12:30-0400 SaO2% (BldA) [Mass fraction] 96 % Liam Merino MD Work Phone: [facility] 01-25-2023 12:30-0400 Systolic blood pressure 131 mm[Hg] Liam Merino MD Work Phone: [facility] 01-25-2023 10:30-0400 Body height 152.4 cm Liam Merino MD Work Phone: [facility] [employer] 01-25-2023 10:30-0400 Body mass index (BMI) [Ratio] 34.18 kg/m2 Liam Merino MD Work Phone: [facility] [employer] 01-25-2023 10:30-0400 Body weight 79.38 kg Liam Merino MD Work Phone: [facility] 01-21-2023 12:25-0400 SaO2% (BldA) [Mass fraction] 97 % Liam Merino MD Work Phone: [facility] [employer] 01-21-2023 12:20-0400 Diastolic blood pressure 77 mm[Hg] iLam Merino MD Work Phone: [facility] [employer] 01-21-2023 12:20-0400 Heart rate 78 /min Liam Merino MD Work Phone: [facility] [employer] 01-21-2023 12:20-0400 Respiratory rate 17 /min Liam Merino MD Work Phone: [facility] [employer] 01-21-2023 12:20-0400 Systolic blood pressure 126 mm[Hg] Liam Merino MD Work Phone: [facility] [employer] 01-21-2023 12:00-0400 Body temperature 97 [degF] Liam Merino MD Work Phone: [facility] [employer] 01-21-2023 10:39-0400 Body height 152.4 cm Liam Merino MD Work Phone: [facility] 01-21-2023 10:39-0400 Body mass index (BMI) [Ratio] 15.23 kg/m2 Liam Merino MD Work Phone: [facility] 01-21-2023 10:39-0400 Body weight 35.38 kg Liam Merino MD Work Phone: [facility] 01-14-2023 12:25-0400 Heart rate 77 /min Liam Merino MD Work Phone: [facility] 01-14-2023 12:25-0400 Respiratory rate 14 /min Liam Merino MD Work Phone: [facility] 01-14-2023 12:20-0400 Body temperature 98.29 [degF] Liam Merino MD Work Phone: [facility] 01-14-2023 12:20-0400 Diastolic blood pressure 72 mm[Hg] Liam Merino MD Work Phone: [facility] 01-14-2023 12:20-0400 SaO2% (BldA) [Mass fraction] 99 % Liam Merino MD Work Phone: [facility] 01-14-2023 12:20-0400 Systolic blood pressure 145 mm[Hg] Liam Merino MD Work Phone: [facility] 01-14-2023 10:58-0400 Body height 151.1 cm Liam Merino MD Work Phone: [facility] 01-14-2023 10:58-0400 Body mass index (BMI) [Ratio] 35.75 kg/m2 Liam Merino MD Work Phone: [facility] [employer] 01-14-2023 10:58-0400 Body weight 81.65 kg Liam Merino MD Work Phone: [facility] 01-11-2023 12:40-0400 Body temperature 98.8 [degF] Liam Merino MD Work Phone: [facility] 01-11-2023 12:40-0400 Diastolic blood pressure 84 mm[Hg] Liam Merino MD Work Phone: [facility] [employer] 01-11-2023 12:40-0400 Heart rate 94 /min Liam Merino MD Work Phone: [facility] [employer] 01-11-2023 12:40-0400 Respiratory rate 17 /min Liam Meirno MD Work Phone: [facility] [employer] 01-11-2023 12:40-0400 SaO2% (BldA) [Mass fraction] 99 % Liam Merino MD Work Phone: [facility] [employer] 01-11-2023 12:40-0400 Systolic blood pressure 130 mm[Hg] Liam Merino MD Work Phone: [facility] [employer] 01-11-2023 09:33-0400 Body height 151.1 cm Liam Merino MD Work Phone: [facility] 01-11-2023 09:33-0400 Body mass index (BMI) [Ratio] 35.75 kg/m2 Liam Merino MD Work Phone: [facility] [employer] 01-11-2023 09:33-0400 Body weight 81.65 kg Liam Merino MD Work Phone: [facility] [employer] 01-04-2023 11:35-0400 Diastolic blood pressure 82 mm[Hg] Mloz Schedule [facility] 01-04-2023 11:35-0400 Heart rate 84 /min Mloz Schedule [facility] 01-04-2023 11:35-0400 Respiratory rate 16 /min Mloz Schedule [facility] 01-04-2023 11:35-0400 SaO2% (BldA) [Mass fraction] 99 % Mloz Schedule [facility] 01-04-2023 11:35-0400 Systolic blood pressure 129 mm[Hg] Mloz Schedule [facility] 01-04-2023 11:30-0400 Body temperature 97.81 [degF] Mloz Schedule [facility] 01-04-2023 10:05-0400 Body height 151.1 cm Mloz Schedule [facility] [employer] 01-04-2023 10:05-0400 Body mass index (BMI) [Ratio] 35.75 kg/m2 Mloz Schedule [facility] 01-04-2023 10:05-0400 Body weight 81.65 kg Mloz Schedule [facility] 12-28-2022 12:05-0400 Diastolic blood pressure 72 mm[Hg] Mloz Schedule [facility] 12-28-2022 12:05-0400 Heart rate 88 /min Mloz Schedule [facility] 12-28-2022 12:05-0400 Respiratory rate 17 /min Mloz Schedule [facility] 12-28-2022 12:05-0400 SaO2% (BldA) [Mass fraction] 98 % Mloz Schedule [facility] 12-28-2022 12:05-0400 Systolic blood pressure 139 mm[Hg] Mloz Schedule [facility] 12-21-2022 12:55-0400 Diastolic blood pressure 70 mm[Hg] Liam Merino MD Work Phone: [facility] 12-21-2022 12:55-0400 Heart rate 72 /min Liam Merino MD Work Phone: [facility] 12-21-2022 12:55-0400 Respiratory rate 13 /min Liam Merino MD Work Phone: [facility] 12-21-2022 12:55-0400 SaO2% (BldA) [Mass fraction] 99 % Liam Merino MD Work Phone: [facility] 12-21-2022 12:55-0400 Systolic blood pressure 116 mm[Hg] Liam Merino MD Work Phone: [facility] 12-21-2022 12:25-0400 Body temperature 98.01 [degF] Liam Merino MD Work Phone: [facility] 12-21-2022 10:59-0400 Body height 152.4 cm Liam Merino MD Work Phone: [facility] 12-21-2022 10:59-0400 Body mass index (BMI) [Ratio] 37.11 kg/m2 Liam Merino MD Work Phone: [facility] 12-21-2022 10:59-0400 Body weight 86.18 kg Liam Merion MD Work Phone: [facility] 07-09-2022 15:00-0400 Respiratory rate 18 /min Dr. Damian James Work Phone: [facility] Work Phone: 07-09-2022 11:41-0400 Body height 152.[address] Damian James Work Phone: [facility] Work Phone: 07-09-2022 11:41-0400 Body mass index (BMI) [Ratio] 35.2 kg/m2 Dr. Damian James Work Phone: [facility] Work Phone: 07-09-2022 11:41-0400 Body temperature 96 [degF] Dr. Damian James Work Phone: [facility] Work Phone: 07-09-2022 11:41-0400 Body weight 81.[address] Damian James Work Phone: [facility] Work Phone: 07-09-2022 11:41-0400 Diastolic blood pressure 94 mm[Hg] Dr. Damian James Work Phone: [facility] Work Phone: 07-09-2022 11:41-0400 Heart rate 96 /min Dr. Damian James Work Phone: [facility] Work Phone: 07-09-2022 11:41-0400 SaO2% (BldA) [Mass fraction] 96 % Dr. Damian James Work Phone: [facility] Work Phone: 07-09-2022 11:41-0400 Systolic blood pressure 128 mm[Hg] Dr. Damian James Work Phone: [facility] Work Phone: 06-06-2022 12:15-0400 Heart rate 81 /min Liam Merino MD Work Phone: [facility] 06-06-2022 12:15-0400 Respiratory rate 20 /min Liam Merino MD Work Phone: [facility] 06-06-2022 12:15-0400 SaO2% (BldA) [Mass fraction] 96 % Liam Merino MD Work Phone: [facility] 06-06-2022 12:10-0400 Body temperature 98.6 [degF] Liam Merino MD Work Phone: [facility] 06-06-2022 12:10-0400 Diastolic blood pressure 75 mm[Hg] Liam Merino MD Work Phone: [facility] 06-06-2022 12:10-0400 Systolic blood pressure 166 mm[Hg] Liam Merino MD Work Phone: [facility] [employer] 06-06-2022 10:23-0400 Body height 152.4 cm Liam Merino MD Work Phone: [facility] [employer] 06-06-2022 10:23-0400 Body mass index (BMI) [Ratio] 35.74 kg/m2 Liam Merino MD Work Phone: [facility] [employer] 06-06-2022 10:23-0400 Body weight 83.01 kg Liam Merino MD Work Phone: [facility] [employer] 05-30-2022 12:20-0400 Diastolic blood pressure 91 mm[Hg] Liam Merino MD Work Phone: [facility] [employer] 05-30-2022 12:20-0400 Heart rate 73 /min Liam Merino MD Work Phone: [facility] [employer] 05-30-2022 12:20-0400 Respiratory rate 14 /min Liam Merino MD Work Phone: [facility] [employer] 05-30-2022 12:20-0400 SaO2% (BldA) [Mass fraction] 99 % Liam Merino MD Work Phone: [facility] [employer] 05-30-2022 12:20-0400 Systolic blood pressure 147 mm[Hg] Liam Merino MD Work Phone: [facility] [employer] 05-30-2022 11:50-0400 Body temperature 97.11 [degF] Liam Merino MD Work Phone: [facility] [employer] 05-30-2022 10:50-0400 Body height 152.4 cm Liam Merino MD Work Phone: [facility] [employer] 05-30-2022 10:50-0400 Body mass index (BMI) [Ratio] 35.74 kg/m2 Liam Merino MD Work Phone: [facility] 05-30-2022 10:50-0400 Body weight 83.01 kg Liam Merino MD Work Phone: [facility] 05-09-2022 12:10-0400 Diastolic blood pressure 82 mm[Hg] Liam Merino MD Work Phone: [facility] 05-09-2022 12:10-0400 Heart rate 86 /min Liam Merino MD Work Phone: [facility] 05-09-2022 12:10-0400 Respiratory rate 13 /min Liam Merino MD Work Phone: [facility] [employer] 05-09-2022 12:10-0400 SaO2% (BldA) [Mass fraction] 97 % Liam Merino MD Work Phone: [facility] 05-09-2022 12:10-0400 Systolic blood pressure 115 mm[Hg] Liam Merino MD Work Phone: [facility] 05-09-2022 11:45-0400 Body temperature 98.29 [degF] Liam Merino MD Work Phone: [facility] 05-04-2022 16:13-0400 Body temperature 97.4 [degF] Dr. Damian James Work Phone: [facility] Work Phone: 05-04-2022 16:13-0400 Diastolic blood pressure 80 mm[Hg] Dr. Damian James Work Phone: [facility] Work Phone: 05-04-2022 16:13-0400 Heart rate 67 /min Dr. Damian James Work Phone: [facility] Work Phone: 05-04-2022 16:13-0400 Respiratory rate 15 /min Dr. Damian James Work Phone: [facility] Work Phone: 05-04-2022 16:13-0400 SaO2% (BldA) [Mass fraction] 99 % Dr. Damian James Work Phone: [facility] Work Phone: 05-04-2022 16:13-0400 Systolic blood pressure 132 mm[Hg] Dr. Damian James Work Phone: [facility] Work Phone: 05-02-2022 13:20-0400 Diastolic blood pressure 98 mm[Hg] Liam Merino MD Work Phone: [facility] [employer] 05-02-2022 13:20-0400 Heart rate 95 /min Liam Merino MD Work Phone: [facility] [employer] 05-02-2022 13:20-0400 Respiratory rate 14 /min Liam Merino MD Work Phone: [facility] [employer] 05-02-2022 13:20-0400 SaO2% (BldA) [Mass fraction] 99 % Liam Merino MD Work Phone: [facility] [employer] 05-02-2022 13:20-0400 Systolic blood pressure 148 mm[Hg] Liam Merino MD Work Phone: [facility] [employer] 05-02-2022 10:02-0400 Body height 165.1 cm Liam Merino MD Work Phone: [facility] [employer] 05-02-2022 10:02-0400 Body mass index (BMI) [Ratio] 30.29 kg/m2 Liam Merino MD Work Phone: [facility] [employer] 05-02-2022 10:02-0400 Body temperature 97.39 [degF] Liam Merino MD Work Phone: [facility] [employer] 05-02-2022 10:02-0400 Body weight 82.56 kg Liam Merino MD Work Phone: [facility] [employer] 03-28-2022 11:25-0400 Diastolic blood pressure 87 mm[Hg] Liam Merino MD Work Phone: [facility] [employer] 03-28-2022 11:25-0400 Heart rate 93 /min Liam Merino MD Work Phone: [facility] [employer] 03-28-2022 11:25-0400 Respiratory rate 10 /min Liam Merino MD Work Phone: [facility] [employer] 03-28-2022 11:25-0400 SaO2% (BldA) [Mass fraction] 97 % Liam Merino MD Work Phone: [facility] [employer] 03-28-2022 11:25-0400 Systolic blood pressure 146 mm[Hg] Liam Merino MD Work Phone: [facility] [employer] 03-28-2022 11:20-0400 Body temperature 97.81 [degF] Liam Merino MD Work Phone: [facility] [employer] 03-07-2022 12:24-0400 Diastolic blood pressure 90 mm[Hg] Liam Merino MD Work Phone: [facility] [employer] 03-07-2022 12:24-0400 Heart rate 99 /min Liam Merino MD Work Phone: [facility] [employer] 03-07-2022 12:24-0400 Respiratory rate 20 /min Liam Merino MD Work Phone: [facility] [employer] 03-07-2022 12:24-0400 SaO2% (BldA) [Mass fraction] 99 % Liam Merino MD Work Phone: [facility] [employer] 03-07-2022 12:24-0400 Systolic blood pressure 135 mm[Hg] Liam Merino MD Work Phone: [facility] [employer] 03-07-2022 11:56-0400 Body temperature 99.19 [degF] Liam Merino MD Work Phone: [facility] 03-07-2022 10:45-0400 Body height 152.4 cm Liam Merino MD Work Phone: [facility] 03-07-2022 10:45-0400 Body mass index (BMI) [Ratio] 34.57 kg/m2 Liam Merino MD Work Phone: [facility] 03-07-2022 10:45-0400 Body weight 80.29 kg Liam Merino MD Work Phone: [facility] 01-03-2022 12:31-0400 Diastolic blood pressure 68 mm[Hg] Liam Merino MD Work Phone: [facility] 01-03-2022 12:31-0400 Systolic blood pressure 104 mm[Hg] Liam Merino MD Work Phone: [facility] 01-03-2022 12:10-0400 Heart rate 67 /min Liam Merino MD Work Phone: [facility] 01-03-2022 12:10-0400 Respiratory rate 19 /min Liam Merino MD Work Phone: [facility] 01-03-2022 12:10-0400 SaO2% (BldA) [Mass fraction] 98 % Liam Merino MD Work Phone: [facility] 01-03-2022 10:45-0400 Body height 165.1 cm Liam Merino MD Work Phone: [facility] 01-03-2022 10:45-0400 Body mass index (BMI) [Ratio] 30.95 kg/m2 Liam Merino MD Work Phone: [facility] 01-03-2022 10:45-0400 Body temperature 97.3 [degF] Liam Merino MD Work Phone: [facility] 01-03-2022 10:45-0400 Body weight 84.37 kg Liam Merino MD Work Phone: [facility] 12-07-2021 14:28-0500 Body mass index (BMI) [Ratio] 36.1 kg/m2 Dr. Damian James Work Phone: [facility] Work Phone: 12-07-2021 14:28-0500 Diastolic blood pressure 78 mm[Hg] Dr. Damian James Work Phone: [facility] Work Phone: 12-07-2021 14:28-0500 Systolic blood pressure 118 mm[Hg] Dr. Damian James Work Phone: [facility] Work Phone: 12-07-2021 14:22-0500 Body height 152.[address] Damian James Work Phone: [facility] Work Phone: 12-07-2021 14:22-0500 Body temperature 98.2 [degF] Dr. Damian James Work Phone: [facility] Work Phone: 12-07-2021 14:22-0500 Body weight 83.[address] Damian James Work Phone: [facility] Work Phone: 12-07-2021 14:22-0500 Heart rate 70 /min Dr. Damian James Work Phone: [facility] Work Phone: 12-07-2021 14:22-0500 Respiratory rate 16 /min Dr. Damian James Work Phone: [facility] Work Phone: 12-07-2021 14:22-0500 SaO2% (BldA) [Mass fraction] 98 % Dr. Damian James Work Phone: [facility] Work Phone: 12-07-2021 13:28-0500 Body mass index (BMI) [Ratio] 36.1 kg/m2 Dr. Damian James Work Phone: [facility] Work Phone: 12-07-2021 13:28-0500 Diastolic blood pressure 78 mm[Hg] Dr. Damian James Work Phone: [facility] Work Phone: 12-07-2021 13:28-0500 Systolic blood pressure 118 mm[Hg] Dr. Damian James Work Phone: [facility] Work Phone: 12-07-2021 13:22-0500 Body height 152.[address] Damian James Work Phone: [facility] Work Phone: 12-07-2021 13:22-0500 Body temperature 98.2 [degF] Dr. Damian James Work Phone: [facility] Work Phone: 12-07-2021 13:22-0500 Body weight 83.[address] Damian James Work Phone: [facility] Work Phone: 12-07-2021 13:22-0500 Heart rate 70 /min Dr. Damian James Work Phone: [facility] Work Phone: 12-07-2021 13:22-0500 Respiratory rate 16 /min Dr. Damian James Work Phone: [facility] Work Phone: 12-07-2021 13:22-0500 SaO2% (BldA) [Mass fraction] 98 % Dr. Damian James Work Phone: [facility] Work Phone: 12-06-2021 12:30-0500 Diastolic blood pressure 79 mm[Hg] Liam Merino MD Work Phone: [facility] 12-06-2021 12:30-0500 Heart rate 86 /min Liam Merino MD Work Phone: [facility] 12-06-2021 12:30-0500 Respiratory rate 17 /min Liam Merino MD Work Phone: [facility] 12-06-2021 12:30-0500 SaO2% (BldA) [Mass fraction] 99 % Liam Merino MD Work Phone: [facility] 12-06-2021 12:30-0500 Systolic blood pressure 137 mm[Hg] Liam Merino MD Work Phone: [facility] 12-06-2021 12:00-0500 Body temperature 98.8 [degF] Liam Merino MD Work Phone: [facility] 12-06-2021 10:22-0500 Body height 152.4 cm Liam Merino MD Work Phone: [facility] 12-06-2021 10:22-0500 Body mass index (BMI) [Ratio] 36.33 kg/m2 Liam Merino MD Work Phone: [facility] 12-06-2021 10:22-0500 Body weight 84.37 kg Liam Merino MD Work Phone: [facility] 10-25-2021 12:30-0500 Body temperature 97.5 [degF] Liam Merino MD Work Phone: [facility] 10-25-2021 12:30-0500 Heart rate 94 /min Liam Merino MD Work Phone: [facility] 10-25-2021 12:30-0500 Respiratory rate 20 /min Liam Merino MD Work Phone: [facility] 10-25-2021 12:30-0500 SaO2% (BldA) [Mass fraction] 96 % Liam Merino MD Work Phone: [facility] 10-25-2021 12:25-0500 Diastolic blood pressure 89 mm[Hg] Liam Merino MD Work Phone: [facility] 10-25-2021 12:25-0500 Systolic blood pressure 135 mm[Hg] Liam Merino MD Work Phone: [facility] 10-11-2021 12:25-0500 Diastolic blood pressure 86 mm[Hg] Liam Merino MD Work Phone: [facility] 10-11-2021 12:25-0500 Heart rate 101 /min Liam Merino MD Work Phone: [facility] 10-11-2021 12:25-0500 Respiratory rate 18 /min Liam Merino MD Work Phone: [facility] 10-11-2021 12:25-0500 SaO2% (BldA) [Mass fraction] 97 % Liam Merino MD Work Phone: [facility] 10-11-2021 12:25-0500 Systolic blood pressure 113 mm[Hg] Liam Merino MD Work Phone: [facility] 10-11-2021 12:00-0500 Body temperature 98.49 [degF] Liam Merino MD Work Phone: [facility] 10-11-2021 10:15-0500 Body height 152.4 cm Liam Merino MD Work Phone: [facility] 10-11-2021 10:15-0500 Body mass index (BMI) [Ratio] 37.11 kg/m2 Liam Merino MD Work Phone: [facility] 10-11-2021 10:15-0500 Body weight 86.18 kg Liam Merino MD Work Phone: [facility] 09-14-2021 13:00-0500 Body temperature 98.2 [degF] Liam Merino MD Work Phone: [facility] 09-14-2021 13:00-0500 Diastolic blood pressure 88 mm[Hg] Liam Merino MD Work Phone: [facility] 09-14-2021 13:00-0500 Heart rate 94 /min Liam Merino MD Work Phone: [facility] 09-14-2021 13:00-0500 Respiratory rate 14 /min Liam Merino MD Work Phone: [facility] 09-14-2021 13:00-0500 SaO2% (BldA) [Mass fraction] 96 % Liam Merino MD Work Phone: [facility] 09-14-2021 13:00-0500 Systolic blood pressure 132 mm[Hg] Liam Merino MD Work Phone: [facility] 09-14-2021 10:54-0500 Body height 152.4 cm Liam Merino MD Work Phone: [facility] 09-14-2021 10:54-0500 Body mass index (BMI) [Ratio] 37.11 kg/m2 Liam Merino MD Work Phone: [facility] 09-14-2021 10:54-0500 Body weight 86.18 kg Liam Merino MD Work Phone: [facility] 08-10-2021 13:05-0500 Diastolic blood pressure 63 mm[Hg] Liam Merino MD Work Phone: [facility] 08-10-2021 13:05-0500 Heart rate 90 /min Liam Merino MD Work Phone: [facility] 08-10-2021 13:05-0500 Respiratory rate 16 /min Liam Merino MD Work Phone: [facility] 08-10-2021 13:05-0500 SaO2% (BldA) [Mass fraction] 97 % Liam Merino MD Work Phone: [facility] 08-10-2021 13:05-0500 Systolic blood pressure 93 mm[Hg] Liam Merino MD Work Phone: [facility] 08-10-2021 13:00-0500 Body temperature 98.6 [degF] Liam Merino MD Work Phone: [facility] 08-10-2021 10:43-0500 Body height 152.4 cm Liam Merino MD Work Phone: [facility] 08-10-2021 10:43-0500 Body mass index (BMI) [Ratio] 38.86 kg/m2 Liam Merino MD Work Phone: [facility] 08-10-2021 10:43-0500 Body weight 90.27 kg Liam Merino MD Work Phone: [facility] 07-27-2021 12:40-0400 Diastolic blood pressure 69 mm[Hg] Liam Merino MD Work Phone: [facility] Work Phone: 07-27-2021 12:40-0400 Heart rate 98 /min Liam Merino MD Work Phone: [facility] Work Phone: 07-27-2021 12:40-0400 Respiratory rate 18 /min Liam Merino MD Work Phone: [facility] Work Phone: 07-27-2021 12:40-0400 SaO2% (BldA) [Mass fraction] 95 % Liam Merino MD Work Phone: [facility] Work Phone: 07-27-2021 12:40-0400 Systolic blood pressure 123 mm[Hg] Liam Merino MD Work Phone: [facility] Work Phone: 07-27-2021 12:10-0400 Body temperature 98.29 [degF] Liam Merino MD Work Phone: [facility] Work Phone: 07-27-2021 10:42-0400 Body height 152.4 cm Liam Merino MD Work Phone: [facility] Work Phone: 07-27-2021 10:42-0400 Body mass index (BMI) [Ratio] 38.86 kg/m2 Liam Merino MD Work Phone: [facility] Work Phone: 07-27-2021 10:42-0400 Body weight 90.27 kg Liam Merino MD Work Phone: [facility] Work Phone: 07-14-2021 12:55-0400 Heart rate 91 /min Liam Merino MD Work Phone: [facility] Work Phone: 07-14-2021 12:55-0400 Respiratory rate 11 /min Liam Merino MD Work Phone: [facility] Work Phone: 07-14-2021 12:55-0400 SaO2% (BldA) [Mass fraction] 96 % Liam Merino MD Work Phone: [facility] Work Phone: 07-14-2021 12:50-0400 Body temperature 98.1 [degF] Liam Merino MD Work Phone: [facility] Work Phone: 07-14-2021 12:50-0400 Diastolic blood pressure 118 mm[Hg] Liam Merino MD Work Phone: [facility] Work Phone: 07-14-2021 12:50-0400 Systolic blood pressure 171 mm[Hg] Liam Merino MD Work Phone: [facility] Work Phone: 07-14-2021 10:22-0400 Body height 152.4 cm Liam Merino MD Work Phone: [facility] Work Phone: 07-14-2021 10:22-0400 Body mass index (BMI) [Ratio] 38.86 kg/m2 Liam Merino MD Work Phone: [facility] Work Phone: 07-14-2021 10:22-0400 Body weight 90.27 kg Liam Merino MD Work Phone: [facility] Work Phone: 06-30-2021 09:45-0400 Diastolic blood pressure 86 mm[Hg] Liam Merino MD Work Phone: [facility] Work Phone: 06-30-2021 09:45-0400 Heart rate 86 /min Liam Merino MD Work Phone: [facility] Work Phone: 06-30-2021 09:45-0400 Respiratory rate 13 /min Liam Merino MD Work Phone: [facility] Work Phone: 06-30-2021 09:45-0400 SaO2% (BldA) [Mass fraction] 95 % Liam Merino MD Work Phone: [facility] Work Phone: 06-30-2021 09:45-0400 Systolic blood pressure 131 mm[Hg] Liam Merino MD Work Phone: [facility] Work Phone: 06-30-2021 07:50-0400 Body height 152.4 cm Liam Merino MD Work Phone: [facility] Work Phone: 06-30-2021 07:50-0400 Body mass index (BMI) [Ratio] 38.67 kg/m2 Liam Merino MD Work Phone: [facility] Work Phone: 06-30-2021 07:50-0400 Body temperature 98.01 [degF] Liam Merino MD Work Phone: [facility] Work Phone: 06-30-2021 07:50-0400 Body weight 89.81 kg Liam Merino MD Work Phone: [facility] Work Phone: 06-16-2021 12:50-0400 Diastolic blood pressure 117 mm[Hg] Liam Merino MD Work Phone: [facility] Work Phone: 06-16-2021 12:50-0400 Heart rate 94 /min Liam Merino MD Work Phone: [facility] Work Phone: 06-16-2021 12:50-0400 Respiratory rate 15 /min Liam Merino MD Work Phone: [facility] Work Phone: 06-16-2021 12:50-0400 SaO2% (BldA) [Mass fraction] 96 % Liam Merino MD Work Phone: [facility] Work Phone: 06-16-2021 12:50-0400 Systolic blood pressure 149 mm[Hg] Liam Merino MD Work Phone: [facility] Work Phone: 06-16-2021 12:20-0400 Body temperature 99.1 [degF] Liam Merino MD Work Phone: [facility] Work Phone: 06-16-2021 11:04-0400 Body height 152.4 cm Liam Merino MD Work Phone: [facility] Work Phone: 06-16-2021 11:04-0400 Body mass index (BMI) [Ratio] 38.67 kg/m2 Liam Merino MD Work Phone: [facility] Work Phone: 06-16-2021 11:04-0400 Body weight 89.81 kg Liam Merino MD Work Phone: [facility] Work Phone: Encounters Encounter Date Encounter Type Care Provider Facility Start: 03-18-2025 End: 03-18-2025 ambulatory Mora Mcgrath [facility] Start: 02-25-2025 End: 02-25-2025 ambulatory Mora Mcgrath Facility:[facility] Start: 02-23-2025 End: 02-23-2025 Emergency department patient visit PHYSICIAN [facility] Start: 02-15-2025 End: 02-15-2025 ambulatory Elizabeth Espinoza [employer] Facility:[facility] Start: 02-09-2025 End: 02-09-2025 ambulatory Elizabeth Espinoza [employer] Facility:[facility] Start: 02-01-2025 End: 02-01-2025 ambulatory Damian James Facility:[facility] Start: 01-29-2025 End: 01-29-2025 ambulatory DAMIAN JAMES MD Facility:[facility] Start: 01-29-2025 End: 01-29-[address] JUNAID ROSARIO DPM [facility] Start: 01-26-2025 End: 01-26-2025 ambulatory Damian James Facility:[facility] Start: 01-18-2025 End: 01-18-2025 ambulatory Mora CALVERT Facility:[facility] Start: 01-14-2025 End: 01-14-2025 ambulatory NONE PHYSICIAN Facility:[facility] Start: 01-11-2025 End: 01-11-2025 ambulatory Mora CALVERT Facility:[facility] Start: 01-11-2025 End: 01-11-2025 ambulatory Damian James Facility:[facility] Start: 01-04-2025 End: 01-04-2025 ambulatory Damian James Facility:[facility] Start: 12-28-2024 End: 12-28-2024 ambulatory Mora CALVERT Facility:[facility] Start: 12-26-2024 End: 12-26-2024 Emergency department patient visit Herman Islas Facility:[facility] Start: 12-24-2024 End: 12-24-2024 ambulatory Mateusz CALVERT Facility:[facility] Start: 12-14-2024 End: 12-14-2024 ambulatory Mora Mcgrath Facility:[facility] Start: 12-14-2024 End: 12-14-2024 ambulatory Damian James Facility:[facility] Start: 12-11-2024 End: 12-11-2024 Emergency department patient visit Yuri Watson Facility:[facility] Start: 12-07-2024 End: 12-07-2024 ambulatory Damian James Facility:[facility] Start: 12-05-2024 End: 12-05-2024 Emergency department patient visit Lawrence Bae Facility:[facility] Start: 11-24-2024 End: 11-24-2024 ambulatory Damian James Facility:[facility] Start: 11-10-2024 ambulatory Damina James Facility:[facility] Start: 10-27-2024 End: 10-27-2024 ambulatory Mora Mcgrath Facility:[facility] Start: 09-28-2024 End: 09-28-2024 ambulatory Marlena Sheffield Facility:[facility] Start: 09-01-2024 End: 09-01-2024 ambulatory Wilfred Estrada Facility:[facility] Start: 08-25-2024 End: 08-25-2024 ambulatory Mora L Seese Facility:[facility] Start: 07-31-2024 End: 07-31-2024 ambulatory EDY ROBERTS Facility:[facility] Start: 06-29-2024 End: 06-29-2024 ambulatory Mora L Seese Facility:[facility] Start: 06-02-2024 End: 06-02-2024 Emergency department patient visit Sallyeriberto Moreno Facility:[facility] Start: 05-27-2024 End: 05-27-2024 ambulatory Marlena Jimenezi Facility:[facility] Start: 05-22-2024 End: 05-22-2024 Emergency department patient visit Kenyon Kenneth Facility:[facility] Start: 05-21-2024 End: 05-21-2024 ambulatory Mora L Seese Facility:[facility] Start: 04-22-2024 End: 04-23-2024 ambulatory [facility] Facility:[facility] Start: 04-09-2024 End: 04-09-2024 ambulatory Mora L Seese Facility:[facility] Start: 12-31-2023 End: 01-01-2024 ambulatory [facility] Start: 11-15-2023 End: 11-15-2023 Subsequent hospital visit by physician Bentley Pacu Schedule [facility] Comment on above: Canceled (Case cance lled) Start: 11-08-2023 End: 11-09-2023 ambulatory DAMIAN Dejesus [facility] Start: 11-08-2023 End: 11-08-2023 Subsequent hospital visit by physician Bentley Pacu Schedule [facility] Start: 11-01-2023 End: [facility]: 05-22-[facility]23 End: 05-22-2023 Subsequent hospital visit by physician Bentley Pacu Schedule [facility] Comment on above: Canceled (Other) Start: 05-15-2023 End: 05-15-2023 Subsequent hospital visit by physician Bentley Pacu Schedule [facility] Comment on above: Canceled (Other) Start: 04-03-2023 End: 04-03-2023 [facility] Start: 04-03-2023 End: 04-03-2023 Subsequent hospital visit by physician Liam Merino MD Work Phone: [facility] Start: 02-27-2023 End: 02-27-2023 [facility] Start: 02-27-2023 End: 02-27-2023 Subsequent hospital visit by physician Liam Merino MD Work Phone: [facility] Comment on above: Arrived Start: 02-08-2023 End: 02-08-2023 [facility] Start: 02-08-2023 End: 02-08-2023 Subsequent hospital visit by physician Liam Merino MD Work Phone: [facility] Comment on above: Arrived Start: 01-25-2023 End: 01-25-2023 [facility] Start: 01-25-2023 End: 01-25-2023 Subsequent hospital visit by physician Liam Merino MD Work Phone: [facility] Comment on above: Arrived Start: 01-21-2023 End: 01-21-2023 [facility] Start: 01-21-2023 End: 01-21-2023 Subsequent hospital visit by physician Liam Merino MD Work Phone: [facility] Comment on above: Arrived Start: 01-14-2023 End: 01-18-2023 [facility] Start: 01-14-2023 End: 01-14-2023 [facility] Start: 01-14-2023 End: 01-14-2023 Subsequent hospital visit by physician Liam Merino MD Work Phone: [facility] Start: 01-11-2023 End: 01-11-2023 [facility] Start: 01-11-2023 End: 01-11-2023 Subsequent hospital visit by physician Liam Merino MD Work Phone: [facility] Start: 01-04-2023 End: 01-05-[address] [facility] Start: 01-04-2023 End: 01-04-2023 Subsequent hospital visit by physician Bentley Pacu Schedule [facility] Start: 12-28-2022 End: 12-28-2022 Subsequent hospital visit by physician Bentley Pacu Schedule [facility] Start: 12-21-2022 End: 12-21-2022 Subsequent hospital visit by physician Liam Merino MD Work Phone: [facility] Comment on above: Arrived Start: 08-02-2022 ambulatory UNKNOWN UNKNOWN Facilit y:[facility] Start: 08-02-2022 [facility] Start: 08-02-2022 Encounter for preprocedural laboratory examination [facility] Start: 07-24-2022 Office consultation new/estab patient 80 min Unknown Unknown [id number] [place] Work Phone: Start: 07-09-2022 End: 07-09-2022 Emergency department patient visit Dr. Damian James Work Phone: [facility] Start: 06-06-2022 End: 06-06-2022 Subsequent hospital visit by physician Liam Merino MD Work Phone: [facility] Comment on above: Arrived Start: 05-30-2022 End: 05-30-2022 Subsequent hospital visit by physician Liam Merino MD Work Phone: [facility] Comment on above: Arrived Start: 05-21-2022 End: 05-21-[address] Damian James Work Phone: [facility] Work Phone: Start: 05-21-2022 End: 05-21-[address] Damian James Work Phone: [facility] Start: 05-09-2022 End: 05-09-2022 Subsequent hospital visit by physician Liam Merino MD Work Phone: [facility] Comment on above: Arrived Start: 05-04-2022 End: 05-04-[address] Damian James Work Phone: [facility] Start: 05-03-2022 End: 05-03-[address] Damian James Work Phone: [facility] Start: 05-02-2022 End: 05-02-2022 Subsequent hospital visit by physician Liam Merino MD Work Phone: [facility] Comment on above: Arrived Start: 03-30-2022 End: 03-30-[address] Damian James Work Phone: [facility] Start: 03-28-2022 End: 03-28-2022 Subsequent hospital visit by physician Liam Merino MD Work Phone: [facility] Comment on above: Arrived Start: 03-07-2022 End: 03-07-2022 Subsequent hospital visit by physician Liam Merino MD Work Phone: [facility] Comment on above: Arrived Start: 01-26-2022 End: 01-26-[address] Damian James Work Phone: [facility] Start: 01-03-2022 End: 01-03-2022 Subsequent hospital visit by physician Liam Merino MD Work Phone: [facility] Comment on above: Arrived Start: 12-07-2021 End: 12-07-[address] Damian James Work Phone: [facility] Start: 12-06-2021 End: 12-06-2021 Subsequent hospital visit by physician Liam Merino MD Work Phone: [facility] Comment on above: Arrived Start: 10-25-2021 End: 10-25-2021 Subsequent hospital visit by physician Liam Merino MD Work Phone: [facility] Comment on above: Arrived Start: 10-25-2021 Non-patient / Non-visit Dr. Blake James Work Phone: [facility] Start: 10-24-2021 End: 10-24-[address] Damian James Work Phone: [facility] Services/Neurology Start: 10-11-2021 End: 10-11-2021 Subsequent hospital visit by physician Liam Merino MD Work Phone: [facility] Comment on above: Arrived Start: 09-14-2021 End: 09-14-2021 Subsequent hospital visit by physician Liam Merino MD Work Phone: [facility] Comment on above: Arrived Start: 08-10-2021 End: 08-10-2021 Subsequent hospital visit by physician Liam Merino MD Work Phone: [facility] Comment on above: Arrived Start: 07-27-2021 End: 07-27-2021 Subsequent hospital visit by physician Liam Merino MD Work Phone: [facility] Comment on above: Arrived Start: 07-14-2021 End: 07-14-2021 Subsequent hospital visit by physician Liam Merino MD Work Phone: [facility] Comment on above: Arrived Start: 06-30-2021 End: 06-30-2021 Subsequent hospital visit by physician Liam Merino MD Work Phone: [facility] Comment on above: Arrived Start: 06-16-2021 End: 06-16-2021 Subsequent hospital visit by physician Liam Merino MD Work Phone: [facility] Procedures Date Procedure Procedure Detail Performing Clinician Start: 01-11-2023 ARSENIO FOLEY MD Work Phone: Start: 03-30-2022 Complete x-ray serie s of lumbar spine with bending views Dr. Damian James Work Phone: Start: 10-25-2021 ARSENIO FOLEY MD Work Phone: Start: 10-11-2021 ARSENIO FOLEY MD Work Phone: Start: 04-27-2021 Solo patiño MD Work Phone: Plan of Treatment Date Care Activity Detail Author Start: 04-20-2032 DTaP/Tdap/Td vaccine (2 - Td or Tdap) DTaP/Tdap/Td vaccine (2 - Td or Tdap) [facility] Start: 04-27-2031 Screening for malignant neoplasm of colon [facility] Start: 11-08-2024 Depression Monitoring Depression Monitoring [facility] Start: 11-01-2024 Depression Monitoring Depression Monitoring [facility] Start: 05-28-2024 Depression Monitoring Depression Monitoring [facility] Start: 04-26-2024 Depression Monitoring Depression Monitoring [facility] Start: 01-16-2024 Lipid panel Lipids [facility] Start: 11-22-2023 End: 11-22-2023 Patient encounter procedure 11/22/2023 12:00 PM EST Appointment [facility] [address] [place] [id number] MERINO ELECTROCONVULSIVE THERAPY RIGHT UNILATERAL [facility] Comment on above: DR. MERINO ELECTROCONVULSIVE THERAPY RIGHT UNILATERAL Start: 11-20-2023 End: 11-20-2023 Patient encounter procedure 11/20/2023 12:00 PM EST Appointment [facility] [address] [place] [id number] (DR. LIAM MERINO) ELECTROCONVULSIVE THERAPY, RIGHT UNILATERAL [facility] Comment on above: (DR. LIAM MERINO) ELECTROCONVULSIVE THERAPY, RIGHT UNILATERAL Start: 11-13-2023 End: 11-13-2023 Patient encounter procedure 11/13/2023 12:10 PM EST Appointment [facility] [address] [place] [address] (DR. LIAM MERINO) ELECTROCONVULSIVE THERAPY, RIGHT UNILATERAL [facility] Comment on above: (DR. LIAM MERINO) ELECTROCONVULSIVE THERAPY, RIGHT UNILATERAL Start: 11-06-2023 End: 11-06-2023 Patient encounter procedure 11/06/2023 12:00 PM EST Appointment [facility] [address] [place] [address] (DR. LIAM MERINO) ELECTROCONVULSIVE THERAPY, RIGHT UNILATERAL [facility] Comment on above: (DR. LIAM MERINO) ELECTROCONVULSIVE THERAPY, RIGHT UNILATERAL Start: 11-01-2023 Subsequent hospital visit by physician 11/01/2023 12:10 PM EST Hospital Encounter [facility] [address] [place] [id number] [facility] Start: 09-30-2023 Annual Wellness Visit (Medicare Advantage) Annual Wellness Visit (Medicare Advantage) [facility] Start: 06-26-2023 End: 06-26-2023 Patient encounter procedure 06/26/2023 Appointment IP Unit [facility] Start: 06-12-2023 End: 06-12-2023 Patient encounter procedure 06/12/2023 Appointment IP Unit [facility] Start: 05-31-2023 COVID-19 Vaccine ( season) COVID-19 Vaccine () Lindsey Shell Start: 05-29-2023 End: 05-29-2023 Patient encounter procedure 05/29/2023 Appointment IP Unit [facility] Start: 05-22-2023 End: 05-22-2023 Patient encounter procedure 05/22/2023 Appointment IP Unit [facility] Start: 04-30-2023 Influenza vaccination Flu vaccine (#1) Lindsey Shell Start: 04-19-2023 End: 04-19-2023 Patient encounter procedure 04/19/2023 Appointment IP Unit [facility] Start: 04-05-2023 End: 04-05-2023 Patient encounter procedure 04/05/2023 Appointment IP Unit [facility] Start: 03-06-2023 End: 03-06-2023 Patient encounter procedure 03/06/2023 Appointment IP Unit [facility] Start: 03-01-2023 End: 03-01-2023 Patient encounter procedure 03/01/2023 Appointment IP Unit [facility] Start: 02-15-2023 End: 02-15-2023 Patient encounter procedure 02/15/2023 Appointment IP Unit [facility] Start: 01-25-2023 End: 01-25-2023 Patient encounter procedure 01/25/2023 Appointment IP Unit [facility] Start: 01-21-2023 End: 01-21-2023 Patient encounter procedure 01/21/2023 Appointment IP Unit [facility] Start: 01-18-2023 End: 01-18-2023 Patient encounter procedure 01/18/2023 Appointment IP Unit [facility] Start: 01-14-2023 End: 01-14-2023 Patient encounter procedure 01/14/2023 Appointment IP Unit [facility] Start: 01-07-2023 End: 01-07-2023 Patient encounter procedure 01/07/2023 Appointment IP Unit [facility] Start: 01-04-2023 End: 01-04-2023 Patient encounter procedure 01/04/2023 Appointment IP Unit [facility] Start: 08-07-2022 COVID-19 Vaccine (2 - Pfizer series) COVID-19 Vaccine (2 - Pfizer series) [facility] Start: 06-20-2022 End: 06-20-2022 Patient encounter procedure 06/20/2022 Appointment IP Unit [facility] Start: 06-06-2022 End: 06-06-2022 Patient encounter procedure 06/06/2022 Appointment IP Unit [facility] Start: 05-31-2022 Influenza vaccination Flu vaccine (#1) [facility] Start: 05-30-2022 End: 05-30-2022 Patient encounter procedure 05/30/2022 Appointment IP Unit [facility] Start: 05-23-2022 End: 05-23-2022 Patient encounter procedure 05/23/2022 Appointment IP Unit [facility] Start: 05-16-2022 End: 05-16-2022 Patient encounter procedure 05/16/2022 Appointment IP Unit [facility] Start: 05-02-2022 End: 05-02-2022 Patient encounter procedure 05/02/2022 Appointment IP Unit [facility] PACU Start: 04-04-2022 End: 04-04-2022 Patient encounter procedure 04/04/2022 Appointment IP Unit [facility] PACU Start: 03-21-2022 End: 03-21-2022 Patient encounter procedure 03/21/2022 Appointment [facility] PACU Start: 01-17-2022 End: 01-17-2022 Patient encounter procedure 01/17/2022 Appointment IP [facility] PACU Start: 01-03-2022 End: 01-03-2022 Patient encounter procedure 01/03/2022 Appointment IP Unit [facility] PACU Start: 12-20-2021 End: 12-20-2021 Patient encounter procedure 12/20/2021 Appointment IP Unit [facility] PACU Start: 11-23-2021 End: 11-23-2021 Patient encounter procedure 11/23/2021 Appointment IP [facility] PACU Start: 11-22-2021 End: 11-22-2021 Patient encounter procedure 11/22/2021 Appointment IP Unit [facility] PACU Start: 11-09-2021 End: 11-09-2021 Patient encounter procedure 11/09/2021 Appointment IP Unit [facility] PACU Start: 11-08-2021 End: 11-08-2021 Patient encounter procedure 11/08/2021 Appointment IP Unit [facility] PACU Start: 10-26-2021 End: 10-26-2021 Patient encounter procedure 10/26/2021 Appointment IP Unit [facility] PACU Start: 10-18-2021 Shingles Vaccine (2 of 2) Shingles Vaccine (2 of 2) [facility] Start: 09-28-2021 End: 09-28-2021 Patient encounter procedure 09/28/2021 Appointment IP Unit [facility] PACU Start: 09-27-2021 End: 09-27-2021 Patient encounter procedure 09/27/2021 Appointment IP [facility] PAC[facility] Start: 09-14-2021 End: 09-14-2021 Patient encounter procedure 09/14/2021 Appointment IP [facility] PACU Start: 08-31-2021 End: 08-31-2021 Patient encounter procedure 08/31/2021 Appointment IP Unit [facility] PACU Start: 08-22-2021 End: 08-22-2021 Patient encounter procedure 08/22/2021 Appointment IP [facility] PACU Start: 08-10-2021 End: 08-10-2021 Patient encounter procedure 08/10/2021 Appointment IP [facility] PACU Start: 07-28-2021 End: 07-28-2021 Patient encounter procedure 07/28/2021 Appointment IP [facility] PAC[facility] Start: 07-27-2021 End: 07-27-2021 Patient encounter procedure 07/27/2021 Appointment IP Unit [facility] PACU Start: 07-14-2021 End: 07-14-2021 Patient encounter procedure 07/14/2021 Appointment IP Unit [facility] PACU Start: 06-30-2021 End: 06-30-2021 Patient encounter procedure 06/30/2021 Appointment IP Unit [facility] PACU Start: 06-14-2021 Annual Wellness Visit (AWV) Annual Wellness Visit (AWV) [facility] Start: 05-31-2021 Influenza vaccination Flu vaccine (#1) [facility] Start: 2019 Screening for malignant neoplasm of breast Breast cancer screen [facility] Start: 2019 Shingles Vaccine (1 of 2) Shingles Vaccine (1 of 2) [facility] Start: 07-31-2015 DTaP/Tdap/Td vaccine (1 - Tdap) DTaP/Tdap/Td vaccine (1 - Tdap) [facility] Start: 2014 Screening for malignant neoplasm of colon [facility] Start: 2009 Diabetes screen Diabetes screen [facility] Start: 2009 Lipid panel Lipid screen [facility] Work Phone: Start: 2004 Diabetes screen Diabetes screen [facility] Start: 1999 Screening for malignant neoplasm of cervix [facility] Start: 1990 Screening for malignant neoplasm of cervix Pap smear [facility] Start: 1987 Hepatitis C screening Hepatitis C screen [facility] Start: 1984 HIV screening HIV screen [facility] Start: 1981 COVID-19 Vaccine (1) COVID-19 Vaccine (1) [facility] Start: 1981 Depression Monitoring Depression Monitoring [facility] Start: 1979 Lipid panel [facility] Start: 1975 Pneumococcal 0-64 years Vaccine (1 - PCV) Pneumococcal 0-64 years Vaccine (1 - PCV) [facility] Start: 1975 Pneumococcal 0-64 years Vaccine (1 of 2 - PPSV23) Pneumococcal 0-64 years Vaccine (1 of 2 - PPSV23) [facility] Start: 1974 COVID-19 Vaccine (1) COVID-19 Vaccine (1) [facility] Start: 01-11-1970 COVID-19 Vaccine (#1) COVID-19 Vaccine (#1) [facility] [employer] Start: 1969 Annual Wellness Visit (AWV) Annual Wellness Visit (AWV) [facility] Start: 1970 Hepatitis B vaccine (1 of 3 - 3-dose series) Hepatitis B vaccine (1 of 3 - 3-dose series) [facility] Start: 1970 Hepatitis C screening Hepatitis C screen [facility] End: 01-14-2023 COVID-19, Rapid [facility] [employer] Phone: Comment on above: One Time for 1 Occurrences starting 12/29 until 01/14/2023 EEG REPORT EEG REPORT Neuro logy Ordered: 04/08/2023 [facility] [employer] Comment on above: Ordered: 04/08/2023 End: 01-14-2023 EKG 12 lead EKG 12 lead ECG Routine One Time for 1 Occurrences starting 01/14/2023 until 01/14/2023 [facility] Phone: Comment on above: One Time for 1 Occurrences starting 12/29 until 01/14/2023 End: 01-11-2023 Glucose [Mass/volume] in Serum or Plasma POCT Glucose Point of Care Testing Routine One Time for 1 Occurrences starting 01/11/2023 until 01/11/2023 [facility] Phone: Comment on above: One Time for 1 Occurrences starting 12/29 until 01/11/2023 Glucose [Mass/volume ] in Serum or Plasma POCT Glucose Point of Care Testing STAT As Needed until discontinued starting 01/14/2023 [facility] Phone: Comment on above: As Needed until discontinued starting End: 12-21-2022 INITIATE PACU OXYGEN THERAPY PROTOCOL Initiate PACU Oxygen Therapy Protocol Respiratory Care Routine Continuous until discontinued starting 12/21/2022 [facility] Phone: Comment on above: Continuous until discontinued starting 0 12/21/2022 End: 01-11-2023 INITIATE PACU OXYGEN THERAPY PROTOCOL Initiate PACU Oxygen Therapy Protocol Respiratory Care Routine Continuous until discontinued starting 01/11/2023 [facility] Phone: Comment on above: Continuous until discontinued starting 0 01/11/2023 End: 01-14-2023 INITIATE PACU OXYGEN THERAPY PROTOCOL Initiate PACU Oxygen Therapy Protocol Respiratory Care Routine Continuous until discontinued starting 01/14/2023 [facility] Phone: Comment on above: Continuous until discontinued starting 0 01/14/2023 End: 04-03-2023 INITIATE PACU OXYGEN THERAPY PROTOCOL Initiate PACU Oxygen Therapy Protocol Respiratory Care Routine Continuous until discontinued starting 04/03/2023 [facility] Phone: Comment on above: Continuous until discontinued starting 0 04/03/2023 End: 06-30-2021 Intermittent pulse oximetry Pulse Oximetry Spot Check Respiratory Care Routine One Time for 1 Occurrences starting 06/30/2021 until 06/30/2021 [employer] Phone: Comment on above: One Time for 1 Occurrences starting 09/2020 until 06/30/2021 End: 01-15-2023 Lipid panel Lipid Panel Lab Routine Tomorrow AM for 1 Occurrences starting 01/15/2023 until 01/15/2023 [facility] Phone: Comment on above: Tomorrow AM for 1 Occurrences starting 0 01/15/2023 until 01/15/2023 Oxygen therapy [Mini mum Data Set] [employer] Phone: Comment on above: Daily until discontinued starting 2020 Daily until disconti nued starting 06/30/2021 Oxygen therapy [Mini mum Data Set] Initiate Oxygen Therapy Protocol Respiratory Care Routine Daily until discontinued starting 08/10/2021 [employer] Phone: Comment on above: Daily until discontinued starting 2020 Oxygen therapy [Mini mum Data Set] Initiate Oxygen Therapy Protocol Respiratory Care Routine Daily until discontinued starting 10/11/2021 [employer] Phone: Comment on above: Daily until discontinued starting 2021 Oxygen therapy [Mini mum Data Set] Initiate Oxygen Therapy Protocol Respiratory Care Routine As Needed until discontinued starting 12/21/2022 [facility] [employer] Phone: Comment on above: As Needed until discontinued starting Oxygen therapy [Mini mum Data Set] Initiate Oxygen Therapy Protocol Respiratory Care Routine As Needed until discontinued starting 01/25/2023 [facility] [employer] Phone: Comment on above: As Needed until discontinued starting Patient Education Stress Relief: Activities ED Alcohol Intoxication [facility] Work Phone: Patient referral [facility] Work Phone: Phase I & II - meter ed glucose [employer] Phone: Comment on above: As Needed until discontinued starting As Needed until disc ontinued starting 07/14/2021 Phase I & II - meter ed glucose Phase I & II - metered glucose Point of Care Testing Routine As Needed until discontinued starting 08/10/2021 [employer] Phone: Comment on above: As Needed until discontinued starting Phase I & II - meter ed glucose Phase I & II - metered glucose Point of Care Testing Routine As Needed until discontinued starting 10/11/2021 [employer] Phone: Comment on above: As Needed until discontinued starting Spirometry panel Incentive kaylan metry Respiratory Care Routine Every 2hr while awake until discontinued starting 01/11/20[address] JOHANN VICENTE [facility] Work Phone: Comment on above: Every 2hr while awake until discontinued starting 01/11/2023 Immunizations Immunization Date Immunization Notes Care Provider [facility] 07-30-2015 tetanus and diphther ia toxoids, adsorbed, preservative free, for adult use (2 Lf of tetanus toxoid and 2 Lf of diphtheria toxoid) Dr. Damian James Work Phone: [facility] Work Phone: Payers Date Payer Category Payer Unknown 2024 Unknown [id number] 2024 Unknown [id number] 2024 Unknown [id number] 2024 Private Health Insurance [id number] 2024 Self-pay [id number] 2020 Medicaid [id number] 2017 Medicare [id number] 2017 Medicaid [id number] 2015 Medicare [id number] 2014 Medicare [id number] 1969 Unknown [id number] 2.16. 840.1.153780.3.579.2.356 1969 Unknown [id number] 2.16.8 40.1.900657.3.579.2.182 1969 Unknown [id number] 2.16.8 40.1.282403.3.579.2.182 1969 Unknown [id number] 2.16.8 40.1.925725.3.579.2.182 1969 Unknown [id number] 2.16.8 40.1.864054.3.579.2.182 1969 Unknown [id number] 2.16.8 40.1.997653.3.579.2.182 1969 Unknown [id number] .16.8 40.1.564849.3.579.2.182 1969 Unknown [id number] .16.8 40.1.545619.3.579.2.182 1969 Unknown [id number] 2.16.8 40.1.197399.3.579.2.182 1969 Unknown [id number] 2.16.8 40.1.199233.3.579.2.182 1969 Unknown [id number] 2.16.8 40.1.751157.3.579.2.182 1969 Unknown [id number] 2.16.8 40.1.309004.3.579.2.182 1969 Unknown [id number] 2.16.8 40.1.710988.3.579.2.182 1969 Unknown [id number] .16.8 40.1.540367.3.579.2.627 1969 Unknown [id number] 2.16.8 40.1.802134.3.579.2.627 1969 Unknown [id number] .16. 840.1.090644.3.579.2.903 Unknown [id number] 2.16.8 40.1.613972.3.579.2.462 Unknown [id number] 2.16.8 40.1.489541.3.579.2.462 Unknown [id number] .16.8 40.1.259948.3.579.2.462 Unknown [id number] 2.16.8 40.1.046414.3.579.2.462 Unknown [id number] 2.16.8 40.1.583136.3.579.2.462 Unknown [id number] 2.16.8 40.1.561351.3.579.2.462 Unknown [id number] 2.16.8 40.1.551282.3.579.2.462 Unknown [id number] 2.16.8 40.1.850325.3.579.2.462 Unknown [id number] 2.16.8 40.1.123417.3.579.2.462 Unknown [id number] 2.16.8 40.1.259425.3.579.2.462 Unknown [id number] 2.16.8 40.1.318948.3.579.2.462 Unknown [id number] 2.16.8 40.1.721557.3.579.2.462 Unknown [id number] 2.16.8 40.1.805680.3.579.2.462 Unknown [id number] 2.16.8 40.1.191629.3.579.2.462 Unknown [id number] 2.16.8 40.1.258063.3.579.2.462 Unknown [id number] 2.16.8 40.1.403806.3.579.2.462 Unknown [id number] 2.16.8 40.1.710302.3.579.2.462 Unknown [id number] 2.16.8 40.1.250714.3.579.2.462 Unknown [id number] 2.16.8 40.1.927255.3.579.2.462 Unknown [id number] 2.16.8 40.1.895424.3.579.2.462 Unknown [id number] 2.16.8 40.1.194732.3.579.2.462 Unknown [id number] 2.16.8 40.1.851767.3.579.2.462 Unknown [id number] 2.16.8 40.1.703615.3.579.2.462 Unknown [id number] 2.16.8 40.1.261698.3.579.2.462 Unknown [id number] 2.16.8 40.1.903681.3.579.2.462 Unknown [id number] 2.16.8 40.1.948986.3.579.2.462 Unknown [id number] 2.16.8 40.1.650736.3.579.2.462 Unknown [id number] 2.16.8 40.1.736157.3.579.2.462 Unknown [id number] 2.16.8 40.1.348602.3.579.2.462 Unknown [id number] 2.16.8 40.1.439742.3.579.2.462 Unknown [id number] 2.16.8 40.1.037858.3.579.2.462 Unknown [id number] 2.16.8 40.1.270504.3.579.2.462 Unknown [id number] 2.16.8 40.1.668184.3.579.2.462 Unknown [id number] 2.16.8 40.1.162906.3.579.2.462 Social History Date Type Detail Facility Start: 06-16-2021 End: 07-09-2022 Tobacco smoking status NMIS Unknown if ever smoked [employer] Phone: Start: 1970 Sex Assigned At Not on file [facility] Phone: Start: 12-24-2021 End: 01-14-2023 Exposure to SARS-CoV-2 (event) Not sure [facility] Start: 06-30-2021 End: 01-21-2023 Tobacco smoking status NMIS Current every day smoker [facility] Start: 06-30-2021 End: 01-21-2023 Tobacco use and exposure Never used [facility] Start: 07-14-2021 End: 04-29-2023 Alcohol intake Current drinker of alcohol (finding) [facility] Work Phone: Start: 07-14-2021 Alcohol Comment [facility] Work Phone: Start: 1970 Sex Assigned At Female A [facility] Start: 01-14-2023 History SDOH Alcohol Frequency 4 [facility] Work Phone: Start: 01-14-2023 History SDOH Alcohol Std Drinks 2 Lindsey Shell Work Phone: Start: 01-14-2023 End: 11-08-2023 History of Social function [place] Start: 01-14-2023 End: 11-08-2023 Alcohol Use Disorder Identification Test - Consumption [AUDIT-C] [facility] How often to you hav e a drink containing alcohol? 2-3 time sa week Lindsey Shell How many standard dr inks containing alcohol do you have on a typical day? 3 or 4 Lindsey [facility] How often do you hav e 6 or more drinks on 1 occasion? Less than monthly [facility] Patient Health Questionnaire 9 item (PHQ-9) total score [Reported] 2 Lindsey Shell Tobacco smoking status [facility] Start: 01-11-2025 Sex Female (finding) [facility] Clinical Notes 04-11-2021 to 11-08-2023 Discharge InstructionsLynnette Fontaine RN - 11/08/2023 10:45 AM Lynnette Faust RN - 04/03/2023 12:58 PM Haily Beavers RN - 04/03/2023 12:45 PM EDTDischarge InstructionsAttachments Note Date & Type Note Facility 11-08-2023 Hospital Discharge instructions Haily Puentes RN - 11/08/2023 12:50 PM EST [facility] DISCHARGE INSTRUCTIONS Please arrive at the Outpatient Surgery Entrance at 1015am on the day of your ECT. Check in at the Welcome Desk. Our address is [address] [place] [address]. You will need to arrange transportation to and from the hospital for all outpatient ECT treatments. You can not drive yourself home from ECT. 1. Diet - Nothing to eat or drink after midnight the night of your ECT treatment. After ECT, start with clear liquids, if you can drink without coughing, you may proceed with gradually progressing to your usual diet. No alcoholic beverages for 24 hours. 2. Medications - Take your daily medications as prescribed, after you return home from today's ECT. If you take a Beta Migdalia or have been prescribed Imitrex, you may be instructed to take these medications the morning of ECT. If you are unsure please ask the physician. Bring a current list of your medications, including dosages with you to every ECT treatment. Take these medications the morning of ECT with one Tablespoon of water. 2. 3. 3. You may experience the following after your treatment: a. Poor memory b. Poor balance c. Headaches d. Confusion e. Muscle soreness f. Nausea 4. Special Precautions - Contact you physician immediately if these occur: a. Signs of infection: redness, swelling, heat, red streaks at the site of the IV b. Excessive pain unrelieved by prescription pain medications c. Nausea and vomiting that persists beyond the first day after your procedure 5. Activity - Rest today. The anesthetic agents you have received can make you feel drowsy or tired. A responsible person must drive you home and stay with you for 8 hours after discharge from the Hospital. Do not drive a motor vehicle or operate any machinery for 24 hours. . *Do not make any complex decisions or execute any legal documents until 3 weeks AFTER your last treatment. If you have any questions regarding this, speak with your psychiatrist first.* If you feel you are having a problem or complication from your ECT treatments and it is during normal business hours call Lynnette Fontaine RN, ECT Coordinator at . If it is after normal business hours, please call [facility] at to speak with a nurse, or go to your nearest emergency room. If you need to schedule, reschedule or cancel an appointment, please call Lynnette Fontaine RN, ECT Coordinator at . In order for our department to provide the best possible care, we request at least 24 hours notice if you need to cancel your ECT procedure. If you are more than 15 minutes late for your procedure it may be necessary for us to cancel and reschedule for a different day. If you cancel your procedure late or do not show for your scheduled ECT three time, no additional ECT appointments will be scheduled and treatment will be terminated. documented in this encounter [facility] 11-08-2023 History of Present illness Narrative Pt denies SI, HI, and self harm thoughts/behaviors. Admits to PDW thoughts one to two times per day. Reports sleep of 4 hours at night, she wakes about 3am and can not go back to sleep. She took 1/2 an Ambien and woke thinking bugs were on me and itching but I looked and found nothing. Rates anxiety 8/10, depression 5/10. Pt reports forgetfulness, shakiness, visual hallucination of ants or dots that are not really there, and still hearing voices. Dr. Merino made aware. documented in this encounter [facility] 04-03-2023 History of Present illness Narrative Pt denies SI, HI, PDW and self harm thoughts/behaviors. Reports poor sleep of only 2 hours at a time. Pt states she is fatigued during the day if she takes the Atarax and the Ambien. Dr. Merino made aware. Rates anxiety 4/10, depression 5/10. Report new medication of Wellbutrin that she took for 3 days for smoking cessation. Pr experienced visual hallucinations of stationary objects in motion, she also was looking for her SO who is in a usp and when she could not find him in the house she drove to the hospital looking for him. Dr. Merino instructed pt to stop the Wellbutrin, pt verbalized understanding. Pt recently took a trip to [place] to see her brother and said it was a nice experience. Events log for pre and post ECT Pre-procedure in at [id number] in PACU 1230 PACU care complete at Discharge instructions given and pt verbalized understanding. Pt states she understands her medications and denies any questions. 1245 Pt discharged from procedure area, ambulatory with steady gait with RN to pickle processor area. Pt's daughter driving. IV started. Pt tolerated well. 0.9NS infusing for 500cc bolus per ECT protocol per Lynnette SOTELO Pt in pre-procedure, brought glasses, purse, phone, clothing, shoes and upper and lower dentures. Dentures removed for procedure. Pt wearing ring and necklace. Pt denies any cold/covid symptoms and denies being around person with known covid. Pt has traveled to [place] last week. Pt states she is through menopause so urine test not given. documented in this encounter [facility] 04-03-2023 Hospital Discharge instructions Haily Puentes RN - 04/03/2023 12:32 PM EDT [facility] DISCHARGE INSTRUCTIONS Please arrive at the Outpatient Surgery Entrance at 1015am on the day of your ECT. Check in at the Welcome Desk. Our address is [address] [place] [address]. You will need to arrange transportation to and from the hospital for all outpatient ECT treatments. You can not drive yourself home from ECT. 1. Diet - Nothing to eat or drink after midnight the night of your ECT treatment. After ECT, start with clear liquids, if you can drink without coughing, you may proceed with gradually progressing to your usual diet. No alcoholic beverages for 24 hours. 2. Medications - Take your daily medications as prescribed, after you return home from today's ECT. If you take a Beta Migdalia or have been prescribed Imitrex, you may be instructed to take these medications the morning of ECT. If you are unsure please ask the physician. Bring a current list of your medications, including dosages with you to every ECT treatment. Take these medications the morning of ECT with one Tablespoon of water. 2. 3. 3. You may experience the following after your treatment: a. Poor memory b. Poor balance c. Headaches d. Confusion e. Muscle soreness f. Nausea 4. Special Precautions - Contact you physician immediately if these occur: a. Signs of infection: redness, swelling, heat, red streaks at the site of the IV b. Excessive pain unrelieved by prescription pain medications c. Nausea and vomiting that persists beyond the first day after your procedure 5. Activity - Rest today. The anesthetic agents you have received can make you feel drowsy or tired. A responsible person must drive you home and stay with you for 8 hours after discharge from the Hospital. Do not drive a motor vehicle or operate any machinery for 24 hours. . *Do not make any complex decisions or execute any legal documents until 3 weeks AFTER your last treatment. If you have any questions regarding this, speak with your psychiatrist first.* If you feel you are having a problem or complication from your ECT treatments and it is during normal business hours call Lynnette Fontaine RN, ECT Coordinator at . If it is after normal business hours, please call [facility] at to speak with a nurse, or go to your nearest emergency room. If you need to schedule, reschedule or cancel an appointment, please call Lynnette Fontaine RN, ECT Coordinator at . The following attachments cannot be sent through Care Everywhere.[place] ([place]ic)documented in this encounter [facility] 02-27-2023 History of Present illness Narrative Pt alert, getting dressed Pt alert, dc instructions given to pt, verbalized understanding, pt texting dtr for ride documented in this encounter [facility] Work Phone: 02-27-2023 Hospital Discharge instructions Lillie Beckford RN - 02/27/2023 11:53 AM EDT [facility] DISCHARGE INSTRUCTIONS Please arrive at the Outpatient Surgery Entrance at 1015am on the day of your ECT. Check in at the [place] Desk. Our address is [address] [place] [address]. You will need to arrange transportation to and from the hospital for all outpatient ECT treatments. You can not drive yourself home from ECT. 1. Diet - Nothing to eat or drink after midnight the night of your ECT treatment. After ECT, start with clear liquids, if you can drink without coughing, you may proceed with gradually progressing to your usual diet. No alcoholic beverages for 24 hours. 2. Medications - Take your daily medications as prescribed, after you return home from today's ECT. If you take a Beta Migdalia or have been prescribed Imitrex, you may be instructed to take these medications the morning of ECT. If you are unsure please ask the physician. Bring a current list of your medications, including dosages with you to every ECT treatment. Take these medications the morning of ECT with one Tablespoon of water. 2. 3. 3. You may experience the following after your treatment: a. Poor memory b. Poor balance c. Headaches d. Confusion e. Muscle soreness f. Nausea 4. Special Precautions - Contact you physician immediately if these occur: a. Signs of infection: redness, swelling, heat, red streaks at the site of the IV b. Excessive pain unrelieved by prescription pain medications c. Nausea and vomiting that persists beyond the first day after your procedure 5. Activity - Rest today. The anesthetic agents you have received can make you feel drowsy or tired. A responsible person must drive you home and stay with you for 8 hours after discharge from the Hospital. Do not drive a motor vehicle or operate any machinery for 24 hours. . *Do not make any complex decisions or execute any legal documents until 3 weeks AFTER your last treatment. If you have any questions regarding this, speak with your psychiatrist first.* If you feel you are having a problem or complication from your ECT treatments and it is during normal business hours call Lynnette Fontaine RN, ECT Coordinator at . If it is after normal business hours, please call [facility] at to speak with a nurse, or go to your nearest emergency room. If you need to schedule, reschedule or cancel an appointment, please call Lynnette Fontaine RN, ECT Coordinator at . documented in this encounter [employer] [employer] Work Phone: 01-25-2023 History of Present illness Narrative Tolerated ECT without incident. documented in this encounter [facility] [employer] Phone: 01-25-2023 Hospital Discharge instructions Salina Chapa RN - 01/25/2023 12:15 PM EDT ELECTROCONVULSIVE THERAPY DISCHARGE INSTRUCTIONS Please arrive at the Outpatient Surgery Entrance at 1015am on the day of your ECT. Check in at the Welcome Desk. Our address is [address] [place] [address]. You will need to arrange transportation to and from the hospital for all outpatient ECT treatments. You can not drive yourself home from ECT. 1. Diet - Nothing to eat or drink after midnight the night of your ECT treatment. After ECT, start with clear liquids, if you can drink without coughing, you may proceed with gradually progressing to your usual diet. No alcoholic beverages for 24 hours. 2. Medications - Take your daily medications as prescribed, after you return home from today's ECT. If you take a Beta Migdalia or have been prescribed Imitrex, you may be instructed to take these medications the morning of ECT. If you are unsure please ask the physician. Bring a current list of your medications, including dosages with you to every ECT treatment. Take these medications the morning of ECT with one Tablespoon of water. 2. 3. 3. You may experience the following after your treatment: a. Poor memory b. Poor balance c. Headaches d. Confusion e. Muscle soreness f. Nausea 4. Special Precautions - Contact you physician immediately if these occur: a. Signs of infection: redness, swelling, heat, red streaks at the site of the IV b. Excessive pain unrelieved by prescription pain medications c. Nausea and vomiting that persists beyond the first day after your procedure 5. Activity - Rest today. The anesthetic agents you have received can make you feel drowsy or tired. A responsible person must drive you home and stay with you for 8 hours after discharge from the Hospital. Do not drive a motor vehicle or operate any machinery for 24 hours. . *Do not make any complex decisions or execute any legal documents until 3 weeks AFTER your last treatment. If you have any questions regarding this, speak with your psychiatrist first.* If you feel you are having a problem or complication from your ECT treatments and it is during normal business hours call Lynnette Fontaine RN, ECT Coordinator at . If it is after normal business hours, please call [facility] at to speak with a nurse, or go to your nearest emergency room. If you need to schedule, reschedule or cancel an appointment, please call Lynnette Fontaine RN, ECT Coordinator at . documented in this encounter [employer] Phone: 01-14-2023 History of Present illness Narrative Pt denies HI and self harm thoughts/behaviors. Admits to SI with plan to OD on her pills, no intent, PDW thoughts that she doesn't want to wake up in the am, Visual hallucinations of zig zaggs that become intense and smoke in the periphery. Reports waking every 2 hours at night and sleeping only until 2 or 3 am. Rates anxiety 10+/10, depression 7/10. He is having boughts of crying which is unusual for her and she is isolating from family and friends. documented in this encounter [employer] Phone: 01-11-2023 History of Present illness Narrative Disch iNst given waiting on ride. Pt denies SI, HI, and self harm thoughts/behaviors. Pt admits to PDW thoughts like I can't do this anymore and to visual hallucinations of seeing smoke in the periphery and of zig zags that come and go but are very intense when they appear. Reports sleep of very few hours at night with no daytime naps. States last night she was up at 2am and could not go back to sleep. Rates anxiety 05/09, depression 6-05/09. documented in this encounter [facility] [employer] Phone: 01-11-2023 Hospital Discharge instructions Seema Figueroa RN - 01/11/2023 12:43 PM EDT ELECTROCONVULSIVE THERAPY DISCHARGE INSTRUCTIONS Please arrive at the Outpatient Surgery Entrance at 1015am on the day of your ECT. Check in at the Welcome Desk. Our address is [address] [place] [address]. You will need to arrange transportation to and from the hospital for all outpatient ECT treatments. You can not drive yourself home from ECT. 1. Diet - Nothing to eat or drink after midnight the night of your ECT treatment. After ECT, start with clear liquids, if you can drink without coughing, you may proceed with gradually progressing to your usual diet. No alcoholic beverages for 24 hours. 2. Medications - Take your daily medications as prescribed, after you return home from today's ECT. If you take a Beta Migdalia or have been prescribed Imitrex, you may be instructed to take these medications the morning of ECT. If you are unsure please ask the physician. Bring a current list of your medications, including dosages with you to every ECT treatment. Take these medications the morning of ECT with one Tablespoon of water. 2. 3. 3. You may experience the following after your treatment: a. Poor memory b. Poor balance c. Headaches d. Confusion e. Muscle soreness f. Nausea 4. Special Precautions - Contact you physician immediately if these occur: a. Signs of infection: redness, swelling, heat, red streaks at the site of the IV b. Excessive pain unrelieved by prescription pain medications c. Nausea and vomiting that persists beyond the first day after your procedure 5. Activity - Rest today. The anesthetic agents you have received can make you feel drowsy or tired. A responsible person must drive you home and stay with you for 8 hours after discharge from the Hospital. Do not drive a motor vehicle or operate any machinery for 24 hours. . *Do not make any complex decisions or execute any legal documents until 3 weeks AFTER your last treatment. If you have any questions regarding this, speak with your psychiatrist first.* If you feel you are having a problem or complication from your ECT treatments and it is during normal business hours call Lynnette Fontaine RN, ECT Coordinator at . If it is after normal business hours, please call [facility] at to speak with a nurse, or go to your nearest emergency room. If you need to schedule, reschedule or cancel an appointment, please call Lynnette Fontaine RN, ECT Coordinator at . documented [facility] this encounter [facility] [employer] Work Phone: 01-04-2023 History of Present illness Narrative 1140 - discharge instructions provided to patient - confirmed with Lynnette that patient's next ECT will be SaturdayJanuary 07 and will be admitted at that time. Patient had no further questions or concerns at this time. 1145 - Patient getting dressed 1150 - Pt using bathroom 1152 - Pt ambulated out of short stay to car with daughter Pt denies SI, HI, AVH, PDW and self harm thoughts/behaviors. States she has intrusive thoughts and feels like giving up. Reports waking every 2 hours in the night, is currently taking Trazadone 150mg qhs. Rates anxiety 10, depression 5-6. documented in this encounter [facility] [employer] Phone: 01-04-2023 Hospital Discharge instructions Adelia Worthy RN - 01/04/2023 11:28 AM EDT ELECTROCONVULSIVE THERAPY DISCHARGE INSTRUCTIONS Please arrive at the Outpatient Surgery Entrance at 1015am on the day of your ECT. Check in at the Welcome Desk. Our address is [address] [place] [address]. You will need to arrange transportation to and from the hospital for all outpatient ECT treatments. You can not drive yourself home from ECT. 1. Diet - Nothing to eat or drink after midnight the night of your ECT treatment. After ECT, start with clear liquids, if you can drink without coughing, you may proceed with gradually progressing to your usual diet. No alcoholic beverages for 24 hours. 2. Medications - Take your daily medications as prescribed, after you return home from today's ECT. If you take a Beta Migdalia or have been prescribed Imitrex, you may be instructed to take these medications the morning of ECT. If you are unsure please ask the physician. Bring a current list of your medications, including dosages with you to every ECT treatment. Take these medications the morning of ECT with one Tablespoon of water. 2. 3. 3. You may experience the following after your treatment: a. Poor memory b. Poor balance c. Headaches d. Confusion e. Muscle soreness f. Nausea 4. Special Precautions - Contact you physician immediately if these occur: a. Signs of infection: redness, swelling, heat, red streaks at the site of the IV b. Excessive pain unrelieved by prescription pain medications c. Nausea and vomiting that persists beyond the first day after your procedure 5. Activity - Rest today. The anesthetic agents you have received can make you feel drowsy or tired. A responsible person must drive you home and stay with you for 8 hours after discharge from the Hospital. Do not drive a motor vehicle or operate any machinery for 24 hours. . *Do not make any complex decisions or execute any legal documents until 3 weeks AFTER your last treatment. If you have any questions regarding this, speak with your psychiatrist first.* If you feel you are having a problem or complication from your ECT treatments and it is during normal business hours call Lynnette Fontaine RN, ECT Coordinator at . If it is after normal business hours, please call [facility] at to speak with a nurse, or go to your nearest emergency room. If you need to schedule, reschedule or cancel an appointment, please call Lynnette Fontaine RN, ECT Coordinator at . documented in this encounter [employer] Phone: 12-28-2022 History of Present illness Narrative Pt denies SI,HI, positive voices, describes them as sounding like echos. Anxiety 7/10 and depression 6/10 with 10 being the worst. Pt talked with Dr Merino about medications and her feelings, pt was added for ECT Saturday and Saturday. Pt aware. documented in this encounter [employer] Phone: 12-28-2022 Hospital Discharge instructions Bay Ramos RN - 12/28/2022 12:14 PM EDT ELECTROCONVULSIVE THERAPY DISCHARGE INSTRUCTIONS Please arrive at the Outpatient Surgery Entrance at 1015am on the day of your ECT. Check in at the Welcome Desk. Our address is [address] [place] [address]. You will need to arrange transportation to and from the hospital for all outpatient ECT treatments. You can not drive yourself home from ECT. 1. Diet - Nothing to eat or drink after midnight the night of your ECT treatment. After ECT, start with clear liquids, if you can drink without coughing, you may proceed with gradually progressing to your usual diet. No alcoholic beverages for 24 hours. 2. Medications - Take your daily medications as prescribed, after you return home from today's ECT. If you take a Beta Migdalia or have been prescribed Imitrex, you may be instructed to take these medications the morning of ECT. If you are unsure please ask the physician. Bring a current list of your medications, including dosages with you to every ECT treatment. Take these medications the morning of ECT with one Tablespoon of water. 2. 3. 3. You may experience the following after your treatment: a. Poor memory b. Poor balance c. Headaches d. Confusion e. Muscle soreness f. Nausea 4. Special Precautions - Contact you physician immediately if these occur: a. Signs of infection: redness, swelling, heat, red streaks at the site of the IV b. Excessive pain unrelieved by prescription pain medications c. Nausea and vomiting that persists beyond the first day after your procedure 5. Activity - Rest today. The anesthetic agents you have received can make you feel drowsy or tired. A responsible person must drive you home and stay with you for 8 hours after discharge from the Hospital. Do not drive a motor vehicle or operate any machinery for 24 hours. . *Do not make any complex decisions or execute any legal documents until 3 weeks AFTER your last treatment. If you have any questions regarding this, speak with your psychiatrist first.* If you feel you are having a problem or complication from your ECT treatments and it is during normal business hours call Lynnette Fontaine RN, ECT Coordinator at . If it is after normal business hours, please call [facility] at to speak with a nurse, or go to your nearest emergency room. If you need to schedule, reschedule or cancel an appointment, please call Lynnette Fontaine RN, ECT Coordinator at . documented in this encounter [employer] Phone: 12-21-2022 History of Present illness Narrative Discharge instructions given, patient verbalized understanding. 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 Check in at the Welcome Desk. Our address is [address] [place] [address]. You will need to arrange transportation to and from the hospital for all outpatient ECT treatments. You can not drive yourself home from ECT. 1. Diet - Nothing to eat or drink after midnight the night of your ECT treatment. After ECT, start with clear liquids, if you can drink without coughing, you may proceed with gradually progressing to your usual diet. No alcoholic beverages for 24 hours. 2. Medications - Take your daily medications as prescribed, after you return home from today's ECT. If you take a Beta Migdalia or have been prescribed Imitrex, you may be instructed to take these medications the morning of ECT. If you are unsure please ask the physician. Bring a current list of your medications, including dosages with you to every ECT treatment. Take these medications the morning of ECT with one Tablespoon of water. 2. 3. 3. You may experience the following after your treatment: a. Poor memory b. Poor balance c. Headaches d. Confusion e. Muscle soreness f. Nausea 4. Special Precautions - Contact you physician immediately if these occur: a. Signs of infection: redness, swelling, heat, red streaks at the site of the IV b. Excessive pain unrelieved by prescription pain medications c. Nausea and vomiting that persists beyond the first day after your procedure 5. Activity - Rest today. The anesthetic agents you have received can make you feel drowsy or tired. A responsible person must drive you home and stay with you for 8 hours after discharge from the Hospital. Do not drive a motor vehicle or operate any machinery for 24 hours. . *Do not make any complex decisions or execute any legal documents until 3 weeks AFTER your last treatment. If you have any questions regarding this, speak with your psychiatrist first.* If you feel you are having a problem or complication from your ECT treatments and it is during normal business hours call Lynnette Fontaine RN, ECT Coordinator at . If it is after normal business hours, please call [facility] at to speak with a nurse, or go to your nearest emergency room. If you need to schedule, reschedule or cancel an appointment, please call Lynnette Fontaine RN, ECT Coordinator at . documented in this encounter [facility] [employer] Work Phone: 10-12-2022 Note History of Present I llness: /Lactating: Are You no (1) Are You Currently Breastfeedingno Admission Reason: ECT HPI: LAZARO NARANJO is a 52 year old Female Presented today for maintenance ECT No changes in health High cholesterol GERD Thyroid disease Allergies: cortisone: Rash Medications Prior to Admission: Admission Medication Reconciliation has not been completed for this patient. Review of Systems: Constitutional: NEGATIVE: Fever, Chills, Anorexia, Weight Loss, Malaise Eyes: NEGATIVE: Blurry Vision, Drainage, Diploplia, Redness, Vision Loss/ Change ENMT: NEGATIVE: Nasal Discharge, Nasal Congestion, Ear Pain, Mouth Pain, Throat Pain Respiratory: NEGATIVE: Dry Cough, Productive Cough, Hemoptysis, Wheezing, Shortness of Breath Cardiac: NEGATIVE: Chest Pain, Dyspnea on Exertion, Orthopnea, Palpitations, Syncope Gastrointestinal: NEGATIVE: Nausea, Vomiting, Diarrhea, Constipation, Abdominal Pain Genitourinary: NEGATIVE: Discharge, Dysuria, Flank Pain, Frequency, Hematuria Musculoskeletal: NEGATIVE: Decreased ROM, Pain, Swelling, Stiffness, Weakness Neurological: NEGATIVE: Dizziness, Confusion, Headache, Seizures, Syncope Psychiatric: POSITIVE: Mood Changes, Anxiety; NEGATIVE: Hallucinations, Sleep Changes, Suicidal Ideas Skin: NEGATIVE: Mass, Pain, Pruritus, Rash, Ulcer Endocrine: NEGATIVE: Heat Intolerance, Cold Intolerance, Sweat, Polyuria, Thirst Hematologic/Lymph: NEGATIVE: Anemia, Bruising, Easy Bleeding, Night Sweats, Petechiae Allergic/Immunologic: NEGATIVE: Anaphylaxis, Itchy/ Teary Eyes, Itching, Sneezing, Swelling Breast: NEGATIVE: Pain, Mass, Discharge, Nipple Itching, Gynecomastia Objective: Objective Information: Pain reported at 10/12 8:33: 0 = None Physical Exam Narrative: Physical Exam: 52 yo female with PMHx of GERD, HLD and hypothyroidism and PPHx of Schizoaffective disorder, depressive type is her today for ECT recurring maintenance treatment. Takes her meds as prescribed. Denies SOB, f/c, palpations, lightheadness or chest pain. 12 point review of systems including (Constitutional, Eyes, ENMT, Respiratory, Cardiac, Gastrointestinal, Neurological, Psychiatric, and Hematologic) was performed and is otherwise negative. Medications were reviewed. Allergies were reviewed. BP 122/84, HR 81, RR 16 SPO2 98% Smokes 1pk/day for >20 years. Denies D/D Assessment and Plan: Assessment: Plan Pt seen and examined in ECT room. Doing well. No complaints. No new medical issues since last ECT. No new medication changes. Plan: Proceed with ECT Electronic Signatures: Enma Santillan) (Signed 12-Oct-2022 09:00) Authored: History of Present Illness, Comorbidities, Allergies, Medications Prior to Admission, Review of Systems, Objective, Assessment and Plan, Note Completion Last Updated: 12-Oct-2022 09:00 by Enma Santillan) References: 1. Data Referenced From Patient Profile - Procedure 12-Oct-2022 08:41 [facility] 09-19-2022 Note History & Physical R eviewed: /Lactating: Are You no (1) Are You Currently Breastfeedingno I have reviewed the History and Physical dated: 05-Sep-2022 History and Physical reviewed and relevant findings noted. Patient examined to review pertinent physical findings.: No significant changes Home Medications Reviewed: no changes noted Allergies Reviewed: no changes noted ERAS (Enhanced Recovery After Surgery): ERAS Patient: no Consent: COVID-19 Consent: COVID-19 Risk ConsentSurgeon has reviewed nunn risks related to the risk of roberto COVID-19 and if they contract COVID-19 what the risks are. Electronic Signatures: Enma Santillan) (Signed 19-Sep-2022 11:39) Authored: History & Physical Reviewed, ERAS, Consent, Note Completion Last Updated: 19-Sep-2022 11:39 by Enma Santillan) References: 1. Data Referenced From Patient Profile - Procedure 19-Sep-2022 09:40 [facility] 07-24-2022 Chief complaint Narrative - Reported An interactive audio and video telecommunication system which permits real time communications between the patient (at the originating site) and provider (at the distant site) was utilized to provide this telehealth service.Verbal consent was requested and obtained from LAZARO NARANJO on this date, 07/24/2022 10:30 AM , for a telehealth visit.My WEDDING DESIGNER (Ms. Adkins) wanted me to have an evaluation for ECTshe is aware of the risk for potential HIPAA violationverified with her home address and last 4 digits SS#started at 10:20 am, ended at 11:53 amspent additional 10 minutes for documentation [employer] Work Phone: 06-06-2022 History of Present illness Narrative 1215-Discharge instructions given with a verbal understanding. documented in this encounter [facility] Work Phone: 06-06-2022 Hospital Discharge instructions Julianne Barber RN - 06/06/2022 12:02 PM EDT ELECTROCONVULSIVE THERAPY DISCHARGE INSTRUCTIONS Please arrive at the Outpatient Surgery Entrance at 1015am on the day of your ECT. Check in at the Welcome Desk. Our address is [address] [place] [address]. You will need to arrange transportation to and from the hospital for all outpatient ECT treatments. You can not drive yourself home from ECT. 1. Diet - Nothing to eat or drink after midnight the night of your ECT treatment. After ECT, start with clear liquids, if you can drink without coughing, you may proceed with gradually progressing to your usual diet. No alcoholic beverages for 24 hours. 2. Medications - Take your daily medications as prescribed, after you return home from today's ECT. If you take a Beta Migdalia or have been prescribed Imitrex, you may be instructed to take these medications the morning of ECT. If you are unsure please ask the physician. Bring a current list of your medications, including dosages with you to every ECT treatment. Take these medications the morning of ECT with one Tablespoon of water. 2. 3. 3. You may experience the following after your treatment: a. Poor memory b. Poor balance c. Headaches d. Confusion e. Muscle soreness f. Nausea 4. Special Precautions - Contact you physician immediately if these occur: a. Signs of infection: redness, swelling, heat, red streaks at the site of the IV b. Excessive pain unrelieved by prescription pain medications c. Nausea and vomiting that persists beyond the first day after your procedure 5. Activity - Rest today. The anesthetic agents you have received can make you feel drowsy or tired. A responsible person must drive you home and stay with you for 8 hours after discharge from the Hospital. Do not drive a motor vehicle or operate any machinery for 24 hours. . *Do not make any complex decisions or execute any legal documents until 3 weeks AFTER your last treatment. If you have any questions regarding this, speak with your psychiatrist first.* If you feel you are having a problem or complication from your ECT treatments and it is during normal business hours call Lynnette Fontaine RN, ECT Coordinator at . If it is after normal business hours, please call [facility] at to speak with a nurse, or go to your nearest emergency room. If you need to schedule, reschedule or cancel an appointment, please call Lynnette Fontaine RN, ECT Coordinator at . documented in this encounter [facility] [employer] Work Phone: 05-31-2022 History of Present illness Narrative She said she had ECT with Dr. Kidd before, and has had ECT treatment at [facility] for a year, but she was not happy service provided over there wanted to switch her treatment to . She said she has family members at the area and asked her WEDDING DESIGNER made this referral. The last time ECT was in May.she said she felt very depressed again for about a month. she said she felt depressed daily most of the time with severity of 7 of 10. ten was worst. also felt hopeless and helpless sometimes. she said she heard voices to tell her to kill herself again for a month. she said she did not want to kill herself. She said she heard voices when she was not depression in the past. She said the voices got worse when she was depressed. She heard voices insider her head now, but heard voices from outside her head in the past when she was very depressed. she said her depression started first. did not hear voices when she did not have depression. denied HI/VH or paranoia. still enjoyed playing cards and walking. had problem with falling and staying asleep. slept about 4-6 hours per night. did not feel rested in the morning. no energy during daytime. concentration was poor, able to read for a few minutes. no change in appetite. weight varied. also felt irritable, but not yell, curse, or scream.currently Effexor 75 mg/d for a monthHaldol 7.5 mg/d for 4 monthstrazodone 100 mg/d for sleepLamotrigine 25 mg/d, just startedHydroxyzine 50 mg TID PRNable to take care of herself most of the time; able to work for several weeks.PPHx: hospitalized 10 times due to depression and psychosis, the last time was in 2014; SA - once with OD, another one was aborted. She was on a bridge, but police stopped her. last time was about in 2014; first depression was 17 yo after her mother . she said she started hearing voices when she was 22 yo and hospitalized at . She said she had periods of feeling normal. she said she felt normal from 1997 - 2002 and had three children. did not heard voices during that period. denied having manic/hypomanic sx. saw many psychiatrists. saw therapists before.PMHx: hypothyroidism with Levothyroxine;no DM, heart disease, asthma, COPD, seizure or head injuryno problem withe eyes, ears, nose, or throat; basal cell cancer on left lower eyelid with surgeryno SOB or chest pain. no HTNno sxno GI sxmigraine and tension headache with medication, the last time was yesterday; low back pain with medication no other neuro sxarthritis on fingers, wrists, knees, and neck.no blood problemno other skin problemno autoimmune diseaseAll: NKDA, was confused and scared with ketamine during ECTMeds: tried Prozac, did not workZoloft - did not workLexapro - worked for a short periodPaxil - did not workLuvox - did not workWellbutrin - helped and liked it, but did not know why was discontinuedRemeron - helped her sleep for a little whileElavil - did not workDepakote - did not workAbility + ?? headachesSeroquel - too sleepyLatuda - sounds Efrain, Shane,FHx: mother - depressed, from cancer; no fx of bipolar disorder, mother - alcoholism; no drug problem. no fx of Conor fx of sudden deathno fx of heart attackmother - strokebrother - DM type I, had seizure related to DMno fx of seizureSocHx: born in [place] and raised in [place]; has 7 brothers, she is the second youngest. a happy childhood. no hx of abuse, but a lot guilt as a [employer]. some college, but not college; was an average student when she was in ; socially, was adequate and had friends. for 10 years and , has 3 children (24, 23, 21); has a boyfriend for 6 years; worked through many [employer] jobs; longest one was 8-10 ys; has been on SSD for almost 20 years. currently living with her boyfriend in a penit[facility]iary place. getting along with her boyfriend.LegHx: deniedSurgHx: had surgery and ECT; received medication for headache and nauseahad BL and RUL ECT at [facility] [place], [id number] [place] Work Phone: 05-30-2022 History of Present illness Narrative Pt given dc instructions and educated on how Dr Merino changed her prescription order for trazodone. Pt verbalized understanding. Pt ambulatory with steady gait to daughter's car in the turnabout. documented in this encounter [facility] Work Phone: 05-30-2022 Hospital Discharge instructions Rae Young RN - 05/30/2022 12:26 PM EDT ELECTROCONVULSIVE THERAPY DISCHARGE INSTRUCTIONS Please arrive at the Outpatient Surgery Entrance at 1015am on the day of your ECT. Check in at the Welcome Desk. Our address is [address] [place] [address]. You will need to arrange transportation to and from the hospital for all outpatient ECT treatments. You can not drive yourself home from ECT. 1. Diet - Nothing to eat or drink after midnight the night of your ECT treatment. After ECT, start with clear liquids, if you can drink without coughing, you may proceed with gradually progressing to your usual diet. No alcoholic beverages for 24 hours. 2. Medications - Take your daily medications as prescribed, after you return home from today's ECT. If you take a Beta Migdalia or have been prescribed Imitrex, you may be instructed to take these medications the morning of ECT. If you are unsure please ask the physician. Bring a current list of your medications, including dosages with you to every ECT treatment. Take these medications the morning of ECT with one Tablespoon of water. 2. 3. 3. You may experience the following after your treatment: a. Poor memory b. Poor balance c. Headaches d. Confusion e. Muscle soreness f. Nausea 4. Special Precautions - Contact you physician immediately if these occur: a. Signs of infection: redness, swelling, heat, red streaks at the site of the IV b. Excessive pain unrelieved by prescription pain medications c. Nausea and vomiting that persists beyond the first day after your procedure 5. Activity - Rest today. The anesthetic agents you have received can make you feel drowsy or tired. A responsible person must drive you home and stay with you for 8 hours after discharge from the Hospital. Do not drive a motor vehicle or operate any machinery for 24 hours. . *Do not make any complex decisions or execute any legal documents until 3 weeks AFTER your last treatment. If you have any questions regarding this, speak with your psychiatrist first.* If you feel you are having a problem or complication from your ECT treatments and it is during normal business hours call Lynnette Fontaine RN, ECT Coordinator at . If it is after normal business hours, please call [facility] at to speak with a nurse, or go to your nearest emergency room. If you need to schedule, reschedule or cancel an appointment, please call Lynnette Fontaine RN, ECT Coordinator at . documented in this encounter [facility] [employer] Phone: 05-09-2022 History of Present illness Narrative Discharge instrucgtions reviewed wit pt, verbalized unerstanding, pt discharged into rs care with steady gait documented in this encounter [facility] [employer] Phone: 05-09-2022 Hospital Discharge instructions Tony Hagen RN - 05/09/2022 12:04 PM EDT ELECTROCONVULSIVE THERAPY DISCHARGE INSTRUCTIONS Please arrive at the Outpatient Surgery Entrance at 1015am on the day of your ECT. Check in at the [place] Desk. Our address is [address] [place] [address]. You will need to arrange transportation to and from the hospital for all outpatient ECT treatments. You can not drive yourself home from ECT. 1. Diet - Nothing to eat or drink after midnight the night of your ECT treatment. After ECT, start with clear liquids, if you can drink without coughing, you may proceed with gradually progressing to your usual diet. No alcoholic beverages for 24 hours. 2. Medications - Take your daily medications as prescribed, after you return home from today's ECT. If you take a Beta Migdalia or have been prescribed Imitrex, you may be instructed to take these medications the morning of ECT. If you are unsure please ask the physician. Bring a current list of your medications, including dosages with you to every ECT treatment. Take these medications the morning of ECT with one Tablespoon of water. 2. 3. 3. You may experience the following after your treatment: a. Poor memory b. Poor balance c. Headaches d. Confusion e. Muscle soreness f. Nausea 4. Special Precautions - Contact you physician immediately if these occur: a. Signs of infection: redness, swelling, heat, red streaks at the site of the IV b. Excessive pain unrelieved by prescription pain medications c. Nausea and vomiting that persists beyond the first day after your procedure 5. Activity - Rest today. The anesthetic agents you have received can make you feel drowsy or tired. A responsible person must drive you home and stay with you for 8 hours after discharge from the Hospital. Do not drive a motor vehicle or operate any machinery for 24 hours. . *Do not make any complex decisions or execute any legal documents until 3 weeks AFTER your last treatment. If you have any questions regarding this, speak with your psychiatrist first.* If you feel you are having a problem or complication from your ECT treatments and it is during normal business hours call Lynnette Fontaine RN, ECT Coordinator at . If it is after normal business hours, please call [facility] at to speak with a nurse, or go to your nearest emergency room. If you need to schedule, reschedule or cancel an appointment, please call Lynnette Fontaine RN, ECT Coordinator at . documented [facility] Work Phone: 05-02-2022 Hospital Discharge instructions Rae Young RN - 05/02/2022 1:18 PM EDT ELECTROCONVULSIVE THERAPY DISCHARGE INSTRUCTIONS Please arrive at the Outpatient Surgery Entrance at 1015am on the day of your ECT. Check in at the Welcome Desk. Our address is [address] [place] [address]. You will need to arrange transportation to and from the hospital for all outpatient ECT treatments. You can not drive yourself home from ECT. 1. Diet - Nothing to eat or drink after midnight the night of your ECT treatment. After ECT, start with clear liquids, if you can drink without coughing, you may proceed with gradually progressing to your usual diet. No alcoholic beverages for 24 hours. 2. Medications - Take your daily medications as prescribed, after you return home from today's ECT. If you take a Beta Migdalia or have been prescribed Imitrex, you may be instructed to take these medications the morning of ECT. If you are unsure please ask the physician. Bring a current list of your medications, including dosages with you to every ECT treatment. Take these medications the morning of ECT with one Tablespoon of water. 2. 3. 3. You may experience the following after your treatment: a. Poor memory b. Poor balance c. Headaches d. Confusion e. Muscle soreness f. Nausea 4. Special Precautions - Contact you physician immediately if these occur: a. Signs of infection: redness, swelling, heat, red streaks at the site of the IV b. Excessive pain unrelieved by prescription pain medications c. Nausea and vomiting that persists beyond the first day after your procedure 5. Activity - Rest today. The anesthetic agents you have received can make you feel drowsy or tired. A responsible person must drive you home and stay with you for 8 hours after discharge from the Hospital. Do not drive a motor vehicle or operate any machinery for 24 hours. . *Do not make any complex decisions or execute any legal documents until 3 weeks AFTER your last treatment. If you have any questions regarding this, speak with your psychiatrist first.* If you feel you are having a problem or complication from your ECT treatments and it is during normal business hours call Lynnette Fontaine RN, ECT Coordinator at . If it is after normal business hours, please call [facility] at to speak with a nurse, or go to your nearest emergency room. If you need to schedule, reschedule or cancel an appointment, please call Lynnette Fontaine RN, ECT Coordinator at . documented in this encounter [employer] Phone: 05-02-2022 History of Present illness Narrative Pt denies SI, HI, and self harm thoughts/behaviors. Admits to auditory hallucinations that are derogatory, telling her she is a bad sister. Denies VH. Admits to PDW and wanting ti be with her mother and father that have . Pt has 7 brothers. One brother last week and his was Saturday. He lived in [place] and she did not visit him, she feels guilty about this. Reports sleep of 8 hours at night with no daytime naps and reports waking less than 2 times a night, sometimes she does not wake at all. Rates anxiety 8/10, depression 7/10. documented in this encounter [employer] Phone: 03-28-2022 History of Present illness Narrative Pt alert stable, iv dc'd pt up and getting dressed Pt alert, texting dtr for ride, dc instructions given to pt, verbalized understanding, Lynnette RN at [facility] talking with pt Pt denies SI, HI, AVH, PDW and self harm thoughts/behaviors. Reports good sleep. Rates anxiety 5/10, depression 0/10. documented in this encounter [facility] [employer] Phone: 03-07-2022 Hospital Discharge instructions Lillie Beckford RN - 03/07/2022 ELECTROCONVULSIVE THERAPY DISCHARGE INSTRUCTIONS Please arrive at the Outpatient Surgery Entrance at 1015am on the day of your ECT. Check in at the Welcome Desk. Our address is [address] [place] [address]. You will need to arrange transportation to and from the hospital for all outpatient ECT treatments. You can not drive yourself home from ECT. 1. Diet Nothing to eat or drink after midnight the night of your ECT treatment. After ECT, start with clear liquids, if you can drink without coughing, you may proceed with gradually progressing to your usual diet. No alcoholic beverages for 24 hours. 2. Medications Take your daily medications as prescribed, after you return home from today's ECT. If you take a Beta Migdalia or have been prescribed Imitrex, you may be instructed to take these medications the morning of ECT. If you are unsure please ask the physician. Bring a current list of your medications, including dosages with you to every ECT treatment. Take these medications the morning of ECT with one Tablespoon of water. 1. 2. 3. 3. You may experience the following after your treatment: a. Poor memory b. Poor balance c. Headaches d. Confusion e. Muscle soreness f. Nausea 4. Special Precautions Contact you physician immediately if these occur: a. Signs of infection: redness, swelling, heat, red streaks at the site of the IV b. Excessive pain unrelieved by prescription pain medications c. Nausea and vomiting that persists beyond the first day after your procedure 5. Activity Rest today. The anesthetic agents you have received can make you feel drowsy or tired. A responsible person must drive you home and stay with you for 8 hours after discharge from the Hospital. Do not drive a motor vehicle or operate any machinery for 24 hours. . *Do not make any complex decisions or execute any legal documents until 3 weeks AFTER your last treatment. If you have any questions regarding this, speak with your psychiatrist first.* If you feel you are having a problem or complication from your ECT treatments and it is during normal business hours call Lynnette Fontaine RN, ECT Coordinator at . If it is after normal business hours, please call [facility] at to speak with a nurse, or go to your nearest emergency room. If you need to schedule, reschedule or cancel an appointment, please call Lynnette Fontaine RN, ECT Coordinator at . documented in this encounter [facility] [employer] Work Phone: 03-07-2022 History of Present illness Narrative Pt sitting up in cart and placing dentures in her mouth Pt denies SI, HI, PDW and self harm thoughts/behaviors. Pt admits to AVH. Reports hearing things she can't make out and seeing flashed. This happens sometimes. Reports sleep of 2 hours at a time. She is taking 1/2 of a Trazadone at night. Rates anxiety 6/10, depression 4/10. 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 But she is making an effort to spend time with family and get out to see friends. documented in this encounter [facility] [employer] Phone: 01-03-2022 Hospital Discharge instructions Zeinab Segura RN - 01/03/2022 ELECTROCONVULSIVE THERAPY DISCHARGE INSTRUCTIONS Please arrive at the Outpatient Surgery Entrance at 1015am on the day of your ECT. Check in at the Welcome Desk. 1. Activity Rest today. The anesthetic agents you have received can make you feel drowsy or tired. A responsible person must drive you home and stay with you for 8 hours after discharge from the Hospital. Do not drive a motor vehicle or operate any machinery for 24 hours. . *Do not make any complex decisions or execute any legal documents until 3 weeks AFTER your last treatment. If you have any questions regarding this, speak with your psychiatrist first.* 2. Diet Nothing to eat or drink after midnight the night of your ECT treatment. After ECT, start with clear liquids, if you can drink without coughing, you may proceed with gradually progressing to your usual diet. No alcoholic beverages for 24 hours. 3. Medications Take your daily medications as prescribed, after you return home from today's ECT. If you take a Beta Migdalia or have been prescribed Imitrex, you may be instructed to take these medications the morning of ECT. If you are unsure please ask the physician. Take with these medication the morning of ECT with one Tablespoon of water. 1. 2. 3. 4. You may experience the following after your treatment: a. Poor memory b. Poor balance c. Headaches d. Confusion e. Muscle soreness f. Nausea 5. Special Precautions Contact you physician immediately if these occur: a. Signs of infection: redness, swelling, heat, red streaks at the site of the IV b. Excessive pain unrelieved by prescription pain medications c. Nausea and vomiting that persists beyond the first day after your procedure If you feel you are having a problem or complication from your ECT treatments and it is during normal business hours call Lynnette Fontaine RN, ECT Coordinator at . If it is after normal business hours please call [facility] at to speak with a nurse, or go to your nearest emergency room. If you need to schedule, reschedule or cancel an appointment, please call Lynnette Fontaine RN, ECT Coordinator at . You will need to arrange transportation to and from the hospital for all outpatient ECT treatments. Bring a current list of your medications, including dosages with you to every ECT treatment. documented in this encounter [employer] Phone: 10-25-2021 Hospital Discharge instructions Kayleigh Coronel RN - 10/25/2021 ELECTROCONVULSIVE THERAPY DISCHARGE INSTRUCTIONS Please arrive at the Outpatient Surgery Entrance at 1015am on the day of your ECT. Check in at the Welcome Desk. 1. Activity Rest today. The anesthetic agents you have received can make you feel drowsy or tired. A responsible person must drive you home and stay with you for 8 hours after discharge from the Hospital. Do not drive a motor vehicle or operate any machinery for 24 hours. . *Do not make any complex decisions or execute any legal documents until 3 weeks AFTER your last treatment. If you have any questions regarding this, speak with your psychiatrist first.* 2. Diet Nothing to eat or drink after midnight the night of your ECT treatment. After ECT, start with clear liquids, if you can drink without coughing, you may proceed with gradually progressing to your usual diet. No alcoholic beverages for 24 hours. 3. Medications Take your daily medications as prescribed, after you return home from today's ECT. If you take a Beta Migdalia or have been prescribed Imitrex, you may be instructed to take these medications the morning of ECT. If you are unsure please ask the physician. Take with these medication the morning of ECT with one Tablespoon of water. 1. 2. 3. 4. You may experience the following after your treatment: a. Poor memory b. Poor balance c. Headaches d. Confusion e. Muscle soreness f. Nausea 5. Special Precautions Contact you physician immediately if these occur: a. Signs of infection: redness, swelling, heat, red streaks at the site of the IV b. Excessive pain unrelieved by prescription pain medications c. Nausea and vomiting that persists beyond the first day after your procedure If you feel you are having a problem or complication from your ECT treatments and it is during normal business hours call Lynnette Fontaine RN, ECT Coordinator at . If it is after normal business hours please call [facility] [employer] [facility] at to speak with a nurse, or go to your nearest emergency room. If you need to schedule, reschedule or cancel an appointment, please call Lynnette Fontaine RN, ECT Coordinator at . You will need to arrange transportation to and from the hospital for all outpatient ECT treatments. Bring a current list of your medications, including dosages with you to every ECT treatment. 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 Check in at the Welcome Desk. 1. Activity Rest today. The anesthetic agents you have received can make you feel drowsy or tired. A responsible person must drive you home and stay with you for 8 hours after discharge from the Hospital. Do not drive a motor vehicle or operate any machinery for 24 hours. . *Do not make any complex decisions or execute any legal documents until 3 weeks AFTER your last treatment. If you have any questions regarding this, speak with your psychiatrist first.* 2. Diet Nothing to eat or drink after midnight the night of your ECT treatment. After ECT, start with clear liquids, if you can drink without coughing, you may proceed with gradually progressing to your usual diet. No alcoholic beverages for 24 hours. 3. Medications Take your daily medications as prescribed, after you return home from today's ECT. If you take a Beta Migdalia or have been prescribed Imitrex, you may be instructed to take these medications the morning of ECT. If you are unsure please ask the physician. Take with these medication the morning of ECT with one Tablespoon of water. 1. 2. 3. 4. You may experience the following after your treatment: a. Poor memory b. Poor balance c. Headaches d. Confusion e. Muscle soreness f. Nausea 5. Special Precautions Contact you physician immediately if these occur: a. Signs of infection: redness, swelling, heat, red streaks at the site of the IV b. Excessive pain unrelieved by prescription pain medications c. Nausea and vomiting that persists beyond the first day after your procedure If you feel you are having a problem or complication from your ECT treatments and it is during normal business hours call Lynnette Fontaine RN, ECT Coordinator at . If it is after normal business hours please call [facility] at to speak with a nurse, or go to your nearest emergency room. If you need to schedule, reschedule or cancel an appointment, please call Lynnette Fontaine RN, ECT Coordinator at . You will need to arrange transportation to and from the hospital for all outpatient ECT treatments. Bring a current list of your medications, including dosages with you to every ECT treatment. documented in this encounter [employer] Phone: 09-14-2021 History of Present illness Narrative Discharge instructions reviewed with pt, verbalized understanding. Pt ambulating with steady gait documented in this encounter [employer] Phone: 09-14-2021 Hospital Discharge instructions Tony Hagen RN - 09/14/2021 ELECTROCONVULSIVE THERAPY DISCHARGE INSTRUCTIONS Please arrive at the Outpatient Surgery Entrance at 1015am on the day of your ECT. Check in at the Welcome Desk. 1. Activity Rest today. The anesthetic agents you have received can make you feel drowsy or tired. A responsible person must drive you home and stay with you for 8 hours after discharge from the Hospital. Do not drive a motor vehicle or operate any machinery for 24 hours. . *Do not make any complex decisions or execute any legal documents until 3 weeks AFTER your last treatment. If you have any questions regarding this, speak with your psychiatrist first.* 2. Diet Nothing to eat or drink after midnight the night of your ECT treatment. After ECT, start with clear liquids, if you can drink without coughing, you may proceed with gradually progressing to your usual diet. No alcoholic beverages for 24 hours. 3. Medications Take your daily medications as prescribed, after you return home from today's ECT. If you take a Beta Migdalia or have been prescribed Imitrex, you may be instructed to take these medications the morning of ECT. If you are unsure please ask the physician. Take with these medication the morning of ECT with one Tablespoon of water. 1. 2. 3. 4. You may experience the following after your treatment: a. Poor memory b. Poor balance c. Headaches d. Confusion e. Muscle soreness f. Nausea 5. Special Precautions Contact you physician immediately if these occur: a. Signs of infection: redness, swelling, heat, red streaks at the site of the IV b. Excessive pain unrelieved by prescription pain medications c. Nausea and vomiting that persists beyond the first day after your procedure If you feel you are having a problem or complication from your ECT treatments and it is during normal business hours call Lynnette Fontaine RN, ECT Coordinator at . If it is after normal business hours please call [facility] at to speak with a nurse, or go to your nearest emergency room. If you need to schedule, reschedule or cancel an appointment, please call Lynnette Fontaine RN, ECT Coordinator at . You will need to arrange transportation to and from the hospital for all outpatient ECT treatments. Bring a current list of your medications, including dosages with you to every ECT treatment. documented in this encounter [employer] Phone: 08-10-2021 History of Present illness Narrative [id number] - discharge instructions provided to patient by DEEPAK Carney. Patient ambulated out of short stay to ride. documented in this encounter [employer] Phone: 08-10-2021 Hospital Discharge instructions Adelia Worthy RN - 08/10/2021 ELECTROCONVULSIVE THERAPY DISCHARGE INSTRUCTIONS Please arrive at the Outpatient Surgery Entrance at 1015am on the day of your ECT. Check in at the Welcome Desk. 1. Activity Rest today. The anesthetic agents you have received can make you feel drowsy or tired. A responsible person must drive you home and stay with you for 8 hours after discharge from the Hospital. Do not drive a motor vehicle or operate any machinery for 24 hours. . *Do not make any complex decisions or execute any legal documents until 3 weeks AFTER your last treatment. If you have any questions regarding this, speak with your psychiatrist first.* 2. Diet Nothing to eat or drink after midnight the night of your ECT treatment. After ECT, start with clear liquids, if you can drink without coughing, you may proceed with gradually progressing to your usual diet. No alcoholic beverages for 24 hours. 3. Medications Take your daily medications as prescribed, after you return home from today's ECT. If you take a Beta Migdalia or have been prescribed Imitrex, you may be instructed to take these medications the morning of ECT. If you are unsure please ask the physician. Take with these medication the morning of ECT with one Tablespoon of water. 1. 2. 3. 4. You may experience the following after your treatment: a. Poor memory b. Poor balance c. Headaches d. Confusion e. Muscle soreness f. Nausea 5. Special Precautions Contact you physician immediately if these occur: a. Signs of infection: redness, swelling, heat, red streaks at the site of the IV b. Excessive pain unrelieved by prescription pain medications c. Nausea and vomiting that persists beyond the first day after your procedure If you feel you are having a problem or complication from your ECT treatments and it is during normal business hours call Lynnette Fontaine RN, ECT Coordinator at . If it is after normal business hours please call [facility] at to speak with a nurse, or go to your nearest emergency room. If you need to schedule, reschedule or cancel an appointment, please call Lynnette Fontaine RN, ECT Coordinator at . You will need to arrange transportation to and from the hospital for all outpatient ECT treatments. Bring a current list of your medications, including dosages with you to every ECT treatment. documented in this encounter [employer] Phone: 07-27-2021 History of Present illness Narrative Discharge instructions given, patient verbalized understanding. documented in this encounter [employer] Phone: 07-27-2021 Hospital Discharge instructions Rae Young RN - 07/27/2021 ELECTROCONVULSIVE THERAPY DISCHARGE INSTRUCTIONS Please arrive at the Outpatient Surgery Entrance at 1015am on the day of your ECT. Check in at the Welcome Desk. 1. Activity Rest today. The anesthetic agents you have received can make you feel drowsy or tired. A responsible person must drive you home and stay with you for 8 hours after discharge from the Hospital. Do not drive a motor vehicle or operate any machinery for 24 hours. . *Do not make any complex decisions or execute any legal documents until 3 weeks AFTER your last treatment. If you have any questions regarding this, speak with your psychiatrist first.* 2. Diet Nothing to eat or drink after midnight the night of your ECT treatment. After ECT, start with clear liquids, if you can drink without coughing, you may proceed with gradually progressing to your usual diet. No alcoholic beverages for 24 hours. 3. Medications Take your daily medications as prescribed, after you return home from today's ECT. If you take a Beta Migdalia or have been prescribed Imitrex, you may be instructed to take these medications the morning of ECT. If you are unsure please ask the physician. Take with these medication the morning of ECT with one Tablespoon of water. 1. 2. 3. 4. You may experience the following after your treatment: a. Poor memory b. Poor balance c. Headaches d. Confusion e. Muscle soreness f. Nausea 5. Special Precautions Contact you physician immediately if these occur: a. Signs of infection: redness, swelling, heat, red streaks at the site of the IV b. Excessive pain unrelieved by prescription pain medications c. Nausea and vomiting that persists beyond the first day after your procedure If you feel you are having a problem or complication from your ECT treatments and it is during normal business hours call Lynnette Fontaine RN, ECT Coordinator at . If it is after normal business hours please call [facility] at to speak with a nurse, or go to your nearest emergency room. If you need to schedule, reschedule or cancel an appointment, please call Lynnette Fontaine RN, ECT Coordinator at . You will need to arrange transportation to and from the hospital for all outpatient ECT treatments. Bring a current list of your medications, including dosages with you to every ECT treatment. documented in this encounter [employer] Phone: 07-14-2021 Hospital Discharge instructions Cherrie Bedolla RN - 07/14/2021 ELECTROCONVULSIVE THERAPY DISCHARGE INSTRUCTIONS Please arrive at the Outpatient Surgery Entrance at 1015am on the day of your ECT. Check in at the Welcome Desk. 1. Activity Rest today. The anesthetic agents you have received can make you feel drowsy or tired. A responsible person must drive you home and stay with you for 8 hours after discharge from the Hospital. Do not drive a motor vehicle or operate any machinery for 24 hours. . *Do not make any complex decisions or execute any legal documents until 3 weeks AFTER your last treatment. If you have any questions regarding this, speak with your psychiatrist first.* 2. Diet Nothing to eat or drink after midnight the night of your ECT treatment. After ECT, start with clear liquids, if you can drink without coughing, you may proceed with gradually progressing to your usual diet. No alcoholic beverages for 24 hours. 3. Medications Take your daily medications as prescribed, after you return home from today's ECT. If you take a Beta Migdalia or have been prescribed Imitrex, you may be instructed to take these medications the morning of ECT. If you are unsure please ask the physician. Take with these medication the morning of ECT with one Tablespoon of water. 1. 2. 3. 4. You may experience the following after your treatment: a. Poor memory b. Poor balance c. Headaches d. Confusion e. Muscle soreness f. Nausea 5. Special Precautions Contact you physician immediately if these occur: a. Signs of infection: redness, swelling, heat, red streaks at the site of the IV b. Excessive pain unrelieved by prescription pain medications c. Nausea and vomiting that persists beyond the first day after your procedure If you feel you are having a problem or complication from your ECT treatments and it is during normal business hours call Lynnette Fontaine RN, ECT Coordinator at . If it is after normal business hours please call [facility] at to speak with a nurse, or go to your nearest emergency room. If you need to schedule, reschedule or cancel an appointment, please call Lynnette Fontaine RN, ECT Coordinator at . You will need to arrange transportation to and from the hospital for all outpatient ECT treatments. Bring a current list of your medications, including dosages with you to every ECT treatment. documented in this encounter [employer] Phone: 06-16-2021 Hospital Discharge instructions Yue Montalvo RN - 06/16/2021 ELECTROCONVULSIVE THERAPY DISCHARGE INSTRUCTIONS Please arrive at the Outpatient Surgery Entrance at 1015am on the day of your ECT. Check in at the Welcome Desk. 1. Activity Rest today. The anesthetic agents you have received can make you feel drowsy or tired. A responsible person must drive you home and stay with you for 8 hours after discharge from the Hospital. Do not drive a motor vehicle or operate any machinery for 24 hours. . *Do not make any complex decisions or execute any legal documents until 3 weeks AFTER your last treatment. If you have any questions regarding this, speak with your psychiatrist first.* 2. Diet Nothing to eat or drink after midnight the night of your ECT treatment. After ECT, start with clear liquids, if you can drink without coughing, you may proceed with gradually progressing to your usual diet. No alcoholic beverages for 24 hours. 3. Medications Take your daily medications as prescribed, after you return home from today's ECT. If you take a Beta Migdalia or have been prescribed Imitrex, you may be instructed to take these medications the morning of ECT. If you are unsure please ask the physician. Take with these medication the morning of ECT with one Tablespoon of water. 1. 2. 3. 4. You may experience the following after your treatment: a. Poor memory b. Poor balance c. Headaches d. Confusion e. Muscle soreness f. Nausea 5. Special Precautions Contact you physician immediately if these occur: a. Signs of infection: redness, swelling, heat, red streaks at the site of the IV b. Excessive pain unrelieved by prescription pain medications c. Nausea and vomiting that persists beyond the first day after your procedure If you feel you are having a problem or complication from your ECT treatments and it is during normal business hours call Lynnette Fontaine RN, ECT Coordinator at . If it is after normal business hours please call [facility] at to speak with a nurse, or go to your nearest emergency room. If you need to schedule, reschedule or cancel an appointment, please call Lynnette Fontaine RN, ECT Coordinator at . You will need to arrange transportation to and from the hospital for all outpatient ECT treatments. Bring a current list of your medications, including dosages with you to every ECT treatment. documented in this encounter [employer] Phone: 05-07-2021 Note HNO ID: [id number] Author: Tabatha Mc PA-C Service: ? Author Type: Physician Competitive Intelligence Analyst Type: Progress Notes Filed: 05/07/2021 12:14 PM Note Text: In lieu of an in-person visit due to COVID-19 concerns, a telephone visit was performed on the patient. Patient is aware that I am not fully able to assess symptoms and do a full physical examination including vital signs assessment at this time. Patient consents to this encounter. No video was used in the evaluation of this patient, as the patient preferred a telephone call. I personally called patient by telephone. FOLLOW UP VISIT - ENDOSCOPY NAME: Lazaro Timmons [facility] NO.: [id number] DATE OF SERVICE: 05/05/2021 : 1970 REFERRING PHYSICIAN: Damian James MD Lazaro is a patient I am following with Dr. Maria Isabel Carroll for loose stools and increased gas. Dr. Carroll performed lower endoscopy on 04/27/21. The patient was found to have hemorrhoids and normal appearing colon, random biopsies taken. Pathology demonstrated: Component Clinical History Diarrhea FINAL DIAGNOSIS A. Colon, random biopsies ? No pathologic abnormalities. at ?9:28 AM Gross Description A. COLON BIOPSY. A. Received in formalin labeled random colon biopsy are multiple irregular mccullough soft tissue fragments aggregating to 0.8 x 0.5 x 0.2 cm. The specimen is submitted entirely in cassette A1. Gross examination performed at [facility], [address] [place], [place]? [address] ? OLS April 28, 2021 10:21 AM The patient notes no complaints since the procedure. Assessment IMPRESSION: s/p colonoscopy for evaluation of diarrhea, hemorrhoids. Normal biopsies PLAN: The operative findings and pathology report were reviewed with the patient, and the patient has had the opportunity to ask questions and have questions answered. If the patient notes any problems or changes in bowel function, the patient should contact me immediately. Recommend daily fiber supplement, probiotics and increased fluid intake. Follow up if symptoms persist or worsen. Otherwise I recommend follow up endoscopy in 10 years. HM updated and recall letter generated. Patient verbalized understanding of all above and agreed with the plan Diagnoses: (K64.9) Hemorrhoids, unspecified hemorrhoid type (primary encounter diagnosis) (R19.5) Loose stools I spent a total of 22 minutes on the date of the service which included preparing to see the patient, completing clinical documentation, obtaining and/or reviewing separately obtained history, counseling and educating the patient/family/caregiver, independently interpreting results (not separately reported) and communicating results to the patient/family/caregiver. Tabatha Mc PA-C [facility] 04-11-2021 Note HNO ID: [id number] Author: Maria Isabel Carroll MD Service: ? Author Type: Physician Type: Progress Notes Filed: 04/15/2021 2:18 PM Note Text: HISTORY AND PHYSICAL Lazaro Naranjo 1970 REFERRING PHYSICIAN: Damian James MD CHIEF COMPLAINT: Consult (colonoscopy) HPI: The patient is a 50 year old female presents for screening for colon cancer via colonoscopy The patient notes generalized abdominal discomfort mainly due to increased intraabdominal gas. She notes loose stools about 2-3 episodes per day. This has been going on for about a month. She denies noting blood in stools, but she noted very dark stools at one time. She was noted to be stool guaiac negative. The patient notes no colon cancer in immediate family. The patient has not had previous colonoscopy. Of note, patient has psychiatric history of depression, borderline personality and schizoaffective disorder. She states that she received electroshock therapy once a month at [facility]. This may complicate any type of anesthesia for the patient's procedure PAST MEDICAL HISTORY Diagnosis Date - Depressive disorder, not elsewhere classified - Generalized anxiety disorder - Hypothyroid - Schizoaffective disorder (HCC) PAST SURGICAL HISTORY Procedure Laterality Date - APPENDECTOMY 1992 - BIOPSY OF EYELID Left 11/02/2016 - DELIVERY ONLY 1997 - LAPAROSCOPIC CHOLEYCYSTECTOMY 1997 - LIGATE FALLOPIAN TUBE 1999 Current Outpatient Medications Medication Sig - DICLOFENAC SODIUM ORAL Take by mouth as needed. - fluticasone (FLONASE) 50 mcg/actuation nasal spray Use 1 Empire in each nostril once daily. For 4 weeks- 50mcg dose - cholecalciferol (VITAMIN D-3) 2,000 unit tablet Take 2,000 Units by mouth once daily. - diclofen omt-usicwu-f-wojciech-ment 50 mg-0.025 %- 25 %-6 % KTtd 50 mg twice daily. For knee pain - cyanocobalamin (VITAMIN B-12) 1,000 mcg tab Take 1,000 mcg by mouth once daily. Take sublingual daily - levothyroxine (SYNTHROID) 100 mcg tablet Take 125 mcg by mouth daily before breakfast. - hydrOXYzine HCl (ATARAX) 50 mg tablet Take 50 mg by mouth at bedtime as needed (For sleep.). - nicotine (NICODERM CQ) 21 mg/24 hr Apply 1 Patch as directed every 24 hours. 14mg dose recorded on HANDP 11/03/18 - nicotine polacrilex (NICORETTE) 2 mg gum Take 2 mg by mouth. As directed. - folic acid 1 mg tablet Take 1 mg by mouth once daily. - FLUoxetine (PROZAC) 10 mg capsule Take 20 mg by mouth once daily. - polyethylene glycol 3350 (MIRALAX, GLYCOLAX) 17 gram/dose powder Use as directed for Miralax / Gatorade Bowel Prep Kit - Gatorade Sports Drink Use as directed for Miralax / Gatorade Bowel Prep Kit - Bisacodyl (DULCOLAX) 5 mg tab Use as directed for Miralax / Gatorade Bowel Prep Kit - prazosin (MINIPRESS) 2 mg cap Take by mouth daily at bedtime. - dicyclomine (BENTYL) 10 mg capsule Take 10 mg by mouth daily at bedtime. (Patient not taking: Reported on 04/11/2021 ) - pyridoxine HCl, vitamin B6, (PYRIDOXINE, VITAMIN B6, ORAL) Take 50 mg by mouth every morning. (Patient not taking: Reported on 04/11/2021 ) - LORazepam (ATIVAN) 1 mg tablet Take 1 mg by mouth once daily as needed. (Patient not taking: Reported on 04/11/2021) - asenapine sublingual (SAPHRIS) 10 mg subl Dissolve 10 mg under the tongue daily at bedtime. - celecoxib (CELEBREX) 200 mg capsule Take 200 mg by mouth once daily. - paliperidone ER (INVEGA) 3 mg 24 hr tablet Take 3 mg by mouth once daily. - INV trabectedin, ET-743, Inject 0.5 mg intravenously. (Patient not taking: Reported on 04/11/2021 ) - lidocaine viscous (LIDOCAINE VISCOUS) 2 % solution Take by mouth as needed (Apply solution Mouth/Throad to affected lesion up to twice daily). - ALPRAZolam (XANAX) 1 mg tablet Take 1 mg by mouth at bedtime as needed. (Patient not taking: Reported on 04/11/2021) - hydrOXYzine HCl (ATARAX) 25 mg tablet Take 1 tablet by mouth every 8 hours as needed. - doxepin capsule 50 mg Take 1 capsule by mouth daily at bedtime. ALLERGIES: Cortisone and Ketamine Hcl PERSONAL HISTORY: Social History Tobacco Use - Smoking status: Current Every Day Smoker Packs/day: 1.50 Years: 15.00 Pack years: 22.50 Types: Cigarettes - Smokeless tobacco: Never Used Substance Use Topics - Alcohol use: Yes Comment: on occasion - Drug use: No Comment: caffeine FAMILY HISTORY Problem Relation Age of Onset - Cancer Mother lung - Psychiatry Mother depression - other (Other) Mother melanoma resulting in - Hypertension Father - Cataract Father - Macular Degen Father - Diabetes Brother type 1 - Breast Cancer Paternal Grandmother The review of systems data was entered by the nurse and reviewed by ct Nursing Notes: Joy Ayala RN 04/11/2021 10:32 AM Signed REVIEW OF SYSTEMS: General: The patient denies fatigue, denies weight loss, notes weight gain, notes feeling hot, and denies feelings of cold. Eyes: The (more content not included)... [facility] Evaluation + Plan note No data available for this section [facility] Evaluation note Diagnosis Schizoaffective disorder, depressive type (HCC)- Primary Schizoaffective disorder, unspecified condition documented in this encounter [employer] Phone: [email or web address] note* Diagnosis Schizoaffective disorder, depressive type (HCC)- Primary Schizoaffective disorder, unspecified condition documented in this encounter [employer] Phone: evaluation note* Diagnosis Schizoaffective disorder, depressive type (HCC)- Primary Schizoaffective disorder, unspecified condition documented in this encounter [employer] Phone: [email or web address] note* Diagnosis Schizoaffective disorder, depressive type (HCC)- Primary Schizoaffective disorder, unspecified condition documented in this encounter [employer] Phone: [email or web address] note* Diagnosis Schizoaffective disorder, depressive type (HCC)- Primary Schizoaffective disorder, unspecified condition documented in this encounter [employer] Phone: [email or web address] note* Diagnosis Schizoaffective disorder, depressive type (HCC)- Primary Schizoaffective disorder, unspecified condition documented in this encounter [employer] Phone: [email or web address] note* Diagnosis Schizoaffective disorder, depressive type (HCC)- Primary Schizoaffective disorder, unspecified condition documented in this encounter [employer] Phone: [email or web address] note* Diagnosis Schizoaffective disorder, depressive type (HCC)- Primary Schizoaffective disorder, unspecified condition documented in this encounter [employer] Phone: [email or web address] note* Diagnosis Onset Date Resolution Status Acute maxillary sinusitis, unspecified acute [facility] Work Phone: Evaluation note* Diagnosis Schizoaffective disorder, depressive type (HCC)- Primary Schizoaffective disorder, unspecified condition documented in this encounter [facility] Phone: evaluation note* Diagnosis Schizoaffective disorder, depressive type (HCC) Schizoaffective disorder, unspecified condition documented in this encounter [facility] Phone: [email or web address] note* Diagnosis Onset Date Resolution Status Cough acute Nausea acute Sore throat (viral) acute Viral syndrome acute [facility] Work Phone: Evaluation note* Diagnosis Onset Date Resolution Status Cough acute Diarrhea acute Nausea acute Sore throat (viral) acute Viral syndrome acute [facility] Work Phone: Evaluation note* Diagnosis Schizoaffective disorder, depressive type (HCC)- Primary Schizoaffective disorder, unspecified condition documented in this encounter [facility] Phone: evaluation note* Diagnosis Schizoaffective disorder, depressive type (HCC)- Primary Schizoaffective disorder, unspecified condition documented in this encounter [facility] Phone: [email or web address] note* Diagnosis Schizoaffective disorder, depressive type (HCC) Schizoaffective disorder, unspecified condition documented in this encounter [facility] Phone: [email or web address] note* Diagnosis Schizoaffective disorder, depressive type (HCC) Schizoaffective disorder, unspecified condition documented in this encounter [facility] Phone: [email or web address] note* Diagnosis Schizoaffective disorder, depressive type (HCC)- Primary Schizoaffective disorder, unspecified condition documented in this encounter [facility] Phone: evaluation note* Diagnosis Schizoaffective disorder, depressive type (HCC)- Primary Schizoaffective disorder, unspecified condition documented in this encounter [facility] Phone: [email or web address] note* Diagnosis Schizoaffective disorder, depressive type (HCC) Schizoaffective disorder, unspecified condition documented in this encounter [facility] Phone: [email or web address] note* Diagnosis Schizoaffective disorder, depressive type (HCC) Schizoaffective disorder, unspecified condition documented in this encounter [facility]* Instructions* Zeinab Segura RN - 06/30/2021 ELECTROCONVULSIVE THERAPY DISCHARGE INSTRUCTIONS Please arrive at the Outpatient Surgery Entrance at 1015am on the day of your ECT. Check in at the Welcome Desk. 1. Activity Rest today. The anesthetic agents you have received can make you feel drowsy or tired. A responsible person must drive you home and stay with you for 8 hours after discharge from the Hospital. Do not drive a motor vehicle or operate any machinery for 24 hours. . *Do not make any complex decisions or execute any legal documents until 3 weeks AFTER your last treatment. If you have any questions regarding this, speak with your psychiatrist first.* 2. Diet Nothing to eat or drink after midnight the night of your ECT treatment. After ECT, start with clear liquids, if you can drink without coughing, you may proceed with gradually progressing to your usual diet. No alcoholic beverages for 24 hours. 3. Medications Take your daily medications as prescribed, after you return home from today's ECT. If you take a Beta Migdalia or have been prescribed Imitrex, you may be instructed to take these medications the morning of ECT. If you are unsure please ask the physician. Take with these medication the morning of ECT with one Tablespoon of water. 1. 2. 3. 4. You may experience the following after your treatment: a. Poor memory b. Poor balance c. Headaches d. Confusion e. Muscle soreness f. Nausea 5. Special Precautions Contact you physician immediately if these occur: a. Signs of infection: redness, swelling, heat, red streaks at the site of the IV b. Excessive pain unrelieved by prescription pain medications c. Nausea and vomiting that persists beyond the first day after your procedure If you feel you are having a problem or complication from your ECT treatments and it is during normal business hours call Lynnette Fontaine RN, ECT Coordinator at . If it is after normal business hours please call [facility] at to speak with a nurse, or go to your nearest emergency room. If you need to schedule, reschedule or cancel an appointment, please call Lynnette Fontaine RN, ECT Coordinator at . You will need to arrange transportation to and from the hospital for all outpatient ECT treatments. Bring a current list of your medications, including dosages with you to every ECT treatment. documented in this [facility] Phone: Hospital Discharge instructions* Instructions* Lillie Beckford RN - 03/28/2022 ELECTROCONVULSIVE THERAPY DISCHARGE INSTRUCTIONS Please arrive at the Outpatient Surgery Entrance at 1015am on the day of your ECT. Check in at the Welcome Desk. Our address is [address] [place] [address]. You will need to arrange transportation to and from the hospital for all outpatient ECT treatments. You can not drive yourself home from ECT. 1. Diet Nothing to eat or drink after midnight the night of your ECT treatment. After ECT, start with clear liquids, if you can drink without coughing, you may proceed with gradually progressing to your usual diet. No alcoholic beverages for 24 hours. 2. Medications Take your daily medications as prescribed, after you return home from today's ECT. If you take a Beta Migdalia or have been prescribed Imitrex, you may be instructed to take these medications the morning of ECT. If you are unsure please ask the physician. Bring a current list of your medications, including dosages with you to every ECT treatment. Take these medications the morning of ECT with one Tablespoon of water. 1. 2. 3. 3. You may experience the following after your treatment: a. Poor memory b. Poor balance c. Headaches d. Confusion e. Muscle soreness f. Nausea 4. Special Precautions Contact you physician immediately if these occur: a. Signs of infection: redness, swelling, heat, red streaks at the site of the IV b. Excessive pain unrelieved by prescription pain medications c. Nausea and vomiting that persists beyond the first day after your procedure 5. Activity Rest today. The anesthetic agents you have received can make you feel drowsy or tired. A responsible person must drive you home and stay with you for 8 hours after discharge from the Hospital. Do not drive a motor vehicle or operate any machinery for 24 hours. . *Do not make any complex decisions or execute any legal documents until 3 weeks AFTER your last treatment. If you have any questions regarding this, speak with your psychiatrist first.* If you feel you are having a problem or complication from your ECT treatments and it is during normal business hours call Lynnette Fontaine RN, ECT Coordinator at . If it is after normal business hours, please call [facility] at to speak with a nurse,or go to your nearest emergency room. If you need to schedule, reschedule or cancel an appointment, please call Lynnette Fontaine RN, ECT Coordinator at . [facility] Phone: Hospital Discharge instructions Additional Instructions Follow-up with your psychiatrist for your ECT therapy as soon as possible. [facility] Work Phone: Hospital Discharge instructions No data available for this section [facility] Progress note No data available for this section [facility] Summary Purpose Family History No Family History Records FoundNo Family History Records FoundNo Family History Records FoundNo Family History Records FoundNo Family History Records FoundNo Family History Records FoundNo Family History Records Found No data available for this section No Family History Records FoundNo Family History Records FoundNo Family History Records Found Advance Directives No Advanced Directives Records Found Advance Directive Response Recorded Date/ Time Living Will No December 07, 2021 3:02pm Power of Stick Feeder No December 07 3:02pm Latest Code Status on File Code Status Date Activated Date Inactivated Comments Full Code 12/21/2022 11:06 AM Latest Code Status on File Code Status Date Activated Date Inactivated Comments Full Code 12/21/2022 11:06 AM 12/21/2022 3:27 PM Latest Code Status on File Code Status Date Activated Date Inactivated Comments Full Code 12/21/2022 11:06 AM 12/21/2022 3:27 PM Latest Code Status on File Code Status Date Activated Date Inactivated Comments Full Code 01/11/2023 9:55 AM Code Status History Code Status Date Activated Date Inactivated Comments Full Code 12/21/2022 11:06 AM 12/21/2022 3:27 PM Latest Code Status on File Code Status Date Activated Date Inactivated Comments Full Code 01/14/2023 12:37 PM Code Status History Code Status Date Activated Date Inactivated Comments Full Code 01/14/2023 11:50 AM 01/14/2023 12:36 PM Full Code 01/11/2023 9:55 AM 01/11/2023 3:15 PM Full Code 12/21/2022 11:06 AM 12/21/2022 3:27 PM Latest Code Status on File Code Status Date Activated Date Inactivated Comments Full Code 01/21/2023 12:00 PM Code Status History Code Status Date Activated Date Inactivated Comments Full Code 01/14/2023 9:23 PM 01/18/2023 2:23 PM Full Code 01/14/2023 12:37 PM 01/14/2023 1:10 PM Full Code 01/14/2023 11:50 AM 01/14/2023 12:36 PM Full Code 01/11/2023 9:55 AM 01/11/2023 3:15 PM Latest Code Status on File Code Status Date Activated Date Inactivated Comments Full Code 01/21/2023 12:00 PM 01/21/2023 2:44 PM Latest Code Status on File Code Status Date Activated Date Inactivated Comments Full Code 04/03/2023 12:14 PM Code Status History Code Status Date Activated Date Inactivated Comments Full Code 01/21/2023 12:00 PM 01/21/2023 2:44 PM Full Code 01/14/2023 9:23 PM 01/18/2023 2:23 PM Full Code 01/14/2023 12:37 PM 01/14/2023 1:10 PM Full Code 01/14/2023 11:50 AM 01/14/2023 12:36 PM Latest Code Status on File Code Status Date Activated Date Inactivated Comments Full Code 11/08/2023 10:57 AM Code Status History Code Status Date Activated Date Inactivated Comments Full Code 04/03/2023 12:14 PM 11/01/2023 9:54 AM Full Code 01/21/2023 12:00 PM 01/21/2023 2:44 PM Full Code 01/14/2023 9:23 PM 01/18/2023 2:23 PM Full Code 01/14/2023 12:37 PM 01/14/2023 1:10 PM Latest Code Status on File Code Status Date Activated Date Inactivated Comments Full Code 11/08/2023 10:57 AM 11/09/2023 2:41 AM Chief Complaint and Reason for Visit Chief Complaint WHEEZING, TOBACCO DE PENDENCE WHEEZING, TOBACCO DEPENDENCE LEFT EAR PAIN Reason for Visit Acute maxillary sinu sitis, unspecified Chief Complaint LEFT EAR PAIN BACK PAIN Reason for Visit Acute maxillary sinu sitis, unspecified Chief Complaint BACK PAIN LABWORK COVID 19 Reason for Visit Cough Nausea Sore throat (viral) Viral syndrome Chief Complaint BACK PAIN LABWORK COVID 19 NEED LAB ORDER Reason for Visit Cough Diarrhea Nausea Sore throat (viral) Viral syndrome Chief Complaint BACK PAIN LABWORK COVID 19 NEED LAB ORDER etoh intoxication Reason for Visit Cough Diarrhea Nausea Sore throat (viral) Viral syndrome Additional Source Comments INFORMATION SOURCE (unrecogn ized section and content) DATE CREATED AUTHOR 02/27/2019 [facility] DATE CREATED AUTHOR AUTHOR'S ORGANIZ ATION 05/01/2021 [facility] DATE CREATED AUTHOR AUTHOR'S ORGANIZ ATION 05/31/2021 [facility] DATE CREATED AUTHOR AUTHOR'S ORGANIZ ATION 10/25/2021 [facility] DATE CREATED AUTHOR AUTHOR'S ORGANIZ ATION 07/25/2022 [employer] DATE CREATED AUTHOR AUTHOR'S ORGANIZ ATION 10/12/2022 [facility] DATE CREATED AUTHOR AUTHOR'S ORGANIZ ATION [facility]20[facility] [place] DATE CREATED AUTHOR AUTHOR'S ORGANIZ ATION 02/25/2025 [facility] DATE CREATED AUTHOR AUTHOR'S ORGANIZ ATION 03/11/2025 [facility] DATE CREATED AUTHOR AUTHOR'S ORGANIZ ATION 03/21/2025 [facility] Continuous Active and Recently Administ ered Medications (unrecognized section and content) Medication Order 06/14/2021 06/15/2021 06/16/2021 0.9 % sodium chloride infusion IntraVENous, at 100 mL/hr, CONTINUOUS, Starting on Sat06/16/21 at 1130, Pre-op (day of surgery) 1212 ([facility] ider: Constantino Ngo MD) PRN Medication Order 06/14/2021 06/15/2021 06/16/2021 0.9 % sodium chloride bolus 500 mL (5.57 mL/kg), IntraVENous, at 250 mL/hr, Administer over 2 Hours, ONCE PRN, Nausea, Starting on Sat06/16/21 at 1148, For 1 dose, PACU only diphenhydrAMINE (BENADRYL) injection 12.5 mg 12.5 mg, IntraVENous, ONCE PRN, Itching, Starting on Sat06/16/21 at 1148, For 1 dose, PACU only fentaNYL (SUBLIMAZE) injection 25 mcg 25 mcg, IntraVENous, EVERY 5 MIN PRN, Pain Moderate (4-6), Starting on Sat06/16/21 at 1148, For 4 doses, Phase I - Initial therapy for moderate pain., PACU only labetalol (NORMODYNE;TRANDATE) injection 5 mg 5 mg, IntraVENous, EVERY 10 MIN PRN, High Blood Pressure, Starting on Sat06/16/21 at 1148, PRN for SBP >160 for 2 consecutive measurements, if HR is 60 or greater. If beta mgidalia is contraindicated (HR less than 60, heart block, COPD or asthma) use hydralazine IV order., PACU only meperidine (DEMEROL) injection 12.5 mg 12.5 mg, IntraVENous, EVERY 5 MIN PRN, Shivering, , Starting on Sat06/16/21 at 1148, May give every 5 minutes to max of 50mg., PACU only metoclopramide (REGLAN) injection 10 mg 10 mg, IntraVENous, ONCE PRN, Nausea, Starting on Sat06/16/21 at 1148, For 1 dose, Secondary antiemetic therapy., PACU only ondansetron (ZOFRAN) injection 4 mg 4 mg, IntraVENous, ONCE PRN, Nausea, Starting on Sat06/16/21 at 1148, For 1 dose, Initial antiemetic therapy., PACU only Scheduled Medication Order 06/28/2021 06/29/2021 06/30/2021 sodium chloride flush 0.9 % injection 10 mL 10 mL, IntraVENous, EVERY 12 HOURS SCHEDULED (2 times per day), First dose on Sat06/30/21 at 1000, Pre-op (day of surgery) 1000 (Due)2100 (Due) Continuous Medication Order 06/28/2021 06/29/2021 06/30/2021 lactated ringers infusion IntraVENous, at 125 mL/hr, CONTINUOUS, Starting on Sat06/30/21 at 1000, Pre-op (day of surgery) 1000 (Due) PRN Medication Order 06/28/2021 06/29/2021 06/30/2021 0.9 % sodium chloride infusion 25 mL, IntraVENous, at 100 mL/hr, PRN, If patient receiving piggyback infusions without ordered maintenance IV fluids or with frequent/long duration piggyback infusions, Starting on Sat06/30/21 at 0939, Administer at the same rate as the piggyback being infused., Pre-op (day of surgery) lidocaine PF 1 % injection 1 mL 1 mL, IntraDERmal, ONCE PRN, IV start, Starting on Sat06/30/21 at 0939, For 1 dose, Pre-op (day of surgery) sodium chloride flush 0.9 % injection 10 mL 10 mL, IntraVENous, PRN, Line Care, After every IV line use, Starting on Sat06/30/21 at 0939, Pre-op (day of surgery) Scheduled Medication Order 07/12/2021 2021 07/14/2021 sodium chloride flush 0.9 % injection 5-40 mL 5-40 mL, IntraVENous, EVERY 12 HOURS SCHEDULED (2 times per day), First dose on Sat07/14/21 at 2100, For Line Patency: Peripheral IV = 5 mL; Midline or Central Line = 10 mL/lumen. If following IV push medication, administer flush at same rate as the IV push. Flush volume is determined by type of infusion therapy being given. For non-viscous solutions use: Peripheral IV = 5 mL Midline or Central Line = 10 mL/lumen For viscous solutions (i.e. blood components, parenteral nutrition, contrast media, or after obtaining blood sample) use: Peripheral IV = 10 mL Midline or Central Line = 20 mL/lumen, Pre-op (day of surgery) 2100 (Due) Continuous Medication Order 07/12/2021 2021 07/14/2021 0.9 % sodium chloride infusion IntraVENous, at 100 mL/hr, CONTINUOUS, Starting on Sat07/14/21 at 1045, Pre-op (day of surgery) 1036 ([facility] - Prov ider: Cherrie Bedolla RN)1216 (NoRateChange - Provider: Juan A James DO)1223 (Stopped - Provider: Juan A James DO) 0.9 % sodium chloride infusion IntraVENous, at 125 mL/hr, CONTINUOUS, Starting on Sat07/14/21 at 1245, Please use sodiums chloride 0.9 % for renal failure / dialysis patients. Please use mini drip at kvo, Pre-op (day of surgery) 1245 (Due) PRN Medication Order 07/12/2021 2021 07/14/2021 0.9 % sodium chloride infusion 25 mL, IntraVENous, at 100 mL/hr, PRN, If patient receiving piggyback infusions without ordered maintenance IV fluids or with frequent/long duration piggyback infusions, Starting on Sat07/14/21 at 1227, Administer at the same rate as the piggyback being infused., Pre-op (day of surgery) lidocaine PF 1 % injection 1 mL 1 mL, IntraDERmal, ONCE PRN, IV start, Starting on Sat07/14/21 at 1227, For 1 dose, Pre-op (day of surgery) ondansetron (ZOFRAN) injection 4 mg (COMPLETED) 4 mg, IntraVENous, ONCE PRN, Nausea, Starting on Sat07/14/21 at 1047, For 1 dose, Initial antiemetic therapy., PACU only 1216 (Given - Provid er: Juan A James DO) sodium chloride flush 0.9 % injection 5-40 mL 5-40 mL, IntraVENous, PRN, Line Care, Starting on Sat07/14/21 at 1227, For Line Patency: Peripheral IV = 5 mL; Midline or Central Line = 10 mL/lumen. If following IV push medication, administer flush at same rate as the IV push. Flush volume is determined by type of infusion therapy being given. For non-viscous solutions use: Peripheral IV = 5 mL Midline or Central Line = 10 mL/lumen For viscous solutions (i.e. blood components, parenteral nutrition, contrast media, or after obtaining blood sample) use: Peripheral IV = 10 mL Midline or Central Line = 20 mL/lumen, Pre-op (day of surgery) Continuous Medication Order 07/25/2021 07/26/2021 07/27/2021 0.9 % sodium chloride infusion IntraVENous, at 100 mL/hr, CONTINUOUS, Starting on Angela 07/27/21 at 1115, Pre-op (day of surgery) 1115 (Due) 0.9 % sodium chloride infusion IntraVENous, at 100 mL/hr, CONTINUOUS, Starting on Angela 07/27/21 at 1115, Pre-op (day of surgery) 1052 ([facility] - Prov ider: Rae Young RN) PRN Medication Order 08/08/2021 08/09/2021 08/10/2021 diphenhydrAMINE (BENADRYL) injection 12.5 mg 12.5 mg, IntraVENous, ONCE PRN, Itching, Starting on Angela 08/10/21 at 1157, For 1 dose, PACU only fentaNYL (SUBLIMAZE) injection 25 mcg 25 mcg, IntraVENous, EVERY 5 MIN PRN, Pain Moderate (4-6), Starting on Nagela 08/10/21 at 1157, For 4 doses, Phase I - Initial therapy for moderate pain., PACU only fentaNYL (SUBLIMAZE) injection 50 mcg 50 mcg, IntraVENous, EVERY 5 MIN PRN, Pain Severe (7-10), Starting on Angela 08/10/21 at 1157, For 4 doses, Phase I - Initial therapy for severe pain., PACU only hydrALAZINE (APRESOLINE) injection 5 mg 5 mg, IntraVENous, EVERY 10 MIN PRN, High Blood Pressure, Starting on Angela 08/10/21 at 1157, PRN for SBP > 160 for 2 consecutive measurements, and if one of the following conditions is met: 1) If IV labetolol is ineffective. 2) If HR is under 60. 3) If patient has heart block, COPD or asthma. If both labetalol and hydralazine ineffective, notify anesthesiologist., PACU only HYDROmorphone (DILAUDID) injection 0.25 mg 0.25 mg, IntraVENous, EVERY 5 MIN PRN, Pain Moderate (4-6), Starting on Angela 08/10/21 at 1157, For 4 doses, Phase I - Secondary therapy to be used after all initial moderate pain medication doses have been administered., PACU only HYDROmorphone (DILAUDID) injection 0.5 mg 0.5 mg, IntraVENous, EVERY 5 MIN PRN, Pain Severe (7-10), Starting on Angela 08/10/21 at 1157, For 4 doses, Phase I - Secondary therapy to be used after all initial severe pain medication doses have been administered., PACU only labetalol (NORMODYNE;TRANDATE) injection 5 mg 5 mg, IntraVENous, EVERY 10 MIN PRN, High Blood Pressure, Starting on Angela 08/10/21 at 1157, PRN for SBP >160 for 2 consecutive measurements, if HR is 60 or greater. If beta migdalia is contraindicated (HR less than 60, heart block, COPD or asthma) use hydralazine IV order., PACU only meperidine (DEMEROL) injection 12.5 mg 12.5 mg, IntraVENous, EVERY 5 MIN PRN, Shivering, , Starting on Angela 08/10/21 at 1157, May give every 5 minutes to max of 50mg., PACU only ondansetron (ZOFRAN) injection 4 mg 4 mg, IntraVENous, ONCE PRN, Nausea, Starting on Angela 08/10/21 at 1157, For 1 dose, Initial antiemetic therapy., PACU only oxyCODONE-acetaminophen (PERCOCET) 5-325 MG per tablet 1 tablet(Linked Group 1) 1 tablet, Oral, PRN, Pain Moderate (4-6), Starting on Angela 08/10/21 at 1157, For 1 dose, PHASE II, PACU only oxyCODONE-acetaminophen (PERCOCET) 5-325 MG per tablet 2 tablet(Linked Group 1) 2 tablet, Oral, PRN, Pain Severe (7-10), Starting on Angela 08/10/21 at 1157, For 1 dose, PHASE II, PACU only prochlorperazine (COMPAZINE) injection 5 mg 5 mg, IntraVENous, ONCE PRN, Nausea, Starting on Angela 08/10/21 at 1157, For 1 dose, Secondary antiemetic therapy., PACU only No Frequency Medication Order 08/08/2021 08/09/2021 08/10/2021 sodium chloride 0.9 % infusion Starting on Angela 08/10/21 at 1203, For 1 dose, Adelia Worthy: cabinet override 1215 (Due) Linked Groups Order Group 1: oxyCODONE-acetaminophen (PERCOCET) 5-325 MG per tablet 1 tabletJump to med 1 tablet, Oral, PRN, Pain Moderate (4-6), Starting on Angela 08/10/21 at 1157, For 1 dose
PHASE II
PACU only Or oxyCODONE-acetaminophen (PERCOCET) 5-325 MG per tablet 2 tabletJump to med 2 tablet, Oral, PRN, Pain Severe (7-10), Starting on Angela 08/10/21 at 1157, For 1 dose
PHASE II
PACU only Continuous Medication Order 09/12/2021 09/13/2021 09/14/2021 0.9 % sodium chloride infusion IntraVENous, at 100 mL/hr, CONTINUOUS, Starting on Angela 09/14/21 at 1115, Pre-op (day of surgery) 1118 ([facility] ider: Julianne Barber RN) Scheduled Medication Order 10/09/2021 10/10/2021 10/11/2021 sodium chloride flush 0.9 % injection 5-40 mL 5-40 mL, IntraVENous, EVERY 12 HOURS SCHEDULED (2 times per day), First dose on Sat10/11/21 at 1030, For Line Patency: Peripheral IV = 5 mL; Midline or Central Line = 10 mL/lumen. If following IV push medication, administer flush at same rate as the IV push. Flush volume is determined by type of infusion therapy being given. For non-viscous solutions use: Peripheral IV = 5 mL Midline or Central Line = 10 mL/lumen For viscous solutions (i.e. blood components, parenteral nutrition, contrast media, or after obtaining blood sample) use: Peripheral IV = 10 mL Midline or Central Line = 20 mL/lumen, Pre-op (day of surgery) 1030 (Due)2100 (Due) Continuous Medication Order 10/09/2021 10/10/2021 10/11/2021 0.9 % sodium chloride infusion IntraVENous, at 125 mL/hr, CONTINUOUS, Starting on Sat10/11/21 at 1030, Please use sodiums chloride 0.9 % for renal failure / dialysis patients. Please use mini drip at kvo, Pre-op (day of surgery) 1017 (New Bag - Prov ider: Julianne Barber RN) PRN Medication Order 10/09/2021 10/10/2021 10/11/2021 0.9 % sodium chloride infusion 25 mL, IntraVENous, at 100 mL/hr, PRN, If patient receiving piggyback infusions without ordered maintenance IV fluids or with frequent/long duration piggyback infusions, Starting on Sat10/11/21 at 1000, Administer at the same rate as the piggyback being infused., Pre-op (day of surgery) lidocaine PF 1 % injection 1 mL 1 mL, IntraDERmal, ONCE PRN, IV start, Starting on Sat10/11/21 at 1000, For 1 dose, Pre-op (day of surgery) metoclopramide (REGLAN) injection 10 mg 10 mg, IntraVENous, ONCE PRN, Nausea, Starting on Sat10/11/21 at 1031, For 1 dose, Initial antiemetic therapy., PACU only sodium chloride flush 0.9 % injection 5-40 mL 5-40 mL, IntraVENous, PRN, Line Care, Starting on Sat10/11/21 at 1000, For Line Patency: Peripheral IV = 5 mL; Midline or Central Line = 10 mL/lumen. If following IV push medication, administer flush at same rate as the IV push. Flush volume is determined by type of infusion therapy being given. For non-viscous solutions use: Peripheral IV = 5 mL Midline or Central Line = 10 mL/lumen For viscous solutions (i.e. blood components, parenteral nutrition, contrast media, or after obtaining blood sample) use: Peripheral IV = 10 mL Midline or Central Line = 20 mL/lumen, Pre-op (day of surgery) Continuous Medication Order 10/23/2021 10/24/2021 10/25/2021 0.9 % sodium chloride infusion IntraVENous, at 100 mL/hr, CONTINUOUS, Starting on Sat10/25/21 at 1115, Pre-op (day of surgery) 1050 (New Bag - Prov ider: Kayleigh Coronel RN) Scheduled Medication Order 01/01/2022 01/02/2022 01/03/2022 sodium chloride flush 0.9 % injection 5-40 mL 5-40 mL, IntraVENous, EVERY 12 HOURS SCHEDULED (2 times per day), First dose on Sat01/03/22 at 1100, Until Discontinued, For Line Patency: Peripheral IV = 5 mL; Midline or Central Line = 10 mL/lumen. If following IV push medication, administer flush at same rate as the IV push. Flush volume is determined by type of infusion therapy being given. For non-viscous solutions use: Peripheral IV = 5 mL Midline or Central Line = 10 mL/lumen For viscous solutions (i.e. blood components, parenteral nutrition, contrast media, or after obtaining blood sample) use: Peripheral IV = 10 mL Midline or Central Line = 20 mL/lumen, Pre-op (day of surgery) 1100 (Due)2100 (Due) Continuous Medication Order 01/01/2022 01/02/2022 01/03/2022 0.9 % sodium chloride infusion IntraVENous, at 125 mL/hr, CONTINUOUS, Starting on Sat01/03/22 at 1100, Please use sodiums chloride 0.9 % for renal failure / dialysis patients. Please use mini drip at kvo, Pre-op (day of surgery) 1100 (Due) PRN Medication Order 01/01/2022 01/02/2022 01/03/2022 0.9 % sodium chloride infusion 25 mL, IntraVENous, at 100 mL/hr, PRN, If patient receiving piggyback infusions without ordered maintenance IV fluids or with frequent/long duration piggyback infusions, Starting on Sat01/03/22 at 1032, Administer at the same rate as the piggyback being infused., Pre-op (day of surgery) lidocaine PF 1 % injection 1 mL 1 mL, IntraDERmal, ONCE PRN, 1 dose, Starting on Sat01/03/22 at 1032, Until Sat01/03/22 at 2359, IV start, Pre-op (day of surgery) sodium chloride flush 0.9 % injection 5-40 mL 5-40 mL, IntraVENous, PRN, Starting on Sat01/03/22 at 1032, Until Discontinued, Line Care, For Line Patency: Peripheral IV = 5 mL; Midline or Central Line = 10 mL/lumen. If following IV push medication, administer flush at same rate as the IV push. Flush volume is determined by type of infusion therapy being given. For non-viscous solutions use: Peripheral IV = 5 mL Midline or Central Line = 10 mL/lumen For viscous solutions (i.e. blood components, parenteral nutrition, contrast media, or after obtaining blood sample) use: Peripheral IV = 10 mL Midline or Central Line = 20 mL/lumen, Pre-op (day of surgery) Continuous Medication Order 03/05/2022 03/06/2022 03/07/2022 0.9 % sodium chloride infusion IntraVENous, at 100 mL/hr, CONTINUOUS, Starting on Sat03/07/22 at 1115, Pre-op (day of surgery) 1119 ([facility] - Prov ider: Lillie Beckford RN) Continuous Medication Order 03/26/2022 03/27/2022 03/28/2022 0.9 % sodium chloride infusion IntraVENous, at 100 mL/hr, CONTINUOUS, Starting on Sat03/28/22 at 1100, Pre-op (day of surgery) 1100 (Due) PRN Medication Order 03/26/2022 03/27/2022 03/28/2022 lidocaine PF 1 % injection 1 mL 1 mL, IntraDERmal, ONCE PRN, 1 dose, Starting on Sat03/28/22 at 1111, Until Sat03/28/22 at 2359, IV start, Pre-op (day of surgery) ondansetron (ZOFRAN) injection 4 mg 4 mg, IntraVENous, ONCE PRN, 1 dose, Starting on Sat03/28/22 at 1111, Until Sat03/28/22 at 2359, Nausea, Initial antiemetic therapy., PACU only Continuous Medication Order 04/30/2022 05/01/2022 05/02/2022 0.9 % sodium chloride infusion IntraVENous, at 100 mL/hr, CONTINUOUS, Starting on Sat05/02/22 at 1045, Pre-op (day of surgery) 1030 (New Bag - Prov ider: Court Lew RN) Continuous Medication Order 05/07/2022 05/08/2022 05/09/2022 0.9 % sodium chloride infusion IntraVENous, at 100 mL/hr, CONTINUOUS, Starting on Sat05/09/22 at 1145, Pre-op (day of surgery) 1133 (New Bag - Prov ider: Constantino Ngo MD) Continuous Medication Order 05/28/2022 05/29/2022 05/30/2022 0.9 % sodium chloride infusion IntraVENous, at 100 mL/hr, CONTINUOUS, Starting on Sat05/30/22 at 1130, Pre-op (day of surgery) 1106 (New Bag - Prov ider: Julianne Barber RN)1144 (NoRateChange - Provider: Constantino Ngo MD) Continuous Medication Order 06/04/2022 06/05/2022 06/06/2022 0.9 % sodium chloride infusion IntraVENous, at 100 mL/hr, CONTINUOUS, Starting on Sat06/06/22 at 1100, Pre-op (day of surgery) 1040 (New Bag - Prov ider: Julianne Barber RN) Scheduled Medication Order 12/19/2022 12/20/2022 12/21/2022 0.9 % sodium chloride bolus (COMPLETED) 1,000 mL, IntraVENous, at 1,000 mL/hr, Administer over 1 Hours, ONCE, On Sat12/21/22 at 1130, For 1 dose, Pre-op (day of surgery) 1112 (New Bag - Prov ider: Rae Young RN)1212 (Due: Stopped - Provider: Rae Young RN) sodium chloride flush 0.9 % injection 5-40 mL 5-40 mL, IntraVENous, EVERY 12 HOURS SCHEDULED (2 times per day), First dose on Sat12/21/22 at 1130, Until Discontinued, For Line Patency: Peripheral IV = 5 mL; Midline or Central Line = 10 mL/lumen. If following IV push medication, administer flush at same rate as the IV push. Flush volume is determined by type of infusion therapy being given. For non-viscous solutions use: Peripheral IV = 5 mL Midline or Central Line = 10 mL/lumen For viscous solutions (i.e. blood components, parenteral nutrition, contrast media, or after obtaining blood sample) use: Peripheral IV = 10 mL Midline or Central Line = 20 mL/lumen, PACU only 1130 (Due)2100 (Due) sodium chloride flush 0.9 % injection 5-40 mL 5-40 mL, IntraVENous, EVERY 12 HOURS SCHEDULED (2 times per day), First dose on Sat12/21/22 at 1130, Until Discontinued, For Line Patency: Peripheral IV = 5 mL; Midline or Central Line = 10 mL/lumen. If following IV push medication, administer flush at same rate as the IV push. Flush volume is determined by type of infusion therapy being given. For non-viscous solutions use: Peripheral IV = 5 mL Midline or Central Line = 10 mL/lumen For viscous solutions (i.e. blood components, parenteral nutrition, contrast media, or after obtaining blood sample) use: Peripheral IV = 10 mL Midline or Central Line = 20 mL/lumen, Pre-op (day of surgery) 1130 (Due)2100 (Due) PRN Medication Order 12/19/2022 12/20/2022 12/21/2022 0.9 % sodium chloride infusion IntraVENous, at 5-250 mL/hr, PRN, if patient receiving piggyback infusions and maintenance fluids are not ordered OR KVO fluids to protect IV site / prevent frequent line interruptions/ long duration, Starting on Sat12/21/22 at 1105, For piggyback infusion, administer at same rate as piggyback for a total of 25 mL. Enter 25 mL into dose field and piggyback rate into rate field of order. If piggyback is infusing at a rate less than 100 mL/hr, enter 25 mL into dose field and 100 mL/hr into rate field of order. For KVO fluids, enter rate of 20 mL/hr or less into rate field of order., PACU only 0.9 % sodium chloride infusion IntraVENous, at 5-250 mL/hr, PRN, if patient receiving piggyback infusions and maintenance fluids are not ordered OR KVO fluids to protect IV site / prevent frequent line interruptions/ long duration, Starting on Sat12/21/22 at 1105, For piggyback infusion, administer at same rate as piggyback for a total of 25 mL. Enter 25 mL into dose field and piggyback rate into rate field of order. If piggyback is infusing at a rate less than 100 mL/hr, enter 25 mL into dose field and 100 mL/hr into rate field of order. For KVO fluids, enter rate of 20 mL/hr or less into rate field of order., Pre-op (day of surgery) lidocaine PF 1 % injection 1 mL 1 mL, IntraDERmal, ONCE PRN, 1 dose, Starting on Sat12/21/22 at 1105, Until 12/22/22 at 1105, IV start, Pre-op (day of surgery) ondansetron (ZOFRAN) injection 4 mg(Linked Group 1) 4 mg, IntraVENous, EVERY 6 HOURS PRN, Starting on Sat12/21/22 at 1105, Until Discontinued, Nausea, Vomiting, Administer if oral route cannot be used., Post-op ondansetron (ZOFRAN) injection 4 mg 4 mg, IntraVENous, ONCE PRN, 1 dose, Starting on Sat12/21/22 at 1105, Until 12/22/22 at 1105, Nausea, Initial antiemetic therapy., PACU only ondansetron (ZOFRAN-ODT) disintegrating tablet 4 mg(Linked Group 1) 4 mg, Oral, EVERY 8 HOURS PRN, Starting on Sat12/21/22 at 1105, Until Discontinued, Nausea, Vomiting, Post-op sodium chloride flush 0.9 % injection 5-40 mL 5-40 mL, IntraVENous, PRN, Starting on Sat12/21/22 at 1105, Until Discontinued, Line Care, After every IV line use, For Line Patency: Peripheral IV = 5 mL; Midline or Central Line = 10 mL/lumen. If following IV push medication, administer flush at same rate as the IV push. Flush volume is determined by type of infusion therapy being given. For non-viscous solutions use: Peripheral IV = 5 mL Midline or Central Line = 10 mL/lumen For viscous solutions (i.e. blood components, parenteral nutrition, contrast media, or after obtaining blood sample) use: Peripheral IV = 10 mL Midline or Central Line = 20 mL/lumen, PACU only sodium chloride flush 0.9 % injection 5-40 mL 5-40 mL, IntraVENous, PRN, Starting on Sat12/21/22 at 1105, Until Discontinued, Line Care, After every IV line use, For Line Patency: Peripheral IV = 5 mL; Midline or Central Line = 10 mL/lumen. If following IV push medication, administer flush at same rate as the IV push. Flush volume is determined by type of infusion therapy being given. For non-viscous solutions use: Peripheral IV = 5 mL Midline or Central Line = 10 mL/lumen For viscous solutions (i.e. blood components, parenteral nutrition, contrast media, or after obtaining blood sample) use: Peripheral IV = 10 mL Midline or Central Line = 20 mL/lumen, Pre-op (day of surgery) Linked Groups Order Group 1: ondansetron (ZOFRAN-ODT) disintegrating tablet 4 mgJump to med 4 mg, Oral, EVERY 8 HOURS PRN, Starting on Sat12/21/22 at 1105, Until Discontinued, Nausea, Vomiting, Post-op Or ondansetron (ZOFRAN) injection 4 mgJump to med 4 mg, IntraVENous, EVERY 6 HOURS PRN, Starting on Sat12/21/22 at 1105, Until Discontinued, Nausea, Vomiting
Administer if oral route cannot be used.
Post-op Scheduled Medication Order 01/09/2023 01/10/2023 01/11/2023 sodium chloride flush 0.9 % injection 5-40 mL 5-40 mL, IntraVENous, EVERY 12 HOURS SCHEDULED (2 times per day), First dose on Sat01/11/23 at 1015, Until Discontinued, For Line Patency: Peripheral IV = 5 mL; Midline or Central Line = 10 mL/lumen. If following IV push medication, administer flush at same rate as the IV push. Flush volume is determined by type of infusion therapy being given. For non-viscous solutions use: Peripheral IV = 5 mL Midline or Central Line = 10 mL/lumen For viscous solutions (i.e. blood components, parenteral nutrition, contrast media, or after obtaining blood sample) use: Peripheral IV = 10 mL Midline or Central Line = 20 mL/lumen, PACU only 1015 (Due)2100 (Due) Continuous Medication Order 01/09/2023 01/10/2023 01/11/2023 0.9 % sodium chloride infusion IntraVENous, at 100 mL/hr, CONTINUOUS, Starting on Sat01/11/23 at 1015 0952 (New Bag - Prov ider: Seema Figueroa RN) PRN Medication Order 01/09/2023 01/10/2023 01/11/2023 0.9 % sodium chloride infusion 25 mL, IntraVENous, at 100 mL/hr, PRN, If patient receiving piggyback infusions without ordered maintenance IV fluids or with frequent/long duration piggyback infusions, Starting on Sat01/11/23 at 0955, Administer at the same rate as the piggyback being infused., PACU only diphenhydrAMINE (BENADRYL) injection 12.5 mg 12.5 mg, IntraVENous, ONCE PRN, 1 dose, Starting on Sat01/11/23 at 0955, Until 01/12/23 at 0955, Itching, PACU only fentaNYL (SUBLIMAZE) injection 50 mcg 50 mcg, IntraVENous, EVERY 10 MIN PRN, 4 doses, Starting on Sat01/11/23 at 0955, Until Discontinued, Pain Moderate (4-6), Phase I - Initial therapy for moderate pain., PACU only HYDROmorphone (DILAUDID) injection 0.5 mg 0.5 mg, IntraVENous, EVERY 10 MIN PRN, 4 doses, Starting on Sat01/11/23 at 0955, Until Discontinued, Pain Severe (7-10), Phase I - Initial therapy for severe pain., PACU only meperidine (DEMEROL) injection 12.5 mg 12.5 mg, IntraVENous, ONCE PRN, 1 dose, Starting on Sat01/11/23 at 0955, Until 01/12/23 at 0955, Shivering, Shivering,, PACU only metoclopramide (REGLAN) injection 10 mg 10 mg, IntraVENous, ONCE PRN, 1 dose, Starting on Sat01/11/23 at 0955, Until 01/12/23 at 0955, Nausea, Secondary antiemetic therapy if not given intraoperatively., PACU only ondansetron (ZOFRAN) injection 4 mg(Linked Group 1) 4 mg, IntraVENous, EVERY 6 HOURS PRN, Starting on Sat01/11/23 at 0955, Until Discontinued, Nausea, Vomiting, Administer if oral route cannot be used., Post-op ondansetron (ZOFRAN) injection 4 mg 4 mg, IntraVENous, ONCE PRN, 1 dose, Starting on Sat01/11/23 at 0955, Until 01/12/23 at 0955, Nausea, Initial antiemetic therapy., PACU only ondansetron (ZOFRAN-ODT) disintegrating tablet 4 mg(Linked Group 1) 4 mg, Oral, EVERY 8 HOURS PRN, Starting on Sat01/11/23 at 0955, Until Discontinued, Nausea, Vomiting, Post-op oxyCODONE (ROXICODONE) immediate release tablet 5 mg 5 mg, Oral, ONCE PRN, 1 dose, Starting on Sat01/11/23 at 0955, Until 01/12/23 at 0955, Pain Moderate (4-6), Pain Severe (7-10), PHASE II, PACU only sodium chloride flush 0.9 % injection 5-40 mL 5-40 mL, IntraVENous, PRN, Starting on Sat01/11/23 at 0955, Until Discontinued, Line Care, After every IV line use, For Line Patency: Peripheral IV = 5 mL; Midline or Central Line = 10 mL/lumen. If following IV push medication, administer flush at same rate as the IV push. Flush volume is determined by type of infusion therapy being given. For non-viscous solutions use: Peripheral IV = 5 mL Midline or Central Line = 10 mL/lumen For viscous solutions (i.e. blood components, parenteral nutrition, contrast media, or after obtaining blood sample) use: Peripheral IV = 10 mL Midline or Central Line = 20 mL/lumen, PACU only Linked Groups Order Group 1: ondansetron (ZOFRAN-ODT) disintegrating tablet 4 mgJump to med 4 mg, Oral, EVERY 8 HOURS PRN, Starting on Sat01/11/23 at 0955, Until Discontinued, Nausea, Vomiting, Post-op Or ondansetron (ZOFRAN) injection 4 mgJump to med 4 mg, IntraVENous, EVERY 6 HOURS PRN, Starting on Sat01/11/23 at 0955, Until Discontinued, Nausea, Vomiting
Administer if oral route cannot be used.
Post-op Scheduled Medication Order 01/12/2023 01/13/2023 01/14/2023 sodium chloride flush 0.9 % injection 5-40 mL 5-40 mL, IntraVENous, EVERY 12 HOURS SCHEDULED (2 times per day), First dose on Sat01/14/23 at 2100, Until Discontinued, For Line Patency: Peripheral IV = 5 mL; Midline or Central Line = 10 mL/lumen. If following IV push medication, administer flush at same rate as the IV push. Flush volume is determined by type of infusion therapy being given. For non-viscous solutions use: Peripheral IV = 5 mL Midline or Central Line = 10 mL/lumen For viscous solutions (i.e. blood components, parenteral nutrition, contrast media, or after obtaining blood sample) use: Peripheral IV = 10 mL Midline or Central Line = 20 mL/lumen, PACU only 2100 (Due) Continuous Medication Order 01/12/2023 01/13/2023 01/14/2023 0.9 % sodium chloride infusion IntraVENous, at 100 mL/hr, CONTINUOUS, Starting on Sat01/15/23 at 1100, PLEASE START IVF ON THE DAY OF PROCEDURE, Pre-op (day of surgery) 1126 (New Bag - Prov ider: Julianne Barber RN)1142 (NoRateChange - Provider: Constantino Ngo MD) PRN Medication Order 01/12/2023 01/13/2023 01/14/2023 0.9 % sodium chloride infusion 25 mL, IntraVENous, at 100 mL/hr, PRN, If patient receiving piggyback infusions without ordered maintenance IV fluids or with frequent/long duration piggyback infusions, Starting on Sat01/14/23 at 1236, Administer at the same rate as the piggyback being infused., PACU only acetaminophen (TYLENOL) tablet 650 mg 650 mg, Oral, EVERY 4 HOURS PRN, Starting on Sat01/14/23 at 1149, Until Discontinued, Pain Mild (1-3), Fever, Fever >100.5 F (38 C), Maximum dose of acetaminophen is 4000 mg from all sources in 24 hours. aluminum & magnesium hydroxide-simethicone (MAALOX) 200-200-20 MG/5ML suspension 30 mL 30 mL, Oral, PRN, Starting on Sat01/14/23 at 1149, Until Discontinued, Indigestion benztropine mesylate (COGENTIN) injection 2 mg 2 mg, IntraMUSCular, 2 TIMES DAILY PRN, Starting on Sat01/14/23 at 1149, Until Discontinued, Agitation, Acute Dystonia dextrose 10 % infusion IntraVENous, at 100 mL/hr, CONTINUOUS PRN, if blood glucose remains LESS THAN 70 mg/dL after 2 dextrose 10% intravenous boluses or administration of glucagon, Starting on Sat01/14/23 at 1236, If blood glucose fails to stabilize after 2 dextrose 10% intravenous boluses or glucagon administration, start dextrose 10% infusion at 100 mL/hour and repeat blood glucose at 30 and 60 minutes. If blood glucose is GREATER THAN 70 mg/dL after 60 minutes, discontinue dextrose 10% infusion., PACU only dextrose bolus 10% 125 mL(Linked Group 1) 125 mL, IntraVENous, at 937.5 mL/hr, Administer over 8 Minutes, PRN, Other, Blood glucose 40 - 69 mg/dL and patient NOT ALERT or NPO, Starting on Sat01/14/23 at 1236, Repeat blood glucose in 15 minutes. If blood glucose remains LESS THAN 70 mg/dL, repeat treatment and recheck blood glucose in 15 minutes x 2. If using glycemic management system, dose as instructed per system. If blood glucose remains LESS THAN 70 mg/dL after 2 intravenous boluses start dextrose 10% at 100 mL/hour and notify provider., PACU only dextrose bolus 10% 250 mL(Linked Group 1) 250 mL, IntraVENous, at 937.5 mL/hr, Administer over 16 Minutes, PRN, Other, Blood glucose LESS THAN 40 mg/dL and patient NOT ALERT or NPO, Starting on Sat01/14/23 at 1236, Repeat blood glucose in 15 minutes. If blood glucose remains LESS THAN 70 mg/dL, repeat treatment and recheck blood glucose in 15 minutes x 2. If using glycemic management system, dose as instructed per system. If blood glucose remains LESS THAN 70 mg/dL after 2 intravenous boluses start dextrose 10% at 100 mL/hour and notify provider., PACU only glucagon injection 1 mg 1 mg, SubCUTAneous, PRN, Starting on Sat01/14/23 at 1236, Until Discontinued, Low blood sugar, Blood glucose LESS THAN 70 mg/dL and patient NOT ALERT or NPO and does not have IV access., After administration, attempt intravenous access and start dextrose 10% at 100 mL/hr. Repeat blood glucose in 15 minutes x 2 and notify provider., PACU only glucose chewable tablet 16 g 16 g (4 tablet), Oral, PRN, Starting on Sat01/14/23 at 1236, Until Discontinued, Low blood sugar, If blood glucose is LESS THAN 70 mg/dL and patient is alert and tolerating oral. Give 4 tablets (16g) Repeat blood glucose in 15 minutes. If blood glucose is LESS THAN 70 mg/dL, repeat treatment and recheck blood glucose in 15 minutes x 2. If blood glucose remains LESS THAN 70 mg/dL, notify provider., PACU only haloperidol (HALDOL) tablet 5 mg(Linked Group 2) 5 mg, Oral, EVERY 4 HOURS PRN, Starting on Sat01/14/23 at 1149, Until Discontinued, Agitation, Contact provider if symptoms not relieved by current dose. haloperidol lactate (HALDOL) injection 5 mg(Linked Group 2) 5 mg, IntraMUSCular, EVERY 4 HOURS PRN, Starting on Sat01/14/23 at 1149, Until Discontinued, Agitation, Give if oral route unavailable. Contact provider if symptoms not relieved by current dose. hydrALAZINE (APRESOLINE) injection 10 mg(Linked Group 3) 10 mg, IntraVENous, EVERY 15 MIN PRN, 2 doses, Starting on Sat01/14/23 at 1236, Until Discontinued, High Blood Pressure, for SBP greater than 180 mmHg for 2 consecutive measurements taken from different sites, If heart rate is greater than 60 bpm, hold hydralazine and use labetalol if ordered, otherwise contact provider. Inform provider if SBP is still greater than 180 mmHg 10 minutes after second antihypertensive dose is administered., PACU only hydrOXYzine HCl (ATARAX) tablet 50 mg 50 mg, Oral, 3 TIMES DAILY PRN, Starting on Sat01/14/23 at 1149, Until Discontinued, Anxiety, Contact provider if symptoms not relieved by current dose. ipratropium-albuterol (DUONEB) nebulizer solution 1 ampule 1 ampule, Inhalation, ONCE PRN, 1 dose, Starting on Sat01/14/23 at 1236, Until Sat01/15/23 at 1236, Shortness of Breath, Initiate RT Bronchodilator Protocol: No, PACU only labetalol (NORMODYNE;TRANDATE) injection 10 mg(Linked Group 3) 10 mg, IntraVENous, EVERY 15 MIN PRN, 2 doses, Starting on Sat01/14/23 at 1236, Until Discontinued, High Blood Pressure, for SBP greater than 180 mmHg for 2 consecutive measurements taken from different sites., If heart rate is 60 bpm or less hold labetalol and use hydralazine if ordered, otherwise contact provider. Inform provider if SBP is still greater than 180 mmHg, 10 minutes after second antihypertensive dose is administered., PACU only magnesium hydroxide (MILK OF MAGNESIA) 400 MG/5ML suspension 30 mL 30 mL, Oral, DAILY PRN, Starting on Sat01/14/23 at 1149, Until Discontinued, Constipation, First line therapy for constipation. metoclopramide (REGLAN) injection 10 mg 10 mg, IntraVENous, ONCE PRN, 1 dose, Starting on Sat01/14/23 at 1236, Until Sat01/15/23 at 1236, Nausea, Secondary antiemetic therapy., PACU only ondansetron (ZOFRAN) injection 4 mg(Linked Group 4) 4 mg, IntraVENous, EVERY 6 HOURS PRN, Starting on Sat01/14/23 at 1236, Until Discontinued, Nausea, Vomiting, Administer if oral route cannot be used., Post-op ondansetron (ZOFRAN) injection 4 mg 4 mg, IntraVENous, ONCE PRN, 1 dose, Starting on Sat01/14/23 at 1236, Until Sat01/15/23 at 1236, Nausea, Initial antiemetic therapy., PACU only ondansetron (ZOFRAN-ODT) disintegrating tablet 4 mg(Linked Group 4) 4 mg, Oral, EVERY 8 HOURS PRN, Starting on Sat01/14/23 at 1236, Until Discontinued, Nausea, Vomiting, Post-op sodium chloride flush 0.9 % injection 5-40 mL 5-40 mL, IntraVENous, PRN, Starting on Sat01/14/23 at 1236, Until Discontinued, Line Care, After every IV line use, For Line Patency: Peripheral IV = 5 mL; Midline or Central Line = 10 mL/lumen. If following IV push medication, administer flush at same rate as the IV push. Flush volume is determined by type of infusion therapy being given. For non-viscous solutions use: Peripheral IV = 5 mL Midline or Central Line = 10 mL/lumen For viscous solutions (i.e. blood components, parenteral nutrition, contrast media, or after obtaining blood sample) use: Peripheral IV = 10 mL Midline or Central Line = 20 mL/lumen, PACU only Linked Groups Order Group 1: dextrose bolus 10% 125 mLJump to med 125 mL, IntraVENous, at 937.5 mL/hr, Administer over 8 Minutes, PRN, Other, Blood glucose 40 - 69 mg/dL and patient NOT ALERT or NPO, Starting on Sat01/14/23 at 1236
Repeat blood glucose in 15 minutes. If blood glucose remains LESS THAN 70 mg/dL, repeat treatment and recheck blood glucose in 15 minutes x 2. If using glycemic management system, dose as instructed per system. If blood glucose remains LESS THAN 70 mg/dL after 2 intravenous boluses start dextrose 10% at 100 mL/hour and notify provider.
PACU only Or dextrose bolus 10% 250 mLJump to med 250 mL, IntraVENous, at 937.5 mL/hr, Administer over 16 Minutes, PRN, Other, Blood glucose LESS THAN 40 mg/dL and patient NOT ALERT or NPO, Starting on Sat01/14/23 at 1236
Repeat blood glucose in 15 minutes. If blood glucose remains LESS THAN 70 mg/dL, repeat treatment and recheck blood glucose in 15 minutes x 2. If using glycemic management system, dose as instructed per system. If blood glucose remains LESS THAN 70 mg/dL after 2 intravenous boluses start dextrose 10% at 100 mL/hour and notify provider.
PACU only Group 2: haloperidol (HALDOL) tablet 5 mgJump to med 5 mg, Oral, EVERY 4 HOURS PRN, Starting on Sat01/14/23 at 1149, Until Discontinued, Agitation
Contact provider if symptoms not relieved by current dose.
Or haloperidol lactate (HALDOL) injection 5 mgJump to med 5 mg, IntraMUSCular, EVERY 4 HOURS PRN, Starting on Sat01/14/23 at 1149, Until Discontinued, Agitation
Give if oral route unavailable. Contact provider if symptoms not relieved by current dose.
Group 3: labetalol (NORMODYNE;TRANDATE) injection 10 mgJump to med 10 mg, IntraVENous, EVERY 15 MIN PRN, 2 doses, Starting on Sat01/14/23 at 1236, Until Discontinued, High Blood Pressure, for SBP greater than 180 mmHg for 2 consecutive measurements taken from different sites.
If heart rate is 60 bpm or less hold labetalol and use hydralazine if ordered, otherwise contact provider. Inform provider if SBP is still greater than 180 mmHg, 10 minutes after second antihypertensive dose is administered.
PACU only Or hydrALAZINE (APRESOLINE) injection 10 mgJump to med 10 mg, IntraVENous, EVERY 15 MIN PRN, 2 doses, Starting on Sat01/14/23 at 1236, Until Discontinued, High Blood Pressure, for SBP greater than 180 mmHg for 2 consecutive measurements taken from different sites
If heart rate is greater than 60 bpm, hold hydralazine and use labetalol if ordered, otherwise contact provider. Inform provider if SBP is still greater than 180 mmHg 10 minutes after second antihypertensive dose is administered.
PACU only Group 4: ondansetron (ZOFRAN-ODT) disintegrating tablet 4 mgJump to med 4 mg, Oral, EVERY 8 HOURS PRN, Starting on Sat01/14/23 at 1236, Until Discontinued, Nausea, Vomiting, Post-op Or ondansetron (ZOFRAN) injection 4 mgJump to med 4 mg, IntraVENous, EVERY 6 HOURS PRN, Starting on Sat01/14/23 at 1236, Until Discontinued, Nausea, Vomiting
Administer if oral route cannot be used.
Post-op Continuous Medication Order 01/19/2023 01/20/2023 01/21/2023 0.9 % sodium chloride infusion IntraVENous, at 100 mL/hr, CONTINUOUS, Starting on Sat01/22/23 at 1100, PLEASE START IVF ON THE DAY OF PROCEDURE, Pre-op (day of surgery) PRN Medication Order 01/19/2023 01/20/2023 01/21/2023 ondansetron (ZOFRAN) injection 4 mg(Linked Group 1) 4 mg, IntraVENous, EVERY 6 HOURS PRN, Starting on Sat01/21/23 at 1200, Until Discontinued, Nausea, Vomiting, Administer if oral route cannot be used., Post-op ondansetron (ZOFRAN-ODT) disintegrating tablet 4 mg(Linked Group 1) 4 mg, Oral, EVERY 8 HOURS PRN, Starting on Sat01/21/23 at 1200, Until Discontinued, Nausea, Vomiting, Post-op Linked Groups Order Group 1: ondansetron (ZOFRAN-ODT) disintegrating tablet 4 mgJump to med 4 mg, Oral, EVERY 8 HOURS PRN, Starting on Sat01/21/23 at 1200, Until Discontinued, Nausea, Vomiting, Post-op Or ondansetron (ZOFRAN) injection 4 mgJump to med 4 mg, IntraVENous, EVERY 6 HOURS PRN, Starting on Sat01/21/23 at 1200, Until Discontinued, Nausea, Vomiting
Administer if oral route cannot be used.
Post-op Scheduled Medication Order 01/23/2023 01/24/2023 01/25/2023 sodium chloride flush 0.9 % injection 5-40 mL 5-40 mL, IntraVENous, EVERY 12 HOURS SCHEDULED (2 times per day), First dose on Sat01/25/23 at 1145, Until Discontinued, For Line Patency: Peripheral IV = 5 mL; Midline or Central Line = 10 mL/lumen. If following IV push medication, administer flush at same rate as the IV push. Flush volume is determined by type of infusion therapy being given. For non-viscous solutions use: Peripheral IV = 5 mL Midline or Central Line = 10 mL/lumen For viscous solutions (i.e. blood components, parenteral nutrition, contrast media, or after obtaining blood sample) use: Peripheral IV = 10 mL Midline or Central Line = 20 mL/lumen, Pre-op (day of surgery) 1145 (Due)2100 (Due) Continuous Medication Order 01/23/2023 01/24/2023 01/25/2023 0.9 % sodium chloride infusion IntraVENous, at 100 mL/hr, CONTINUOUS, Starting on Sat01/26/23 at 1100, PLEASE START IVF ON THE DAY OF PROCEDURE, Pre-op (day of surgery) 1121 (New Bag - Prov ider: Salina Chapa RN) PRN Medication Order 01/23/2023 01/24/2023 01/25/2023 0.9 % sodium chloride infusion IntraVENous, at 5-250 mL/hr, PRN, if patient receiving piggyback infusions and maintenance fluids are not ordered OR KVO fluids to protect IV site / prevent frequent line interruptions/ long duration, Starting on Sat01/25/23 at 1120, For piggyback infusion, administer at same rate as piggyback for a total of 25 mL. Enter 25 mL into dose field and piggyback rate into rate field of order. If piggyback is infusing at a rate less than 100 mL/hr, enter 25 mL into dose field and 100 mL/hr into rate field of order. For KVO fluids, enter rate of 20 mL/hr or less into rate field of order., Pre-op (day of surgery) lidocaine PF 1 % injection 1 mL 1 mL, IntraDERmal, ONCE PRN, 1 dose, Starting on Sat01/25/23 at 1120, Until 01/26/23 at 1120, IV start, Pre-op (day of surgery) sodium chloride flush 0.9 % injection 5-40 mL 5-40 mL, IntraVENous, PRN, Starting on Sat01/25/23 at 1120, Until Discontinued, Line Care, After every IV line use, For Line Patency: Peripheral IV = 5 mL; Midline or Central Line = 10 mL/lumen. If following IV push medication, administer flush at same rate as the IV push. Flush volume is determined by type of infusion therapy being given. For non-viscous solutions use: Peripheral IV = 5 mL Midline or Central Line = 10 mL/lumen For viscous solutions (i.e. blood components, parenteral nutrition, contrast media, or after obtaining blood sample) use: Peripheral IV = 10 mL Midline or Central Line = 20 mL/lumen, Pre-op (day of surgery) Continuous Medication Order 02/06/2023 02/07/2023 02/08/2023 0.9 % sodium chloride infusion IntraVENous, at 100 mL/hr, CONTINUOUS, Starting on Sat02/08/23 at 1130, Pre-op (day of surgery) 1103 (New Bag - Prov ider: Lillie Beckford RN) Continuous Medication Order 02/25/2023 02/26/2023 02/27/2023 0.9 % sodium chloride infusion IntraVENous, at 100 mL/hr, CONTINUOUS, Starting on Sat02/27/23 at 1130, Pre-op (day of surgery) 1100 (New Bag - Prov ider: Rae Young RN)1110 (Not Given - Provider: Rae Young RN - Reason: Other)1133 (NoRateChange - Provider: Constantino Jacobo MD) Scheduled Medication Order 04/01/2023 04/02/2023 04/03/2023 sodium chloride flush 0.9 % injection 5-40 mL 5-40 mL, IntraVENous, EVERY 12 HOURS SCHEDULED (2 times per day), First dose on Sat04/03/23 at 2100, Until Discontinued, For Line Patency: Peripheral IV = 5 mL; Midline or Central Line = 10 mL/lumen. If following IV push medication, administer flush at same rate as the IV push. Flush volume is determined by type of infusion therapy being given. For non-viscous solutions use: Peripheral IV = 5 mL Midline or Central Line = 10 mL/lumen For viscous solutions (i.e. blood components, parenteral nutrition, contrast media, or after obtaining blood sample) use: Peripheral IV = 10 mL Midline or Central Line = 20 mL/lumen, PACU only 2100 (Due) Continuous Medication Order 04/01/2023 04/02/2023 04/03/2023 0.9 % sodium chloride infusion IntraVENous, at 100 mL/hr, CONTINUOUS, Starting on Angela 04/04/23 at 1100, PLEASE START IVF ON THE DAY OF PROCEDURE, Pre-op (day of surgery) 1215 (New Bag - Prov ider: Haily Puentes RN) PRN Medication Order 04/01/2023 04/02/2023 04/03/2023 0.9 % sodium chloride infusion IntraVENous, at 5-250 mL/hr, PRN, if patient receiving piggyback infusions and maintenance fluids are not ordered OR KVO fluids to protect IV site / prevent frequent line interruptions/ long duration, Starting on Sat04/03/23 at 1214, For piggyback infusion, administer at same rate as piggyback for a total of 25 mL. Enter 25 mL into dose field and piggyback rate into rate field of order. If piggyback is infusing at a rate less than 100 mL/hr, enter 25 mL into dose field and 100 mL/hr into rate field of order. For KVO fluids, enter rate of 20 mL/hr or less into rate field of order., PACU only ondansetron (ZOFRAN) injection 4 mg(Linked Group 1) 4 mg, IntraVENous, EVERY 6 HOURS PRN, Starting on Sat04/03/23 at 1214, Until Discontinued, Nausea, Vomiting, Administer if oral route cannot be used., Post-op ondansetron (ZOFRAN-ODT) disintegrating tablet 4 mg(Linked Group 1) 4 mg, Oral, EVERY 8 HOURS PRN, Starting on Sat04/03/23 at 1214, Until Discontinued, Nausea, Vomiting, Post-op sodium chloride flush 0.9 % injection 5-40 mL 5-40 mL, IntraVENous, PRN, Starting on Sat04/03/23 at 1214, Until Discontinued, Line Care, After every IV line use, For Line Patency: Peripheral IV = 5 mL; Midline or Central Line = 10 mL/lumen. If following IV push medication, administer flush at same rate as the IV push. Flush volume is determined by type of infusion therapy being given. For non-viscous solutions use: Peripheral IV = 5 mL Midline or Central Line = 10 mL/lumen For viscous solutions (i.e. blood components, parenteral nutrition, contrast media, or after obtaining blood sample) use: Peripheral IV = 10 mL Midline or Central Line = 20 mL/lumen, PACU only Linked Groups Order Group 1: ondansetron (ZOFRAN-ODT) disintegrating tablet 4 mgJump to med 4 mg, Oral, EVERY 8 HOURS PRN, Starting on Sat04/03/23 at 1214, Until Discontinued, Nausea, Vomiting, Post-op Or ondansetron (ZOFRAN) injection 4 mgJump to med 4 mg, IntraVENous, EVERY 6 HOURS PRN, Starting on Sat04/03/23 at 1214, Until Discontinued, Nausea, Vomiting
Administer if oral route cannot be used.
Post-op Ordered Prescriptions (unrec ognized section and content) Prescription Sig Dispensed Refills Start Date End Da te SUMAtriptan (IMITREX) 50 MG tablet Take 1 tablet by mouth once as needed (headache) 9 tablet 1 07/14/2021 Prescription Sig Dispensed Refills Start Date End Da te venlafaxine (EFFEXOR XR) 37.5 MG extended release capsule Take 1 capsule by mouth daily 30 capsule 3 09/14/2021 Prescription Sig Dispensed Refills Start Date End Da te SUMAtriptan (IMITREX) 50 MG tablet Take 1 tablet by mouth once as needed (headache) 9 tablet 1 10/11/2021 Prescription Sig Dispensed Refills Start Date End Da te traZODone (DESYREL) 50 MG tablet Take 1 tablet by mouth nightly as needed for Sleep 30 tablet 1 10/25/2021 Prescription Sig Dispensed Refills Start Date End Da te traZODone (DESYREL) 50 MG tablet Take 2 tablets by mouth nightly 30 tablet 1 05/30/2022 Care Teams (unrecognized sec tion and content) Radio Division Lieutenant Relationship Specialty Start Date End Date Damian James [address] [place] [address] PCP - General Family Medicine 06/16/21 Radio Division Lieutenant Relationship Specialty Start Date End Date Damian James [address] [place] [address] PCP - General Family Medicine 06/16/21 Radio Division Lieutenant Relationship Specialty Start Date End Date Damian James [address] [facility] [address] [place] [address] PCP - General Family Medicine 06/16/21 Radio Division Lieutenant Relationship Specialty Start Date End Date Damian James [address] [facility] [address] [place] [address] PCP - General Family Medicine 06/16/21 Radio Division Lieutenant Relationship Specialty Start Date End Date Damian James [address] [facility] [address] [place] [address] PCP - General Family Medicine 06/16/21 Radio Division Lieutenant Relationship Specialty Start Date End Date Damian James [address] [facility] [address] [place] [address] PCP - General Family Medicine 06/16/21 Radio Division Lieutenant Relationship Specialty Start Date End Date Damian James [address] [facility] [address] [place] [address] PCP - General Family Medicine 06/16/21 Radio Division Lieutenant Relationship Specialty Start Date End Date Damian James [address] [facility] [address] [place] [address] PCP - General Family Medicine 06/16/21 Radio Division Lieutenant Relationship Specialty Start Date End Date Damian James [address] [place] [address] PCP - General Family Medicine 06/16/21 Radio Division Lieutenant Relationship Specialty Start Date End Date Damian James [address] [place] [address] PCP - General Family Medicine 06/16/21 Radio Division Lieutenant Relationship Specialty Start Date End Date Damian James [address] [place] [address] PCP - General Family Medicine 06/16/21 Radio Division Lieutenant Relationship Specialty Start Date End Date Damian James [address] [place] [address] PCP - General Family Medicine 06/16/21 Radio Division Lieutenant Relationship Specialty Start Date End Date Damian James [address] [place] [address] PCP - General Family Medicine 06/16/21 Radio Division Lieutenant Relationship Specialty Start Date End Date Damian James [address] [place] [address] PCP - General Family Medicine 06/16/21 Radio Division Lieutenant Relationship Specialty Start Date End Date Damian James [address] [place] [address] PCP - General Family Medicine 06/16/21 Radio Division Lieutenant Relationship Specialty Start Date End Date Damian James [address] [place] [address] PCP - General Family Medicine 06/16/21 Radio Division Lieutenant Relationship Specialty Start Date End Date Damian James [address] [place], [place] [id number] PCP - General Family Medicine 06/16/21 Radio Division Lieutenant Relationship Specialty Start Date End Date Damian James [address] [place], [place] [address] PCP - General Family Medicine 06/16/21 Radio Division Lieutenant Relationship Specialty Start Date End Date Damian James [address] [facility] [address] [place], [place] [id number] PCP - General Family Medicine 06/16/21 Goals (unrecognized section and content) Goals may be documented in a n alternate sectionGoals may be documented in an alternate sectionGoals may be documented in an alternate sectionGoals may be documented in an alternate sectionGoals may be documented in an alternate section No data available for this section FOR RECORDS PERTAINING TO PATIENTS WHO ARE OR HAVE BEEN ENROLLED IN A CHEMICAL DEPENDENCY/SUBSTANCEABUSE PROGRAM, SOME INFORMATION MAY BE OMITTED. This clinical summary was aggregated from multiple sources. Caution should be exercised in using it in the provision of clinical care. This summary normalizes information from multiple sources, and as a consequence, information in this document may materially change the coding, format and clinical context of patient data. In addition, data may be omitted in some cases. CLINICAL DECISIONS SHOULD BE BASED ON THE PRIMARY CLINICAL RECORDS. [facility] [employer] [facility]. provides no warranty or guarantee of the accuracy or completeness of information in this document.
== END | disposition home or self-care (01) ==
PROVIDERS: PCP Family Medicine; Referring Provider Anesthesiology Pain Medicine; Visit Provider Anesthesiology Pain Medicine
DX: F11.20 Opioid dependence, uncomplicated (principal)
CPT/HCPCS: 80307

== ENCOUNTER → 2025-07-21 | Outpatient (CLI) | payer MEDICARE, MEDICAID, SELFPAY ==
[2025-07-21 12:30] LABS: Hematocrit 45.2 % (37-47); Hemoglobin 15.1 g/dL (12.0-15.0); Immature Granulocytes Count 0.030 X10^3/uL (0.0-0.0); Mean Corp Hgb Conc 33.4 g/dL (32-36); Mean Corpuscular Volume 94.6 fL (81-99); Mean Platelet Vol. 10.1 fl (6.2-12.0); NRBC Flagged by Analyzer 0 % (0-5); Platelet Count 355 K/mm3 (150-450); RBC Distribution Width CV 13.5 % (11.6-14.6); RBC Distribution Width SD 47.4 fl (35.1-43.9); Red Blood Count 4.78 M/mm3 (4.2-5.4); White Blood Count 8.6 K/mm3 (4.4-11.0)
[2025-07-21 12:52] LABS: AST(SGOT) 26 U/L (<=31); Alanine Aminotransfer ALT/SGPT 17 U/L (<=34); Albumin, Serum 4.2 g/dL (3.5-5.0); Alkaline Phosphatase 112 U/L (35-104); Anion Gap 12 (5-15); BUN 7 mg/dL (4-19); BUN/Creat Ratio 8.9 RATIO (10-20); Calcium,Total 10.0 mg/dL (7.6-11.0); Carbon Dioxide 25.0 mmol/L (21.0-32.0); Chloride 100 mmol/L (98-108); Globulin 3.4 g/dL (2.2-4.2); Glucose 105 mg/dL (70-99); Potassium 4.9 mmol/L (3.3-5.1)
[2025-07-21 12:59] LABS: Cholesterol 318 mg/dL (<=200); Low Density Lipoprotein Calc. 213 mg/dL; Triglycerides 321 mg/dL; Very Low Density Lipoprotein 64 mg/dL (5-40); cholesterol:hdl ratio screen 8.07
== END | disposition home or self-care (01) ==
LOC: MTLAB 09:55
PROVIDERS: PCP Family Medicine; Referring Provider Family Medicine; Visit Provider Student in an Organized Health Care Education/Training Program
DX: R73.03 Prediabetes (principal); F25.1 Schizoaffective disorder, depressive type; F33.1 Major depressive disorder, recurrent, moderate
CPT/HCPCS: 36415; 80053; 80061; 83036; 84439; 84443; 85025

== ENCOUNTER → 2025-07-28 | Outpatient (CLI) | payer MEDICARE, MEDICAID, SELFPAY ==
--- NOTE | 2025-07-28 07:29 | RAD_ITS ---
PROCEDURE: RAD/Esophagus Dual Contrast
== END | disposition home or self-care (01) ==
LOC: RAD 07:29
PROVIDERS: PCP Family Medicine; Referring Provider Family Medicine; Visit Provider Family Medicine
DX: R13.10 Dysphagia, unspecified (principal)
CPT/HCPCS: 74221